=== PATIENT | female | born 1965 | race Caucasian/White ===

== ENCOUNTER 2017-01-08 14:15 | Inpatient (IN) | payer BC ==
[~2017-01-08] VITALS: Ht 162.6 cm; Wt 129.3 kg
[~2017-01-08 14:15] MED LIST: ALPH600C2 PO; B-COTAB18 PO; CLOB-77 TOP; COLL250O; DALB1SOL; FLUO0.05 TD; FRS/40 PO; IMMURAN PO; INSDGI SC; LISI40TA PO; MELO7.5T5 PO; METF-384 PO; METO1TAB69 PO; NRN600 PO; NVLGI SC; ONDA8TAB7 PO; SIMV20TA2 PO; SITA100T3 PO; SULF800T23 PO; [UNRECOGNIZED DRUG - CODE] PO
[2017-01-08] MEDS ORDERED: SODIUM CHLORIDE 0.9% 1000ML 1,000 ML IV SCH (15:15)
[2017-01-08] MEDS ORDERED: CEFD1CAP14 PO (15:42)
[2017-01-08] MEDS ORDERED: NVLG SC (15:42)
[2017-01-08] MEDS ORDERED: LDXCR30 TOP (15:42)
[2017-01-08] MEDS ORDERED: ONDA8TAB6 PO (15:42)
[2017-01-08] MEDS ORDERED: AZAT50TA30 PO (15:42)
[2017-01-08] MEDS ORDERED: INSDGI SC (15:42)
[2017-01-08] MEDS ORDERED: FOLI1TAB7 PO (15:45)
[2017-01-08] MEDS ORDERED: METH10TA32 PO (15:45)
[2017-01-08] MEDS ORDERED: [UNRECOGNIZED DRUG - CODE] TOP (15:45)
[2017-01-08 16:19] LABS: BASO % 0.1 %; BASO ABS # 0.01 K/uL (0-0.2); COMPLETE YES; EOS % 0.6 %; HEMATOCRIT 33.4 % (37-47); IG% 0.2 %; LYMPH % 13.2 %; LYMPH ABS # 1.31 K/uL (1.2-3.4); MEAN CELL VOLUME 88.4 fL (80-100); MEAN CORPUSCULAR HGB CONC 31.7 g/dl (32-36); MEAN PLATELET VOLUME 8.9 fL (7.4-10.4); MONO % 12.5 %; NEUT % 73.4 %; PLATELET COUNT 385 K/uL (130-400); RED BLOOD COUNT 3.78 M/uL (4.2-5.4); WHITE BLOOD COUNT 9.91 K/uL (4.8-10.8)
[2017-01-08 16:32] LABS: BUN/CREATININE RATIO 19.5 (10-20); CALCIUM 9.5 mg/dl (8.5-10.1); CREATININE 0.97 mg/dl (0.60-1.20); POTASSIUM 3.8 mmol/L (3.5-5.1)
--- NOTE | 2017-01-08 18:27 | History and Physical ---
History & Physical Date & Time of Service: Jan 08, 2017 at 18:27 . Chief Complaint: pain, swelling, worsening erythema legs . Primary Care Physician: Sandy Rodney D.O. . History of Present Illness Source: patient, clinic records, hospital records 51 YO female followed by Dr. Rodney for Family Medicine, Dr. Ac for Rheumatology, Dr. Uriarte for Wound Care, and Dr. Fischer for ID. 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 Underlying pathophysiology of vasculitis not determined; extensive rheumatologic evaluation did not reveal a specific diagnosis. Chronic ulcers of both lower extremities since then as well as more recent ulceration of lower abdomen. Treated with intermittent methotrexate (just restarted yesterday, azathioprine since February 2016, and just prescribed dapsone which she has not yet started. Has been on several courses of oral and IV antibiotics. Patient presented to ED today because of worsening erythema and swelling of her lower extremities, right greater than left. Drainage from ulcers posterior calf unchanged from baseline. No fever, chills, sweats. . Past Medical/Surgical History Chronic and Resolved Medical Problems: (1) Bicuspid aortic valve Status: Chronic (2) Chronic lower extremity wounds Status: Chronic (3) Cutaneous vasculitis Status: Chronic (4) Depression Status: Chronic (5) Diabetes mellitus type 2 in obese Status: Chronic (6) Epiretinal membrane, left eye Status: Chronic (7) HTN (hypertension) Status: Chronic (8) Psoriasis Status: Chronic Surgical Problems: (1) H/O eye surgery Permanent Comment: trabeculoplasty; Dr. Schwartz; [facility] 2012 Status: Chronic . Family History FATHER Lung cancer Heart disease MOTHER Hypertension BROTHER Heart disease Asthma Diabetes mellitus BROTHER Jerome's disease SISTER Diabetes mellitus Social History Smoking Status: Never Smoker Alcohol Use: none Drug Use: none Marital Status: Housing status: lives alone Occupational Status: employed Allergies Coded Allergies: No Known Allergies (Unverified , 12/24/16) Home Medications Scheduled Alpha-Lipoic Acid (Thioctic Ac (Alpha Lipoic Acid), 1 TAB PO BID Azathioprine (Azathioprine), 100 MG PO BID B-Complex Vitamins (Vitamin B Complex), 1 TAB PO DAILY Ciprofloxacin Hcl (Cipro), 500 MG PO BID Clobetasol Propionate (Temovate), 1 APPLN TOP QD Folic Acid (Folvite), 1 MG PO DAILY Furosemide (Lasix), 40 MG PO QD Gabapentin (Gabapentin), 600 MG PO TID Insulin Aspart (Novolog Flexpen), 0 SQ ACHS Insulin Glargine (Lantus), 75 UNITS SC BID Lisinopril (Zestril), 40 MG PO BID Meloxicam (Mobic), 7.5 MG PO DAILY Metformin Hcl (Glucophage), 1,000 MG PO BID Methotrexate (Trexall), 10 MG PO WK Metoprolol Succ (Toprol Xl) (Toprol-Xl ), 100 MG PO DAILY Simvastatin (Zocor), 20 MG PO HS Sitagliptin Phosphate (Januvia), 100 MG PO DAILY Review of Systems Constitutional: + weight loss (few pounds since starting furosemide), No chills , No fever Eyes: No diplopia, No worsening of vision ENT: No hearing loss, No nasal symptoms, No sore throat Respiratory: No cough, No shortness of breath Cardiovascular: + edema (chronic bilateral), No chest pain Abdomen: + diarrhea (chronic loose stools), No GI bleeding, No nausea, No pain , No vomiting Musculoskeletal: No joint pain, No muscle pain Genitourinary - Female: No dysuria, No hematuria Neurologic: + problem reported (occasional headaches; diabetic neuropathy) Endocrine: + excessive urination (attributed to diuretics), No excessive thirst , No fatigue Hematologic / Lymphatic: No abnormal bleeding/bruising, No swollen lymph nodes Integumentary: + problem reported (as noted in HPI) Physical Exam Vital Signs Date Time Temp Pulse Resp B/P Pulse Ox O2 Delivery O2 Flow Rate FiO2 01/08/17 16:23 79 18 153/65 94 Room Air 01/08/17 14:18 37.2 88 20 194/76 96 Room Air General Appearance: WD/WN, no apparent distress Head: normocephalic, atraumatic Eyes: normal inspection, PERRL, EOMI, sclerae normal ENT: normal ENT inspection, hearing grossly normal, pharynx normal Neck: supple, no adenopathy, thyroid normal, no JVD, trachea midline Respiratory/Chest: lungs clear, no respiratory distress, no accessory muscle use Cardiovascular: regular rate, rhythm, no gallop, no JVD, + systolic murmur (III / systolic murmur at base), + pertinent finding (3+ pretibial / pedal edema bilaterally) Abdomen/GI: normal bowel sounds, non tender, soft, + pertinent finding (obese; exam limited) Extremities/Musculoskelatal: + pertinent finding (3+ pretibial and pedal edema ; unable to palpate pedal pulses) Neurologic/Psych: vocal performer II-XII nml as tested (PERRL, EOMI, no facial palsy), alert, normal mood/affect, oriented x 3 Skin: + pertinent finding (multiple cutaneous ulcers both lower extremities below knees with associated erythema; ulcer lower abdomen with surrounding erythema) Lymphatic: no adenopathy (no cervical adenopathy) Diagnostics Laboratory Results Results Past 24 Hours Test 01/08/17 16:02 01/08/17 16:04 01/08/17 17:17 01/08/17 17:51 Range/Units White Blood Count 9.91 4.8-10.8 K/uL Red Blood Count 3.78 4.2-5.4 M/uL Hemoglobin 10.6 12.0-16.0 g/dL Hematocrit 33.4 37-47 % Mean Corpuscular Volume 88.4 80-100 fL Mean Corpuscular Hemoglobin 28.0 25-34 pg Mean Corpuscular Hemoglobin Concent 31.7 32-36 g/dl Platelet Count 385 130-400 K/uL Mean Platelet Volume 8.9 7.4-10.4 fL Neutrophils (%) (Auto) 73.4 % Lymphocytes (%) (Auto) 13.2 % Monocytes (%) (Auto) 12.5 % Eosinophils (%) (Auto) 0.6 % Basophils (%) (Auto) 0.1 % Neutrophils # (Auto) 7.27 1.4-6.5 K/uL Lymphocytes # (Auto) 1.31 1.2-3.4 K/uL Monocytes # (Auto) 1.24 0.11-0.59 K/uL Eosinophils # (Auto) 0.06 0-0.5 K/uL Basophils # (Auto) 0.01 0-0.2 K/uL RDW Standard Deviation 57.0 36.4-46.3 fL RDW Coefficient of Variation 17.5 11.5-14.5 % Immature Granulocyte % (Auto) 0.2 % Immature Granulocyte # (Auto) 0.02 0.00-0.02 K/uL Sodium Level 141 136-145 mmol/L Potassium Level 3.8 3.5-5.1 mmol/L Chloride Level 102 98-107 mmol/L Carbon Dioxide Level 27 21-32 mmol/L Anion Gap 12.0 3-11 mmol/L Blood Urea Nitrogen 19 7-18 mg/dl Creatinine 0.97 0.60-1.20 mg/dl Est Creatinine Clear Calc Drug Dose 92.7 ml/min Estimated GFR () 78.9 Estimated GFR (Non- 68.1 BUN/Creatinine Ratio 19.5 10-20 Random Glucose 61 70-99 mg/dl Calcium Level 9.5 8.5-10.1 mg/dl Chemistry Specimen Hemolysis Bedside Lactic Acid Venous 2.39 0.90-1.70 mmol/L Bedside Glucose 65 101 70-90 mg/dl Microbiology Results 01/08/17 Blood Culture, Received Pending 01/08/17 Blood Culture, Received Pending Impression Assessment and Plan CELLULITIS LOWER EXTREMITIES 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 Now with worsening discomfort, swelling, erythema. Afebrile. WBC normal. Does not meet criteria for sepsis. Blood cultures obtained in ED. Check wound cultures. Check ESR, C-reactive protein, procalcitonin. Rx with IV daptomycin and cefepime pending culture results. Consult ID, Wound Care, Wound Care Nursing. CUTANEOUS VASCULITIC ULCERS Prudent to hold immunosuppressive meds due to active cellulitis. DM TYPE II Usually fairly well-controlled. Check Hgb A1C. Hold oral agents during hospital stay. Continue Lantus + NovoLog. HYPERTENSION Continue metoprolol and lisinopril. VTE PROPHYLAXIS Moderate-high risk. SQ enoxaparin. Ambulate. DISPOSITION Admit to Med-Surg Unit. Expected discharge to home. Family Medicine follow-up with Dr. Rodney. Rheumatology follow-up with Dr. Ac. ID follow-up with Dr. Fischer. Wound Care follow-up with Dr. Uriarte. . VTE Prophylaxis Risk Level: Moderate Given or contraindicated: Enoxaparin (Lovenox)SQ
[2017-01-08] MEDS ORDERED: ONDANSETRON INJ 2 MG/ML 2 ML VIAL IV PRN (18:30)
[2017-01-08] MEDS ORDERED: CIPR-255 PO (20:53)
[2017-01-08] MEDS ORDERED: INSULIN GLARGINE SC ONE (20:54)
[2017-01-08] MEDS ORDERED: GABAPENTIN 600 MG TAB PO ONE (20:54)
[2017-01-08] MEDS ORDERED: LISINOPRIL 40 MG TAB PO ONE (20:54)
[2017-01-08] MEDS ORDERED: NVLG INJ (21:02)
[2017-01-08] MEDS ORDERED: NVLG SQ (21:05)
[2017-01-08] MEDS ORDERED: NVLGI/PEN SQ (21:10)
[2017-01-08] MEDS ORDERED: DEXTROSE 50% 50 ML SYR IV PRN (21:15)
[2017-01-08] MEDS ORDERED: GLUCOSE 40% GEL 15 GM TUBE PO PRN (21:15)
[2017-01-08] MEDS ORDERED: GLUCOSE 10 TABS/TUBE PO PRN (21:15)
[2017-01-08] MEDS ORDERED: GLUCAGON FOR INJ 1 MG VIAL SQ PRN (21:15)
[2017-01-08 21:17] VITALS: BP 179/90; PULSE 83; TEMP 36.6; O2SAT 95; BMI 49.0
[2017-01-08 21:25] LABS: INR 1.1 (0.9-1.1); PARTIAL THROMBOPLASTIN RATIO 1.3; PROTHROMBIN TIME (PATIENT) 11.3 SECONDS (9.0-12.0)
[2017-01-08] MEDS: DAPTOmycin IV 500 MG in SODIUM CHLORIDE 0.9% 50ML 50 ML IV SCH (21:58)
[2017-01-08] MEDS: IBUPROFEN 200 MG TAB PO PRN (23:04)
[2017-01-08] MEDS ORDERED: ENALAPRILAT IV 1.25 MG in DEXTROSE 5% 25ML 25 ML IV PRN (23:30)
[2017-01-08 23:31] VITALS: BP 111/75; PULSE 87; TEMP 36.4; O2SAT 93
[2017-01-08] MEDS ORDERED: ENALAPRILAT IV 1.25 MG in DEXTROSE 5% 25ML 25 ML IV STA (23:41)
[2017-01-08 23:55] VITALS: BP 173/78
[2017-01-09] MEDS: CEFEPIME IV 2,000 MG in DEXTROSE 5% 100ML 100 ML IV SCH ×3 (00:19→20:28)
--- NOTE | 2017-01-09 00:27 | EMERGENCY ROOM VISIT NOTE ---
ED Visit Note First contact with patient: 15:02 Chief Complaint: Wound infection. History of Present Illness: Ms. Major is a 51-year-old white female who ambulates into the ED complaining of a possible worsening infection. Historically patient reports she has a history of diabetes and bilateral lower leg and abdominal wall venous stasis ulcers that have been treated at the local clinic for 3 years. Her last visit was 3 days ago and it was felt that her bilateral lower extremity ulcers were slightly deteriorating as well as her abdominal wall ulceration. Lastly she does note that her infectious disease physician, Dr. Fischer, outlined erythema and told her to come to the hospital if the erythema extended out of the outline. Patient reports today she noted that the erythema on both legs were slightly worsening and advanced outside the outline of demarcation. She also noted that she had a mild increase in pain; she reports her pain is normally 1/10 and today it is intermittently 3/10. She reports most of her discomfort is relieved at rest. She did take her normal medications for pain as well as ibuprofen today which minimally helped the discomfort. She denies any associated symptoms including fevers, chills, sweats, headaches, dizziness, lightheadedness, other skin eruptions, upper respiratory tract symptoms, cough, shortness of breath, chest discomfort, abdominal pain, decreased appetite, nausea, vomiting, diarrhea, leg weakness. Review of Systems: As noted above in history of present illness. All body systems were reviewed and found to be negative as noted above. Past Medical History: As previously noted and (1) Bicuspid aortic valve (2) Chronic lower extremity wounds (3) Cutaneous vasculitis (4) Depression (5) Diabetes mellitus type 2 in obese (6) Epiretinal membrane, left eye (7) HTN (hypertension) (8) Psoriasis Surgical Problems: (1) H/O eye surgery Current Medications: Medications Dose Route/Sig Max Daily Dose Days Date Category Dose Instructions Novolog Flexpen (Insulin Aspart) 100 Units/Ml Inj 0 SQ ACHS 01/08/17 Reported per sliding scale Cipro (Ciprofloxacin Hcl) 500 Mg Tab 500 Mg PO BID 01/08/17 Reported Folvite (Folic Acid) 1 Mg Tab 1 Mg PO DAILY 01/08/17 Reported Trexall (Methotrexate) 10 Mg Tab 10 Mg PO WK 01/08/17 Reported Lantus (Insulin Glargine) 100 Unit/Ml Inj 75 Units SC BID 01/08/17 Reported Azathioprine 50 Mg Tab 100 Mg PO BID 01/08/17 Reported Temovate (Clobetasol Propionate) 0.05 % Cre 1 Appln TOP QD 90 10/07/16 Reported Lasix (Furosemide) 40 Mg Tab 40 Mg PO QD 10/07/16 Reported PLUS ADDITIONAL ONE TABLET 3 DAYS PER WEEK. Januvia (Sitagliptin Phosphate) 100 Mg Tab 100 Mg PO DAILY 03/15/16 Reported Zocor (Simvastatin) 20 Mg Tab 20 Mg PO HS 03/15/16 Reported Toprol-Xl (Metoprolol Succinate) 100 Mg Tabcr 100 Mg PO DAILY 03/15/16 Reported Zestril (Lisinopril) 40 Mg Tab 40 Mg PO BID 03/15/16 Reported Gabapentin 600 Mg Tab 600 Mg PO TID 01/06/15 Reported Vitamin B Complex (B-Complex Vitamins) 1 Tab Tab 1 Tab PO DAILY 01/06/15 Reported Alpha Lipoic Acid (Alpha-Lipoic Acid (Thioctic Ac) 600 Mg Cap 1 Tab PO BID 12/03/14 Reported Mobic (Meloxicam) 7.5 Mg Tab 7.5 Mg PO DAILY 12/03/14 Reported Glucophage (Metformin Hcl) 1,000 Mg Tab 1,000 Mg PO BID 05/14/13 Reported Allergies to Medications: Patient denies. Social History: Patient is currently employed; she feels safe in her home environment; she denies tobacco and alcohol use. Physical Examination: Vital Signs: Date Time Temp Pulse Resp B/P Pulse Ox O2 Delivery O2 Flow Rate FiO2 01/08/17 16:23 79 18 153/65 94 Room Air 01/08/17 14:18 37.2 88 20 194/76 96 Room Air GENERAL: 51-year-old female in mild distress due to pain, nontoxic-appearing, afebrile and hemodynamically stable. NEUROLOGICAL: Awake, alert and oriented to person, place and time. Answering questions appropriately and following commands. Good hand eye coordination. No focal motor sensory deficits. SKIN: Warm, dry and pink. Lower Legs: Are currently bandaged and there is apparent seepage from her wounds; she did request that I do not remove her bandages because of the pain to remove them and the difficulty to re-bandaged them. I did know there was mild erythema above the line of the more occasion from the wound clear clinic but the skin did not appear cellulitic and it was only slightly warmer than the tissue surrounding the area. HEENT: Atraumatic and normocephalic. PERRLA. Sclera white and conjunctiva pink. No drainage from naris. Oral cavity moist and pink. Pharynx is nonerythematous or edematous. Speech normal. No lymphadenopathy. Trachea midline. No jugular venous distention. BACK: No tenderness over the bony spine. No CVA tenderness. THORAX: Lungs sounds are clear to auscultation and equal bilaterally with symmetrical chest wall. No wheezing, rales or rhonchi. No crepitus, tenderness , subcutaneous air or deformities noted. HEART: Regular rate and rhythm. Systolic murmur heard over the base of the heart. ABDOMEN: Obese, soft and nontender. Positive bowel sounds in all quadrants. No guarding, rigidity or organomegaly. EXTREMITIES: Moves all extremities well on command and with purpose. All distal neurovascular statuses are intact and equal bilaterally. As previously noted bandages was not removed due to patient's request. ED Course: Patient is assessed as noted above. Laboratory Testing: Test 01/08/17 16:02 01/08/17 16:04 01/08/17 17:17 01/08/17 17:51 Range/Units White Blood Count 9.91 4.8-10.8 K/uL Red Blood Count 3.78 4.2-5.4 M/uL Hemoglobin 10.6 12.0-16.0 g/dL Hematocrit 33.4 37-47 % Mean Corpuscular Volume 88.4 80-100 fL Mean Corpuscular Hemoglobin 28.0 25-34 pg Mean Corpuscular Hemoglobin Concent 31.7 32-36 g/dl Platelet Count 385 130-400 K/uL Mean Platelet Volume 8.9 7.4-10.4 fL Neutrophils (%) (Auto) 73.4 % Lymphocytes (%) (Auto) 13.2 % Monocytes (%) (Auto) 12.5 % Eosinophils (%) (Auto) 0.6 % Basophils (%) (Auto) 0.1 % Neutrophils # (Auto) 7.27 1.4-6.5 K/uL Lymphocytes # (Auto) 1.31 1.2-3.4 K/uL Monocytes # (Auto) 1.24 0.11-0.59 K/uL Eosinophils # (Auto) 0.06 0-0.5 K/uL Basophils # (Auto) 0.01 0-0.2 K/uL RDW Standard Deviation 57.0 36.4-46.3 fL RDW Coefficient of Variation 17.5 11.5-14.5 % Immature Granulocyte % (Auto) 0.2 % Immature Granulocyte # (Auto) 0.02 0.00-0.02 K/uL Sodium Level 141 136-145 mmol/L Potassium Level 3.8 3.5-5.1 mmol/L Chloride Level 102 98-107 mmol/L Carbon Dioxide Level 27 21-32 mmol/L Anion Gap 12.0 3-11 mmol/L Blood Urea Nitrogen 19 7-18 mg/dl Creatinine 0.97 0.60-1.20 mg/dl Est Creatinine Clear Calc Drug Dose 92.7 ml/min Estimated GFR () 78.9 Estimated GFR (Non- 68.1 BUN/Creatinine Ratio 19.5 10-20 Random Glucose 61 70-99 mg/dl Calcium Level 9.5 8.5-10.1 mg/dl Chemistry Specimen Hemolysis Bedside Lactic Acid Venous 2.39 0.90-1.70 mmol/L Bedside Glucose 65 101 70-90 mg/dl Blood Culture: Pending Patient was hydrated with normal saline; she was offered pain medication and refused. During her stay in the emergency department patient's blood sugar decreased to 65 and she was given juice and crackers which quickly rebounded her sugar to 101. Patient was reassessed multiple times during her stay in the emergency department. Patient's case was reviewed with Dr. Saini; we agreed on diagnostic approach , treatment, disposition and plan. Patient's case was consulted with case management and Dr. Hagen, [facility] hospitalist, for medical observation/admission. Patient was educated about tonight's findings. Clinical Impression: Worsening bilateral leg infections; failure of outpatient therapy. Disposition and Plan: Patient be brought in the hospital by Dr. Hagen; please see his notes and orders for final disposition and plan.
[2017-01-09] MEDS ORDERED: MoRPHine SULFATE 2 MG/ML CARP IV PRN (00:30)
[2017-01-09 05:30] VITALS: BP 144/76
[2017-01-09 06:04] LABS: HEMATOCRIT 29.6 % (37-47); MEAN CORPUSCULAR HEMOGLOBIN 27.6 pg (25-34); MEAN CORPUSCULAR HGB CONC 32.1 g/dl (32-36); MEAN PLATELET VOLUME 8.4 fL (7.4-10.4); PLATELET COUNT 344 K/uL (130-400); RED BLOOD COUNT 3.44 M/uL (4.2-5.4); WHITE BLOOD COUNT 8.53 K/uL (4.8-10.8)
[2017-01-09 06:53] LABS: BUN/CREATININE RATIO 20.1 (10-20); CALCIUM 8.9 mg/dl (8.5-10.1); CREATININE 0.79 mg/dl (0.60-1.20); POTASSIUM 4.1 mmol/L (3.5-5.1)
[2017-01-09 06:59] VITALS: BP 146/83; PULSE 76; TEMP 36.5; O2SAT 96
[2017-01-09] MEDS: GABAPENTIN 600 MG TAB PO SCH ×3 (07:48→20:37)
[2017-01-09] MEDS: MELOXICAM 7.5 MG TAB PO SCH (07:49)
[2017-01-09] MEDS: METOPROLOL SUCC 50MG EXT REL TAB PO SCH (07:49)
[2017-01-09] MEDS: VITAMIN B COMPLEX TAB PO SCH (07:50)
[2017-01-09] MEDS ORDERED: LISINOPRIL 40 MG TAB PO SCH (08:00)
[2017-01-09] MEDS ORDERED: ALPHA LIPOIC ACID PO SCH (08:00)
[2017-01-09 08:30] VITALS: O2SAT 96
[2017-01-09] MEDS: INSULIN ASPART 100 UNITS/ML 3 ML PEN SQ SCH ×4 (08:38→20:40)
[2017-01-09] MEDS: INSULIN GLARGINE SC SCH ×2 (08:41→20:42)
[2017-01-09] MEDS: IBUPROFEN 200 MG TAB PO PRN ×2 (08:42→20:38)
[2017-01-09] MEDS: ENOXAPARIN 40 MG/0.4 ML SYR SQ SCH (10:28)
--- NOTE | 2017-01-09 12:20 | Progress Note ---
Progress Note ID Consult Dictated #[id number] A/P: 1. LE wounds -Continue emperic abx for now, follow cultures -continue local wound care -will follow, thank you
[2017-01-09] MEDS ORDERED: NURSING VERBAL MED ORDER ONE (12:40)
[2017-01-09 14:48] VITALS: BP 174/76; PULSE 77; TEMP 36.5; O2SAT 95
--- NOTE | 2017-01-09 16:08 | INFECT. DISEASE CONSULTATION ---
DATE OF CONSULTATION: 01/09/2017 REQUESTING PHYSICIAN: Yesenia Yanez MD HISTORY OF PRESENT ILLNESS: This is a 51-year-old female who was admitted on the secondary to worsening lower extremity ulcers. She does have a history of cutaneous vasculitis which was diagnosed in 2012. She continues to have lower extremity wounds. She does follow regularly at the wound care center. She states she was last there on . She had worsening redness and swelling of her bilateral lower extremities at home. She was subsequently admitted to the hospital and started on empiric antibiotics consisting of vancomycin and daptomycin. She is currently on daptomycin and cefepime. Infectious diseases was asked to see this patient for daptomycin use. She was afebrile on admission and remains afebrile. Her white blood cell count is 7.2. Wound cultures and blood cultures were ordered and are pending. She did have an ultrasound done. Blood cultures are pending at this time. She does not have any imaging done of the lower extremity since admission to the hospital. She did have a sed rate which is greater than 90. Her electrolytes and creatinine are within normal limits. She currently is complaining of back pain which is chronic in nature. She does take Advil with relief for this. She also is complaining of hip pain on the right side. This is also chronic in nature. She denies any fevers or chills. She is tolerating antibiotics well. She denies nausea, vomiting, diarrhea or abdominal pain. Her dressings were changed last night in the Emergency Room. She states she prefers to change her dressings on her own. She would like to wait until she can coordinate with the hospitalist service as well as the wound care service for dressing changes. She currently denies any pain in the lower extremities. All remaining review of systems are reviewed and are negative. PAST MEDICAL HISTORY: Significant for bicuspid aortic valve, lower extremity wounds, cutaneous vasculitis, depression, type 2 diabetes, retinal membrane on the left side, hypertension, and psoriasis. PAST SURGICAL HISTORY: Significant for eye surgery. FAMILY HISTORY: Noncontributory. SOCIAL HISTORY: Negative for tobacco use, alcohol use or drug use. She is and lives alone. ALLERGIES: She has no known drug allergies. CURRENT MEDICATIONS: Include Lasix, Zestril, Lovenox, folic acid, gabapentin, Lantus, Mobic, Toprol-XL, vitamin D, insulin, morphine, enalapril, Advil, cefepime, daptomycin, and Zofran. PHYSICAL EXAMINATION: VITAL SIGNS: She is afebrile, pulse 76, respiratory rate 18, blood pressure 146/83, and oxygen saturation is 96% on room air. GENERAL: She is awake, alert and oriented x3. She is in no acute distress. HEENT: Mucous membranes are moist. HEART: Regular. LUNGS: Clear. ABDOMEN: Soft, nontender, nondistended. There is a superficial wound on the anterior abdominal wall. There is no surrounding erythema, induration or tenderness. The dressing is clean, dry, and intact. EXTREMITIES: Lower extremity dressings are intact. There is some minimal dried drainage on the right posterior calf. Otherwise, her dressings are clean, dry and intact. Dressings were somewhat pulled down and there is some erythema and warmth but no tenderness and no active drainage. She is awaiting wound care supplies to undergo dressing change. LABORATORY STUDIES: CBC today reveals a white blood cell count of 8.5, hemoglobin 9.5, hematocrit 29.6 and platelets 344. Sed rate is greater than 90. Chemistry panel reveals sodium of 140, potassium 4.1, chloride 104, bicarbonate 27, BUN 16, creatinine 0.7, glucose is 123. Blood cultures are pending. There is no imaging to review. ASSESSMENT AND PLAN: Lower extremity wounds bilaterally. She will continue on broad spectrum antibiotics pending the results of her blood culture. If there is any active drainage at the time of dressing change, a wound culture can be obtained as well. We will follow along with you. Thank you for this consultation. ANDREI
[2017-01-09] MEDS ORDERED: FUROSEMIDE 40 MG TAB PO ONE (18:15)
--- NOTE | 2017-01-09 18:24 | Progress Note ---
Medicine Progress Note Date & Time of Visit: Jan 09, 2017 at 18:19. Subjective Patient seen and examined. She feels that some of the redness of the right leg has improved today. Objective Last 8 Hrs Date Time Temp Pulse Resp B/P Pulse Ox O2 Delivery O2 Flow Rate FiO2 01/09/17 16:00 Room Air 01/09/17 14:48 36.5 77 20 174/76 95 Room Air Physical Exam: General-awake; alert; NAD Eyes-EOMI; no scleral icterus Neck-no stridor; trachea midline Lungs-CTA bilaterally; no wheezes/crackles Heart-RRR; no m/r/g Abdomen-soft; NT; nBS; pannus wound without surrounding erythema, no odor, no drainage Extremities-multiple wounds to bilateral lower legs with pink discoloration of skin but not rupali erythema noted Neuro-no gross focal deficits Laboratory Results: Last 24 Hours Test 01/08/17 20:48 01/08/17 21:40 01/09/17 05:43 01/09/17 07:33 Erythrocyte Sedimentation Rate > 90 mm/hr Prothrombin Time 11.3 SECONDS Prothromb Time International Ratio 1.1 Activated Partial Thromboplast Time 34.7 SECONDS Partial Thromboplastin Ratio 1.3 Lactic Acid Level 1.5 mmol/L C-Reactive Protein 6.86 mg/dl Procalcitonin 0.14 ng/mL Bedside Glucose 148 mg/dl 134 mg/dl White Blood Count 8.53 K/uL Red Blood Count 3.44 M/uL Hemoglobin 9.5 g/dL Hematocrit 29.6 % Mean Corpuscular Volume 86.0 fL Mean Corpuscular Hemoglobin 27.6 pg Mean Corpuscular Hemoglobin Concent 32.1 g/dl RDW Standard Deviation 55.3 fL RDW Coefficient of Variation 17.6 % Platelet Count 344 K/uL Mean Platelet Volume 8.4 fL Sodium Level 140 mmol/L Potassium Level 4.1 mmol/L Chloride Level 104 mmol/L Carbon Dioxide Level 27 mmol/L Anion Gap 9.0 mmol/L Blood Urea Nitrogen 16 mg/dl Creatinine 0.79 mg/dl Est Creatinine Clear Calc Drug Dose 113.7 ml/min Estimated GFR () 101.2 Estimated GFR (Non- 87.3 BUN/Creatinine Ratio 20.1 Random Glucose 123 mg/dl Calcium Level 8.9 mg/dl Test 01/09/17 11:22 01/09/17 16:37 Bedside Glucose 241 mg/dl 145 mg/dl Date/Time Source Procedure Growth Status 01/09/17 00:00 Stool C.difficile Toxin B Gene (PCR) - Final No C. 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 Afebrile. WBC normal. Blood cultures pending. Wound culture uncollected. Elevated ESR, C-reactive protein. Normal procalcitonin. Continue IV daptomycin and cefepime pending culture results. Consulted ID, Wound Care, Wound Care Nursing. CUTANEOUS VASCULITIC ULCERS Prudent to hold immunosuppressive meds due to active cellulitis. DM TYPE II Usually fairly well-controlled. Hgb A1C pending. Hold oral agents during hospital stay. Continue Lantus + NovoLog per patient's protocol. HYPERTENSION Continue metoprolol, lisinopril and furosemide. VTE PROPHYLAXIS Moderate-high risk. SQ enoxaparin. Ambulate. DISPOSITION Expected discharge to home. Family Medicine follow-up with Dr. Rodney. Rheumatology follow-up with Dr. Ac. ID follow-up with Dr. Fsicher. Wound Care follow-up with Dr. Uriarte. Consultants: Infectious disease Wound care Current Inpatient Medications: Current Inpatient Medications Medications (Trade) Dose Ordered Sig/[place] Route Start Time Stop Time Status Last Admin Dose Admin Enoxaparin Sodium (Lovenox Inj) 40 mg QAM SQ 01/09/17 08:00 02/08/17 08:59 01/09/17 10:28 40 MG Ondansetron HCl (Zofran Inj) 4 mg Q6H PRN IV 01/08/17 18:30 02/07/17 18:29 Folic Acid (Folvite Tab) 1 mg DAILY PO 01/09/17 08:00 02/08/17 07:59 01/09/17 07:49 1 MG Gabapentin (Neurontin Tab) 600 mg TID PO 01/09/17 08:00 02/08/17 07:59 01/09/17 14:20 600 MG Insulin Glargine (Lantus Vial) 75 unit BID SC 01/09/17 08:00 02/08/17 07:59 01/09/17 08:41 75 UNIT Meloxicam (Mobic Tab) 7.5 mg DAILY PO 01/09/17 08:00 02/08/17 07:59 01/09/17 07:49 7.5 MG Metoprolol Succinate (Toprol Xl Tab) 100 mg DAILY PO 01/09/17 08:00 02/08/17 07:59 01/09/17 07:49 100 MG Vitamin B Complex (Vitamin B Complex) 1 tab DAILY PO 01/09/17 08:00 02/08/17 07:59 01/09/17 07:50 1 TAB Glucose (Glucose 40% Gel) 15-30 GRAMS 15 GRAMS... UD PRN PO 01/08/17 21:15 02/07/17 21:14 Glucose (Glucose Chew Tab) 4-8 Tablets 4 Tabl... UD PRN PO 01/08/17 21:15 02/07/17 21:14 Dextrose (Dextrose 50% 50ML Syringe) 25-50ML OF 50% DW IV FOR... UD PRN IV 01/08/17 21:15 02/07/17 21:14 Glucagon (Glucagon Inj) 1 mg UD PRN SQ 01/08/17 21:15 02/07/17 21:14 Insulin Aspart sliding scale ACHS SQ 01/09/17 06:30 02/08/17 06:29 01/09/17 17:37 8 UNITS Daptomycin 500 mg/ Sodium Chloride 60 ml @ 100 mls/hr Q24H IV 01/08/17 21:30 01/18/17 21:29 01/08/17 21:58 100 MLS/HR Cefepime HCl/ Dextrose (Maxipime IV/D5 100ml) 112.5 ml @ 200 mls/hr Q12H IV 01/08/17 22:00 01/18/17 21:14 01/09/17 10:28 200 MLS/HR Ibuprofen 400 mg 400 mg TID PRN PO 01/08/17 22:30 02/07/17 22:29 01/09/17 08:42 400 MG Enalaprilat/ Dextrose (Vasotec IV/D5 25ml) 26 ml @ 100 mls/hr Q6 PRN IV 01/08/17 23:30 02/07/17 23:29 Morphine Sulfate (MoRPHine SULFATE INJ) 1 mg Q4 PRN IV 01/09/17 00:30 01/23/17 00:29 Lisinopril (Zestril Tab) 40 mg DAILY PO 01/10/17 08:00 02/09/17 07:59 Clobetasol Propionate (Clobetasol Propionate Cream 0.05%) 1 appln DAILY EXT 01/10/17 08:00 02/09/17 07:59 Furosemide (Lasix Tab) 40 mg DAILY PO 01/10/17 08:00 02/09/17 07:59 Furosemide (Lasix Tab) 40 mg MoWeFr@0800 PO 01/10/17 08:00 02/09/17 07:59
[2017-01-09] MEDS: DAPTOmycin IV 500 MG in SODIUM CHLORIDE 0.9% 50ML 50 ML IV SCH (21:18)
[2017-01-09 22:55] VITALS: BP 136/75; PULSE 83; TEMP 36.5; O2SAT 94
[2017-01-10] MEDS: GABAPENTIN 600 MG TAB PO SCH ×3 (05:42→19:44)
[2017-01-10] MEDS: IBUPROFEN 200 MG TAB PO PRN ×2 (05:43→19:44)
[2017-01-10 06:27] LABS: HEMATOCRIT 33.4 % (37-47); MEAN CELL VOLUME 84.6 fL (80-100); MEAN CORPUSCULAR HEMOGLOBIN 27.6 pg (25-34); MEAN CORPUSCULAR HGB CONC 32.6 g/dl (32-36); MEAN PLATELET VOLUME 8.6 fL (7.4-10.4); PLATELET COUNT 366 K/uL (130-400); RED BLOOD COUNT 3.95 M/uL (4.2-5.4); WHITE BLOOD COUNT 7.82 K/uL (4.8-10.8)
[2017-01-10 06:31] LABS: ESTIMATED AVERAGE GLUCOSE 186 mg/dl; HA1C FLAG Normal (Normal)
[2017-01-10 06:52] LABS: BUN/CREATININE RATIO 18.4 (10-20); CALCIUM 9.5 mg/dl (8.5-10.1); CREATININE 0.75 mg/dl (0.60-1.20); POTASSIUM 4.1 mmol/L (3.5-5.1)
[2017-01-10 07:25] VITALS: BP 166/75; PULSE 78; TEMP 36.7; O2SAT 98
[2017-01-10] MEDS: FUROSEMIDE 40 MG TAB PO SCH ×2 (07:41→07:46)
[2017-01-10] MEDS: LISINOPRIL 40 MG TAB PO SCH (07:42)
[2017-01-10] MEDS: MELOXICAM 7.5 MG TAB PO SCH (07:42)
[2017-01-10] MEDS: METOPROLOL SUCC 50MG EXT REL TAB PO SCH (07:42)
[2017-01-10] MEDS: VITAMIN B COMPLEX TAB PO SCH (07:42)
[2017-01-10] MEDS: ENOXAPARIN 40 MG/0.4 ML SYR SQ SCH (07:43)
[2017-01-10 07:51] VITALS: O2SAT 96
[2017-01-10] MEDS: INSULIN ASPART 100 UNITS/ML 3 ML PEN SQ SCH ×4 (08:45→21:28)
[2017-01-10] MEDS: INSULIN GLARGINE SC SCH ×2 (08:46→21:28)
[2017-01-10] MEDS ORDERED: FUROSEMIDE 40 MG TAB PO SCH (09:00)
[2017-01-10] MEDS: CEFEPIME IV 2,000 MG in DEXTROSE 5% 100ML 100 ML IV SCH ×2 (10:25→22:24)
[2017-01-10 12:06] VITALS: Ht 162.6 cm; Wt 129.3 kg
--- NOTE | 2017-01-10 15:00 | Progress Note ---
Subjective Date of Service: Jan 10, 2017. Subjective pt admitted with ? cellulitis vs worsening vasculitis. started on IV abx over weekend - cefepime and dapto, tolerating abx. afebrile. blood culture negative. c diff negative. was to start methotrexate but was admitted. was previously on bactrim and cipro. follows at wound center, wound care eval pending. wbc nml. Problem List Medical Problems: (1) Bilateral pneumonia Status: Acute (2) Hypoxia Status: Acute Objective Vital Signs Date Time Temp Pulse Resp B/P Pulse Ox O2 Delivery O2 Flow Rate FiO2 01/10/17 07:51 96 Room Air 01/10/17 07:25 36.7 78 18 166/75 98 Room Air 01/10/17 00:01 Room Air 01/09/17 22:55 36.5 83 18 136/75 94 Room Air 01/09/17 20:00 Room Air 01/09/17 16:00 Room Air Laboratory Results Item Value Date Time Blood Culture - Preliminary Resulted 01/08/17 1550 Blood NO GROWTH TO DATE. Blood Culture - Preliminary Resulted 01/08/17 1602 Blood NO GROWTH TO DATE. C.difficile Toxin B Gene (PCR) - Final Complete 01/09/17 0000 Stool No C. difficile toxin B gene detected Last 24 Hours Test 01/09/17 16:37 01/09/17 19:55 01/10/17 05:40 01/10/17 07:45 Bedside Glucose 145 mg/dl 172 mg/dl 169 mg/dl White Blood Count 7.82 K/uL Red Blood Count 3.95 M/uL Hemoglobin 10.9 g/dL Hematocrit 33.4 % Mean Corpuscular Volume 84.6 fL Mean Corpuscular Hemoglobin 27.6 pg Mean Corpuscular Hemoglobin Concent 32.6 g/dl RDW Standard Deviation 54.9 fL RDW Coefficient of Variation 17.7 % Platelet Count 366 K/uL Mean Platelet Volume 8.6 fL Sodium Level 140 mmol/L Potassium Level 4.1 mmol/L Chloride Level 102 mmol/L Carbon Dioxide Level 27 mmol/L Anion Gap 11.0 mmol/L Blood Urea Nitrogen 14 mg/dl Creatinine 0.75 mg/dl Est Creatinine Clear Calc Drug Dose 119.8 ml/min Estimated GFR () 107.7 Estimated GFR (Non- 92.9 BUN/Creatinine Ratio 18.4 Random Glucose 157 mg/dl Calcium Level 9.5 mg/dl Test 01/10/17 11:42 Bedside Glucose 164 mg/dl Assessment and Plan (1) Chronic lower extremity wounds Status: Chronic Assessment & Plan: ? infection vs vasculitis. can continue IV abx for now. local wound care and planned follow up in wound center post d/c. If cultures negative, can change back to po abx at d/c. (2) Cutaneous vasculitis Status: Chronic
[2017-01-10 15:27] VITALS: BP 164/89; PULSE 82; TEMP 36.8; O2SAT 95
[2017-01-10] MEDS: CLOBETASOL PROPIONATE EXT SCH (15:30)
[2017-01-10 15:32] VITALS: O2SAT 95
--- NOTE | 2017-01-10 17:16 | Progress Note ---
Medicine Progress Note Date & Time of Visit: Jan 10, 2017 at 17:13. Subjective Patient seen and examined. Observed dressing change. Patient feels that erythema of lower legs has improved today. Objective Last 8 Hrs Date Time Temp Pulse Resp B/P Pulse Ox O2 Delivery O2 Flow Rate FiO2 01/10/17 15:32 95 Room Air 01/10/17 15:27 36.8 82 18 164/89 95 Room Air Physical Exam: General-awake; alert; NAD Eyes-EOMI; no scleral icterus Neck-no stridor; trachea midline Lungs-CTA bilaterally; no wheezes/crackles Heart-RRR; no m/r/g Abdomen-soft; NT; nBS; pannus wound without surrounding erythema, no odor, no drainage Extremities-multiple wounds to bilateral lower legs with pink discoloration of skin but no rupali erythema noted (R>L) Neuro-no gross focal deficits Laboratory Results: Last 24 Hours Test 01/09/17 19:55 01/10/17 05:40 01/10/17 07:45 01/10/17 11:42 Bedside Glucose 172 mg/dl 169 mg/dl 164 mg/dl White Blood Count 7.82 K/uL Red Blood Count 3.95 M/uL Hemoglobin 10.9 g/dL Hematocrit 33.4 % Mean Corpuscular Volume 84.6 fL Mean Corpuscular Hemoglobin 27.6 pg Mean Corpuscular Hemoglobin Concent 32.6 g/dl RDW Standard Deviation 54.9 fL RDW Coefficient of Variation 17.7 % Platelet Count 366 K/uL Mean Platelet Volume 8.6 fL Sodium Level 140 mmol/L Potassium Level 4.1 mmol/L Chloride Level 102 mmol/L Carbon Dioxide Level 27 mmol/L Anion Gap 11.0 mmol/L Blood Urea Nitrogen 14 mg/dl Creatinine 0.75 mg/dl Est Creatinine Clear Calc Drug Dose 119.8 ml/min Estimated GFR () 107.7 Estimated GFR (Non- 92.9 BUN/Creatinine Ratio 18.4 Random Glucose 157 mg/dl Calcium Level 9.5 mg/dl Test 01/10/17 16:28 Bedside Glucose 113 mg/dl Date/Time Source Procedure Growth Status 01/10/17 14:50 Drainage - Surface Leg Right Lower Gram Stain Pending Received 01/10/17 14:50 Drainage - Surface Leg Right Lower Wound Culture Pending Received Assessment & Plan CELLULITIS LOWER EXTREMITIES 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 Afebrile. WBC normal. Blood cultures ngtd. Wound culture pending. Elevated ESR, C-reactive protein. Normal procalcitonin. Continue IV daptomycin and cefepime pending culture results. Consulted ID, Wound Care, Wound Care Nursing. Per ID, plan to resume previous PO antibiotic regimen pending negative cultures. CUTANEOUS VASCULITIC ULCERS Prudent to hold immunosuppressive meds due to cellulitis. DM TYPE II Usually fairly well-controlled. Hgb A1C 8.1. Hold oral agents during hospital stay. Continue Lantus + NovoLog per patient's protocol. HYPERTENSION Continue metoprolol, lisinopril and furosemide. VTE PROPHYLAXIS Moderate-high risk. SQ enoxaparin. Ambulate. DISPOSITION Expected discharge to home. Family Medicine follow-up with Dr. Rodney. Rheumatology follow-up with Dr. Ac. ID follow-up with Dr. Fischer. Wound Care follow-up with Dr. Uriarte. Consultants: Infectious disease Wound care Current Inpatient Medications: Current Inpatient Medications Medications (Trade) Dose Ordered Sig/[place] Route Start Time Stop Time Status Last Admin Dose Admin Enoxaparin Sodium (Lovenox Inj) 40 mg QAM SQ 01/09/17 08:00 02/08/17 08:59 01/10/17 07:43 40 MG Ondansetron HCl (Zofran Inj) 4 mg Q6H PRN IV 01/08/17 18:30 02/07/17 18:29 Folic Acid (Folvite Tab) 1 mg DAILY PO 01/09/17 08:00 02/08/17 07:59 01/10/17 07:42 1 MG Gabapentin (Neurontin Tab) 600 mg TID PO 01/09/17 08:00 02/08/17 07:59 01/10/17 14:28 600 MG Insulin Glargine (Lantus Vial) 75 unit BID SC 01/09/17 08:00 02/08/17 07:59 01/10/17 08:46 75 UNIT Meloxicam (Mobic Tab) 7.5 mg DAILY PO 01/09/17 08:00 02/08/17 07:59 01/10/17 07:42 7.5 MG Metoprolol Succinate (Toprol Xl Tab) 100 mg DAILY PO 01/09/17 08:00 3/14/17 07:59 01/10/17 07:42 100 MG Vitamin B Complex (Vitamin B Complex) 1 tab DAILY PO 01/09/17 08:00 02/08/17 07:59 01/10/17 07:42 1 TAB Glucose (Glucose 40% Gel) 15-30 GRAMS 15 GRAMS... UD PRN PO 01/08/17 21:15 02/07/17 21:14 Glucose (Glucose Chew Tab) 4-8 Tablets 4 Tabl... UD PRN PO 01/08/17 21:15 02/07/17 21:14 Dextrose (Dextrose 50% 50ML Syringe) 25-50ML OF 50% DW IV FOR... UD PRN IV 01/08/17 21:15 02/07/17 21:14 Glucagon (Glucagon Inj) 1 mg UD PRN SQ 01/08/17 21:15 02/07/17 21:14 Insulin Aspart Please follow patideangelo... ACHS SQ 01/09/17 06:30 02/08/17 06:29 01/10/17 12:40 45 UNITS Daptomycin 500 mg/ Sodium Chloride 60 ml @ 100 mls/hr Q24H IV 01/08/17 21:30 01/18/17 21:29 01/09/17 21:18 100 MLS/HR Cefepime HCl/ Dextrose (Maxipime IV/D5 100ml) 112.5 ml @ 200 mls/hr Q12H IV 01/08/17 22:00 01/18/17 21:14 01/10/17 10:25 200 MLS/HR Ibuprofen 400 mg 400 mg TID PRN PO 01/08/17 22:30 02/07/17 22:29 01/10/17 05:43 400 MG Enalaprilat/ Dextrose (Vasotec IV/D5 25ml) 26 ml @ 100 mls/hr Q6 PRN IV 01/08/17 23:30 02/07/17 23:29 Morphine Sulfate (MoRPHine SULFATE INJ) 1 mg Q4 PRN IV 01/09/17 00:30 01/23/17 00:29 Lisinopril (Zestril Tab) 40 mg DAILY PO 01/10/17 08:00 02/09/17 07:59 01/10/17 07:42 40 MG Clobetasol Propionate (Clobetasol Propionate Cream 0.05%) 1 appln DAILY EXT 01/10/17 08:00 02/09/17 07:59 Furosemide (Lasix Tab) 40 mg DAILY PO 01/10/17 08:00 02/09/17 07:59 01/10/17 07:41 40 MG Furosemide (Lasix Tab) 40 mg MoWeFr@0800 PO 01/10/17 08:00 02/09/17 07:59 01/10/17 07:46 40 MG
[2017-01-10] MEDS: DAPTOmycin IV 500 MG in SODIUM CHLORIDE 0.9% 50ML 50 ML IV SCH (21:20)
[2017-01-10 23:53] VITALS: BP 149/70; PULSE 72; TEMP 36.7; O2SAT 95
[2017-01-11] MEDS: GABAPENTIN 600 MG TAB PO SCH ×3 (06:37→20:46)
[2017-01-11] MEDS: IBUPROFEN 200 MG TAB PO PRN ×2 (06:37→20:47)
[2017-01-11 06:39] LABS: HEMATOCRIT 32.3 % (37-47); MEAN CELL VOLUME 82.6 fL (80-100); MEAN CORPUSCULAR HEMOGLOBIN 27.4 pg (25-34); MEAN CORPUSCULAR HGB CONC 33.1 g/dl (32-36); MEAN PLATELET VOLUME 8.5 fL (7.4-10.4); PLATELET COUNT 375 K/uL (130-400); RED BLOOD COUNT 3.91 M/uL (4.2-5.4); WHITE BLOOD COUNT 8.81 K/uL (4.8-10.8)
[2017-01-11 07:01] VITALS: BP 171/94; PULSE 75; TEMP 36.7; O2SAT 98
[2017-01-11 07:07] LABS: BUN/CREATININE RATIO 21.8 (10-20); CALCIUM 9.5 mg/dl (8.5-10.1); CREATININE 0.68 mg/dl (0.60-1.20); POTASSIUM 4.2 mmol/L (3.5-5.1)
[2017-01-11 08:00] VITALS: O2SAT 98
[2017-01-11] MEDS: CLOBETASOL PROPIONATE EXT SCH (08:31)
[2017-01-11] MEDS: MELOXICAM 7.5 MG TAB PO SCH (08:31)
[2017-01-11] MEDS: METOPROLOL SUCC 50MG EXT REL TAB PO SCH (08:32)
[2017-01-11] MEDS: LISINOPRIL 40 MG TAB PO SCH (08:32)
[2017-01-11] MEDS: VITAMIN B COMPLEX TAB PO SCH (08:32)
[2017-01-11] MEDS: FUROSEMIDE 40 MG TAB PO SCH (08:33)
[2017-01-11] MEDS: ENOXAPARIN 40 MG/0.4 ML SYR SQ SCH (08:34)
[2017-01-11] MEDS: INSULIN GLARGINE SC SCH ×2 (08:40→20:52)
[2017-01-11] MEDS: INSULIN ASPART 100 UNITS/ML 3 ML PEN SQ SCH ×4 (08:42→20:48)
[2017-01-11] MEDS: CEFEPIME IV 2,000 MG in DEXTROSE 5% 100ML 100 ML IV SCH ×2 (10:07→22:20)
--- NOTE | 2017-01-11 11:16 | Progress Note ---
Subjective Date of Service: Jan 11, 2017. Subjective Pt evaluation today including: conversation w/ patient, physical exam, lab review, review of studies, review of inpatient medication list Saw/examined the patient in room 412 Debridement performed today at bedside as per wound care doctor Patient is feeling fine with no complaints Problem List Medical Problems: (1) Bilateral pneumonia Status: Acute (2) Hypoxia Status: Acute Review of Systems Constitutional: No chills, No fever Respiratory: No shortness of breath Cardiac: No chest pain Abdomen: No diarrhea, No nausea, No pain, No vomiting Skin: + problem reported (wounds bilateral lower extremities), + rash Medications Current Inpatient Medications Medications (Trade) Dose Ordered Sig/[place] Route Start Time Stop Time Status Last Admin Dose Admin Enoxaparin Sodium (Lovenox Inj) 40 mg QAM SQ 01/09/17 08:00 02/08/17 08:59 01/11/17 08:34 40 MG Ondansetron HCl (Zofran Inj) 4 mg Q6H PRN IV 01/08/17 18:30 02/07/17 18:29 Folic Acid (Folvite Tab) 1 mg DAILY PO 01/09/17 08:00 02/08/17 07:59 01/11/17 08:33 1 MG Gabapentin (Neurontin Tab) 600 mg TID PO 01/09/17 08:00 02/08/17 07:59 01/11/17 06:37 600 MG Insulin Glargine (Lantus Vial) 75 unit BID SC 01/09/17 08:00 02/08/17 07:59 01/11/17 08:40 75 UNIT Meloxicam (Mobic Tab) 7.5 mg DAILY PO 01/09/17 08:00 02/08/17 07:59 01/11/17 08:31 7.5 MG Metoprolol Succinate (Toprol Xl Tab) 100 mg DAILY PO 01/09/17 08:00 02/08/17 07:59 01/11/17 08:32 100 MG Vitamin B Complex (Vitamin B Complex) 1 tab DAILY PO 01/09/17 08:00 02/08/17 07:59 01/11/17 08:32 1 TAB Glucose (Glucose 40% Gel) 15-30 GRAMS 15 GRAMS... UD PRN PO 01/08/17 21:15 02/07/17 21:14 Glucose (Glucose Chew Tab) 4-8 Tablets 4 Tabl... UD PRN PO 01/08/17 21:15 02/07/17 21:14 Dextrose (Dextrose 50% 50ML Syringe) 25-50ML OF 50% DW IV FOR... UD PRN IV 01/08/17 21:15 02/07/17 21:14 Glucagon (Glucagon Inj) 1 mg UD PRN SQ 01/08/17 21:15 02/07/17 21:14 Insulin Aspart Please follow patien... ACHS SQ 01/09/17 06:30 02/08/17 06:29 01/11/17 08:42 55 UNITS Daptomycin 500 mg/ Sodium Chloride 60 ml @ 100 mls/hr Q24H IV 01/08/17 21:30 01/18/17 21:29 01/10/17 21:20 100 MLS/HR Cefepime HCl/ Dextrose (Maxipime IV/D5 100ml) 112.5 ml @ 200 mls/hr Q12H IV 01/08/17 22:00 01/18/17 21:14 01/11/17 10:07 200 MLS/HR Ibuprofen 400 mg 400 mg TID PRN PO 01/08/17 22:30 02/07/17 22:29 01/11/17 06:37 400 MG Enalaprilat/ Dextrose (Vasotec IV/D5 25ml) 26 ml @ 100 mls/hr Q6 PRN IV 01/08/17 23:30 02/07/17 23:29 Morphine Sulfate (MoRPHine SULFATE INJ) 1 mg Q4 PRN IV 01/09/17 00:30 01/23/17 00:29 Lisinopril (Zestril Tab) 40 mg DAILY PO 01/10/17 08:00 02/09/17 07:59 01/11/17 08:32 40 MG Clobetasol Propionate (Clobetasol Propionate Cream 0.05%) 1 appln DAILY EXT 01/10/17 08:00 02/09/17 07:59 01/11/17 08:31 1 APPLN Furosemide (Lasix Tab) 40 mg DAILY PO 01/10/17 08:00 02/09/17 07:59 01/11/17 08:33 40 MG Furosemide (Lasix Tab) 40 mg MoWeFr@0800 PO 01/10/17 08:00 02/09/17 07:59 01/10/17 07:46 40 MG Objective Vital Signs Date Time Temp Pulse Resp B/P Pulse Ox O2 Delivery O2 Flow Rate FiO2 01/11/17 07:01 36.7 75 20 171/94 98 Room Air 01/11/17 00:00 Room Air 01/10/17 23:53 36.7 72 20 149/70 95 Room Air 01/10/17 20:00 Room Air 01/10/17 15:32 95 Room Air 01/10/17 15:27 36.8 82 18 164/89 95 Room Air Physical Exam General Appearance: no apparent distress Respiratory/Chest: lungs clear, normal breath sounds, no respiratory distress, no accessory muscle use Cardiovascular: regular rate, rhythm, no edema, no murmur Abdomen: normal bowel sounds, non tender, soft Extremities: + pertinent finding (ulcerative type wounds b/l LE; R>L - ) Laboratory Results Last 24 Hours Test 01/10/17 11:42 01/10/17 16:28 01/10/17 20:11 01/11/17 05:50 Bedside Glucose 164 mg/dl 113 mg/dl 153 mg/dl White Blood Count 8.81 K/uL Red Blood Count 3.91 M/uL Hemoglobin 10.7 g/dL Hematocrit 32.3 % Mean Corpuscular Volume 82.6 fL Mean Corpuscular Hemoglobin 27.4 pg Mean Corpuscular Hemoglobin Concent 33.1 g/dl RDW Standard Deviation 54.7 fL RDW Coefficient of Variation 17.9 % Platelet Count 375 K/uL Mean Platelet Volume 8.5 fL Sodium Level 138 mmol/L Potassium Level 4.2 mmol/L Chloride Level 101 mmol/L Carbon Dioxide Level 26 mmol/L Anion Gap 11.0 mmol/L Blood Urea Nitrogen 15 mg/dl Creatinine 0.68 mg/dl Est Creatinine Clear Calc Drug Dose 132.1 ml/min Estimated GFR () 118.2 Estimated GFR (Non- 102.0 BUN/Creatinine Ratio 21.8 Random Glucose 164 mg/dl Calcium Level 9.5 mg/dl Total Creatine Kinase 49 U/L Test 01/11/17 07:41 Bedside Glucose 172 mg/dl Assessment and Plan This is a 51 year old female with PMH of HTN, DM2, cutaneous vasculitis presents with possible overlying cellulitic changes to chronic vasculitic ulcerations Bilateral Lower Extremity Cellulitic Changes Cutaneous Vasculitis chronic leg ulcerations at this point on IV dapto and cefepime s/p debridement today plan for now is continue IV abx until cultures return Can switch to PO abx if able pending cultures Cutaneous Vasculitic Ulcerations immunosuppressive agents are currently held will restart Imuran and methotrexate upon discharge with close f/u with ID, wound care, and rheumatology DM2 Ha1c > 8% goal should be closer to < 7% currently on Lantus and sliding scale hold oral agents while inpatient HTN labile blood pressure Continue metoprolol, lisinopril and furosemide IV vasotec as needed for elevated blood pressure DVT ppx Lovenox FULL CODE
[2017-01-11 14:54] VITALS: BP 166/69; PULSE 74; O2SAT 95
--- NOTE | 2017-01-11 15:38 | Progress Note ---
Subjective Date of Service: Jan 11, 2017. Subjective eval by wound care today, discussed with wound care, wounds are improving, erythema resolving. remains on emperic abx. blood cultures negative, c diff negative, wound culture with gpc on gram stain, await final. afebrile. wbc 8.8 Problem List Medical Problems: (1) Bilateral pneumonia Status: Acute (2) Hypoxia Status: Acute Objective Vital Signs Date Time Temp Pulse Resp B/P Pulse Ox O2 Delivery O2 Flow Rate FiO2 01/11/17 14:54 74 18 166/69 95 Room Air 01/11/17 08:00 98 Room Air 01/11/17 07:01 36.7 75 20 171/94 98 Room Air 01/11/17 00:00 Room Air 01/10/17 23:53 36.7 72 20 149/70 95 Room Air 01/10/17 20:00 Room Air Laboratory Results Item Value Date Time Blood Culture - Preliminary Resulted 01/08/17 1550 Blood NO GROWTH TO DATE. Blood Culture - Preliminary Resulted 01/08/17 1602 Blood NO GROWTH TO DATE. C.difficile Toxin B Gene (PCR) - Final Complete 01/09/17 0000 Stool No C. difficile toxin B gene detected Gram Stain - Final Resulted 01/10/17 1450 Drainage - Surface Leg Right Lower Gram Stain - Final Resulted 01/10/17 1450 Drainage - Surface Leg Right Lower Last 24 Hours Test 01/10/17 16:28 01/10/17 20:11 01/11/17 05:50 01/11/17 07:41 Bedside Glucose 113 mg/dl 153 mg/dl 172 mg/dl White Blood Count 8.81 K/uL Red Blood Count 3.91 M/uL Hemoglobin 10.7 g/dL Hematocrit 32.3 % Mean Corpuscular Volume 82.6 fL Mean Corpuscular Hemoglobin 27.4 pg Mean Corpuscular Hemoglobin Concent 33.1 g/dl RDW Standard Deviation 54.7 fL RDW Coefficient of Variation 17.9 % Platelet Count 375 K/uL Mean Platelet Volume 8.5 fL Sodium Level 138 mmol/L Potassium Level 4.2 mmol/L Chloride Level 101 mmol/L Carbon Dioxide Level 26 mmol/L Anion Gap 11.0 mmol/L Blood Urea Nitrogen 15 mg/dl Creatinine 0.68 mg/dl Est Creatinine Clear Calc Drug Dose 132.1 ml/min Estimated GFR () 118.2 Estimated GFR (Non- 102.0 BUN/Creatinine Ratio 21.8 Random Glucose 164 mg/dl Calcium Level 9.5 mg/dl Total Creatine Kinase 49 U/L Test 01/11/17 11:59 Bedside Glucose 131 mg/dl Assessment and Plan (1) Chronic lower extremity wounds Status: Chronic Assessment & Plan: continue abx for now, await final ID and sensitivity of gpc from wound culture. blood cultures remain negative. continue local wound care. will need continued follow up post d/c at wound center. (2) Cutaneous vasculitis Status: Chronic
[2017-01-11 16:00] VITALS: O2SAT 95
[2017-01-11 16:38] VITALS: BP 160/83; PULSE 75; O2SAT 95
[2017-01-11] MEDS: DAPTOmycin IV 500 MG in SODIUM CHLORIDE 0.9% 50ML 50 ML IV SCH (21:32)
[2017-01-11 23:20] VITALS: BP 154/81; PULSE 72; TEMP 36.9; O2SAT 96
[2017-01-12 06:09] LABS: HEMATOCRIT 34.1 % (37-47); MEAN CORPUSCULAR HEMOGLOBIN 27.7 pg (25-34); MEAN CORPUSCULAR HGB CONC 32.6 g/dl (32-36); MEAN PLATELET VOLUME 8.8 fL (7.4-10.4); PLATELET COUNT 405 K/uL (130-400); RED BLOOD COUNT 4.01 M/uL (4.2-5.4); WHITE BLOOD COUNT 8.59 K/uL (4.8-10.8)
[2017-01-12] MEDS: INSULIN ASPART 100 UNITS/ML 3 ML PEN SQ SCH ×2 (06:30→12:55)
[2017-01-12 06:41] LABS: BUN/CREATININE RATIO 25.8 (10-20); CREATININE 0.7 mg/dl (0.60-1.20); POTASSIUM 3.9 mmol/L (3.5-5.1)
[2017-01-12 07:24] VITALS: BP 169/87; PULSE 71; TEMP 36.4; O2SAT 99
[2017-01-12 07:39] VITALS: O2SAT 99
[2017-01-12] MEDS: MELOXICAM 7.5 MG TAB PO SCH (07:54)
[2017-01-12] MEDS: GABAPENTIN 600 MG TAB PO SCH ×2 (07:55→14:04)
[2017-01-12] MEDS: LISINOPRIL 40 MG TAB PO SCH (07:55)
[2017-01-12] MEDS: VITAMIN B COMPLEX TAB PO SCH (07:56)
[2017-01-12] MEDS: FUROSEMIDE 40 MG TAB PO SCH ×2 (07:56→07:59)
[2017-01-12] MEDS: METOPROLOL SUCC 50MG EXT REL TAB PO SCH (07:57)
[2017-01-12] MEDS: CLOBETASOL PROPIONATE EXT SCH (07:58)
[2017-01-12] MEDS: ENOXAPARIN 40 MG/0.4 ML SYR SQ SCH (08:02)
[2017-01-12] MEDS: IBUPROFEN 200 MG TAB PO PRN (08:04)
[2017-01-12] MEDS: INSULIN GLARGINE SC SCH (08:39)
--- NOTE | 2017-01-12 10:14 | Progress Note ---
Subjective Date of Service: Jan 12, 2017. Subjective Pt evaluation today including: conversation w/ patient, physical exam, chart review, lab review pt seen in follow up for lower extremity wounds. much improved per pt, spoke with wound care yesterday as well as improved noted as well. no fevers. no pain. asking to go home. has f/u apt with wound center next thru 01/20, also will follow with ID there as well. tolerating abx. blood cultures negative, wound culture with skin aleyda. all remaining ros reviewed and are negative. Problem List Medical Problems: (1) Bilateral pneumonia Status: Acute (2) Hypoxia Status: Acute Objective Vital Signs Date Time Temp Pulse Resp B/P Pulse Ox O2 Delivery O2 Flow Rate FiO2 01/12/17 08:00 Room Air 01/12/17 07:39 99 Room Air 01/12/17 07:24 36.4 71 16 169/87 99 Room Air 01/12/17 00:00 Room Air 01/11/17 23:20 36.9 72 20 154/81 96 Room Air 01/11/17 16:38 75 16 160/83 95 Room Air 01/11/17 16:00 95 Room Air 01/11/17 14:54 74 18 166/69 95 Room Air Physical Exam General Appearance: WD/WN, no apparent distress Eyes: EOMI Neck: supple Respiratory/Chest: lungs clear, normal breath sounds, no respiratory distress Cardiovascular: regular rate, rhythm Abdomen: soft Extremities: + pertinent finding (dressing c/d/i b/l) Neurologic/Psychiatric: alert, oriented x 3 Skin: normal color Laboratory Results Item Value Date Time Blood Culture - Preliminary Resulted 01/08/17 1550 Blood NO GROWTH TO DATE. Blood Culture - Preliminary Resulted 01/08/17 1602 Blood NO GROWTH TO DATE. Gram Stain - Final Resulted 01/10/17 1450 Drainage - Surface Leg Right Lower Gram Stain - Final Complete 01/10/17 1450 Drainage - Surface Leg Right Lower Last 24 Hours Test 01/11/17 11:59 01/11/17 16:56 01/12/17 05:29 Bedside Glucose 131 mg/dl 129 mg/dl White Blood Count 8.59 K/uL Red Blood Count 4.01 M/uL Hemoglobin 11.1 g/dL Hematocrit 34.1 % Mean Corpuscular Volume 85.0 fL Mean Corpuscular Hemoglobin 27.7 pg Mean Corpuscular Hemoglobin Concent 32.6 g/dl RDW Standard Deviation 55.0 fL RDW Coefficient of Variation 17.7 % Platelet Count 405 K/uL Mean Platelet Volume 8.8 fL Sodium Level 139 mmol/L Potassium Level 3.9 mmol/L Chloride Level 104 mmol/L Carbon Dioxide Level 26 mmol/L Anion Gap 9.0 mmol/L Blood Urea Nitrogen 18 mg/dl Creatinine 0.70 mg/dl Est Creatinine Clear Calc Drug Dose 128.4 ml/min Estimated GFR () 117.1 Estimated GFR (Non- 101.0 BUN/Creatinine Ratio 25.8 Random Glucose 141 mg/dl Calcium Level 9.0 mg/dl Magnesium Level 2.0 mg/dl Assessment and Plan (1) Chronic lower extremity wounds Status: Chronic Assessment & Plan: wound culture with skin aleyda, no sensitivities to follow. blood cultures remain negative. continue local wound care. will need continued follow up post d/c at wound center. 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 ok for d/c from ID standpoint. (2) Cutaneous vasculitis Status: Chronic
[2017-01-12] MEDS: CEFEPIME IV 2,000 MG in DEXTROSE 5% 100ML 100 ML IV SCH (10:15)
--- NOTE | 2017-01-12 13:44 | PROGRESS NOTE ---
DATE: 01/12/2017 SUBJECTIVE: The patient is seen today for further evaluation of chronic venous stasis ulcerations to both lower extremities in the face of lupus as well as abdominal wall ulceration. The patient was recently admitted for intravenous antibiotic therapy. The patient denies any significant pain. Denies any fever, chills or night sweats and state she has noticed decreased swelling and redness of the legs. OBJECTIVE: The patient's vital signs were reviewed and found to be unremarkable. The patient is afebrile. The ulcerative sites today although measuring principally the same as 5 days ago which showed distinct decreasing edema and erythema throughout. There is central slough throughout the base of these ulcerations. There is no current active drainage or odor noted. Abdominal ulceration today is essentially unchanged from 5 days ago. There is no periwound erythema, active drainage or odor and no significant central slough noted. ASSESSMENT: 1. Bilateral venous stasis ulcerations, chronic in both lower extremities in the face of lupus with improvement. 2. Cellulitis of the right lower extremity with improvement. 3. Abdominal wall ulceration, stable. PLAN: At this time, the ulcerations of the lower extremities did require debridement and with the patient's permission and after the application of the topical Xylocaine 4%, these ulcerations were debrided with a #5 curette of central slough. No significant bleeding occurred. The sites will continue to be managed as before with Silvercel and PolyMem to the abdomen and gauze. Dressings to be changed daily. The patient will be reevaluated as needed during hospitalization and certainly followed up in the outpatient basis as before. This represented a nonexcisional debridement of approximately 200 square cm.
--- NOTE | 2017-01-12 14:11 | Progress Note ---
Subjective Date of Service: Jan 12, 2017. Subjective Pt evaluation today including: conversation w/ patient, physical exam, lab review, review of studies, review of inpatient medication list Saw/examined the patient in room 412 She is doing well today no fevers/chills lower extremities are dressed, no other issues to note Problem List Medical Problems: (1) Bilateral pneumonia Status: Acute (2) Hypoxia Status: Acute Review of Systems Constitutional: No chills, No fever Respiratory: No shortness of breath Cardiac: No chest pain Abdomen: No diarrhea, No nausea, No pain, No vomiting Musculoskeletal: No joint pain, No muscle pain Medications Current Inpatient Medications Medications (Trade) Dose Ordered Sig/[place] Route Start Time Stop Time Status Last Admin Dose Admin Enoxaparin Sodium (Lovenox Inj) 40 mg QAM SQ 01/09/17 08:00 02/08/17 08:59 01/12/17 08:02 40 MG Ondansetron HCl (Zofran Inj) 4 mg Q6H PRN IV 01/08/17 18:30 02/07/17 18:29 Folic Acid (Folvite Tab) 1 mg DAILY PO 01/09/17 08:00 02/08/17 07:59 01/12/17 08:01 1 MG Gabapentin (Neurontin Tab) 600 mg TID PO 01/09/17 08:00 02/08/17 07:59 01/12/17 14:04 600 MG Insulin Glargine (Lantus Vial) 75 unit BID SC 01/09/17 08:00 02/08/17 07:59 01/12/17 08:39 75 UNIT Meloxicam (Mobic Tab) 7.5 mg DAILY PO 01/09/17 08:00 02/08/17 07:59 01/12/17 07:54 7.5 MG Metoprolol Succinate (Toprol Xl Tab) 100 mg DAILY PO 01/09/17 08:00 02/08/17 07:59 01/12/17 07:57 100 MG Vitamin B Complex (Vitamin B Complex) 1 tab DAILY PO 01/09/17 08:00 02/08/17 07:59 01/12/17 07:56 1 TAB Glucose (Glucose 40% Gel) 15-30 GRAMS 15 GRAMS... UD PRN PO 01/08/17 21:15 02/07/17 21:14 Glucose (Glucose Chew Tab) 4-8 Tablets 4 Tabl... UD PRN PO 01/08/17 21:15 02/07/17 21:14 Dextrose (Dextrose 50% 50ML Syringe) 25-50ML OF 50% DW IV FOR... UD PRN IV 01/08/17 21:15 02/07/17 21:14 Glucagon (Glucagon Inj) 1 mg UD PRN SQ 01/08/17 21:15 02/07/17 21:14 Insulin Aspart Please follow patien... ACHS SQ 01/09/17 06:30 02/08/17 06:29 01/12/17 12:55 60 UNITS Daptomycin 500 mg/ Sodium Chloride 60 ml @ 100 mls/hr Q24H IV 01/08/17 21:30 01/18/17 21:29 01/11/17 21:32 100 MLS/HR Cefepime HCl/ Dextrose (Maxipime IV/D5 100ml) 112.5 ml @ 200 mls/hr Q12H IV 01/08/17 22:00 01/18/17 21:14 01/12/17 10:15 200 MLS/HR Ibuprofen 400 mg 400 mg TID PRN PO 01/08/17 22:30 02/07/17 22:29 01/12/17 08:04 400 MG Enalaprilat/ Dextrose (Vasotec IV/D5 25ml) 26 ml @ 100 mls/hr Q6 PRN IV 01/08/17 23:30 02/07/17 23:29 Morphine Sulfate (MoRPHine SULFATE INJ) 1 mg Q4 PRN IV 01/09/17 00:30 01/23/17 00:29 Lisinopril (Zestril Tab) 40 mg DAILY PO 01/10/17 08:00 02/09/17 07:59 01/12/17 07:55 40 MG Clobetasol Propionate (Clobetasol Propionate Cream 0.05%) 1 appln DAILY EXT 01/10/17 08:00 02/09/17 07:59 01/12/17 07:58 1 APPLN Furosemide (Lasix Tab) 40 mg DAILY PO 01/10/17 08:00 02/09/17 07:59 01/12/17 07:56 40 MG Furosemide (Lasix Tab) 40 mg MoWeFr@0800 PO 01/10/17 08:00 02/09/17 07:59 01/12/17 07:59 40 MG Objective Vital Signs Date Time Temp Pulse Resp B/P Pulse Ox O2 Delivery O2 Flow Rate FiO2 01/12/17 08:00 Room Air 01/12/17 07:39 99 Room Air 01/12/17 07:24 36.4 71 16 169/87 99 Room Air 01/12/17 00:00 Room Air 01/11/17 23:20 36.9 72 20 154/81 96 Room Air 01/11/17 16:38 75 16 160/83 95 Room Air 01/11/17 16:00 95 Room Air 01/11/17 14:54 74 18 166/69 95 Room Air Physical Exam General Appearance: no apparent distress Respiratory/Chest: lungs clear, normal breath sounds, no respiratory distress, no accessory muscle use Cardiovascular: regular rate, rhythm, no edema, no murmur Abdomen: normal bowel sounds, non tender, soft Extremities: + pedal edema, + swelling, + pertinent finding (ulcerative wounds , swelling, bilateral, R>L) Laboratory Results Last 24 Hours Test 01/11/17 16:56 01/12/17 05:29 Bedside Glucose 129 mg/dl White Blood Count 8.59 K/uL Red Blood Count 4.01 M/uL Hemoglobin 11.1 g/dL Hematocrit 34.1 % Mean Corpuscular Volume 85.0 fL Mean Corpuscular Hemoglobin 27.7 pg Mean Corpuscular Hemoglobin Concent 32.6 g/dl RDW Standard Deviation 55.0 fL RDW Coefficient of Variation 17.7 % Platelet Count 405 K/uL Mean Platelet Volume 8.8 fL Sodium Level 139 mmol/L Potassium Level 3.9 mmol/L Chloride Level 104 mmol/L Carbon Dioxide Level 26 mmol/L Anion Gap 9.0 mmol/L Blood Urea Nitrogen 18 mg/dl Creatinine 0.70 mg/dl Est Creatinine Clear Calc Drug Dose 128.4 ml/min Estimated GFR () 117.1 Estimated GFR (Non- 101.0 BUN/Creatinine Ratio 25.8 Random Glucose 141 mg/dl Calcium Level 9.0 mg/dl Magnesium Level 2.0 mg/dl Assessment and Plan This is a 51 year old female with PMH of HTN, DM2, cutaneous vasculitis presents with possible overlying cellulitic changes to chronic vasculitic ulcerations Bilateral Lower Extremity Cellulitic Changes Cutaneous Vasculitis 01/12 appreciate ID input switched IV abx to PO today appreciate wound care physician consult outpatient f/u with wound care and ID 01/11 chronic leg ulcerations at this point on IV dapto and cefepime s/p debridement today plan for now is continue IV abx until cultures return Can switch to PO abx if able pending cultures Cutaneous Vasculitic Ulcerations 01/12 hold methotrexate outpatient f/u with ID - discuss stopping bactrim and restarting methotrexate 01/11 immunosuppressive agents are currently held will restart Imuran and methotrexate upon discharge with close f/u with ID, wound care, and rheumatology DM2 Ha1c > 8% goal should be closer to < 7% currently on Lantus and sliding scale hold oral agents while inpatient HTN labile blood pressure Continue metoprolol, lisinopril and furosemide IV vasotec as needed for elevated blood pressure DVT ppx Lovenox FULL CODE
[2017-01-12] MEDS ORDERED: SULF800T23 PO (14:13)
--- NOTE | 2017-01-12 14:15 | Discharge Instructions ---
Discharge Instructions Admission Reason for Admission: Cellulitis Of Leg Discharge Discharge Diagnosis / Problem: Bilateral Lower Extremity Cellulitis; Ulcerative Wounds Discharge Goals Goal(s): Decrease discomfort, Improve function Activity Recommendations Activity Limitations: resume your previous activity . Instructions / Follow-Up Instructions / Follow-Up Please follow-up with Dr. Rodney on Tuesday, 01/24 @ 1:50PM Please follow-up with wound care clinic and ID as scheduled Continue taking Cipro and Bactrim Hold Methotrexate for now; when okay with ID, can stop Bactrim and restart methotrexate as per rheumatology Current Hospital Diet Patient's current hospital diet: AHA Diet (Heart Healthy), Diabetes Type 2 Diet Discharge Diet Recommended Diet: Diabetes Type 2 Diet Pending Studies Studies pending at discharge: no Laboratory Results Hemoglobin A1c Test 01/09/17 05:43 Range/Units Estimated Average Glucose 186 mg/dl Hemoglobin A1c 8.1 H 4.5-5.6 % Medical Emergencies . Who to Call and When: Medical Emergencies: If at any time you feel your situation is an emergency, please call 911 immediately. . Non-Emergent Contact Non-Emergency issues call your: Primary Care Provider . . "Provider Documentation" section prepared by Macey Min. VTE Core Measure Inpt VTE Proph given/why not?: Enoxaparin (Lovenox)SQ
--- NOTE | 2017-01-12 14:17 | Discharge Summary ---
Discharge Summary Admission Date: Jan 08, 2017 at 18:29 Discharge Date: Jan 12, 2017 Discharge Disposition: Home with services Principal Diagnosis: Ulcerative Wounds/Cellulitis Consultations: Infectious disease Wound care Medication Reconciliation New Medications: Sulfa/Trimethoprim (Bactrim Ds 800MG/160MG) Tab 1 TAB PO BID for 10 Days, #20 TAB Continued Medications: Alpha-Lipoic Acid (Thioctic Ac (Alpha Lipoic Acid) 600 Mg Cap 1 TAB PO BID Azathioprine (Azathioprine) 50 Mg Tab 100 MG PO BID B-Complex Vitamins (Vitamin B Complex) 1 Tab Tab 1 TAB PO DAILY Ciprofloxacin Hcl (Cipro) 500 Mg Tab 500 MG PO BID, TAB Clobetasol Propionate (Temovate) 0.05 % Cre 1 APPLN TOP QD for 90 Days, #120 GM 2 Refills Folic Acid (Folvite) 1 Mg Tab 1 MG PO DAILY, TAB Furosemide (Lasix) 40 Mg Tab 40 MG PO QD, TAB PLUS ADDITIONAL ONE TABLET 3 DAYS PER WEEK. Gabapentin (Gabapentin) 600 Mg Tab 600 MG PO TID Insulin Aspart (Novolog Flexpen) 100 Units/Ml Inj 0 SQ ACHS per sliding scale Insulin Glargine (Lantus) 100 Unit/Ml Inj 75 UNITS SC BID, VIAL Lisinopril (Zestril) 40 Mg Tab 40 MG PO BID Meloxicam (Mobic) 7.5 Mg Tab 7.5 MG PO DAILY, TAB Metformin Hcl (Glucophage) 1,000 Mg Tab 1000 MG PO BID, TAB Metoprolol Succ (Toprol Xl) (Toprol-Xl ) 100 Mg Tabcr 100 MG PO DAILY, TAB Simvastatin (Zocor) 20 Mg Tab 20 MG PO HS Sitagliptin Phosphate (Januvia) 100 Mg Tab 100 MG PO DAILY, TAB Discontinued Medications: Methotrexate (Trexall) 10 Mg Tab 10 MG PO WK, TAB Admission Information HPI (per Admitting provider): 51 YO female followed by Dr. Rodney for Family Medicine, Dr. Ac for Rheumatology, Dr. Uriarte for Wound Care, and Dr. Fischer for ID. 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 Underlying pathophysiology of vasculitis not determined; extensive rheumatologic evaluation did not reveal a specific diagnosis. Chronic ulcers of both lower extremities since then as well as more recent ulceration of lower abdomen. Treated with intermittent methotrexate (just restarted yesterday, azathioprine since February 2016, and just prescribed dapsone which she has not yet started. Has been on several courses of oral and IV antibiotics. Patient presented to ED today because of worsening erythema and swelling of her lower extremities, right greater than left. Drainage from ulcers posterior calf unchanged from baseline. No fever, chills, sweats. . Physical Exam (per Admitting): General Appearance: WD/WN, no apparent distress Head: normocephalic, atraumatic Eyes: normal inspection, PERRL, EOMI, sclerae normal ENT: normal ENT inspection, hearing grossly normal, pharynx normal Neck: supple, no adenopathy, thyroid normal, no JVD, trachea midline Respiratory/Chest: lungs clear, no respiratory distress, no accessory muscle use Cardiovascular: regular rate, rhythm, no gallop, no JVD, + systolic murmur ( III/ systolic murmur at base), + pertinent finding (3+ pretibial / pedal edema bilaterally) Abdomen/GI: normal bowel sounds, non tender, soft, + pertinent finding ( obese; exam limited) Extremities/Musculoskelatal: + pertinent finding (3+ pretibial and pedal edema; unable to palpate pedal pulses) Neurologic/Psych: 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 as tested (PERRL, EOMI, no facial palsy), alert, normal mood/affect, oriented x 3 Skin: + pertinent finding (multiple cutaneous ulcers both lower extremities below knees with associated erythema; ulcer lower abdomen with surrounding erythema) Lymphatic: no adenopathy (no cervical adenopathy) Hospital Course This is a 51 year old female with PMH of HTN, DM2, cutaneous vasculitis presents with possible overlying cellulitic changes to chronic vasculitic ulcerations Bilateral Lower Extremity Cellulitic Changes Cutaneous Vasculitis 01/12 appreciate ID input switched IV abx to PO today appreciate wound care physician consult outpatient f/u with wound care and ID 01/11 chronic leg ulcerations at this point on IV dapto and cefepime s/p debridement today plan for now is continue IV abx until cultures return Can switch to PO abx if able pending cultures Cutaneous Vasculitic Ulcerations 01/12 hold methotrexate outpatient f/u with ID - discuss stopping bactrim and restarting methotrexate 01/11 immunosuppressive agents are currently held will restart Imuran and methotrexate upon discharge with close f/u with ID, wound care, and rheumatology DM2 Ha1c > 8% goal should be closer to < 7% currently on Lantus and sliding scale hold oral agents while inpatient HTN labile blood pressure Continue metoprolol, lisinopril and furosemide IV vasotec as needed for elevated blood pressure DVT ppx Lovenox FULL CODE Total time spent on discharge = 38 minutes This includes examination of the patient, discharge planning, medication reconciliation, and communication with other providers. Discharge Instructions Please follow-up with Dr. Rodney on Tuesday, 01/24 @ 1:50PM Please follow-up with wound care clinic and ID as scheduled Continue taking Cipro and Bactrim Hold Methotrexate for now; when okay with ID, can stop Bactrim and restart methotrexate as per rheumatology
[2017-01-12 14:30] VITALS: BP 169/87; PULSE 71; TEMP 36.4; O2SAT 99
[2017-01-20] MEDS ORDERED: LINE1TAB2 PO (13:39)
[2017-01-20] MEDS ORDERED: LINE600T5 PO (14:31)
[2017-01-20] MEDS ORDERED: DPS25 PO (14:31)
[2017-01-20] MEDS ORDERED: FOLI1TAB7 PO (14:31)
[2017-01-20] MEDS ORDERED: METH10TA32 PO (14:31)
[2017-02-10] MEDS ORDERED: EXEN1INJ3 SC (14:07)
[2017-02-25] MEDS ORDERED: GABA-113 PO (10:51)
[2017-02-25] MEDS ORDERED: SPIR25TA PO (10:51)
[2017-03-10] MEDS ORDERED: EFF/375 PO (14:50)
[2017-04-05] MEDS ORDERED: CLBPO15 TOP (11:51)
[2017-04-21] MEDS ORDERED: PIPE1INJ11 IV (14:07)
[2017-05-03] MEDS ORDERED: ONDA8TAB6 PO (17:28)
[2017-05-03] MEDS ORDERED: LSN40 PO (17:28)
[2017-05-03] MEDS ORDERED: SPIR25TA PO (17:28)
[2017-05-25] MEDS ORDERED: ACET1TAB84 PO (10:48)
[2017-05-25] MEDS ORDERED: RMCI (10:48)
[2017-06-22] MEDS ORDERED: GABA800T PO (08:08)
[2017-06-22] MEDS ORDERED: METO1TAB31 PO (08:08)
[2017-06-22] MEDS ORDERED: FRS/40 PO (08:08)
[2017-06-27] MEDS ORDERED: LISI-729 PO (09:12)
[2017-08-18] MEDS ORDERED: FERR1TAB13 PO (08:57)
== END 2017-01-12 16:00 | disposition home health service (06) | DRG 638 ==
LOC: ENRESERVTM → ENRESERVDT → C.EDB 14:16 → C.4E 18:29
PROVIDERS: ADMIT Hospitalist; ATTEND Family Medicine
PROC: 0HDLXZZ Extraction of Left Lower Leg Skin, External Approach (ICD-10-PCS; principal; 2017-01-12)
PROC: 0HDKXZZ Extraction of Right Lower Leg Skin, External Approach (ICD-10-PCS; 2017-01-12)
DX: E11.622 Type 2 diabetes mellitus with other skin ulcer (principal); L03.116 Cellulitis of left lower limb; Z68.42 Body mass index [BMI] 45.0-49.9, adult; L03.115 Cellulitis of right lower limb; L97.919 Non-pressure chronic ulcer of unspecified part of right lower leg with unspecified severity; L97.929 Non-pressure chronic ulcer of unspecified part of left lower leg with unspecified severity; Q23.1 Congenital insufficiency of aortic valve; F32.9 Major depressive disorder, single episode, unspecified; I10 Essential (primary) hypertension; Z82.49 Family history of ischemic heart disease and other diseases of the circulatory system; Z83.3 Family history of diabetes mellitus; Z80.1 Family history of malignant neoplasm of trachea, bronchus and lung; Z82.5 Family history of asthma and other chronic lower respiratory diseases; Z84.89 Family history of other specified conditions; Z79.4 Long term (current) use of insulin; Z79.899 Other long term (current) drug therapy; R63.4 Abnormal weight loss; E11.40 Type 2 diabetes mellitus with diabetic neuropathy, unspecified; R19.7 Diarrhea, unspecified; L98.499 Non-pressure chronic ulcer of skin of other sites with unspecified severity; L40.9 Psoriasis, unspecified; I87.8 Other specified disorders of veins; M32.9 Systemic lupus erythematosus, unspecified

== ENCOUNTER → 2017-04-22 | Day surgery (SDC) | payer BC ==
[~2017-04-22] VITALS: Ht 162.6 cm; Wt 116.0 kg
[~2017-04-22] MED LIST changes: +ACET1TAB84 PO; +AZAT100T PO; +AZAT50TA30 PO; +CLBPO15 TOP; -COLL250O; -DALB1SOL; +DPS25 PO; +EFF/375 PO; +EXEN1INJ3 SC; +FERR1TAB13 PO; -FLUO0.05 TD; +FOLI1TAB7 PO; +GABA-113 PO; +GABA800T PO; +GABA800T2 PO; +HYDR25CA PO; -IMMURAN PO; +LINE600T5 PO; +LISI-729 PO; -LISI40TA PO; +LSN40 PO; +METH10TA32 PO; +METO-478 PO; +METO100T44 PO; -METO1TAB69 PO; -NRN600 PO; -NVLGI SC; +NVLGI/PEN SQ; +ONDA8TAB6 PO; -ONDA8TAB7 PO; +PIPE1INJ11 IV; +PIPERACILL/TAZOBAC IV 4.5 GM in DEXTROSE 5% 100ML IV ONE; +RMCI; +SPIR25TA PO; -SULF800T23 PO; +VENL75TA4 PO; -[UNRECOGNIZED DRUG - CODE] PO
[2017-04-22 12:08] VITALS: BP 160/89; PULSE 94; TEMP 37.1; O2SAT 95; Ht 162.6 cm; Wt 116.0 kg
== END | disposition home or self-care (01) ==
LOC: C.MTU 11:58
PROVIDERS: ATTEND Internal Medicine Infectious Disease
DX: L98.499 Non-pressure chronic ulcer of skin of other sites with unspecified severity (principal)

== ENCOUNTER → 2017-04-26 | Outpatient (CLI) | payer BC ==
[~2017-04-26] MED LIST changes: -PIPERACILL/TAZOBAC IV 4.5 GM in DEXTROSE 5% 100ML IV ONE
[2017-04-26 08:16] LABS: BASO % 0.1 %; BASO ABS # 0.01 K/uL (0-0.2); EOS % 1.3 %; HEMATOCRIT 31.1 % (37-47); IG% 0.2 %; LYMPH % 14.6 %; LYMPH ABS # 1.31 K/uL (1.2-3.4); MEAN CELL VOLUME 91.7 fL (80-100); MEAN CORPUSCULAR HEMOGLOBIN 28.3 pg (25-34); MEAN CORPUSCULAR HGB CONC 30.9 g/dl (32-36); MEAN PLATELET VOLUME 8.6 fL (7.4-10.4); MONO % 10.7 %; NEUT % 73.1 %; PLATELET COUNT 478 K/uL (130-400); RED BLOOD COUNT 3.39 M/uL (4.2-5.4)
[2017-04-26 08:22] LABS: ALT/SGPT 13 U/L (12-78); BLOOD UREA NITROGEN 16 mg/dl (7-18); BUN/CREATININE RATIO 18.4 (10-20); C-REACTIVE PROTEIN 6.07 mg/dl (0-0.29); CARBON DIOXIDE 19 mmol/L (21-32); CHLORIDE 106 mmol/L (98-107); CREATININE 0.86 mg/dl (0.60-1.20); GLUCOSE 223 mg/dl (70-99); POTASSIUM 4.2 mmol/L (3.5-5.1); SODIUM 137 mmol/L (136-145)
[2017-04-26 08:25] LABS: ALB/GLOB RATIO 0.5 (0.9-2); ALKALINE PHOSPHATASE 56 U/L (45-117); AST/SGOT 12 U/L (15-37)
[2017-04-26 08:38] LABS: CALCIUM 9.4 mg/dl (8.5-10.1)
[2017-04-26 08:46] LABS: ANISOCYTOSIS PRESENT; COMPLETE YES; TEAR DROP CELLS 1+
== END | disposition home or self-care (01) ==
LOC: C.LABSPEC 07:56
PROVIDERS: ATTEND Internal Medicine Infectious Disease
DX: L03.115 Cellulitis of right lower limb (principal)

== ENCOUNTER 2017-05-03 15:09 | Inpatient (IN) | payer BC ==
[~2017-05-03] VITALS: Ht 162.6 cm; Wt 121.0 kg
[2017-05-03] VITALS: BP 137/69; PULSE 85; TEMP 36.9; O2SAT 100
[~2017-05-03 15:09] MED LIST changes: -ACET1TAB84 PO; -AZAT100T PO; -FERR1TAB13 PO; -GABA800T PO; -GABA800T2 PO; -HYDR25CA PO; -LISI-729 PO; -LSN40 PO; -METO-478 PO; -ONDA8TAB6 PO; -RMCI; -VENL75TA4 PO
[2017-05-03] MEDS ORDERED: SODIUM CHLORIDE 0.9% 1000ML 1,000 ML IV STA ×2 (15:38→16:37)
[2017-05-03 15:57] LABS: HEMATOCRIT 33.1 % (37-47); MEAN CORPUSCULAR HEMOGLOBIN 28.7 pg (25-34); MEAN CORPUSCULAR HGB CONC 30.8 g/dl (32-36); MEAN PLATELET VOLUME 8.4 fL (7.4-10.4); PLATELET COUNT 575 K/uL (130-400); RED BLOOD COUNT 3.56 M/uL (4.2-5.4); WHITE BLOOD COUNT 8.44 K/uL (4.8-10.8)
[2017-05-03] MEDS ORDERED: AZAT100T PO (16:07)
[2017-05-03 16:15] LABS: BASO % 0.1 %; BASO ABS # 0.01 K/uL (0-0.2); COMPLETE YES; ECHINOCYTES 1+; EOS % 1.7 %; IG% 0.2 %; LYMPH % 19.7 %; LYMPH ABS # 1.66 K/uL (1.2-3.4); MONO % 5.1 %; NEUT % 73.2 %
[2017-05-03] MEDS ORDERED: GABA800T2 PO (16:16)
[2017-05-03] MEDS ORDERED: VENL75TA4 PO (16:17)
[2017-05-03 16:24] LABS: BUN/CREATININE RATIO 13.9 (10-20); CALCIUM 8.5 mg/dl (8.5-10.1); CREATININE 3.6 mg/dl (0.60-1.20); MAGNESIUM 2.4 mg/dl (1.8-2.4); POTASSIUM 3.9 mmol/L (3.5-5.1)
--- NOTE | 2017-05-03 16:52 | EMERGENCY ROOM VISIT NOTE ---
History First contact with patient: 15:17 Chief Complaint: ABNORMAL LABS Stated Complaint: RENAL FUNCTION IS ABNORMAL,DOCTOR REFERRED Nursing Triage Summary: Pt states she had blood work drawn this morning and Dr Fischer office called her to let her know her "renal values are way off". Denies urinary symtoms. "The only thing I can eat or drink is water, everything else makes me sick. Pt states she fell this morning, just lost her balance when she got up at 0430. Pt states she wounds on both calves that she is seeing wound clinic for and has seen them for almost 4 years. "you can't take them off because I don't have anything to redress them with". PICC line running zosyn. History of Present Illness The patient is a 51 year old female who presents to the Emergency Room stating that she was sent here by Dr. Fischer today. The patient reports that she had a nursing visit for blood work this morning and was caught by Dr. Fischer's office, who told her that her kidney function was "not good." She reports that she has wounds on both of her legs which she has been dealing with for several years. She is seen by the wound clinic and by Dr. Fischer for these wounds. She is currently on Zosyn, 4.5 g 4 times daily which she receives through a PICC line in her left arm. She also takes Zyvox. She states that she has been nauseous and has had a decreased appetite for the last 1-2 weeks. She has not had much to eat or drink, but does state that she was able to eat a small amount of applesauce and pretzels yesterday. She is a diabetic and has a history of SLE. She also reports a history of hypertension. She denies any history of kidney disease. She states that she has felt weak and unsteady on her feet and fell this morning due to this. She denies any significant injuries. Review of Systems A complete 10 point review of systems was reviewed with the patient with pertinent positives and negatives as per history of present illness. All else were negative. Past Medical/Surgical History Medical Problems: (1) ARF (acute renal failure) (2) Bicuspid aortic valve (3) Chronic lower extremity wounds (4) Cutaneous vasculitis (5) Depression (6) Diabetes mellitus type 2 in obese (7) DKA (diabetic ketoacidoses) (8) Epiretinal membrane, left eye (9) HTN (hypertension) (10) Psoriasis Surgical Problems: (1) H/O eye surgery Family History Asthma BROTHER Diabetes mellitus BROTHER SISTER Heart disease FATHER BROTHER Latisha's disease BROTHER Hypertension MOTHER Lung cancer FATHER Social History Smoking Status: Never Smoker Drug Use: none Marital Status: Occupation Status: employed Current/Historical Medications Scheduled Alpha-Lipoic Acid (Thioctic Ac (Alpha Lipoic Acid), 1 TAB PO BID Azathioprine (Azasan), 100 MG PO BID B-Complex Vitamins (Vitamin B Complex), 1 TAB PO DAILY Clobetasol Propionate (Temovate), 1 APPLN TOP QD Dapsone (Dapsone), 50 MG PO DAILY Exenatide (Bydureon), 2 MG SC weekly Folic Acid (Folvite), 1 MG PO DAILY Furosemide (Lasix), 80 MG PO QD Gabapentin (Neurontin), 800 MG PO QID Insulin Aspart (Novolog Flexpen), 0 SQ ACHS Insulin Glargine (Lantus), 75 UNITS SC BID Linezolid (Zyvox), 600 MG PO BID Lisinopril (Lisinopril), 40 MG PO BID Meloxicam (Mobic), 7.5 MG PO DAILY Metformin Hcl (Glucophage), 1,000 MG PO BID Methotrexate (Trexall), 10 MG PO WK Metoprolol Succ (Toprol Xl) (Toprol-Xl ), 100 MG PO DAILY Piperacillin Sodium-Tazobactam (Zosyn), 18 GM IV QD Simvastatin (Zocor), 20 MG PO HS Sitagliptin Phosphate (Januvia), 100 MG PO DAILY Spironolactone (Aldactone), 12.5 MG PO DAILY Venlafaxine Hcl (Effexor), 75 MG PO DAILY Scheduled PRN Ondansetron Hcl (Zofran), 8 MG PO TID PRN for Nausea or Vomiting Allergies Coded Allergies: No Known Allergies (Unverified , 05/03/17) Physical Exam Vital Signs Date Time Temp Pulse Resp B/P (MAP) Pulse Ox O2 Delivery O2 Flow Rate FiO2 05/03/17 16:39 88 20 142/69 100 05/03/17 15:12 36.5 94 17 131/68 96 Room Air Physical Exam VITALS: Vitals are noted on the nurse's note and reviewed by myself. Vital signs stable. GENERAL: This is a 51-year-old female, in no acute distress, nondiaphoretic, well-developed well-nourished. SKIN: Capillary reflex less than 2 seconds. HEART: Regular rate and rhythm without murmurs gallops or rubs. LUNGS: Clear to auscultation bilaterally without wheezes, rales or rhonchi. ABDOMEN: Positive bowel sounds x 4. Soft, nontender, without masses or organomegaly. EXTREMITIES: There is serous fluid covering the socks on both feet. The patient will not allow dressing removal to examine the lower extremity wounds. NEURO: Patient was alert and oriented to person place and time. Medical Decision & Procedures Laboratory Results 05/03/17 15:46 Red Blood Count 3.56, Mean Corpuscular Volume 93.0, Mean Corpuscular Hemoglobin 28.7, Mean Corpuscular Hemoglobin Concent 30.8, Mean Platelet Volume 8.4, Neutrophils (%) (Auto) 73.2, Lymphocytes (%) (Auto) 19.7, Monocytes (%) (Auto) 5.1, Eosinophils (%) (Auto) 1.7, Basophils (%) (Auto) 0.1, Neutrophils # (Auto) 6.18, Lymphocytes # (Auto) 1.66, Monocytes # (Auto) 0.43, Eosinophils # (Auto) 0.14, Basophils # (Auto) 0.01 05/03/17 15:46 Test 05/03/17 15:46 White Blood Count 8.44 K/uL (4.8-10.8) Red Blood Count 3.56 M/uL (4.2-5.4) Hemoglobin 10.2 g/dL (12.0-16.0) Hematocrit 33.1 % (37-47) Mean Corpuscular Volume 93.0 fL (80-100) Mean Corpuscular Hemoglobin 28.7 pg (25-34) Mean Corpuscular Hemoglobin Concent 30.8 g/dl (32-36) Platelet Count 575 K/uL (130-400) Mean Platelet Volume 8.4 fL (7.4-10.4) Neutrophils (%) (Auto) 73.2 % Lymphocytes (%) (Auto) 19.7 % Monocytes (%) (Auto) 5.1 % Eosinophils (%) (Auto) 1.7 % Basophils (%) (Auto) 0.1 % Neutrophils # (Auto) 6.18 K/uL (1.4-6.5) Lymphocytes # (Auto) 1.66 K/uL (1.2-3.4) Monocytes # (Auto) 0.43 K/uL (0.11-0.59) Eosinophils # (Auto) 0.14 K/uL (0-0.5) Basophils # (Auto) 0.01 K/uL (0-0.2) RDW Standard Deviation 66.6 fL (36.4-46.3) RDW Coefficient of Variation 19.5 % (11.5-14.5) Immature Granulocyte % (Auto) 0.2 % Immature Granulocyte # (Auto) 0.02 K/uL (0.00-0.02) Echinocytes 1+ Anion Gap 24.0 mmol/L (3-11) Est Creatinine Clear Calc Drug Dose 23.1 ml/min Estimated GFR () 16.2 Estimated GFR (Non- 14.0 BUN/Creatinine Ratio 13.9 (10-20) Calcium Level 8.5 mg/dl (8.5-10.1) Magnesium Level 2.4 mg/dl (1.8-2.4) Medications Administered Medications (Trade) Dose Ordered Sig/[place] Route Start Time Stop Time Status Last Admin Dose Admin Sodium Chloride 1,000 ml @ 999 mls/hr Q1H1M STAT IV 05/03/17 15:38 05/03/17 16:38 DC 05/03/17 15:53 999 MLS/HR Sodium Chloride 1,000 ml @ 999 mls/hr Q1H1M STAT IV 05/03/17 16:37 05/03/17 17:37 DC 05/03/17 17:30 999 MLS/HR ED Course The patient was evaluated as above. Labs were drawn and IV access was obtained. Patient was medicated with 1 L normal saline solution. Patient was reevaluated and findings were discussed. She was given an additional 1 L normal saline solution. She agrees to hospitalization. Case was discussed with the [facility] hospitalist, Dr. Lindsey. They agreed to evaluate the patient for admission. Medical Decision Differential diagnosis includes renal failure, dehydration, urinary tract infection, diabetic ketoacidosis, infection, electrolyte abnormality, among others. The patient is a 51-year-old female who presents today for evaluation of abnormal lab testing. Labs revealed and elevated creatinine of 3.60. Patient' s BUN is elevated at 50. She does appear to be significantly dehydrated. Her baseline creatinine is 0.7-0.8, therefore this does represent an acute kidney injury. Patient does have an anion gap acidosis which reveals likely secondary to dehydration. Blood glucose is elevated at 277. The patient is a known diabetic. She refused to remove the dressings on the lower legs and I was not able to examine the wounds, but she has had very close follow-up with infectious disease and the wound clinic. The patient was given 2 L of normal saline solution in the emergency department. [facility] for further evaluation and care. The patient's case was reviewed with Dr. Aguirre, ED attending physician, who agreed with my assessment and treatment plan. Medication reconciliation: I attest that I have personally reviewed the patient 's current medication list. Blood pressure screening: Patient was found to have an elevated blood pressure and was referred to their primary care provider for recheck and further treatment. Impression Primary Impression: Acute kidney injury Additional Impression: Dehydration Departure Information Prescriptions Ondansetron Hcl (ZOFRAN) 8 Mg Tab 8 MG PO TID Y for Nausea or Vomiting, #30 TAB Prov: Calvin Lindsey MD 05/03/17 Lisinopril (Lisinopril) 40 Mg Tab 40 MG PO BID, #30 Prov: Calvin Lindsey MD 05/03/17 Spironolactone (Aldactone) 25 Mg Tab 12.5 MG PO DAILY for 30 Days, #15 TAB Prov: Calvin Lindsey MD 05/03/17 Referrals Sandy Rodney D.O. (PCP) Patient Instructions My [facility] Problem Qualifiers
[2017-05-03] MEDS ORDERED: SODIUM CHLORIDE 0.9% 1000ML 1,000 ML IV SCH (17:14)
[2017-05-03] MEDS ORDERED: ALUMINUM/MAGNESIUM/SIMETH (MAALOX MAX) 30 ML UDC PO PRN (17:15)
[2017-05-03] MEDS ORDERED: PENDING NSS+20mEq KCL IVF SCH (17:15)
[2017-05-03] MEDS ORDERED: DKA GOAL RANGE 150-250 mg/dl 1 EA ONE (17:15)
[2017-05-03] MEDS ORDERED: NITROGLYCERIN 0.4 MG SL PER TAB CHARGE SL PRN (17:15)
[2017-05-03] MEDS ORDERED: MODERATE STRESS LEVEL ONE (17:15)
[2017-05-03] MEDS ORDERED: PENDING D5 1/2NS+20mEq KCL IVF SCH (17:15)
[2017-05-03] MEDS ORDERED: DC ALL PREVIOUSLY ORDERED DIABETES MEDS ONE (17:15)
[2017-05-03] MEDS ORDERED: ONDANSETRON INJ 2 MG/ML 2 ML VIAL IV PRN (17:15)
[2017-05-03] MEDS ORDERED: MAGNESIUM HYDROXIDE SUSP 30 ML UDC PO PRN (17:15)
[2017-05-03] MEDS ORDERED: PHARMACY GLYCEMIC MGMT CONSULT PRN (17:15)
[2017-05-03] MEDS ORDERED: SPIR25TA PO (17:28)
[2017-05-03] MEDS ORDERED: ONDA8TAB6 PO (17:28)
[2017-05-03] MEDS ORDERED: LSN40 PO (17:28)
[2017-05-03] MEDS ORDERED: PIPERACILLIN/TAZOBACTAM 4.5 GM/100ML D5W IV SCH (17:30)
[2017-05-03] MEDS ORDERED: CLOBETASOL PROPIONATE TOP SCH (17:30)
--- NOTE | 2017-05-03 19:29 | DIAGNOSTIC IMAGING REPORT ---
ULTRASOUND KIDNEYS AND BLADDER CLINICAL HISTORY: Acute renal insufficiency. COMPARISON STUDY: No priors. TECHNIQUE: Real-time, grayscale, and color flow sonography of the kidneys and bladder is performed. Images are reviewed in the transverse and longitudinal planes. The examination is degraded by large body habitus. FINDINGS: Kidneys: The kidneys are normal in size and echotexture. The right kidney measures 13.1 x 5.0 x 4.1 cm and the left kidney measures 12.3 x 6.5 x 6.3 cm. There is no hydronephrosis. No shadowing renal calculi are identified. There is no sonographic evidence of solid renal mass lesion. No perinephric fluid is identified. Bladder: The bladder was decompressed and not well assessed. Upper abdomen: Survey images of the liver show evidence of hepatomegaly and hepatic steatosis. IMPRESSION: 1. There is no hydronephrosis. 2. The bladder was decompressed and and not well assessed. 3. Hepatomegaly and hepatic steatosis. Electronically signed by: Raad Lawton M.D. 05/03/2017 7:28 PM Dictated Date/Time: 05/03/2017 7:27 PM
--- NOTE | 2017-05-03 19:31 | HISTORY & PHYSICAL EXAMINATION ---
DATE OF ADMISSION: 05/03/2017 CHIEF COMPLAINT: Nausea and abnormal labs. HISTORY OF PRESENT ILLNESS: This is a 51-year-old female with past medical history significant for type 2 diabetes, obesity, cutaneous vasculitis, chronic lower extremity wounds, hypertension, presents with abnormal labs. The patient says she is on antibiotics for lower extremity wounds for a long time. She follows with the wound clinic and Dr. Fischer. She is on Zyvox for almost 3 months and she is started on Zosyn close to a couple of weeks ago. She thinks that since she has started Zosyn, she has developed nausea and vomited a couple of times in the morning. She has chronic diarrhea. Denies any fever or chills, no headaches, has some blurred vision lately. No chest pain, no abdominal pain, not eating much because of this nausea for the last 2 days and labs done as outpatient showed acute renal failure and she was advised to come to the hospital. Currently, resting comfortably and hemodynamically stable. She says she wants to go home as soon as possible. She says other than these antibiotics, no recent change in medications. ALLERGIES: No known drug allergies. PAST MEDICAL HISTORY: As mentioned above. PAST SURGICAL HISTORY: Laser trabeculoplasty. MEDICATIONS: The patient is on Zosyn continuously. Azathioprine 100 mg b.i.d., Effexor XR 37.5 mg p.o. daily, gabapentin 800 mg p.o. q.i.d., metformin 1000 mg p.o. b.i.d., Lasix 80 mg p.o. daily, spironolactone 12.5 mg p.o. daily, Zyvox 600 mg p.o. b.i.d., methotrexate 2.5 mg four tablets once a week, exenatide ER 2 mg subcutaneous once a week, folic acid 1 mg p.o. daily, Dapsone 50 mg p.o. daily, lisinopril 40 mg p.o. b.i.d., meloxicam 7.5 mg p.o. daily, metoprolol succinate XL 100 mg p.o. daily, simvastatin 20 mg p.o. at bedtime, Januvia 100 mg p.o. daily, insulin Lantus 75 units b.i.d., insulin aspartate before each meal according to measure of glucose, Zofran 8 mg p.o. t.i.d. p.r.n., B complex vitamins one tablet daily, alpha-lipoic acid 600 mg p.o. b.i.d. FAMILY HISTORY: Significant for father has alcoholism, asthma, blood disorder and cancer and heart disorder. Mother has heart disorder. Brother has allergies and asthma and diabetes. Mother also has diabetes. SOCIAL HISTORY: Never smoked. No alcohol use. No drug use. . REVIEW OF SYMPTOMS: As per HPI. Rest of review of symptoms negative. PHYSICAL EXAMINATION: GENERAL: The patient is obese, not in distress. VITAL SIGNS: Temperature 36.5, pulse 88, respiratory rate 20, blood pressure 142/69, oxygen 100% on room air. HEENT: No pallor, no icterus. Pupils equal, round, and reactive to light. NECK: No JVD, no neck masses, no carotid bruits. CARDIOVASCULAR: S1, S2 heard, regular rate and rhythm, no murmur, no gallop. RESPIRATORY SYSTEM: Clear to auscultation bilaterally. No accessory muscle use. No wheezing, no crackles. ABDOMEN: Soft, bowel sounds present. Nontender. No distention. CENTRAL NERVOUS SYSTEM: Cranial nerves II-XII are grossly intact. Nonfocal. EXTREMITIES: Bilateral lower extremity edema present, but the patient refuses to examine her extremities. LABS: Sodium 134, potassium 3.9, chloride 97, bicarb 13, BUN 50, creatinine 3.6, serum glucose 277, magnesium 2.4, calcium 8.5. WBC 8.4, hemoglobin 10.2, hematocrit 33.1, platelets 575. ASSESSMENT AND PLAN: This is a 51-year-old female who presents with acute renal failure and possible diabetic ketoacidosis. 1. Possible diabetic ketoacidosis. The patient has diabetes and she is not checking sugars at home. She has blurred visions. Her sugar is 277 here, but she has an anion gap of 24, with bicarb of 13 and she has nausea. Most likely diabetic ketoacidosis, we will start her on IV insulin diabetic ketoacidosis protocol and aggressive IV fluids as per protocol. We will closely monitor the labs and adjust the insulin regimen. We will follow HbA1c levels in the a.m. We will consult pharmacy for glycemic management. Monitor on tele floor. 2. Acute renal failure, most likely secondary to above. She is also started on Zosyn recently. Allergic interstitial nephritis, mostly unlikely because the patient does not have a rash or fever, but we will follow the urine eosinophils. We will check a renal ultrasound, Gomez catheter, fluids as above and follow the labs. Nephrology consulted.We will also hold nephrotoxic medications Lasix, lisinopril, Aldactone, meloxicam, and metformin. 3. Cutaneous vasculitis, we will hold her oral home medication azathioprine and methotrexate for now. 4. Chronic lower extremity wounds. Continue with Zyvox and Zosyn for now and consult ID in the a.m. 5. History of diabetes management as above. Hold the home medication of Lantus insulin sliding scale and Januvia and metformin. 6. History of hypertension. Continue metoprolol succinate with holding parameters, hold the lisinopril and Lasix. We will monitor the blood pressure. 7. History of hyperlipidemia. Continue statin. 8. History of depression. Continue Effexor. 9. Deep vein thrombosis prophylaxis, heparin subQ and sequential compression devices. 11. Disposition: Admit to tele floor. Expected to discharge home and follow with the family doctor and ID. Level 1 full code. MTDD
[2017-05-03] MEDS: GABAPENTIN 800 MG TAB PO SCH ×2 (19:38→21:59)
[2017-05-03 19:48] VITALS: BP 153/80; PULSE 86; TEMP 36.5; O2SAT 100; BMI 43.0
[2017-05-03 20:42] LABS: BUN/CREATININE RATIO 14.4 (10-20); CALCIUM 7.9 mg/dl (8.5-10.1); CREATININE 3.4 mg/dl (0.60-1.20); MAGNESIUM 2.4 mg/dl (1.8-2.4); POTASSIUM 3.9 mmol/L (3.5-5.1)
[2017-05-03 20:47] LABS: PHOSPHORUS 5.4 mg/dl (2.5-4.9)
[2017-05-03] MEDS ORDERED: SIMVASTATIN 20 MG TAB PO SCH (21:00)
[2017-05-03] MEDS ORDERED: GLUCOSE 40% GEL 15 GM TUBE PO PRN (21:30)
[2017-05-03] MEDS ORDERED: DEXTROSE 50% 50 ML SYR IV PRN (21:30)
[2017-05-03] MEDS ORDERED: GLUCOSE 10 TABS/TUBE PO PRN (21:30)
[2017-05-03] MEDS ORDERED: GLUCAGON FOR INJ 1 MG VIAL SQ PRN (21:30)
[2017-05-03] MEDS ORDERED: INSULIN HUMAN REGULAR IV BOLUS 3 UNIT in SYRINGE 0 ML IV SCH (21:45)
[2017-05-03] MEDS: INSULIN ASPART 100 UNITS/ML 3 ML PEN SC SCH (21:54)
[2017-05-03] MEDS: PIPERACILL/TAZOBAC IV 4.5 GM in DEXTROSE 5% 100ML IV SCH (21:57)
[2017-05-03] MEDS: LINEZOLID 600 MG TAB PO SCH (21:59)
[2017-05-03] MEDS: D5W AND 1/2NSS + 20MEQ KCL 1000 ML IV SCH (22:01)
[2017-05-03] MEDS: HEPARIN SOD 5000 UNIT/0.5 ML CARP SQ SCH (22:01)
[2017-05-03] MEDS: INSULIN REGULAR 250 UNITS in SODIUM CHLORIDE 0.9% 250ML 250 ML IV SCH (22:06)
[2017-05-03] MEDS: INSULIN IV INFUSION PROTOCOL SCH ×2 (22:46→22:55)
[2017-05-04] VITALS (7 sets, daily range): BP systolic 115–156; BP diastolic 63–86; PULSE 78–86; TEMP 36.4–37; O2SAT 95–100; Ht 162.6 cm; Wt 121.0 kg
[2017-05-04 00:16] LABS: CREATININE 3.6 mg/dl (0.60-1.20)
[2017-05-04 00:17] LABS: BUN/CREATININE RATIO 13.7 (10-20); MAGNESIUM 2.3 mg/dl (1.8-2.4); PHOSPHORUS 5.3 mg/dl (2.5-4.9); POTASSIUM 3.6 mmol/L (3.5-5.1)
[2017-05-04] MEDS: D5W AND 1/2NSS + 20MEQ KCL 1000 ML IV SCH (03:57)
[2017-05-04 04:25] LABS: BUN/CREATININE RATIO 14.2 (10-20); CALCIUM 7.7 mg/dl (8.5-10.1); CREATININE 3.7 mg/dl (0.60-1.20); MAGNESIUM 2.3 mg/dl (1.8-2.4); POTASSIUM 3.8 mmol/L (3.5-5.1)
[2017-05-04 04:26] LABS: PHOSPHORUS 5.3 mg/dl (2.5-4.9)
[2017-05-04 06:41] LABS: ESTIMATED AVERAGE GLUCOSE 171 mg/dl; HA1C FLAG Normal (Normal)
[2017-05-04] MEDS: PIPERACILL/TAZOBAC IV 4.5 GM in DEXTROSE 5% 100ML IV SCH (08:00)
[2017-05-04] MEDS: INSULIN ASPART 100 UNITS/ML 3 ML PEN SC SCH ×5 (08:00→23:59)
[2017-05-04] MEDS: LINEZOLID 600 MG TAB PO SCH (08:22)
[2017-05-04] MEDS: GABAPENTIN 800 MG TAB PO SCH ×4 (08:22→21:10)
[2017-05-04] MEDS: VENLAFAXINE HCL XR 75 MG CAPXR PO SCH (08:23)
[2017-05-04] MEDS: VITAMIN B COMPLEX TAB PO SCH (08:23)
[2017-05-04] MEDS: METOPROLOL SUCC 50MG EXT REL TAB PO SCH (08:23)
[2017-05-04] MEDS: HEPARIN SOD 5000 UNIT/0.5 ML CARP SQ SCH ×2 (08:25→21:09)
[2017-05-04 08:45] LABS: ALLEN TEST POS (POS); ARTERIAL BLOOD GAS BASE EXCESS -13.1 mEq/L (-9-1.8); ARTERIAL BLOOD GAS HCO3 12 mmol/L (19-24); ARTERIAL BLOOD GAS PO2 107 mm/Hg (80-95); ARTERIAL BLOOD GAS pH 7.31 (7.35-7.45); O2 ADMINISTRATION ROOM AIR
--- NOTE | 2017-05-04 08:49 | NEPHROLOGY CONSULTATION ---
DATE OF CONSULTATION: 05/04/2017 ATTENDING OF RECORD: Dr. Lindsey. REASON FOR CONSULTATION: TERESA with acidosis. HISTORY OF PRESENT ILLNESS: This is a 51-year-old female with diabetes for over 20 years, who has a baseline creatinine of 0.7, last checked in February of this year, who has chronic wounds on her lower extremities as well as a wound on her abdomen followed by Dr. Fischer, who has her on chronic antibiotics. The patient was started on Zosyn a couple weeks ago and since starting on Zosyn, the patient has developed nausea, vomiting and some blurry vision. The patient states she feels like she is losing weight. The patient had labs done which showed a significant TERESA with a creatinine of 3.6 as well as a bicarb of 13. Initially thought that the patient may be in DKA and started on insulin drip and IV fluids. The patient has not urinated since she has been admitted and creatinine has remained unchanged at 3.7 this morning and continues to be acidotic at 15. Hemoglobin A1c is 7.6. No significant white count and platelet counts are good at 575. Blood cultures are pending. Renal ultrasound was done which showed a right kidney of 13.1 cm, left kidney 12.3 cm, no hydronephrosis, no kidney stones and the bladder was decompressed. There were also signs of hepatomegaly and hepatic steatosis. The patient with significant meds at home of metformin 1 gram b.i.d., Lasix 80 mg a day, spironolactone 12.5 mg a day, lisinopril 40 mg b.i.d., meloxicam 7.5 mg a day. The patient has had these chronic lower extremity wounds for several months, treated with Zyvox for almost 3 months and is now on Zosyn. PAST MEDICAL HISTORY: 1. Type 2 diabetes for over 20 years. 2. Obesity. 3. Cutaneous vasculitis with chronic lower extremity wounds. 4. Hypertension. PAST SURGICAL HISTORY: Laser surgery to the eye. FAMILY HISTORY: Significant for diabetes. SOCIAL HISTORY: No smoking, no alcohol, no drugs. REVIEW OF SYSTEMS: No headaches. No fevers or chills. Positive diarrhea. Positive decreased appetite. Positive nausea. No chest pain. Positive shortness of breath with exertion. Positive chronic lower extremity wounds. Positive anorexia. All other review of systems otherwise negative. CURRENT MEDICATIONS: Folic acid 1 mg a day, Toprol-XL 100 mg a day, Effexor 75 mg a day, vitamin B complex daily, Zosyn 4.5 grams IV q. 8, insulin drip, D5 half-normal with 20 of K at 150 mL an hour, heparin 5000 units subQ q. 12, Neurontin 800 mg four times a day, linezolid 600 mg p.o. b.i.d., Zocor 20 mg at night. PHYSICAL EXAMINATION,. VITAL SIGNS: Temperature 36.8, pulse 85, respiratory rate is 18, blood pressure 145/75, satting 98% on room air. GENERAL: Awake, alert, oriented x3, obese. EYES: No scleral icterus. ENT: Moist mucous membranes. NECK: Supple. PULMONARY: Clear to auscultation. CARDIAC: Regular rate and rhythm. ABDOMEN: Bowel sounds positive, soft, nontender, nondistended. EXTREMITIES: Bilateral lower extremity lesions, which are tender. NEUROLOGICALLY: Nonfocal. Denies any neuropathic pains. LABORATORY DATA: White count is 8.4, H&H 10.2 and 33.1, platelet count is 575. Sodium level is 136, potassium 3.8, chloride is 101, bicarb is 15, BUN is 53, creatinine is 3.7. Glucose 149. Hemoglobin A1c 7.6, calcium 7.7, phos 5.3, mag is 2.3. Blood cultures pending. Renal ultrasound as stated from above. ASSESSMENT AND PLAN: 1. Acute kidney injury, anuric, currently on IV fluids. A renal ultrasound was unimpressive with no hydro and 2 normal size kidneys. We will place a Gomez catheter and also check an ABG. Could have a severe acute tubular necrosis given the fact patient was on NSAIDs and diuretics in the setting of chronic wound infections. Does have interesting history of ulcers on lower legs bilaterally. Per records, the patient notes that 3 years ago, she developed a rash on her right leg when she had a trauma and biopsy done at that time showed vasculitis, subsequently treated with methotrexate and Imuran with improvement. Over the last year, she developed ulcers on the legs bilaterally, getting worse and has been getting antibiotics through infectious disease. Punch biopsy was done this week. Punch biopsy results are still pending. The patient has been followed closely by rheumatology for the cutaneous vasculitis and has been on methotrexate in the past as well as Imuran and the consideration was possibly that these lesions may be pyoderma gangrenosum and that she may benefit from Remicade. Overall with the clinical history of diabetes with NSAIDs, on chronic immunosuppressive therapy, with worsening lower extremity ulcers, with underlying possible vasculitis, would like to do a serologic workup checking an SHARAD, ANCA, C3, C4, anti-double stranded DNA, to rule out renal vasculitis. This could also be interstitial nephritis from the antibiotics. This could be significant acute tubular necrosis from the NSAIDs and volume depletion. Other etiologies could be metformin-induced acidosis. We will change the IV fluids to D5W with 3 amps of bicarb to help correct the metabolic acidosis and see if the patient starts to urinate. There may be a role for dialysis during this admission plus or minus transfer to [place] for possible renal biopsy if the patient does not start to clinically improve. I appreciate consultation. ANDREI
[2017-05-04 08:56] LABS: URINE APPEARANCE CLOUDY (CLEAR); URINE BILIRUBIN NEG (NEG); URINE COLOR DK YELLOW; URINE EPITHELIAL CELL AUTO 20-30 /lpf (0-5); URINE NITRITE NEG (NEG); URINE SPECIFIC GRAVITY 1.029 (1.000-1.030); UROBILINOGEN NEG (NEG); ZZUR CULT IF INDIC CLEAN CATCH YES
[2017-05-04 09:11] LABS: MANUAL MICROSCOPIC REQUIRED? NO; REVIEW REQ? YES
[2017-05-04] MEDS ORDERED: PIPERACILL/TAZOBAC CONSULT ACTIVE PRN (09:30)
[2017-05-04] MEDS ORDERED: INSULIN PROTOCOL GOAL RANGE ONE (09:30)
[2017-05-04] MEDS: SODIUM BICARBONATE 8.4% INJ 150 MEQ in DEXTROSE 5% 1000ML 1,000 ML IV SCH ×3 (09:42→21:13)
--- NOTE | 2017-05-04 10:12 | Pharmacy Progress Note ---
Glycemic Control Intl Consult Date of Service May 04, 2017. Scope Glycemic Pharmacist consulted by Dr Lindsey on 05/03/17 for glycemic control and to write orders per [facility] inpatient glycemic control protocol Objective Weight (Kilograms): 119.300 Accuchecks BSG (last 24hrs): Test 05/03/17 15:46 05/03/17 17:29 05/03/17 19:56 05/03/17 20:02 Random Glucose 277 mg/dl (70-99) 213 mg/dl (70-99) Bedside Glucose 257 mg/dl (70-90) 233 mg/dl (70-90) Test 05/03/17 23:00 05/03/17 23:50 05/04/17 00:01 05/04/17 00:58 Bedside Glucose 193 mg/dl (70-90) 163 mg/dl (70-90) 143 mg/dl (70-90) Random Glucose 170 mg/dl (70-99) Test 05/04/17 01:56 05/04/17 03:03 05/04/17 03:50 05/04/17 04:02 Bedside Glucose 146 mg/dl (70-90) 159 mg/dl (70-90) 155 mg/dl (70-90) Random Glucose 149 mg/dl (70-99) Test 05/04/17 05:55 05/04/17 08:24 05/04/17 08:44 Bedside Glucose 161 mg/dl (70-90) 153 mg/dl (70-90) Laboratory Data (last 24hrs) Item Value Date Time Carbon Dioxide Level 13 mmol/L L 05/03/17 1546 Anion Gap 24.0 mmol/L H 05/03/17 1546 Creatinine 3.60 mg/dl H # 05/03/17 1546 Carbon Dioxide Level 13 mmol/L L 05/03/172001 Anion Gap 22.0 mmol/L H 05/03/172001 Creatinine 3.40 mg/dl H 05/03/172001 Carbon Dioxide Level 13 mmol/L L 05/03/170 Anion Gap 23.0 mmol/L H 05/03/170 Creatinine 3.60 mg/dl H 05/03/172349 Carbon Dioxide Level 15 mmol/L L 05/04/17 0350 Anion Gap 20.0 mmol/L H 05/04/17 0350 Creatinine 3.70 mg/dl H 05/04/17 0350 HbA1c Test 05/04/17 03:50 Hemoglobin A1c 7.6 % (4.5-5.6) H Recent Pertinent Medications Outpatient Anti-diabetic Regimen: * Lantus 75 units SQ BID * NovoLog SSI ACHS (50-70 units with meals) * Metformin 1,000mg PO BIDM * Januvia 100mg PO daily * Budureon 2mg SQ weekly (has not taken in a few weeks secondary to poor PO intake) The patient is currently receiving: * IV insulin infusion per moderate stress protocol * Goal range 150-250mg/dl * Oral Agents: On hold Risk Factors for Insulin Resistance: * Infection * D5 IVF Risk Factors for Insulin Sensitivity: * ARF * NPO Assessment & Plan ASSESSMENT: * 51yo T2DM female with near adequate degree of outpatient control per A1c * Discussed outpatient regimen in great detail with patient. She currently uses minimum of ~300 units of insulin per day as basal, prandial, and correctional insulin. Pt also uses multiple oral agents and SQ GLP1-RA weekly. 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 Last dose of GLP1 was a few weeks ago. 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 Otherwise, patient is very compliant with outpatient regimen and states that she is very insulin resistant. * Pt admitted with ARF, acidosis, subsequently initiated on IV insulin infusion per protocol for hyperglycemia ?DKA? * IV insulin infusion running at 1.4-2.2 units/hr * BSGs have improved greatly with IV insulin infusion but metabolic abnormalities are are severe * Likely cause of acidosis is multi-factorial including AFR (interstitial nephritis secondary to abx vs ATN secondary to NSAIDS & volume depletion), metformin, DKA. Will discuss with provider adequate timing to transition off of IV insulin infusion as this is not a typical case * Pt is receiving IVF with D5 + 150meq Bicarb per nephrology. * ADA & AACE recommend a goal blood sugar range 140-180 mg/dl for the majority of critically ill & non-critically ill patients. However, more stringent targets may be selected in individual cases. PLAN FOR INPATIENT GLYCEMIC CONTROL: * Continue IV insulin infusion per moderate stress protocol * LOWER Goal Range 140 - 180 mg/dl * Hold outpatient oral diabetes medications * Transition to SQ basal bolus insulin regimen when criteria met to do so per provider. Recommend : Transitioning to SQ basal bolus insulin regimen at reduced outpatient dosing. ARF can lead to increased insulin sensitivity and increased response to given doses. * Basal insulin with Lantus 60 units SQ X 1 , THEN * Lantus 30-60 units SQ BID --> dosing based on BSG secondary to unknown insulin needs with ARF and decreased PO intake * Bolus insulin per scale ACHS or Q6hrs while NPO. Additional checks + coverage at 0000 & 0400 to cover hyperglycemia secondary to reduced basal insulin dose given. Goal Range: Low 120 mg/dL - High 140mg/dL Correction Factor: 10 mg/dL/unit Nutritional / Prandial insulin per carb ratio of 1 unit per 3 grams CHO consumed * Please note that the plan above was derived based on current level of insulin resistance and hospital stress. These recommendations are appropriate for inpatient admission only. Plan of care upon discharge will need to be reassessed to avoid potential outpatient hypo/hyperglycemia. Thank you.
--- NOTE | 2017-05-04 10:41 | Medical Consult ---
Consultation Date of Consultation: May 04, 2017. Attending Physician: Calvin Lindsey MD Reason for Consultation: Chronic wounds History of Present Illness 51-year-old female well known to me with history of cutaneous vasculitis of unclear etiology, with chronic lower extremity leg ulcerations, requiring antibiotic therapy for control, who now presents with worsening lower extremity cellulitis as well as evidence of acute kidney injury with increasing creatinine. She has been treated recently for lower extremity cellulitis with combination of Zyvox and IV Zosyn, but has had significant nausea, vomiting, and lack of oral intake over the past several days. She is found to have elevated creatinine with concern over dehydration, antibiotic toxicity, or possible vasculitis related to underlying condition. She feels better with fluid resuscitation. She has had no significant fever chills. Complaining of severe, 7 out 10 in intensity, pain in her lower extremities from her ulcerations. 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 (5) Depression (6) Diabetes mellitus type 2 in obese (7) DKA (diabetic ketoacidoses) (8) Epiretinal membrane, left eye (9) HTN (hypertension) (10) Psoriasis Surgical Problems: (1) H/O eye surgery Family History Asthma BROTHER Diabetes mellitus BROTHER SISTER Heart disease FATHER BROTHER Latisha's disease BROTHER Hypertension MOTHER Lung cancer FATHER Social History Smoking Status: Never Smoker Drug Use: none Marital Status: Occupation Status: employed Allergies Coded Allergies: No Known Allergies (Unverified , 05/03/17) Current Inpatient Medications Current Inpatient Medications Medications (Trade) Dose Ordered Sig/[place] Route Start Time Stop Time Status Last Admin Dose Admin Insulin Aspart (novoLOG ASPART) SLIDING SCALE PCHS SC 05/03/17 21:00 06/02/17 20:59 Miscellaneous Information (Consult Glycemic Management Pharmacy) 1 ea UD PRN N/A 05/03/17 17:15 06/02/17 17:14 Heparin Sodium (Porcine) (Heparin Sq 5000 Unit/0.5ml) 5,000 unit Q12 SQ 05/03/17 21:00 06/02/17 20:59 05/04/17 08:25 5,000 UNIT Acetaminophen (Tylenol Tab) 650 mg Q4H PRN PO 05/03/17 17:15 06/02/17 17:14 Al Hydrox/Mg Hydrox/Simethicone (Maalox Max Susp) 15 ml Q4H PRN PO 05/03/17 17:15 06/02/17 17:14 Magnesium Hydroxide (Milk Of Magnesia Susp) 30 ml Q12H PRN PO 05/03/17 17:15 06/02/17 17:14 Ondansetron HCl (Zofran Inj) 4 mg Q6H PRN IV 05/03/17 17:15 06/02/17 17:14 Nitroglycerin (Nitrostat Tab) 0.4 mg UD PRN SL 05/03/17 17:15 06/02/17 17:14 Folic Acid (Folvite Tab) 1 mg DAILY PO 05/04/17 09:00 06/03/17 08:59 05/04/17 08:22 1 MG Gabapentin (Neurontin Tab) 800 mg QID PO 05/03/17 21:00 06/02/17 20:59 05/04/17 08:22 800 MG Linezolid (Zyvox Tab) 600 mg BID PO 05/03/17 21:00 05/13/17 20:59 05/04/17 08:22 600 MG Metoprolol Succinate (Toprol Xl Tab) 100 mg DAILY PO 05/04/17 09:00 06/03/17 08:59 05/04/17 08:23 100 MG Simvastatin (Zocor Tab) 20 mg HS PO 05/03/17 21:00 06/02/17 20:59 05/03/17 21:59 20 MG Venlafaxine HCl (effeXOR EXTENDED REL CAP) 75 mg DAILY PO 05/04/17 09:00 06/03/17 08:59 05/04/17 08:23 75 MG Vitamin B Complex (Vitamin B Complex) 1 tab DAILY PO 05/04/17 09:00 06/03/17 08:59 05/04/17 08:23 1 TAB Piperacillin Sod/ Tazobactam Sod 4.5 gm/Dextrose 120 ml @ 30 mls/hr Q8@0000,0800,1600 IV 05/04/17 00:00 05/14/17 00:00 Insulin Human Regular 250 units/ Sodium Chloride 252.5 ml @ 0 mls/hr DAILY@1130 IV 05/03/17 22:00 06/02/17 21:59 05/03/17 22:06 2.8 MLS/HR Glucose (Glucose 40% Gel) UD PRN PO 05/03/17 21:30 06/02/17 21:29 Glucose (Glucose Chew Tab) 1 tabs UD PRN PO 05/03/17 21:30 06/02/17 21:29 Dextrose (Dextrose 50% 50ML Syringe) 50 ml UD PRN IV 05/03/17 21:30 06/02/17 21:29 Glucagon (Glucagon Inj) 1 mg UD PRN SQ 05/03/17 21:30 06/02/17 21:29 Miscellaneous Information (Order Awaiting Action) 1 ea QS N/A 05/04/17 00:00 06/03/17 00:00 05/03/17 21:56 1 EA Sodium Bicarbonate 150 meq/Dextrose 1,150 ml @ 200 mls/hr Q5H45M IV 05/04/17 09:00 06/03/17 07:59 05/04/17 09:42 150 MLS/HR Piperacillin Sod/ Tazobactam Sod (Consult) 1 ea UD PRN N/A 05/04/17 09:30 06/03/17 09:29 Review of Systems Constitutional: + weakness, + fatigue, No fever Eyes: No problem reported ENT: No problem reported Respiratory: No problem reported Cardiovascular: No problem reported Abdomen: + nausea, + vomiting, + diarrhea Musculoskeletal: + muscle pain, + swelling Genitourinary - Female: No problem reported Neurologic: No problem reported Psychiatric: No problem reported Endocrine: No problem reported Hematologic / Lymphatic: No problem reported Integumentary: + new/changing skin lesions Allergic / Immunologic: No problem reported Physical Exam Date Time Temp Pulse Resp B/P (MAP) Pulse Ox O2 Delivery O2 Flow Rate FiO2 05/04/17 08:00 Room Air 05/04/17 07:47 36.8 84 18 140/69 (92) 96 05/04/17 04:08 Room Air 05/04/17 04:00 36.8 85 18 145/75 (98) 98 Room Air 05/04/17 00:22 Room Air 05/04/17 00:00 36.9 85 20 137/69 (91) 100 Room Air 05/03/17 19:48 36.5 86 20 153/80 100 Room Air 05/03/17 18:28 91 18 146/71 100 05/03/17 16:39 88 20 142/69 100 05/03/17 15:12 36.5 94 17 131/68 96 Room Air General Appearance: WD/WN, no apparent distress, + obese Head: normocephalic, atraumatic Eyes: normal inspection, EOMI, sclerae normal ENT: normal ENT inspection, hearing grossly normal, pharynx normal Neck: supple, no adenopathy, thyroid normal, trachea midline Respiratory/Chest: chest non-tender, lungs clear, normal breath sounds, no respiratory distress Cardiovascular: regular rate, rhythm, no gallop, no murmur Abdomen/GI: normal bowel sounds, non tender, soft, no organomegaly Back: normal inspection, no CVA tenderness Extremities/Musculoskelatal: + inflammation, + swelling, + pertinent finding ( extensive bilateral lower leg ulcerations) Neurologic/Psych: alert, oriented x 3 Skin: normal color, + pertinent finding (leg ulcerations with erythema) Lymphatic: no adenopathy Laboratory Results Date/Time Source Procedure Growth Status 05/03/17 20:15 Blood Blood Culture Pending Received 05/03/17 20:02 Blood Blood Culture Pending Received 05/04/17 08:00 Urine , Clean Catch Urine Culture Pending Received Last 24 Hours Test 05/03/17 15:46 05/03/17 17:29 05/03/17 19:56 05/03/17 20:02 White Blood Count 8.44 K/uL Red Blood Count 3.56 M/uL Hemoglobin 10.2 g/dL Hematocrit 33.1 % Mean Corpuscular Volume 93.0 fL Mean Corpuscular Hemoglobin 28.7 pg Mean Corpuscular Hemoglobin Concent 30.8 g/dl Platelet Count 575 K/uL Mean Platelet Volume 8.4 fL Neutrophils (%) (Auto) 73.2 % Lymphocytes (%) (Auto) 19.7 % Monocytes (%) (Auto) 5.1 % Eosinophils (%) (Auto) 1.7 % Basophils (%) (Auto) 0.1 % Neutrophils # (Auto) 6.18 K/uL Lymphocytes # (Auto) 1.66 K/uL Monocytes # (Auto) 0.43 K/uL Eosinophils # (Auto) 0.14 K/uL Basophils # (Auto) 0.01 K/uL RDW Standard Deviation 66.6 fL RDW Coefficient of Variation 19.5 % Immature Granulocyte % (Auto) 0.2 % Immature Granulocyte # (Auto) 0.02 K/uL Echinocytes 1+ Sodium Level 134 mmol/L 135 mmol/L Potassium Level 3.9 mmol/L 3.9 mmol/L Chloride Level 97 mmol/L 100 mmol/L Carbon Dioxide Level 13 mmol/L 13 mmol/L Anion Gap 24.0 mmol/L 22.0 mmol/L Blood Urea Nitrogen 50 mg/dl 49 mg/dl Creatinine 3.60 mg/dl 3.40 mg/dl Est Creatinine Clear Calc Drug Dose 23.1 ml/min 24.4 ml/min Estimated GFR () 16.2 17.3 Estimated GFR (Non- 14.0 14.9 BUN/Creatinine Ratio 13.9 14.4 Random Glucose 277 mg/dl 213 mg/dl Calcium Level 8.5 mg/dl 7.9 mg/dl Magnesium Level 2.4 mg/dl 2.4 mg/dl Bedside Glucose 257 mg/dl 233 mg/dl Phosphorus Level 5.4 mg/dl Troponin I 0.017 ng/ml Test 05/03/17 23:00 05/03/17 23:50 05/04/17 00:01 05/04/17 00:58 Bedside Glucose 193 mg/dl 163 mg/dl 143 mg/dl Sodium Level 137 mmol/L Potassium Level 3.6 mmol/L Chloride Level 101 mmol/L Carbon Dioxide Level 13 mmol/L Anion Gap 23.0 mmol/L Blood Urea Nitrogen 49 mg/dl Creatinine 3.60 mg/dl Est Creatinine Clear Calc Drug Dose 23.0 ml/min Estimated GFR () 16.2 Estimated GFR (Non- 14.0 BUN/Creatinine Ratio 13.7 Random Glucose 170 mg/dl Calcium Level 8.0 mg/dl Phosphorus Level 5.3 mg/dl Magnesium Level 2.3 mg/dl Test 05/04/17 01:56 05/04/17 03:03 05/04/17 03:50 05/04/17 04:02 Bedside Glucose 146 mg/dl 159 mg/dl 155 mg/dl Sodium Level 136 mmol/L Potassium Level 3.8 mmol/L Chloride Level 101 mmol/L Carbon Dioxide Level 15 mmol/L Anion Gap 20.0 mmol/L Blood Urea Nitrogen 53 mg/dl Creatinine 3.70 mg/dl Est Creatinine Clear Calc Drug Dose 22.4 ml/min Estimated GFR () 15.6 Estimated GFR (Non- 13.5 BUN/Creatinine Ratio 14.2 Random Glucose 149 mg/dl Estimated Average Glucose 171 mg/dl Hemoglobin A1c 7.6 % Calcium Level 7.7 mg/dl Phosphorus Level 5.3 mg/dl Magnesium Level 2.3 mg/dl Test 05/04/17 05:55 05/04/17 08:00 05/04/17 08:24 05/04/17 08:44 Bedside Glucose 161 mg/dl 153 mg/dl Urine Color DK YELLOW Urine Appearance CLOUDY Urine pH 5.0 Urine Specific [place] 1.029 Urine Protein NEG Urine Glucose (UA) NEG Urine Ketones TRACE Urine Occult Blood NEG Urine Nitrite NEG Urine Bilirubin NEG Urine Urobilinogen NEG Urine Leukocyte Esterase NEG Urine WBC (Auto) 1-5 /hpf Urine RBC (Auto) 0-4 /hpf Urine Hyaline Casts (Auto) 5-10 /lpf Urine Epithelial Cells (Auto) 20-30 /lpf Urine Bacteria (Auto) NEG Urine Yeast (Auto) Urine Random Sodium 8 mEq/L Arterial Blood pH 7.31 Arterial Blood Partial Pressure CO2 24 mmHg Arterial Blood Partial Pressure O2 107 mm/Hg Arterial Blood HCO3 12 mmol/L Arterial Blood Oxygen Saturation 96.0 % Arterial Blood Base Excess -13.1 mEq/L Arterial Blood Gas Delivery ROOM AIR Fransico Test POS Total Creatine Kinase 34 U/L Beta-Hydroxybutyric Acid 2.69 mg/dL Test 05/04/17 10:14 Bedside Glucose 178 mg/dl Patient Name: ISHA VICK Unit Number: [id number] Dictated: 05/03/171926 Transcribed: 05/03/171926 EV Printed Date/Time: [~ rep prt dt]/[~ rep prt tm] [~ rep ct labl] - [~ rep ct ivnm] [facility] Radiology Department [place], [place] [id number] Dictated: 05/03/171926 Transcribed: 05/03/171926 EV Printed Date/Time: [~ rep prt dt]/[~ rep prt tm] [~ rep ct labl] - [~ rep ct ivnm] ULTRASOUND KIDNEYS AND BLADDER CLINICAL HISTORY: Acute renal insufficiency. COMPARISON STUDY: No priors. TECHNIQUE: Real-time, grayscale, and color flow sonography of the kidneys and bladder is performed. Images are reviewed in the transverse and longitudinal planes. The examination is degraded by large body habitus. FINDINGS: Kidneys: The kidneys are normal in size and echotexture. The right kidney measures 13.1 x 5.0 x 4.1 cm and the left kidney measures 12.3 x 6.5 x 6.3 cm. There is no hydronephrosis. No shadowing renal calculi are identified. There is no sonographic evidence of solid renal mass lesion. No perinephric fluid is identified. Bladder: The bladder was decompressed and not well assessed. Upper abdomen: Survey images of the liver show evidence of hepatomegaly and hepatic steatosis. IMPRESSION: 1. There is no hydronephrosis. 2. The bladder was decompressed and and not well assessed. 3. Hepatomegaly and hepatic steatosis. Electronically signed by: Raad Lawton M.D. 05/03/2017 7:28 PM Dictated Date/Time: 05/03/2017 7:27 PM The status of this report is Signed. Draft = Not yet reviewed or approved by Radiologist. Signed = Reviewed and approved by Radiologist. <AttendingPhy>Calvin Lindsey MD</AttendingPhy> <FamilyPhy>Sandy Rodney D.O.</FamilyPhy> <PrimaryPhy>Sandy Rodney D.O.</PrimaryPhy> <UnitNumber >[id number]</UnitNumber> <VisitNumber>[id number]</VisitNumber> <PatientName> ISHA VICK</PatientName> <DateOfBirth>1965</DateOfBirth> <Location> C.2T</Location> <ServiceDate>05/03/17</ServiceDate> <MNE>ESINDI</MNE> < OrderingPhy>Calvin Lindsey MD</OrderingPhy> <OrderingPhyMNE>f rep ord dr chavira </OrderingPhyMNE> <DictatingPhyMNE>f rep dict dr chavira</DictatingPhyMNE> < CCListMNE>f rep ct mne</CCListMNE> <AdmittingPhyMNE>f pt admit dr chavira</ AdmittingPhyMNE> <AttendingPhyMNE>f pt attend dr chavira</AttendingPhyMNE> <ConsultingPhyMNE>f pt consult dr chavira</ConsultingPhyMNE> <FamilyPhyMNE>f pt fam dr chavira</FamilyPhyMNE> <OtherPhyMNE>f pt other dr chavira</OtherPhyMNE> < PrimaryPhyMNE>f pt prim care dr chavira</PrimaryPhyMNE> <ReferringPhyMNE>f pt referring dr chavira</ReferringPhyMNE> Assessment & Plan 51 yo female with 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 Have discontinued priortherapy and have begun on daptomycin and ertapenem. Await further studies. Discussed with nephrology and hospitalist services. Will follow.
[2017-05-04] MEDS ORDERED: INSULIN GLARGINE SOLOSTAR 100 UNITS/ML 3 ML PEN SC ONE (11:30)
[2017-05-04] MEDS: DAPTOmycin IV 500 MG in SODIUM CHLORIDE 0.9% 50ML 50 ML IV SCH (11:39)
[2017-05-04 11:42] LABS: BUN/CREATININE RATIO 13.6 (10-20); CALCIUM 7.9 mg/dl (8.5-10.1); CREATININE 3.7 mg/dl (0.60-1.20); MAGNESIUM 2.4 mg/dl (1.8-2.4); POTASSIUM 4.1 mmol/L (3.5-5.1)
[2017-05-04 11:43] LABS: PHOSPHORUS 5.2 mg/dl (2.5-4.9)
[2017-05-04] MEDS ORDERED: ERTAPENEM IV 0.5 GM in SODIUM CHLOR 0.9% AD-VAN 50ML 50 ML IV SCH (12:00)
[2017-05-04] MEDS: ERTAPENEM IV 500 MG in SODIUM CHLORIDE 0.9% 50 ML IV SCH (12:04)
[2017-05-04 13:03] LABS: BUN/CREATININE RATIO 13.6 (10-20); CREATININE 3.8 mg/dl (0.60-1.20); MAGNESIUM 2.3 mg/dl (1.8-2.4); PHOSPHORUS 4.9 mg/dl (2.5-4.9); POTASSIUM 4.5 mmol/L (3.5-5.1)
[2017-05-04] MEDS ORDERED: DC IV INSULIN INFUSION ONE (15:00)
[2017-05-04] MEDS: INSULIN REGULAR 250 UNITS in SODIUM CHLORIDE 0.9% 250ML 250 ML IV SCH (15:05)
--- NOTE | 2017-05-04 16:57 | Progress Note ---
Internal Med Progress Note Date of Service: May 04, 2017. Provider Documentation: SUBJECTIVE: sitting on the chair comfortably has nausea no fevers no chest pain or sob 'no abdominal pain OBJECTIVE: Vital Signs-as noted below Exam: General-alert and awake. Not in distress ENT-Normal hearing Neck-no neck masses, supple Lungs-cta b/l no wheezing or crackles Heart-s1 and s2 heard regular , no murmurs Abdomen-soft bowel sounds present non tender no distension Extremities- b/l lower extremity in dressings Neuro-alert and awake moves extremities Lab data as noted below. ASSESSMENT & PLAN: This is a 51-year-old female who presents with acute renal failure 1. Acute renal failure, etiology unclear intially thought from dehydration from dka but patinet not in dka. Prerenal ATN, AIN, or other etiologies on fluids as per nephrology renal ultrasound unremarkable Holding Lasix, Aldactone, lisinopril meloxicam and metformin. ID changed abx will follow labs. 2. Metabolic acidosis from ARF started on bicarb as per nephro recommendations f/u labs. 3. Cutaneous vasculitis, we will hold her oral home medication azathioprine and methotrexate for now. 4. Chronic lower extremity wounds. Was on Zyvox and Zosyn. ID changed abx to Invanz and daptomycin. 5. History of diabetes management as above. Hold the home medication of Januvia and metformin.Lantus and iss as per pharmacy. 6. History of hypertension. Continue metoprolol succinate with holding parameters, hold the lisinopril and Lasix. We will monitor the blood pressure. 7. History of hyperlipidemia.hold statin. 8. History of depression. Continue Effexor. 9. Deep vein thrombosis prophylaxis, heparin subQ and sequential compression devices. 11. Disposition: Monitor in tele floor. Expected to discharge home and follow with the family doctor and ID. Level 1 full code. Vital Signs: Date Time Temp Pulse Resp B/P (MAP) Pulse Ox O2 Delivery O2 Flow Rate FiO2 05/04/17 16:00 Room Air 05/04/17 15:46 36.5 84 20 115/69 (84) 100 Room Air 05/04/17 12:08 37.0 86 18 148/68 (94) 95 05/04/17 12:00 Room Air 05/04/17 08:00 Room Air 05/04/17 07:47 36.8 84 18 140/69 (92) 96 05/04/17 04:08 Room Air 05/04/17 04:00 36.8 85 18 145/75 (98) 98 Room Air 05/04/17 00:22 Room Air 05/04/17 00:00 36.9 85 20 137/69 (91) 100 Room Air 05/03/17 19:48 36.5 86 20 153/80 100 Room Air 05/03/17 18:28 91 18 146/71 100 Lab Results: Results Past 24 Hours Test 05/03/17 17:29 05/03/17 19:56 05/03/17 20:02 05/03/17 23:00 Range/Units Bedside Glucose 257 233 193 70-90 mg/dl Sodium Level 135 136-145 mmol/L Potassium Level 3.9 3.5-5.1 mmol/L Chloride Level 100 98-107 mmol/L Carbon Dioxide Level 13 21-32 mmol/L Anion Gap 22.0 3-11 mmol/L Blood Urea Nitrogen 49 7-18 mg/dl Creatinine 3.40 0.60-1.20 mg/dl Est Creatinine Clear Calc Drug Dose 24.4 ml/min Estimated GFR () 17.3 Estimated GFR (Non- 14.9 BUN/Creatinine Ratio 14.4 10-20 Random Glucose 213 70-99 mg/dl Calcium Level 7.9 8.5-10.1 mg/dl Phosphorus Level 5.4 2.5-4.9 mg/dl Magnesium Level 2.4 1.8-2.4 mg/dl Troponin I 0.017 0-0.045 ng/ml Test 05/03/17 23:50 05/04/17 00:01 05/04/17 00:58 05/04/17 01:56 Range/Units Sodium Level 137 136-145 mmol/L Potassium Level 3.6 3.5-5.1 mmol/L Chloride Level 101 98-107 mmol/L Carbon Dioxide Level 13 21-32 mmol/L Anion Gap 23.0 3-11 mmol/L Blood Urea Nitrogen 49 7-18 mg/dl Creatinine 3.60 0.60-1.20 mg/dl Est Creatinine Clear Calc Drug Dose 23.0 ml/min Estimated GFR () 16.2 Estimated GFR (Non- 14.0 BUN/Creatinine Ratio 13.7 10-20 Random Glucose 170 70-99 mg/dl Calcium Level 8.0 8.5-10.1 mg/dl Phosphorus Level 5.3 2.5-4.9 mg/dl Magnesium Level 2.3 1.8-2.4 mg/dl Bedside Glucose 163 143 146 70-90 mg/dl Test 05/04/17 03:03 05/04/17 03:50 05/04/17 04:02 05/04/17 05:55 Range/Units Bedside Glucose 159 155 161 70-90 mg/dl Sodium Level 136 136-145 mmol/L Potassium Level 3.8 3.5-5.1 mmol/L Chloride Level 101 98-107 mmol/L Carbon Dioxide Level 15 21-32 mmol/L Anion Gap 20.0 3-11 mmol/L Blood Urea Nitrogen 53 7-18 mg/dl Creatinine 3.70 0.60-1.20 mg/dl Est Creatinine Clear Calc Drug Dose 22.4 ml/min Estimated GFR () 15.6 Estimated GFR (Non- 13.5 BUN/Creatinine Ratio 14.2 09-16 Random Glucose 149 70-99 mg/dl Estimated Average Glucose 171 mg/dl Hemoglobin A1c 7.6 4.5-5.6 % Calcium Level 7.7 8.5-10.1 mg/dl Phosphorus Level 5.3 2.5-4.9 mg/dl Magnesium Level 2.3 1.8-2.4 mg/dl Test 05/04/17 08:00 05/04/17 08:24 05/04/17 08:44 05/04/17 10:14 Range/Units Urine Color DK YELLOW Urine Appearance CLOUDY CLEAR Urine pH 5.0 4.5-7.5 Urine Specific [place] 1.029 1.000-1.030 Urine Protein NEG NEG Urine Glucose (UA) NEG NEG Urine Ketones TRACE NEG Urine Occult Blood NEG NEG Urine Nitrite NEG NEG Urine Bilirubin NEG NEG Urine Urobilinogen NEG NEG Urine Leukocyte Esterase NEG NEG Urine WBC (Auto) 1-5 0-5 /hpf Urine RBC (Auto) 0-4 0-4 /hpf Urine Hyaline Casts (Auto) 5-10 0-5 /lpf Urine Epithelial Cells (Auto) 20-30 0-5 /lpf Urine Bacteria (Auto) NEG NEG Urine Yeast (Auto) NONE PRSENT Urine Osmolality 305 500-800 mOms/kg Urine Random Sodium 8 mEq/L Arterial Blood pH 7.31 7.35-7.45 Arterial Blood Partial Pressure CO2 24 35-46 mmHg Arterial Blood Partial Pressure O2 107 80-95 mm/Hg Arterial Blood HCO3 12 19-24 mmol/L Arterial Blood Oxygen Saturation 96.0 90-95 % Arterial Blood Base Excess -13.1 -9-1.8 mEq/L Arterial Blood Gas Delivery ROOM AIR [place] Test POS POS Sodium Level 136 136-145 mmol/L Potassium Level 4.1 3.5-5.1 mmol/L Chloride Level 102 98-107 mmol/L Carbon Dioxide Level 11 21-32 mmol/L Anion Gap 23.0 3-11 mmol/L Blood Urea Nitrogen 50 7-18 mg/dl Creatinine 3.70 0.60-1.20 mg/dl Est Creatinine Clear Calc Drug Dose 23.1 ml/min Estimated GFR () 15.6 Estimated GFR (Non- 13.5 BUN/Creatinine Ratio 13.6 10-20 Random Glucose 153 70-99 mg/dl Calcium Level 7.9 8.5-10.1 mg/dl Phosphorus Level 5.2 2.5-4.9 mg/dl Magnesium Level 2.4 1.8-2.4 mg/dl Total Creatine Kinase 34 26-192 U/L Beta-Hydroxybutyric Acid 2.69 0.2-2.81 mg/dL Bedside Glucose 153 178 70-90 mg/dl Test 05/04/17 11:07 05/04/17 12:18 05/04/17 12:31 05/04/17 14:56 Range/Units Bedside Glucose 237 256 152 70-90 mg/dl Sodium Level 134 136-145 mmol/L Potassium Level 4.5 3.5-5.1 mmol/L Chloride Level 101 98-107 mmol/L Carbon Dioxide Level 11 21-32 mmol/L Anion Gap 22.0 3-11 mmol/L Blood Urea Nitrogen 52 7-18 mg/dl Creatinine 3.80 0.60-1.20 mg/dl Est Creatinine Clear Calc Drug Dose 22.5 ml/min Estimated GFR () 15.1 Estimated GFR (Non- 13.1 BUN/Creatinine Ratio 13.6 10-20 Random Glucose 237 70-99 mg/dl Calcium Level 8.0 8.5-10.1 mg/dl Phosphorus Level 4.9 2.5-4.9 mg/dl Magnesium Level 2.3 1.8-2.4 mg/dl Test 05/04/17 16:10 Range/Units Microbiology Results 05/03/17 Blood Culture, Received Pending 05/03/17 Blood Culture, Received Pending 05/04/17 Urine Culture, Received Pending
[2017-05-04 17:12] LABS: BUN/CREATININE RATIO 13.9 (10-20); CREATININE 3.6 mg/dl (0.60-1.20); MAGNESIUM 2.3 mg/dl (1.8-2.4); PHOSPHORUS 4.1 mg/dl (2.5-4.9)
[2017-05-04 17:15] LABS: POTASSIUM 3.6 mmol/L (3.5-5.1)
[2017-05-04] MEDS ORDERED: INSULIN GLARGINE SOLOSTAR 100 UNITS/ML 3 ML PEN SC SCH (21:00)
[2017-05-05] MEDS: ACETAMINOPHEN 325 MG TAB PO PRN ×3 (01:05→23:15)
[2017-05-05] MEDS: INSULIN ASPART 100 UNITS/ML 3 ML PEN SC SCH ×5 (04:00→21:00)
[2017-05-05 04:10] VITALS: BP 136/73; PULSE 85; TEMP 36.5; O2SAT 100
[2017-05-05] MEDS: GABAPENTIN 800 MG TAB PO SCH ×4 (04:18→19:30)
[2017-05-05] MEDS: SODIUM BICARBONATE 8.4% INJ 150 MEQ in DEXTROSE 5% 1000ML 1,000 ML IV SCH (04:19)
[2017-05-05] MEDS ORDERED: MoRPHine SULFATE 2 MG/ML CARP IV STA (05:15)
[2017-05-05 06:27] LABS: BUN/CREATININE RATIO 19.9 (10-20); CALCIUM 7.5 mg/dl (8.5-10.1); CREATININE 2.4 mg/dl (0.60-1.20); MAGNESIUM 2.2 mg/dl (1.8-2.4); PHOSPHORUS 3.5 mg/dl (2.5-4.9); POTASSIUM 2.9 mmol/L (3.5-5.1)
[2017-05-05] MEDS: METOPROLOL SUCC 50MG EXT REL TAB PO SCH (07:43)
[2017-05-05] MEDS: VENLAFAXINE HCL XR 75 MG CAPXR PO SCH (07:43)
[2017-05-05] MEDS: VITAMIN B COMPLEX TAB PO SCH (07:44)
[2017-05-05] MEDS: HEPARIN SOD 5000 UNIT/0.5 ML CARP SQ SCH ×2 (07:51→21:03)
[2017-05-05] MEDS: INSULIN GLARGINE SOLOSTAR 100 UNITS/ML 3 ML PEN SC SCH ×2 (07:52→21:04)
[2017-05-05] MEDS ORDERED: POTASSIUM CHLORIDE 10 MEQ TABCR PO STA (07:54)
[2017-05-05 07:55] VITALS: BP 128/69; PULSE 86; TEMP 36.6; O2SAT 99
--- NOTE | 2017-05-05 08:08 | Nephrology Progress Note ---
Nephrology Progress Note Date of Service: May 05, 2017. 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 appears was volume depleted with a low urine sodium. stopped diuretics and metformin and given bicarb drip. acidosis has improved and pt urinating much better. pts appetite slowly improving. no overt sob. Objective Date Time Temp Pulse Resp B/P (MAP) Pulse Ox O2 Delivery O2 Flow Rate FiO2 05/05/17 07:55 36.6 86 18 128/69 (88) 99 05/05/17 04:20 Room Air 05/05/17 04:10 36.5 85 24 136/73 (94) 100 Room Air 05/05/17 00:00 Room Air 05/04/17 23:51 36.4 78 19 156/83 (107) 100 Room Air 05/04/17 21:00 Room Air 05/04/17 19:02 36.5 78 18 153/86 (108) 100 Room Air 05/04/17 16:00 Room Air 05/04/17 15:46 36.5 84 20 115/69 (84) 100 Room Air 05/04/17 12:08 37.0 86 18 148/68 (94) 95 05/04/17 12:00 Room Air Physical Exam: General-aaox3, obese Eyes-no scleral icterus ENT-mmm Neck-supple Lungs-cta Heart-rrr Abdomen-bs+ s/nt/nd Extremities-tender lower extremities, wrapped Neuro-nonfocal Current Inpatient Medications Medications (Trade) Dose Ordered Sig/[place] Route Start Time Stop Time Status Last Admin Dose Admin Miscellaneous Information (Consult Glycemic Management Pharmacy) 1 ea UD PRN N/A 05/03/17 17:15 06/02/17 17:14 Heparin Sodium (Porcine) (Heparin Sq 5000 Unit/0.5ml) 5,000 unit Q12 SQ 05/03/17 21:00 06/02/17 20:59 05/05/17 07:51 5,000 UNIT Acetaminophen (Tylenol Tab) 650 mg Q4H PRN PO 05/03/17 17:15 06/02/17 17:14 05/05/17 01:05 650 MG Al Hydrox/Mg Hydrox/Simethicone (Maalox Max Susp) 15 ml Q4H PRN PO 05/03/17 17:15 06/02/17 17:14 Magnesium Hydroxide (Milk Of Magnesia Susp) 30 ml Q12H PRN PO 05/03/17 17:15 06/02/17 17:14 Ondansetron HCl (Zofran Inj) 4 mg Q6H PRN IV 05/03/17 17:15 06/02/17 17:14 Nitroglycerin (Nitrostat Tab) 0.4 mg UD PRN SL 05/03/17 17:15 06/02/17 17:14 Folic Acid (Folvite Tab) 1 mg DAILY PO 05/04/17 09:00 06/03/17 08:59 05/05/17 07:43 1 MG Metoprolol Succinate (Toprol Xl Tab) 100 mg DAILY PO 05/04/17 09:00 06/03/17 08:59 05/05/17 07:43 100 MG Simvastatin (Zocor Tab) 20 mg HS PO 05/03/17 21:00 06/02/17 20:59 Future Hold 05/03/17 21:59 20 MG Venlafaxine HCl (effeXOR EXTENDED REL CAP) 75 mg DAILY PO 05/04/17 09:00 06/03/17 08:59 05/05/17 07:43 75 MG Vitamin B Complex (Vitamin B Complex) 1 tab DAILY PO 05/04/17 09:00 06/03/17 08:59 05/05/17 07:44 1 TAB Glucose (Glucose 40% Gel) UD PRN PO 05/03/17 21:30 06/02/17 21:29 Glucose (Glucose Chew Tab) 1 tabs UD PRN PO 05/03/17 21:30 06/02/17 21:29 Dextrose (Dextrose 50% 50ML Syringe) 50 ml UD PRN IV 05/03/17 21:30 06/02/17 21:29 Glucagon (Glucagon Inj) 1 mg UD PRN SQ 05/03/17 21:30 06/02/17 21:29 Miscellaneous Information (Order Awaiting Action) 1 ea QS N/A 05/04/17 00:00 06/03/17 00:00 05/03/17 21:56 1 EA Daptomycin 500 mg/ Sodium Chloride 60 ml @ 100 mls/hr Q48H IV 05/04/17 11:00 05/14/17 10:59 05/04/17 11:39 100 MLS/HR Gabapentin (Neurontin Tab) 800 mg QID@0500,1000,1500,2000 PO 05/04/17 11:00 06/03/17 10:59 05/05/17 04:18 800 MG Ertapenem 500 mg/ Sodium Chloride 55 ml @ 110 mls/hr Q24H IV 05/04/17 12:00 05/14/17 11:59 05/04/17 12:04 110 MLS/HR Insulin Aspart (novoLOG ASPART) SLIDING SCALE ACHS SC 05/04/17 11:30 06/03/17 11:29 05/05/17 07:51 13 UNITS Insulin Glargine (Lantus Solostar Pen) see protocol text BID SC 05/05/17 09:00 06/04/17 08:59 05/05/17 07:52 50 UNIT Sodium Chloride 1,000 ml @ 100 mls/hr Q10H IV 05/05/17 08:00 06/04/17 07:59 UNV Potassium Chloride (Klor-Con M10) 40 meq NOW STAT PO 05/05/17 07:54 05/05/17 07:55 UNV Potassium Chloride (Klor-Con M10) 20 meq ONE ONCE PO 05/05/17 11:00 05/05/17 11:01 UNV Last 24 Hours Test 05/04/17 08:24 05/04/17 08:44 05/04/17 10:14 05/04/17 11:07 Arterial Blood pH 7.31 Arterial Blood Partial Pressure CO2 24 mmHg Arterial Blood Partial Pressure O2 107 mm/Hg Arterial Blood HCO3 12 mmol/L Arterial Blood Oxygen Saturation 96.0 % Arterial Blood Base Excess -13.1 mEq/L Arterial Blood Gas Delivery ROOM AIR [place] Test POS Sodium Level 136 mmol/L Potassium Level 4.1 mmol/L Chloride Level 102 mmol/L Carbon Dioxide Level 11 mmol/L Anion Gap 23.0 mmol/L Blood Urea Nitrogen 50 mg/dl Creatinine 3.70 mg/dl Est Creatinine Clear Calc Drug Dose 23.1 ml/min Estimated GFR () 15.6 Estimated GFR (Non- 13.5 BUN/Creatinine Ratio 13.6 Random Glucose 153 mg/dl Calcium Level 7.9 mg/dl Phosphorus Level 5.2 mg/dl Magnesium Level 2.4 mg/dl Total Creatine Kinase 34 U/L Beta-Hydroxybutyric Acid 2.69 mg/dL Bedside Glucose 153 mg/dl 178 mg/dl 237 mg/dl Test 05/04/17 12:18 05/04/17 12:31 05/04/17 14:56 05/04/17 16:10 Sodium Level 134 mmol/L 135 mmol/L Potassium Level 4.5 mmol/L 3.6 mmol/L Chloride Level 101 mmol/L 100 mmol/L Carbon Dioxide Level 11 mmol/L 17 mmol/L Anion Gap 22.0 mmol/L 18.0 mmol/L Blood Urea Nitrogen 52 mg/dl 50 mg/dl Creatinine 3.80 mg/dl 3.60 mg/dl Est Creatinine Clear Calc Drug Dose 22.5 ml/min 23.8 ml/min Estimated GFR () 15.1 16.2 Estimated GFR (Non- 13.1 14.0 BUN/Creatinine Ratio 13.6 13.9 Random Glucose 237 mg/dl 98 mg/dl Calcium Level 8.0 mg/dl 8.0 mg/dl Phosphorus Level 4.9 mg/dl 4.1 mg/dl Magnesium Level 2.3 mg/dl 2.3 mg/dl Bedside Glucose 256 mg/dl 152 mg/dl Test 05/04/17 16:20 05/04/17 20:33 05/04/17 23:54 05/05/17 04:15 Bedside Glucose 114 mg/dl 107 mg/dl 95 mg/dl 110 mg/dl Test 05/05/17 05:07 05/05/17 07:05 Sodium Level 136 mmol/L Potassium Level 2.9 mmol/L Chloride Level 96 mmol/L Carbon Dioxide Level 24 mmol/L Anion Gap 16.0 mmol/L Blood Urea Nitrogen 48 mg/dl Creatinine 2.40 mg/dl Est Creatinine Clear Calc Drug Dose 35.9 ml/min Estimated GFR () 26.4 Estimated GFR (Non- 22.8 BUN/Creatinine Ratio 19.9 Random Glucose 120 mg/dl Calcium Level 7.5 mg/dl Phosphorus Level 3.5 mg/dl Magnesium Level 2.2 mg/dl Bedside Glucose 161 mg/dl Assessment & Plan HUM-afh-lrorkdci-improving with fluids. with a low urine sodium, indicative of a pre-renal state. given that she was on nsaids-thought possibly atn however improving quickly so more likely volume depletion. also with underlying vasculitis of the legs, thought she may be having vasculitis of the kidneys, serologies are pending, however no blood in the urine and pt clinically improving with fluids. Acidosis-possible metformin induced although would be more symptomatic. feel more likely diagnosis is acidosis from renal failure and improved with bicarb drip. to switch to normal saline. tolerating fluids well. hypokalemia-k levels trended down with the correction fo the acidosis. giving 40meq of kdur now and another 20 at 11 and rechecking k again at noon.
[2017-05-05] MEDS: SODIUM CHLORIDE 0.9% 1000ML 1,000 ML IV SCH ×2 (08:55→18:19)
[2017-05-05] MEDS ORDERED: INSULIN GLARGINE SOLOSTAR 100 UNITS/ML 3 ML PEN SC SCH (09:00)
[2017-05-05] MEDS ORDERED: POTASSIUM CHLORIDE 10 MEQ TABCR PO ONE (11:00)
[2017-05-05] MEDS: ERTAPENEM IV 500 MG in SODIUM CHLORIDE 0.9% 50 ML IV SCH (11:40)
--- NOTE | 2017-05-05 11:58 | Pharmacy Progress Note ---
Glycemic Control: Progress Nt Date of Service May 05, 2017. Scope Glycemic Pharmacist consulted by Dr. Lindsey on 05/03/17 for glycemic control and to write orders per [facility] inpatient glycemic control protocol. Objective Accuchecks BSG (last 24hrs): Test 05/04/17 12:18 05/04/17 12:31 05/04/17 14:56 05/04/17 16:10 Random Glucose 237 mg/dl (70-99) 98 mg/dl (70-99) Bedside Glucose 256 mg/dl (70-90) 152 mg/dl (70-90) Test 05/04/17 16:20 05/04/17 20:33 05/04/17 23:54 05/05/17 04:15 Bedside Glucose 114 mg/dl (70-90) 107 mg/dl (70-90) 95 mg/dl (70-90) 110 mg/dl (70-90) Test 05/05/17 05:07 05/05/17 07:05 05/05/17 11:17 Random Glucose 120 mg/dl (70-99) Bedside Glucose 161 mg/dl (70-90) 105 mg/dl (70-90) Laboratory Data (last 24hrs) Test 05/04/17 12:18 05/04/17 16:10 05/05/17 05:07 Anion Gap 22.0 mmol/L 18.0 mmol/L 16.0 mmol/L BUN/Creatinine Ratio 13.6 13.9 19.9 Blood Urea Nitrogen 52 mg/dl 50 mg/dl 48 mg/dl Creatinine 3.80 mg/dl 3.60 mg/dl 2.40 mg/dl Potassium Level 4.5 mmol/L 3.6 mmol/L 2.9 mmol/L Sodium Level 134 mmol/L 135 mmol/L 136 mmol/L HbA1c: Test 05/04/17 03:50 Hemoglobin A1c 7.6 % (4.5-5.6) H Recent Pertinent Medications Outpatient Anti-diabetic Regimen: * Lantus 75 units BID, Novolog SSI ACHS 50-70units WM, Metformin 1gm BIDM, Januvia 100 mg daily, Bydureon 2mg SQ weekly * A1c = 7.6 % from 05/04/17 Risk Factors for Insulin Resistance: * Infection: Dapto + Invanz per infectious disease * IVF: D5 + HCO3 at 200 ml/hr --> d/c'd this morning; Now on NS at 100 ml/hr * Diet: DM2 Assessment & Plan ASSESSMENT: * ADA & AACE recommend a goal blood sugar range 140-180 mg/dl for the majority of critically ill & non-critically ill patients. However, more stringent targets may be selected in individual cases. Initial: * 51yo T2DM female with near adequate degree of outpatient control per A1c * Discussed outpatient regimen in great detail with patient. She currently uses minimum of ~300 units of insulin per day as basal, prandial, and correctional insulin. Pt also uses multiple oral agents and SQ GLP1-RA weekly. She has not been taking quite this much insulin VALVE FITTER secondary to decreased PO intake and nausea. Last dose of GLP1 was a few weeks ago. No Lantus on 05/03/17 VALVE FITTER. Otherwise, patient is very compliant with outpatient regimen and states that she is very insulin resistant. * Pt admitted with ARF, acidosis, subsequently initiated on IV insulin infusion per protocol for hyperglycemia ?DKA? * IV insulin infusion running at 1.4-2.2 units/hr * BSGs have improved greatly with IV insulin infusion but metabolic abnormalities are are severe * Likely cause of acidosis is multi-factorial including AFR (interstitial nephritis secondary to abx vs ATN secondary to NSAIDS & volume depletion), metformin, DKA. Will discuss with provider adequate timing to transition off of IV insulin infusion as this is not a typical case * Pt is receiving IVF with D5 + 150meq Bicarb per nephrology. 05/05/17: * ARF continues to resolve. SCr down to 2.4 from 3.7 yesterday. * FBG this morning was 120 mg/dl. Pt received ~80 units of insulin yesterday, 60 of which were basal. PO intake yesterday was not significant. * Based upon the pt's basal insulin needs yesterday, will reduce Lantus dosing starting at bedtime tonight. I suspect the pt will require a TDD of 60-80 units of Lantus during admission (this is 50% of home basal dose). * Pt already received Lanuts 50 units this morning. Will give lower Lantus dosing tonight and re-evaluate need to increase or re-distribute BID dosing in the AM. * Loosen the Novolog CF/CR slightly to avoid overcorrecting prandial BSGs. * Add Novolog 02 check to evaluate basal rate and resolve potential overnight hyperglycemia while Lantus dose is being determined. PLAN FOR INPATIENT GLYCEMIC CONTROL: * Reduce Lantus dose per BSG scale: (will re-evaluate dosing in the AM, may need adjusted per above) * For BSG 120mg/dl and below give 20 units * For BSG 121mg/dl and above give 30 units * Novolog ACHS + 02 * Loosen correction factor to 12 mg/dl/unit * Loosen carb ratio to 1 unit per 5 grams CHO consumed * Adjust upper end of goal range Low 120 mg/dL - High 160 mg/dL as buffer against hypoglycemia RECOMMENDATIONS FOR DISCHARGE: * A1c of 7.6% from 05/04/17 indicates good control of BSGs as an outpatient considering comorbidities of the patient. * Recommend resumption of outpatient DM regimen upon discharge once b/l renal function is restored and acidosis resolved. * Please note that the plan above was derived based on current level of insulin resistance and hospital stress. These recommendations are appropriate for inpatient admission only. Plan of care upon discharge will need to be reassessed to avoid potential outpatient hypo/hyperglycemia. Thank you.
[2017-05-05 12:16] VITALS: BP 128/72; PULSE 94; TEMP 36.9; O2SAT 96
[2017-05-05 12:33] LABS: BUN/CREATININE RATIO 24.5 (10-20); CALCIUM 7.6 mg/dl (8.5-10.1); CREATININE 1.9 mg/dl (0.60-1.20); POTASSIUM 3.9 mmol/L (3.5-5.1)
[2017-05-05 15:21] VITALS: BP 129/77; PULSE 88; TEMP 36.9; O2SAT 97
--- NOTE | 2017-05-05 18:50 | Progress Note ---
Internal Med Progress Note Date of Service: May 05, 2017. Provider Documentation: SUBJECTIVE: resting comfortably no sob no pain afebrile eating ok OBJECTIVE: Vital Signs-as noted below Exam: General-alert and awake. Not in distress ENT-Normal hearing Neck-no neck masses, supple Lungs-cta b/l no wheezing or crackles Heart-s1 and s2 heard regular , no murmurs Abdomen-soft bowel sounds present non tender no distension Extremities- b/l lower extremity in dressings Neuro-alert and awake moves extremities Lab data as noted below. ASSESSMENT & PLAN: This is a 51-year-old female who presents with acute renal failure 1. Acute renal failure, etiology unclear initially thought from dehydration from dka but patinet not in dka. Prerenal ATN, AIN, or other etiologies on fluids as per nephrology renal ultrasound unremarkable Holding Lasix, Aldactone, lisinopril meloxicam and metformin. ID changed abx cr 3.8 to 1.9 improving fluids as per nephrology f/u labs in am. 2. Metabolic acidosis from ARF started on bicarb as per nephro recommendations improving stopped bicarb drip f/u labs 3. Cutaneous vasculitis, we will hold her oral home medication azathioprine and methotrexate for now. 4. Chronic lower extremity wounds. Was on Zyvox and Zosyn. ID changed abx to Invanz and daptomycin. 5. History of diabetes management as above. Hold the home medication of Januvia and metformin.Lantus and iss as per pharmacy. 6. History of hypertension. Continue metoprolol succinate with holding parameters, hold the lisinopril and Lasix. We will monitor the blood pressure. 7. History of hyperlipidemia.hold statin. 8. History of depression. Continue Effexor. 9. Deep vein thrombosis prophylaxis, heparin subQ and sequential compression devices. 11. Disposition: Monitor in tele floor. Expected to discharge home and follow with the family doctor and ID. Level 1 full code. possible d/c in am Vital Signs: Date Time Temp Pulse Resp B/P (MAP) Pulse Ox O2 Delivery O2 Flow Rate FiO2 05/05/17 16:00 Room Air 05/05/17 15:21 36.9 88 18 129/77 (94) 97 Room Air 05/05/17 12:16 36.9 94 18 128/72 (90) 96 05/05/17 12:00 Room Air 05/05/17 08:00 Room Air 05/05/17 07:55 36.6 86 18 128/69 (88) 99 05/05/17 04:20 Room Air 05/05/17 04:10 36.5 85 24 136/73 (94) 100 Room Air 05/05/17 00:00 Room Air 05/04/17 23:51 36.4 78 19 156/83 (107) 100 Room Air 05/04/17 21:00 Room Air 05/04/17 19:02 36.5 78 18 153/86 (108) 100 Room Air Lab Results: Results Past 24 Hours Test 05/04/17 20:33 05/04/17 23:54 05/05/17 04:15 05/05/17 05:07 Range/Units Bedside Glucose 107 95 110 70-90 mg/dl Sodium Level 136 136-145 mmol/L Potassium Level 2.9 3.5-5.1 mmol/L Chloride Level 96 98-107 mmol/L Carbon Dioxide Level 24 21-32 mmol/L Anion Gap 16.0 3-11 mmol/L Blood Urea Nitrogen 48 7-18 mg/dl Creatinine 2.40 0.60-1.20 mg/dl Est Creatinine Clear Calc Drug Dose 35.9 ml/min Estimated GFR () 26.4 Estimated GFR (Non- 22.8 BUN/Creatinine Ratio 19.9 10-20 Random Glucose 120 70-99 mg/dl Calcium Level 7.5 8.5-10.1 mg/dl Phosphorus Level 3.5 2.5-4.9 mg/dl Magnesium Level 2.2 1.8-2.4 mg/dl Test 05/05/17 07:05 05/05/17 11:17 05/05/17 11:53 05/05/17 16:18 Range/Units Bedside Glucose 161 105 79 70-90 mg/dl Sodium Level 135 136-145 mmol/L Potassium Level 3.9 3.5-5.1 mmol/L Chloride Level 96 98-107 mmol/L Carbon Dioxide Level 20 21-32 mmol/L Anion Gap 19.0 3-11 mmol/L Blood Urea Nitrogen 47 7-18 mg/dl Creatinine 1.90 0.60-1.20 mg/dl Est Creatinine Clear Calc Drug Dose 45.3 ml/min Estimated GFR () 35.0 Estimated GFR (Non- 30.2 BUN/Creatinine Ratio 24.5 10-20 Random Glucose 87 70-99 mg/dl Calcium Level 7.6 8.5-10.1 mg/dl
[2017-05-05 19:35] VITALS: BP 116/75; PULSE 89; TEMP 36.4; O2SAT 96
[2017-05-05 23:14] VITALS: BP 150/83; PULSE 94; TEMP 37.3; O2SAT 95
[2017-05-06] MEDS ORDERED: MoRPHine SULFATE 2 MG/ML CARP IV STA (00:17)
[2017-05-06] MEDS ORDERED: INSULIN ASPART 100 UNITS/ML 3 ML PEN SC SCH (02:00)
[2017-05-06 03:44] VITALS: BP 143/72; PULSE 87; TEMP 37.2; O2SAT 96
[2017-05-06] MEDS: GABAPENTIN 800 MG TAB PO SCH ×4 (05:22→20:48)
[2017-05-06] MEDS: SODIUM CHLORIDE 0.9% 1000ML 1,000 ML IV SCH (05:24)
[2017-05-06 07:34] VITALS: BP 150/83; PULSE 93; TEMP 37.4; O2SAT 95
--- NOTE | 2017-05-06 07:47 | Nephrology Progress Note ---
Nephrology Progress Note Date of Service: May 06, 2017. 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 pt continues to clinically improve. urinating well. no sob. appetite slowly improving. continues to have tender legs which is chronic. serologies and skin biopsy from [facility] pending. pt was on diuretics as an outpt to help with the swelling in her legs and followed by cardiology. pt now complaining of worsening pain in legs and when she was traveling to the bathroom, she slipped and fell on her buttocks last night. doing ok. did not hit her head. Objective Date Time Temp Pulse Resp B/P (MAP) Pulse Ox O2 Delivery O2 Flow Rate FiO2 05/06/17 07:34 37.4 93 18 150/83 (105) 95 Room Air 05/06/17 04:00 Room Air 05/06/17 03:44 37.2 87 20 143/72 (95) 96 Room Air 05/06/17 00:00 Room Air 05/05/17 23:14 37.3 94 19 150/83 (105) 95 Room Air 05/05/17 20:00 Room Air 05/05/17 19:35 36.4 89 20 116/75 (89) 96 Room Air 05/05/17 16:00 Room Air 05/05/17 15:21 36.9 88 18 129/77 (94) 97 Room Air 05/05/17 12:16 36.9 94 18 128/72 (90) 96 05/05/17 12:00 Room Air 05/05/17 08:00 Room Air 05/05/17 07:55 36.6 86 18 128/69 (88) 99 Physical Exam: General-aaox3, obese Eyes-no scleral icterus ENT-mmm Neck-supple Lungs-clear Heart-regular Abdomen-bs+ s/nt/nd Extremities-tender lower extremities, wrapped, more swollen Neuro-nonfocal Current Inpatient Medications Medications (Trade) Dose Ordered Sig/[place] Route Start Time Stop Time Status Last Admin Dose Admin Miscellaneous Information (Consult Glycemic Management Pharmacy) 1 ea UD PRN N/A 05/03/17 17:15 06/02/17 17:14 Heparin Sodium (Porcine) (Heparin Sq 5000 Unit/0.5ml) 5,000 unit Q12 SQ 05/03/17 21:00 06/02/17 20:59 05/05/17 21:03 5,000 UNIT Acetaminophen (Tylenol Tab) 650 mg Q4H PRN PO 05/03/17 17:15 06/02/17 17:14 05/05/17 23:15 650 MG Al Hydrox/Mg Hydrox/Simethicone (Maalox Max Susp) 15 ml Q4H PRN PO 05/03/17 17:15 06/02/17 17:14 Magnesium Hydroxide (Milk Of Magnesia Susp) 30 ml Q12H PRN PO 05/03/17 17:15 06/02/17 17:14 Ondansetron HCl (Zofran Inj) 4 mg Q6H PRN IV 05/03/17 17:15 06/02/17 17:14 Nitroglycerin (Nitrostat Tab) 0.4 mg UD PRN SL 05/03/17 17:15 06/02/17 17:14 Folic Acid (Folvite Tab) 1 mg DAILY PO 05/04/17 09:00 06/03/17 08:59 05/05/17 07:43 1 MG Metoprolol Succinate (Toprol Xl Tab) 100 mg DAILY PO 05/04/17 09:00 06/03/17 08:59 05/05/17 07:43 100 MG Simvastatin (Zocor Tab) 20 mg HS PO 05/03/17 21:00 06/02/17 20:59 Future Hold 05/03/17 21:59 20 MG Venlafaxine HCl (effeXOR EXTENDED REL CAP) 75 mg DAILY PO 05/04/17 09:00 06/03/17 08:59 05/05/17 07:43 75 MG Vitamin B Complex (Vitamin B Complex) 1 tab DAILY PO 05/04/17 09:00 06/03/17 08:59 05/05/17 07:44 1 TAB Glucose (Glucose 40% Gel) UD PRN PO 05/03/17 21:30 06/02/17 21:29 Glucose (Glucose Chew Tab) 1 tabs UD PRN PO 05/03/17 21:30 06/02/17 21:29 Dextrose (Dextrose 50% 50ML Syringe) 50 ml UD PRN IV 05/03/17 21:30 06/02/17 21:29 Glucagon (Glucagon Inj) 1 mg UD PRN SQ 05/03/17 21:30 06/02/17 21:29 Miscellaneous Information (Order Awaiting Action) 1 ea QS N/A 05/04/17 00:00 06/03/17 00:00 05/03/17 21:56 1 EA Daptomycin 500 mg/ Sodium Chloride 60 ml @ 100 mls/hr Q48H IV 05/04/17 11:00 05/14/17 10:59 05/04/17 11:39 100 MLS/HR Gabapentin (Neurontin Tab) 800 mg QID@0500,1000,1500,2000 PO 05/04/17 11:00 06/03/17 10:59 05/06/17 05:22 800 MG Ertapenem 500 mg/ Sodium Chloride 55 ml @ 110 mls/hr Q24H IV 05/04/17 12:00 05/14/17 11:59 05/05/17 11:40 110 MLS/HR Insulin Aspart (novoLOG ASPART) SLIDING SCALE ACHS SC 05/04/17 11:30 06/03/17 11:29 05/05/17 11:38 3 UNITS Insulin Glargine (Lantus Solostar Pen) see protocol text BID SC 05/05/17 09:00 06/04/17 08:59 05/05/17 21:04 30 UNIT Sodium Chloride 1,000 ml @ 100 mls/hr Q10H IV 05/05/17 08:00 06/04/17 07:59 05/06/17 05:24 100 MLS/HR Insulin Aspart (novoLOG ASPART) SLIDING SCALE 0200 SC 05/06/17 02:00 06/05/17 01:59 Heparin Sodium (Porcine) (Heparin 10 Unit/ ml 5 ml Flush) 5 ml PRN PRN FLUSH 05/06/17 06:30 06/05/17 06:29 Last 24 Hours Test 05/05/17 11:17 05/05/17 11:53 05/05/17 16:18 05/05/17 20:34 Bedside Glucose 105 mg/dl 79 mg/dl 123 mg/dl Sodium Level 135 mmol/L Potassium Level 3.9 mmol/L Chloride Level 96 mmol/L Carbon Dioxide Level 20 mmol/L Anion Gap 19.0 mmol/L Blood Urea Nitrogen 47 mg/dl Creatinine 1.90 mg/dl Est Creatinine Clear Calc Drug Dose 45.3 ml/min Estimated GFR () 35.0 Estimated GFR (Non- 30.2 BUN/Creatinine Ratio 24.5 Random Glucose 87 mg/dl Calcium Level 7.6 mg/dl Test 05/06/17 02:11 05/06/17 04:44 05/06/17 06:13 Bedside Glucose 145 mg/dl 132 mg/dl Assessment & Plan C[facility]-sir-pxylcywn-improving with fluids. serologies pending to be thorough given her clinical history of vasculitis of the legs, thought there may be an element of renal vasculitis. although appears was volume depleted and kidney function improving. HTN; pt was on several diuretics which have been on hold since admission. will likely restart the spironolactone once creatinine back to baseline and eventually restart the lasix as an outpt. may require a lower dose. difficult since her leg swelling may be worsening but trying to also improve kidney function.
[2017-05-06] MEDS: METOPROLOL SUCC 50MG EXT REL TAB PO SCH (07:54)
[2017-05-06] MEDS: VENLAFAXINE HCL XR 75 MG CAPXR PO SCH (07:54)
[2017-05-06] MEDS: VITAMIN B COMPLEX TAB PO SCH (07:55)
[2017-05-06] MEDS: INSULIN ASPART 100 UNITS/ML 3 ML PEN SC SCH ×4 (08:04→20:55)
[2017-05-06] MEDS: INSULIN GLARGINE SOLOSTAR 100 UNITS/ML 3 ML PEN SC SCH ×2 (08:08→20:56)
[2017-05-06] MEDS: HEPARIN SOD 5000 UNIT/0.5 ML CARP SQ SCH ×2 (08:09→20:56)
[2017-05-06 08:49] LABS: BUN/CREATININE RATIO 30.6 (10-20); CREATININE 1.2 mg/dl (0.60-1.20); MAGNESIUM 2.4 mg/dl (1.8-2.4); PHOSPHORUS 3.4 mg/dl (2.5-4.9)
[2017-05-06 09:08] LABS: CALCIUM 8.2 mg/dl (8.5-10.1)
[2017-05-06] MEDS ORDERED: FUROSEMIDE 40 MG TAB PO ONE (09:30)
[2017-05-06] MEDS ORDERED: SPIRONOLACTONE 25 MG TAB PO ONE (09:30)
--- NOTE | 2017-05-06 11:08 | Pharmacy Progress Note ---
Glycemic Control: Progress Nt Date of Service May 06, 2017. Scope Glycemic Pharmacist consulted by on 05/03/17 for glycemic control and to write orders per [facility] inpatient glycemic control protocol. Objective Accuchecks BSG (last 24hrs): Test 05/05/17 11:17 05/05/17 11:53 05/05/17 16:18 05/05/17 20:34 Bedside Glucose 105 mg/dl (70-90) 79 mg/dl (70-90) 123 mg/dl (70-90) Random Glucose 87 mg/dl (70-99) Test 05/06/17 02:11 05/06/17 06:13 05/06/17 08:02 Bedside Glucose 145 mg/dl (70-90) 132 mg/dl (70-90) Random Glucose 171 mg/dl (70-99) Laboratory Data (last 24hrs) Test 05/05/17 11:53 05/06/17 08:02 Anion Gap 19.0 mmol/L 14.0 mmol/L BUN/Creatinine Ratio 24.5 30.6 Blood Urea Nitrogen 47 mg/dl 37 mg/dl Creatinine 1.90 mg/dl 1.20 mg/dl Potassium Level 3.9 mmol/L 4.0 mmol/L Sodium Level 135 mmol/L 135 mmol/L HbA1c: Test 05/04/17 03:50 Hemoglobin A1c 7.6 % (4.5-5.6) H Recent Pertinent Medications Outpatient Anti-diabetic Regimen: * Lantus 75 units BID, Novolog SSI ACHS 50-70units WM, Metformin 1gm BIDM, Januvia 100 mg daily, Bydureon 2mg SQ weekly * A1c = 7.6 % from 05/04/17 Risk Factors for Insulin Resistance: * Infection: Dapto + Invanz per infectious disease * IVF: NS at 100 ml/hr * Diet: DM2 Assessment & Plan ASSESSMENT: * ADA & AACE recommend a goal blood sugar range 140-180 mg/dl for the majority of critically ill & non-critically ill patients. However, more stringent targets may be selected in individual cases. Initial: * 51yo T2DM female with near adequate degree of outpatient control per A1c * Discussed outpatient regimen in great detail with patient. She currently uses minimum of ~300 units of insulin per day as basal, prandial, and correctional insulin. Pt also uses multiple oral agents and SQ GLP1-RA weekly. She has not been taking quite this much insulin HOME VISITS NURSE secondary to decreased PO intake and nausea. Last dose of GLP1 was a few weeks ago. No Lantus on 05/03/17 HOME VISITS NURSE. Otherwise, patient is very compliant with outpatient regimen and states that she is very insulin resistant. * Pt admitted with ARF, acidosis, subsequently initiated on IV insulin infusion per protocol for hyperglycemia ?DKA? * IV insulin infusion running at 1.4-2.2 units/hr * BSGs have improved greatly with IV insulin infusion but metabolic abnormalities are are severe * Likely cause of acidosis is multi-factorial including AFR (interstitial nephritis secondary to abx vs ATN secondary to NSAIDS & volume depletion), metformin, DKA. Will discuss with provider adequate timing to transition off of IV insulin infusion as this is not a typical case * Pt is receiving IVF with D5 + 150meq Bicarb per nephrology. 05/05/17: * ARF continues to resolve. SCr down to 2.4 from 3.7 yesterday. * FBG this morning was 120 mg/dl. Pt received ~80 units of insulin yesterday, 60 of which were basal. PO intake yesterday was not significant. * Based upon the pt's basal insulin needs yesterday, will reduce Lantus dosing starting at bedtime tonight. I suspect the pt will require a TDD of 60-80 units of Lantus during admission (this is 50% of home basal dose). * Pt already received Lanuts 50 units this morning. Will give lower Lantus dosing tonight and re-evaluate need to increase or re-distribute BID dosing in the AM. * Loosen the Novolog CF/CR slightly to avoid overcorrecting prandial BSGs. * Add Novolog 02 check to evaluate basal rate and resolve potential overnight hyperglycemia while Lantus dose is being determined. 05/06/17: * SCr continues to improve down to 1.2 from 2.4 yesterday. This may influence insulin therapy since diminished kidney function increases insulin sensitivity. * BSGs ranging 79-171 mg/dl during the past 24 hours. FBG this morning was 132 mg/dl. * The past 2 days have been basal heavy with 70-80% of the DM regimen consisting of basal insulin. Multiple BSGs in the low 100s and even below 100 mg/dl yesterday. Will reduce Lantus dose today by 10% to avoid inducing hypoglycemia. Will also redistribute the BID dosing of basal insulin as discussed yesterday. * Continue current Novolog CF/CR parameters * Continue Novolog 02 check until Lantus dose better established. PLAN FOR INPATIENT GLYCEMIC CONTROL: * Reduce Lantus to 35 units BID * Novolog ACHS + 02 * Continue correction factor to 12 mg/dl/unit * Continue carb ratio to 1 unit per 5 grams CHO consumed * Continue goal range Low 120 mg/dL - High 160 mg/dL RECOMMENDATIONS FOR DISCHARGE: * A1c of 7.6% from 05/04/17 indicates good control of BSGs as an outpatient considering comorbidities of the patient. * Recommend resumption of outpatient DM regimen upon discharge once b/l renal function is restored and acidosis resolved. * Please note that the plan above was derived based on current level of insulin resistance and hospital stress. These recommendations are appropriate for inpatient admission only. Plan of care upon discharge will need to be reassessed to avoid potential outpatient hypo/hyperglycemia. Thank you.
[2017-05-06 11:40] VITALS: BP 150/83; PULSE 93; TEMP 37.4; O2SAT 95
[2017-05-06] MEDS: ERTAPENEM IV 500 MG in SODIUM CHLORIDE 0.9% 50 ML IV SCH (11:47)
[2017-05-06] MEDS: DAPTOmycin IV 500 MG in SODIUM CHLORIDE 0.9% 50ML 50 ML IV SCH (11:47)
--- NOTE | 2017-05-06 13:57 | Infectious Disease Progress Nt ---
Progress Note Date of Service May 06, 2017. Subjective Pt evaluation today including: conversation w/ patient, physical exam, chart review, lab review, review of studies, conversation w/ communication consultant, review of inpatient medication list C/O severe leg swelling. Remains afebrile. Renal function normalizing. No other new complaints. All Other Systems: Reviewed and Negative Medications Current Inpatient Medications Medications (Trade) Dose Ordered Sig/[place] Route Start Time Stop Time Status Last Admin Dose Admin Miscellaneous Information (Consult Glycemic Management Pharmacy) 1 ea UD PRN N/A 05/03/17 17:15 06/02/17 17:14 Heparin Sodium (Porcine) (Heparin Sq 5000 Unit/0.5ml) 5,000 unit Q12 SQ 05/03/17 21:00 06/02/17 20:59 05/06/17 08:09 5,000 UNIT Acetaminophen (Tylenol Tab) 650 mg Q4H PRN PO 05/03/17 17:15 06/02/17 17:14 05/05/17 23:15 650 MG Al Hydrox/Mg Hydrox/Simethicone (Maalox Max Susp) 15 ml Q4H PRN PO 05/03/17 17:15 06/02/17 17:14 Magnesium Hydroxide (Milk Of Magnesia Susp) 30 ml Q12H PRN PO 05/03/17 17:15 06/02/17 17:14 Ondansetron HCl (Zofran Inj) 4 mg Q6H PRN IV 05/03/17 17:15 06/02/17 17:14 Nitroglycerin (Nitrostat Tab) 0.4 mg UD PRN SL 05/03/17 17:15 06/02/17 17:14 Folic Acid (Folvite Tab) 1 mg DAILY PO 05/04/17 09:00 06/03/17 08:59 05/06/17 07:55 1 MG Metoprolol Succinate (Toprol Xl Tab) 100 mg DAILY PO 05/04/17 09:00 06/03/17 08:59 05/06/17 07:54 100 MG Simvastatin (Zocor Tab) 20 mg HS PO 05/03/17 21:00 06/02/17 20:59 Future Hold 05/03/17 21:59 20 MG Venlafaxine HCl (effeXOR EXTENDED REL CAP) 75 mg DAILY PO 05/04/17 09:00 06/03/17 08:59 05/06/17 07:54 75 MG Vitamin B Complex (Vitamin B Complex) 1 tab DAILY PO 05/04/17 09:00 06/03/17 08:59 05/06/17 07:55 1 TAB Glucose (Glucose 40% Gel) UD PRN PO 05/03/17 21:30 06/02/17 21:29 Glucose (Glucose Chew Tab) 1 tabs UD PRN PO 05/03/17 21:30 06/02/17 21:29 Dextrose (Dextrose 50% 50ML Syringe) 50 ml UD PRN IV 05/03/17 21:30 06/02/17 21:29 Glucagon (Glucagon Inj) 1 mg UD PRN SQ 05/03/17 21:30 06/02/17 21:29 Miscellaneous Information (Order Awaiting Action) 1 ea QS N/A 05/04/17 00:00 06/03/17 00:00 05/03/17 21:56 1 EA Daptomycin 500 mg/ Sodium Chloride 60 ml @ 100 mls/hr Q48H IV 05/04/17 11:00 05/14/17 10:59 05/06/17 11:47 100 MLS/HR Gabapentin (Neurontin Tab) 800 mg QID@0500,1000,1500,2000 PO 05/04/17 11:00 06/03/17 10:59 05/06/17 10:06 800 MG Ertapenem 500 mg/ Sodium Chloride 55 ml @ 110 mls/hr Q24H IV 05/04/17 12:00 05/14/17 11:59 05/06/17 11:47 110 MLS/HR Insulin Aspart (novoLOG ASPART) SLIDING SCALE ACHS SC 05/04/17 11:30 06/03/17 11:29 05/06/17 13:02 10 UNITS Heparin Sodium (Porcine) (Heparin 10 Unit/ ml 5 ml Flush) 5 ml PRN PRN FLUSH 05/06/17 06:30 06/05/17 06:29 05/06/17 13:02 5 ML Insulin Glargine (Lantus Solostar Pen) 35 unit BID SC 05/06/17 09:00 06/05/17 08:59 05/06/17 08:08 35 UNIT Furosemide (Lasix Tab) 40 mg QAM PO 05/07/17 09:00 06/06/17 08:59 Spironolactone (Aldactone Tab) 12.5 mg QAM PO 05/07/17 09:00 06/06/17 08:59 Insulin Aspart (novoLOG ASPART) SLIDING SCALE 0200 ONCE SC 05/07/17 02:00 05/07/17 02:01 Objective Vital Signs Date Time Temp Pulse Resp B/P (MAP) Pulse Ox O2 Delivery O2 Flow Rate FiO2 05/06/17 11:40 37.4 93 18 95 05/06/17 08:00 Room Air 05/06/17 07:34 37.4 93 18 150/83 (105) 95 Room Air 05/06/17 04:00 Room Air 05/06/17 03:44 37.2 87 20 143/72 (95) 96 Room Air 05/06/17 00:00 Room Air 05/05/17 23:14 37.3 94 19 150/83 (105) 95 Room Air 05/05/17 20:00 Room Air 05/05/17 19:35 36.4 89 20 116/75 (89) 96 Room Air 05/05/17 16:00 Room Air 05/05/17 15:21 36.9 88 18 129/77 (94) 97 Room Air Physical Exam General Appearance: WD/WN, no apparent distress, + obese Eyes: normal inspection, sclerae normal ENT: normal ENT inspection, pharynx normal Neck: supple, no adenopathy, trachea midline Respiratory/Chest: chest non-tender, lungs clear, normal breath sounds, no respiratory distress Cardiovascular: regular rate, rhythm, no gallop, no murmur Abdomen: normal bowel sounds, non tender, soft, no organomegaly Extremities: + inflammation, + swelling, + pertinent finding (bilateral lower leg ulceration) Neurologic/Psychiatric: alert, oriented x 3 Skin: normal color, no rash, + pertinent finding (ulcerations with cellulitis both legs) Lymphatic: no adenopathy Laboratory Results RUN DATE: 05/06/17 [facility] LAB PAGE 1 RUN TIME: 1053 Specimen Inquiry PATIENT: ISHA VICK LOC: Beth U # : [id number] AGE/SX: 51/F ROOM: 17 REG : 05/03/[address]: Calvin Lindsey MD : [id number] BED: 1 DIS : STATUS: ADM IN TLOC: SPEC #: [id number] TONY: 05/04/17 STATUS: COMP REQ #: [id number] RECD: 05/04/[address]: Brenda Estevez, PAGideon C SOURCE: SONYA, CC ENTR: 05/04/[address]: Bryon Fischer MD SPDESC: Sandy Rodney D.O. Oncu, Kerim I., Calvin Wan MD ORDERED: CULTURE URCLEAN Procedure Result Verified Site URINE CULTURE Final 05/06/17-1053 NO GROWTH - LESS THAN 1,000 COLONIES/ML Last 24 Hours Test 05/05/17 16:18 05/05/17 20:34 05/06/17 02:11 05/06/17 06:13 Bedside Glucose 79 mg/dl 123 mg/dl 145 mg/dl 132 mg/dl Test 05/06/17 08:02 05/06/17 11:16 Sodium Level 135 mmol/L Potassium Level 4.0 mmol/L Chloride Level 99 mmol/L Carbon Dioxide Level 22 mmol/L Anion Gap 14.0 mmol/L Blood Urea Nitrogen 37 mg/dl Creatinine 1.20 mg/dl Est Creatinine Clear Calc Drug Dose 71.9 ml/min Estimated GFR () 61.0 Estimated GFR (Non- 52.7 BUN/Creatinine Ratio 30.6 Random Glucose 171 mg/dl Calcium Level 8.2 mg/dl Phosphorus Level 3.4 mg/dl Magnesium Level 2.4 mg/dl Bedside Glucose 172 mg/dl Assessment and Plan 51 yo female with 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 Now improving. Will continue daptomycin and ertapenem, outpatient therapy being arranged.
[2017-05-06 15:36] VITALS: BP 115/69; PULSE 92; TEMP 37; O2SAT 95
[2017-05-06 16:00] VITALS: O2SAT 95
--- NOTE | 2017-05-06 18:00 | Progress Note ---
Internal Med Progress Note Date of Service: May 06, 2017. Provider Documentation: SUBJECTIVE: complains of pain in lower extremity fell in room last night afebrile no sob no other complaints OBJECTIVE: Vital Signs-as noted below Exam: General-alert and awake. Not in distress ENT-Normal hearing Neck-no neck masses, supple Lungs-cta b/l no wheezing or crackles Heart-s1 and s2 heard regular , no murmurs Abdomen-soft bowel sounds present non tender no distension Extremities- b/l lower extremity in dressings Neuro-alert and awake moves extremities Lab data as noted below. ASSESSMENT & PLAN: This is a 51-year-old female who presents with acute renal failure 1. Acute renal failure, etiology unclear initially thought from dehydration from dka but patinet not in dka. Prerenal ATN, AIN, or other etiologies on fluids as per nephrology renal ultrasound unremarkable Holding Lasix, Aldactone, lisinopril meloxicam and metformin. ID changed abx cr 3.8 to 1.9 to 1.2 today stopped fluids restarted Aldactone home dose and cut back on Lasix to 40mg daily will f/u labs in am 2. Metabolic acidosis from ARF started on bicarb as per nephro recommendations improving stopped bicarb drip improved 3. Cutaneous vasculitis, we will hold her oral home medication azathioprine and methotrexate for now. 4. Chronic lower extremity wounds. Was on Zyvox and Zosyn. ID changed abx to Invanz and daptomycin.Continue Invanz and dapto on discharge as per ID 5. History of diabetes management as above. Hold the home medication of Januvia and metformin.Lantus and iss as per pharmacy. 6. History of hypertension. Continue metoprolol succinate with holding parameters, hold the lisinopril . We will monitor the blood pressure. 7. History of hyperlipidemia.hold statin. 8. History of depression. Continue Effexor. 9. Deep vein thrombosis prophylaxis, heparin subQ and sequential compression devices. 11. Disposition: Transfer to floor. pt/ot Expected to discharge home and follow with the family doctor and ID. Level 1 full code. possible d/c in am Vital Signs: Date Time Temp Pulse Resp B/P (MAP) Pulse Ox O2 Delivery O2 Flow Rate FiO2 05/06/17 16:00 95 Room Air 05/06/17 15:36 37.0 92 18 115/69 (84) 95 Room Air 05/06/17 11:40 37.4 93 18 95 05/06/17 08:00 Room Air 05/06/17 07:34 37.4 93 18 150/83 (105) 95 Room Air 05/06/17 04:00 Room Air 05/06/17 03:44 37.2 87 20 143/72 (95) 96 Room Air 05/06/17 00:00 Room Air 05/05/17 23:14 37.3 94 19 150/83 (105) 95 Room Air 05/05/17 20:00 Room Air 05/05/17 19:35 36.4 89 20 116/75 (89) 96 Room Air Lab Results: Results Past 24 Hours Test 05/05/17 20:34 05/06/17 02:11 05/06/17 06:13 05/06/17 08:02 Range/Units Bedside Glucose 123 145 132 70-90 mg/dl Sodium Level 135 136-145 mmol/L Potassium Level 4.0 3.5-5.1 mmol/L Chloride Level 99 98-107 mmol/L Carbon Dioxide Level 22 21-32 mmol/L Anion Gap 14.0 3-11 mmol/L Blood Urea Nitrogen 37 7-18 mg/dl Creatinine 1.20 0.60-1.20 mg/dl Est Creatinine Clear Calc Drug Dose 71.9 ml/min Estimated GFR () 61.0 Estimated GFR (Non- 52.7 BUN/Creatinine Ratio 30.6 10-20 Random Glucose 171 70-99 mg/dl Calcium Level 8.2 8.5-10.1 mg/dl Phosphorus Level 3.4 2.5-4.9 mg/dl Magnesium Level 2.4 1.8-2.4 mg/dl Test 05/06/17 11:16 05/06/17 16:35 Range/Units Bedside Glucose 172 119 70-90 mg/dl
[2017-05-06] MEDS: ACETAMINOPHEN 325 MG TAB PO PRN (21:07)
[2017-05-06] MEDS: MoRPHine SULFATE 2 MG/ML CARP IV PRN (22:26)
[2017-05-06 23:29] VITALS: BP 139/65; PULSE 100; TEMP 37.4; O2SAT 93
[2017-05-07] MEDS ORDERED: INSULIN ASPART 100 UNITS/ML 3 ML PEN SC ONE (02:00)
[2017-05-07] MEDS: GABAPENTIN 800 MG TAB PO SCH ×4 (05:49→20:37)
[2017-05-07 06:50] LABS: BASO % 0.3 %; BASO ABS # 0.02 K/uL (0-0.2); HEMATOCRIT 28.8 % (37-47); IG% 0.5 %; LYMPH % 28.9 %; LYMPH ABS # 2.26 K/uL (1.2-3.4); MEAN CELL VOLUME 87.8 fL (80-100); MEAN CORPUSCULAR HEMOGLOBIN 27.4 pg (25-34); MEAN CORPUSCULAR HGB CONC 31.3 g/dl (32-36); MEAN PLATELET VOLUME 8.3 fL (7.4-10.4); MONO % 11.8 %; NEUT % 56.5 %; PLATELET COUNT 450 K/uL (130-400); RED BLOOD COUNT 3.28 M/uL (4.2-5.4); WHITE BLOOD COUNT 7.82 K/uL (4.8-10.8)
[2017-05-07 07:22] VITALS: BP 157/83; PULSE 98; TEMP 37.2; O2SAT 94
[2017-05-07 07:22] LABS: BUN/CREATININE RATIO 28.3 (10-20); CALCIUM 8.3 mg/dl (8.5-10.1); CREATININE 0.98 mg/dl (0.60-1.20); MAGNESIUM 2.6 mg/dl (1.8-2.4); POTASSIUM 4.2 mmol/L (3.5-5.1)
[2017-05-07 07:27] LABS: ANISOCYTOSIS PRESENT; COMPLETE YES; POIKILOCYTOSIS PRESENT
[2017-05-07] MEDS: MoRPHine SULFATE 2 MG/ML CARP IV PRN (07:32)
[2017-05-07 07:45] VITALS: O2SAT 94
[2017-05-07] MEDS: VITAMIN B COMPLEX TAB PO SCH (08:18)
[2017-05-07] MEDS: METOPROLOL SUCC 50MG EXT REL TAB PO SCH (08:18)
[2017-05-07] MEDS: VENLAFAXINE HCL XR 75 MG CAPXR PO SCH (08:18)
[2017-05-07] MEDS: SPIRONOLACTONE 25 MG TAB PO SCH (08:18)
[2017-05-07] MEDS: FUROSEMIDE 40 MG TAB PO SCH (08:19)
[2017-05-07] MEDS: INSULIN ASPART 100 UNITS/ML 3 ML PEN SC SCH ×4 (08:24→20:48)
[2017-05-07] MEDS: INSULIN GLARGINE SOLOSTAR 100 UNITS/ML 3 ML PEN SC SCH ×2 (08:25→20:48)
[2017-05-07] MEDS: HEPARIN SOD 5000 UNIT/0.5 ML CARP SQ SCH ×2 (08:27→20:49)
[2017-05-07] MEDS: TRAMADOL HCL 50 MG TAB PO PRN ×3 (10:11→20:37)
[2017-05-07 10:30] VITALS: BP 159/84; PULSE 98; TEMP 36.5; O2SAT 99
--- NOTE | 2017-05-07 10:39 | Pharmacy Progress Note ---
Glycemic Control: Progress Nt Date of Service May 07, 2017. Scope Glycemic Pharmacist consulted by Dr Lindsey on 05/03/17 for glycemic control and to write orders per [facility] inpatient glycemic control protocol. Objective Accuchecks BSG (last 24hrs): Test 05/06/17 11:16 05/06/17 16:35 05/06/17 20:17 05/07/17 02:01 Bedside Glucose 172 mg/dl (70-90) 119 mg/dl (70-90) 179 mg/dl (70-90) 150 mg/dl (70-90) Test 05/07/17 05:57 05/07/17 07:26 Random Glucose 144 mg/dl (70-99) Bedside Glucose 194 mg/dl (70-90) Laboratory Data (last 24hrs) Test 05/07/17 05:57 Anion Gap 14.0 mmol/L BUN/Creatinine Ratio 28.3 Blood Urea Nitrogen 28 mg/dl Creatinine 0.98 mg/dl Potassium Level 4.2 mmol/L Sodium Level 140 mmol/L White Blood Count 7.82 K/uL Red Blood Count 3.28 M/uL Hemoglobin 9.0 g/dL Hematocrit 28.8 % Mean Corpuscular Volume 87.8 fL Mean Corpuscular Hemoglobin 27.4 pg Mean Corpuscular Hemoglobin Concent 31.3 g/dl Platelet Count 450 K/uL Mean Platelet Volume 8.3 fL Neutrophils (%) (Auto) 56.5 % Lymphocytes (%) (Auto) 28.9 % Monocytes (%) (Auto) 11.8 % Eosinophils (%) (Auto) 2.0 % Basophils (%) (Auto) 0.3 % Neutrophils # (Auto) 4.42 K/uL Lymphocytes # (Auto) 2.26 K/uL Monocytes # (Auto) 0.92 K/uL Eosinophils # (Auto) 0.16 K/uL Basophils # (Auto) 0.02 K/uL HbA1c: Test 05/04/17 03:50 Hemoglobin A1c 7.6 % (4.5-5.6) H Recent Pertinent Medications Outpatient Anti-diabetic Regimen: * Lantus 75 units SQ BID * Novolog ACHS, typically 50-70 units w/ meals * Metformin 1gm PO BID * Januvia 100mg PO daily * Bydureon 2mg SQ weekly * A1c = 7.6 % 05/14/17 The patient is currently receiving: * Basal insulin: Lantus 35 units every 12 hours * Correctional Insulin: Novolog Correction per scale ACHS and 0200 Goal Range: Low 120 mg/dL - High 160 mg/dL Correction Factor: 12 mg/dL/unit * Prandial insulin: Per carb ratio of 1 unit per 5 grams CHO consumed * Oral Agents: None currently Risk Factors for Insulin Resistance: * Infection: receiving Daptomycin + Ertapenem for LE wounds * Diet: ordered T2DM diet and tolerating well per carb counts Assessment & Plan ASSESSMENT: 05/07/17 * 51yo T2DM female with near adequate degree of outpatient control per A1c * Discussed outpatient regimen in great detail with patient. She currently uses minimum of ~300 units of insulin per day as basal, prandial, and correctional insulin. Pt also uses multiple oral agents and SQ GLP1-RA weekly. She has not been taking quite this much insulin LATEX SPOOLER secondary to decreased PO intake and nausea. Last dose of GLP1 was a few weeks ago. No Lantus on 05/03/17 LATEX SPOOLER. Otherwise, patient is very compliant with outpatient regimen and states that she is very insulin resistant. * Renal fxn continues to improve SCr down to 0.98 today * BSGs ranged 144-194 over the last 24 hours - all BSGs less than 180 with the exception of this AM's fasting BSG. Note, Accuchek BSG 194 this AM however Glu on PRP 144. These fasting numbers are w/ 70 units of basal insulin on board. The basal insulin dose was reduced slightly yesterday and basal/prandial insulin doses were redistributed to allow for a more evenly balanced regimen that was less "basal heavy" as post-prandial BSGs had fallen on 05/05 to the point very little prandial insulin was being given w/ meals. * Given the recent changes in both basal and prandial insulin - I feel it is best to continue with the new regimen at this time to determine appropriateness over the next 24 hours. It still appears the patient is going to require ~100- 110 units of insulin per day w/ current stressors and diet - however w/ improved insulin clearance (due to improved renal fxn) she may require more insulin in the near future. PLAN FOR INPATIENT GLYCEMIC CONTROL: * Continuing Lantus 35 units SQ BID for now * Continuing correction factor of 12 mg/dl/unit * Continuing carb ratio of 1 unit per 5 grams CHO consumed * Continuing goal range of Low 120 mg/dL - High 160 mg/dL RECOMMENDATIONS FOR DISCHARGE: * Resume outpatient diabetic regimen as patient states compliance and good results, recent A1c also confirms this. * Please note that the plan above was derived based on current level of insulin resistance and hospital stress. These recommendations are appropriate for inpatient admission only. Plan of care upon discharge will need to be reassessed to avoid potential outpatient hypo/hyperglycemia. Thank you.
[2017-05-07] MEDS: ERTAPENEM IV 500 MG in SODIUM CHLORIDE 0.9% 50 ML IV SCH (12:11)
[2017-05-07] MEDS ORDERED: FUROSEMIDE INJ 20 MG in SYRINGE 0 ML IV ONE (12:30)
[2017-05-07] MEDS ORDERED: NURSING VERBAL MED ORDER SCH (12:35)
[2017-05-07 14:34] VITALS: BP 152/84; PULSE 112; TEMP 37; O2SAT 92
--- NOTE | 2017-05-07 17:03 | Progress Note ---
Internal Med Progress Note Date of Service: May 07, 2017. Provider Documentation: SUBJECTIVE: still has significant pain in lower extremity says not able to walk because of pain afebrile no sob otherwise doing ok OBJECTIVE: Vital Signs-as noted below Exam: General-alert and awake. Not in distress ENT-Normal hearing Neck-no neck masses, supple Lungs-cta b/l no wheezing or crackles Heart-s1 and s2 heard regular , no murmurs Abdomen-soft bowel sounds present non tender no distension Extremities- b/l lower extremity in dressings Neuro-alert and awake moves extremities Lab data as noted below. ASSESSMENT & PLAN: This is a 51-year-old female who presents with acute renal failure 1. Acute renal failure, etiology unclear initially thought from dehydration from dka but patinet not in dka. Prerenal ATN, AIN, or other etiologies on fluids as per nephrology renal ultrasound unremarkable Holding Lasix, Aldactone, lisinopril meloxicam and metformin. ID changed abx cr 3.8 to 1.9 to 1.2 to 0.9 stopped fluids restarted Aldactone home dose and cut back on Lasix to 40mg daily stable will f/u labs in am 2. Metabolic acidosis from ARF started on bicarb as per nephro recommendations improving stopped bicarb drip improved 3. Cutaneous vasculitis, we will hold her oral home medication azathioprine and methotrexate for now.Will restart home meds 4. Chronic lower extremity wounds. Was on Zyvox and Zosyn. ID changed abx to Invanz and daptomycin.Continue Invanz and dapto on discharge as per ID. Having pain for edema . Will gie a dose of iv Lasix today and monitor 5. History of diabetes management as above. Hold the home medication of Januvia and metformin.Lantus and iss as per pharmacy.144/194/213/137 6. History of hypertension. Continue metoprolol succinate with holding parameters, hold the lisinopril . We will monitor the blood pressure.Will restart lisinopril 7. History of hyperlipidemia.hold statin. 8. History of depression. Continue Effexor. 9. Deep vein thrombosis prophylaxis, heparin subQ and sequential compression devices. 11. Disposition: Monitor in medical floor pt/ot Expected to discharge home and follow with the family doctor and ID. Level 1 full code. possible d/c in am Vital Signs: Date Time Temp Pulse Resp B/P (MAP) Pulse Ox O2 Delivery O2 Flow Rate FiO2 05/07/17 14:34 37.0 112 18 152/84 (106) 92 05/07/17 10:30 36.5 98 18 159/84 (109) 99 Room Air 05/07/17 07:45 94 Room Air 05/07/17 07:22 37.2 98 20 157/83 (107) 94 05/07/17 00:00 Room Air 05/06/17 23:29 37.4 100 20 139/65 (89) 93 Room Air Lab Results: Results Past 24 Hours Test 05/06/17 20:17 05/07/17 02:01 05/07/17 05:57 05/07/17 07:26 Range/Units Bedside Glucose 179 150 194 70-90 mg/dl White Blood Count 7.82 4.8-10.8 K/uL Red Blood Count 3.28 4.2-5.4 M/uL Hemoglobin 9.0 12.0-16.0 g/dL Hematocrit 28.8 37-47 % Mean Corpuscular Volume 87.8 80-100 fL Mean Corpuscular Hemoglobin 27.4 25-34 pg Mean Corpuscular Hemoglobin Concent 31.3 32-36 g/dl Platelet Count 450 130-400 K/uL Mean Platelet Volume 8.3 7.4-10.4 fL Neutrophils (%) (Auto) 56.5 % Lymphocytes (%) (Auto) 28.9 % Monocytes (%) (Auto) 11.8 % Eosinophils (%) (Auto) 2.0 % Basophils (%) (Auto) 0.3 % Neutrophils # (Auto) 4.42 1.4-6.5 K/uL Lymphocytes # (Auto) 2.26 1.2-3.4 K/uL Monocytes # (Auto) 0.92 0.11-0.59 K/uL Eosinophils # (Auto) 0.16 0-0.5 K/uL Basophils # (Auto) 0.02 0-0.2 K/uL RDW Standard Deviation 65.3 36.4-46.3 fL RDW Coefficient of Variation 20.2 11.5-14.5 % Immature Granulocyte % (Auto) 0.5 % Immature Granulocyte # (Auto) 0.04 0.00-0.02 K/uL Poikilocytosis PRESENT Anisocytosis PRESENT Sodium Level 140 136-145 mmol/L Potassium Level 4.2 3.5-5.1 mmol/L Chloride Level 102 98-107 mmol/L Carbon Dioxide Level 24 21-32 mmol/L Anion Gap 14.0 3-11 mmol/L Blood Urea Nitrogen 28 7-18 mg/dl Creatinine 0.98 0.60-1.20 mg/dl Est Creatinine Clear Calc Drug Dose 86.8 ml/min Estimated GFR () 78.0 Estimated GFR (Non- 67.3 BUN/Creatinine Ratio 28.3 10-20 Random Glucose 144 70-99 mg/dl Calcium Level 8.3 8.5-10.1 mg/dl Magnesium Level 2.6 1.8-2.4 mg/dl Test 05/07/17 11:09 05/07/17 16:09 Range/Units Bedside Glucose 213 137 70-90 mg/dl
[2017-05-07] MEDS: AZATHIOPRINE 50 MG TAB PO SCH (20:37)
[2017-05-07 23:43] VITALS: BP 125/85; PULSE 92; TEMP 37; O2SAT 94
[2017-05-08] MEDS: TRAMADOL HCL 50 MG TAB PO PRN ×3 (04:46→14:33)
[2017-05-08] MEDS: GABAPENTIN 800 MG TAB PO SCH ×4 (04:47→19:46)
[2017-05-08 06:04] LABS: BASO % 0.3 %; BASO ABS # 0.02 K/uL (0-0.2); HEMATOCRIT 27.2 % (37-47); IG% 0.5 %; LYMPH % 17.9 %; LYMPH ABS # 1.43 K/uL (1.2-3.4); MEAN CELL VOLUME 88.9 fL (80-100); MEAN CORPUSCULAR HEMOGLOBIN 27.8 pg (25-34); MEAN CORPUSCULAR HGB CONC 31.3 g/dl (32-36); MEAN PLATELET VOLUME 8.3 fL (7.4-10.4); MONO % 16.8 %; NEUT % 63.5 %; PLATELET COUNT 498 K/uL (130-400); RED BLOOD COUNT 3.06 M/uL (4.2-5.4); WHITE BLOOD COUNT 7.98 K/uL (4.8-10.8)
[2017-05-08 06:26] LABS: COMPLETE YES; ECHINOCYTES 1+
[2017-05-08 06:30] LABS: BUN/CREATININE RATIO 15.9 (10-20); CALCIUM 8.5 mg/dl (8.5-10.1); CREATININE 1.5 mg/dl (0.60-1.20); MAGNESIUM 2.1 mg/dl (1.8-2.4); POTASSIUM 4.1 mmol/L (3.5-5.1)
[2017-05-08 07:22] VITALS: BP 112/69; PULSE 97; TEMP 36.8; O2SAT 93
[2017-05-08] MEDS: INSULIN ASPART 100 UNITS/ML 3 ML PEN SC SCH ×4 (08:51→21:00)
[2017-05-08] MEDS: HEPARIN SOD 5000 UNIT/0.5 ML CARP SQ SCH ×2 (08:52→21:12)
[2017-05-08] MEDS: FUROSEMIDE 40 MG TAB PO SCH (08:56)
[2017-05-08] MEDS: AZATHIOPRINE 50 MG TAB PO SCH ×2 (08:57→21:09)
[2017-05-08] MEDS: SPIRONOLACTONE 25 MG TAB PO SCH (08:58)
[2017-05-08] MEDS: VITAMIN B COMPLEX TAB PO SCH (08:59)
[2017-05-08] MEDS ORDERED: LISINOPRIL 20 MG TAB PO SCH (09:00)
[2017-05-08] MEDS: DAPSONE 25 MG TAB PO SCH (09:00)
[2017-05-08] MEDS: VENLAFAXINE HCL XR 75 MG CAPXR PO SCH (09:01)
[2017-05-08] MEDS: METOPROLOL SUCC 50MG EXT REL TAB PO SCH (09:01)
[2017-05-08] MEDS: INSULIN GLARGINE SOLOSTAR 100 UNITS/ML 3 ML PEN SC SCH ×2 (09:49→21:12)
[2017-05-08] MEDS: DAPTOmycin IV 500 MG in SODIUM CHLORIDE 0.9% 50ML 50 ML IV SCH (11:46)
--- NOTE | 2017-05-08 12:12 | Consultant Recommendations ---
Automation Test Engineer Recommendations Date of Service May 08, 2017. Automation Test Engineer Recommendations Creat went up from 0.98 to 1.5. Already got the morning doses of Lisinopril, Lasix and Aldactone for today. hold those drugs till see n by Security Field Supervisor in AM and after AM labs. Does not mean she cannot have it though just holding till seen and Asessed in AM. No need of iv fluids though. Bhavin Justice MD
[2017-05-08] MEDS: ERTAPENEM IV 500 MG in SODIUM CHLORIDE 0.9% 50 ML IV SCH (12:35)
--- NOTE | 2017-05-08 12:41 | Pharmacy Progress Note ---
Glycemic Control: Progress Nt Date of Service May 08, 2017. Scope Glycemic Pharmacist consulted by Dr Lindsey on 05/03/17 for glycemic control and to write orders per [facility] inpatient glycemic control protocol. Objective Accuchecks BSG (last 24hrs): Test 05/07/17 16:09 05/07/17 19:51 05/08/17 05:39 05/08/17 07:26 Bedside Glucose 137 mg/dl (70-90) 170 mg/dl (70-90) 263 mg/dl (70-90) Random Glucose 235 mg/dl (70-99) Test 05/08/17 11:16 Bedside Glucose 198 mg/dl (70-90) Laboratory Data (last 24hrs) Test 05/08/17 05:39 Anion Gap 12.0 mmol/L BUN/Creatinine Ratio 15.9 Blood Urea Nitrogen 24 mg/dl Creatinine 1.50 mg/dl Potassium Level 4.1 mmol/L Sodium Level 137 mmol/L White Blood Count 7.98 K/uL Red Blood Count 3.06 M/uL Hemoglobin 8.5 g/dL Hematocrit 27.2 % Mean Corpuscular Volume 88.9 fL Mean Corpuscular Hemoglobin 27.8 pg Mean Corpuscular Hemoglobin Concent 31.3 g/dl Platelet Count 498 K/uL Mean Platelet Volume 8.3 fL Neutrophils (%) (Auto) 63.5 % Lymphocytes (%) (Auto) 17.9 % Monocytes (%) (Auto) 16.8 % Eosinophils (%) (Auto) 1.0 % Basophils (%) (Auto) 0.3 % Neutrophils # (Auto) 5.07 K/uL Lymphocytes # (Auto) 1.43 K/uL Monocytes # (Auto) 1.34 K/uL Eosinophils # (Auto) 0.08 K/uL Basophils # (Auto) 0.02 K/uL HbA1c: Test 05/04/17 03:50 Hemoglobin A1c 7.6 % (4.5-5.6) H Recent Pertinent Medications Outpatient Anti-diabetic Regimen: * Lantus 75 units SQ BID * Novolog ACHS, typically 50-70 units w/ meals * Metformin 1gm PO BID * Januvia 100mg PO daily * Bydureon 2mg SQ weekly * A1c = 7.6 % 05/14/17 The patient is currently receiving: * Basal insulin: Lantus 35 units every 12 hours * Correctional Insulin: Novolog Correction per scale ACHS and 0200 Goal Range: Low 120 mg/dL - High 160 mg/dL Correction Factor: 12 mg/dL/unit * Prandial insulin: Per carb ratio of 1 unit per 5 grams CHO consumed * Oral Agents: None currently Risk Factors for Insulin Resistance: * Infection: receiving Daptomycin + Ertapenem for LE wounds * Diet: ordered T2DM diet and tolerating well per carb counts Assessment & Plan ASSESSMENT: 05/07/17 * 51yo T2DM female with near adequate degree of outpatient control per A1c * Discussed outpatient regimen in great detail with patient. She currently uses minimum of ~300 units of insulin per day as basal, prandial, and correctional insulin. Pt also uses multiple oral agents and SQ GLP1-RA weekly. She has not been taking quite this much insulin SCOWMAN secondary to decreased PO intake and nausea. Last dose of GLP1 was a few weeks ago. No Lantus on 05/03/17 SC[place]MAN. Otherwise, patient is very compliant with outpatient regimen and states that she is very insulin resistant. * Renal fxn continues to improve SCr down to 0.98 today * BSGs ranged 144-194 over the last 24 hours - all BSGs less than 180 with the exception of this AM's fasting BSG. Note, Accuchek BSG 194 this AM however Glu on PRP 144. These fasting numbers are w/ 70 units of basal insulin on board. The basal insulin dose was reduced slightly yesterday and basal/prandial insulin doses were redistributed to allow for a more evenly balanced regimen that was less "basal heavy" as post-prandial BSGs had fallen on 05/05 to the point very little prandial insulin was being given w/ meals. * Given the recent changes in both basal and prandial insulin - I feel it is best to continue with the new regimen at this time to determine appropriateness over the next 24 hours. It still appears the patient is going to require ~100- 110 units of insulin per day w/ current stressors and diet - however w/ improved insulin clearance (due to improved renal fxn) she may require more insulin in the near future. 05/08/17 * Renal fxn worsened today, SCr up to 1.5 after having fallen to 0.98 yesterday - U.O. not being followed, no hypotension noted in last 24 hrs, pt is being diuresed and starting ACEI today - no NSAIDs or IV contrast given; will need to follow renal fxn closely as decreased insulin clearance may result if renal fxn continues to decline (she seemed to require less insulin when renal fxn poor early on in admission) * BSGs elevated this AM, they were elevated yesterday AM as well - will begin to titrate the basal insulin doses upwards again as she appears to be eating more CHOs and her insulin resistance appears to be increasing and/or her insulin clearance is improving * Post-prandial BSGs fairly well controlled yesterday with CR 5, however the pt did request more insulin w/ lunch and received a dose that would have been equivalent to CR 4 - pre-dinner BSG was at goal. Given rise in BSGs seen today , will increase prandial insulin dose today as well. PLAN FOR INPATIENT GLYCEMIC CONTROL: * Increasing Lantus to 42 units SQ BID * Continuing correction factor of 12 mg/dl/unit * Changing carb ratio of 1 unit per 4 grams CHO consumed * Changing goal range to Low 110 mg/dL - High 150 mg/dL * Add BSG check at 0200 again now that insulin sensitivity appears to be changing - cover elevated BSG w/ Novolog as above RECOMMENDATIONS FOR DISCHARGE: * Resume outpatient diabetic regimen as patient states compliance and good results, recent A1c also confirms this. * Please note that the plan above was derived based on current level of insulin resistance and hospital stress. These recommendations are appropriate for inpatient admission only. Plan of care upon discharge will need to be reassessed to avoid potential outpatient hypo/hyperglycemia. Thank you.
[2017-05-08 14:43] VITALS: BP 103/49; PULSE 67; TEMP 37; O2SAT 97
--- NOTE | 2017-05-08 17:00 | Progress Note ---
Internal Med Progress Note Date of Service: May 08, 2017. Provider Documentation: SUBJECTIVE: pain is lower extremity better with pain meds not ambulating much afebrile eating ok no nausea OBJECTIVE: Vital Signs-as noted below Exam: General-alert and awake. Not in distress ENT-Normal hearing Neck-no neck masses, supple Lungs-cta b/l no wheezing or crackles Heart-s1 and s2 heard regular , no murmurs Abdomen-soft bowel sounds present non tender no distension Extremities- b/l lower extremity in dressings Neuro-alert and awake moves extremities Lab data as noted below. ASSESSMENT & PLAN: This is a 51-year-old female who presents with acute renal failure.Patient on Zyvox for almost 3 months and was started on iv Zosyn about 2 weeks ago for her lower extremity wounds. Developed nausea for about 2 weeks and out patient labs showed ARF with creatine in 3.6. CR normalized with fluids and holding home diuretics, lisinopril, meloxicam and metformin.Restarted Lasix 40mg(80mg at home ) daily and home dose Aldactone and received extra dose of iv Lasix 20mg yesterday for complains of lower extremity edema and cr 1.5 today again. Holding all diuretics and nephrotoxic agents.Nephrology on board. Also having significant lower extremity pain. Started on tramadol for pain as meloxicam stopped. Needs close f/u labs and adjustment of her home diuretics and lisinopril. pt/ot. 1. Acute renal failure, etiology unclear initially thought from dehydration from dka but patient not in dka. Prerenal ATN, AIN, or other etiologies on fluids as per nephrology renal ultrasound unremarkable Holding Lasix, Aldactone, lisinopril meloxicam and metformin. ID changed abx to daptomycin and Invanz cr 3.8 to 1.9 to 1.2 to 0.9 stopped fluids restarted Aldactone home dose and cut back on Lasix to 40mg daily received a dose of iv lasix 20mg yesterday as patient complained of edema and pain in lower extremity. Also lisinopril restarted at lower dose 20mg daily and today cr 1.5 holding Lasix and Aldactone and lisinopril f/u labs in am 2. Metabolic acidosis from ARF started on bicarb as per nephro recommendations improving stopped bicarb drip improved 3. 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 Chronic lower extremity wounds. Was on Zyvox and Zosyn. ID changed abx to Invanz and daptomycin.Continue Invanz and dapto on discharge as per ID for 2 more weeks. Wound clinic followup 5. History of diabetes management as above. Hold the home medication of Januvia and metformin.Lantus and iss as per pharmacy.[id number]/213 6. History of hypertension. Continue metoprolol succinate with holding parameters, hold the lisinopril . We will monitor the blood pressure. 7. History of hyperlipidemia.hold statin. 8. History of depression. Continue Effexor. 9. Deep vein thrombosis prophylaxis, heparin subQ and sequential compression devices. 11. Disposition: Monitor in medical floor pt/ot Expected to discharge home and follow with the family doctor and ID. Level 1 full code. Needs adjustments of diabetes, HTN and diuretic medications at discharge Vital Signs: Date Time Temp Pulse Resp B/P (MAP) Pulse Ox O2 Delivery O2 Flow Rate FiO2 05/08/17 15:48 Room Air 05/08/17 14:43 37.0 67 18 103/49 (67) 97 Room Air 05/08/17 10:01 Room Air 05/08/17 07:22 36.8 97 20 112/69 (83) 93 05/08/17 00:00 Room Air 05/07/17 23:43 37.0 92 20 125/85 (98) 94 Room Air Lab Results: Results Past 24 Hours Test 05/08/17 05:39 05/08/17 07:26 05/08/17 11:16 05/08/17 16:04 Range/Units White Blood Count 7.98 4.8-10.8 K/uL Red Blood Count 3.06 4.2-5.4 M/uL Hemoglobin 8.5 12.0-16.0 g/dL Hematocrit 27.2 37-47 % Mean Corpuscular Volume 88.9 80-100 fL Mean Corpuscular Hemoglobin 27.8 25-34 pg Mean Corpuscular Hemoglobin Concent 31.3 32-36 g/dl Platelet Count 498 130-400 K/uL Mean Platelet Volume 8.3 7.4-10.4 fL Neutrophils (%) (Auto) 63.5 % Lymphocytes (%) (Auto) 17.9 % Monocytes (%) (Auto) 16.8 % Eosinophils (%) (Auto) 1.0 % Basophils (%) (Auto) 0.3 % Neutrophils # (Auto) 5.07 1.4-6.5 K/uL Lymphocytes # (Auto) 1.43 1.2-3.4 K/uL Monocytes # (Auto) 1.34 0.11-0.59 K/uL Eosinophils # (Auto) 0.08 0-0.5 K/uL Basophils # (Auto) 0.02 0-0.2 K/uL RDW Standard Deviation 66.2 36.4-46.3 fL RDW Coefficient of Variation 20.6 11.5-14.5 % Immature Granulocyte % (Auto) 0.5 % Immature Granulocyte # (Auto) 0.04 0.00-0.02 K/uL Echinocytes 1+ Sodium Level 137 136-145 mmol/L Potassium Level 4.1 3.5-5.1 mmol/L Chloride Level 100 98-107 mmol/L Carbon Dioxide Level 25 21-32 mmol/L Anion Gap 12.0 3-11 mmol/L Blood Urea Nitrogen 24 7-18 mg/dl Creatinine 1.50 0.60-1.20 mg/dl Est Creatinine Clear Calc Drug Dose 56.9 ml/min Estimated GFR () 46.6 Estimated GFR (Non- 40.2 BUN/Creatinine Ratio 15.9 10-20 Random Glucose 235 70-99 mg/dl Calcium Level 8.5 8.5-10.1 mg/dl Magnesium Level 2.1 1.8-2.4 mg/dl Bedside Glucose 263 198 213 70-90 mg/dl
[2017-05-08 21:57] LABS: MYELOPEROXIDASE AB <1.0 AI (<1.0)
[2017-05-08 23:21] VITALS: BP 118/71; PULSE 88; TEMP 36.9; O2SAT 92
[2017-05-09] MEDS ORDERED: INSULIN ASPART 100 UNITS/ML 3 ML PEN SC ONE ×2 (02:00→08:00)
[2017-05-09] MEDS: GABAPENTIN 800 MG TAB PO SCH ×4 (05:13→20:48)
[2017-05-09 06:12] LABS: BASO % 0.3 %; BASO ABS # 0.02 K/uL (0-0.2); EOS % 0.6 %; HEMATOCRIT 25.6 % (37-47); IG% 0.8 %; LYMPH % 13.5 %; LYMPH ABS # 1.07 K/uL (1.2-3.4); MEAN CELL VOLUME 89.8 fL (80-100); MEAN CORPUSCULAR HEMOGLOBIN 28.8 pg (25-34); MEAN PLATELET VOLUME 8.3 fL (7.4-10.4); MONO % 14.7 %; NEUT % 70.1 %; PLATELET COUNT 481 K/uL (130-400); RED BLOOD COUNT 2.85 M/uL (4.2-5.4); WHITE BLOOD COUNT 7.95 K/uL (4.8-10.8)
[2017-05-09] MEDS: INSULIN ASPART 100 UNITS/ML 3 ML PEN SC SCH ×2 (06:30→11:00)
[2017-05-09 06:50] LABS: CALCIUM 8.3 mg/dl (8.5-10.1); CREATININE 3.2 mg/dl (0.60-1.20); MAGNESIUM 2.4 mg/dl (1.8-2.4); POTASSIUM 4.3 mmol/L (3.5-5.1)
[2017-05-09 06:56] LABS: ANISOCYTOSIS PRESENT; COMPLETE YES
[2017-05-09 07:09] LABS: BETA-HYDROXYBUTYRATE 24.25 mg/dL (0.2-2.81)
[2017-05-09 07:24] VITALS: BP 107/66; PULSE 90; TEMP 36.8; O2SAT 95
[2017-05-09] MEDS: VENLAFAXINE HCL XR 75 MG CAPXR PO SCH (07:51)
[2017-05-09] MEDS: DAPSONE 25 MG TAB PO SCH (07:51)
[2017-05-09] MEDS: AZATHIOPRINE 50 MG TAB PO SCH ×2 (07:51→20:49)
[2017-05-09] MEDS: TRAMADOL HCL 50 MG TAB PO PRN ×2 (07:52→12:16)
[2017-05-09] MEDS: VITAMIN B COMPLEX TAB PO SCH (07:52)
[2017-05-09] MEDS: METOPROLOL SUCC 50MG EXT REL TAB PO SCH (07:53)
[2017-05-09 08:00] VITALS: O2SAT 95
[2017-05-09] MEDS ORDERED: INSULIN GLARGINE SOLOSTAR 100 UNITS/ML 3 ML PEN SC SCH ×2 (08:00→21:00)
[2017-05-09] MEDS: HEPARIN SOD 5000 UNIT/0.5 ML CARP SQ SCH ×2 (08:03→20:56)
--- NOTE | 2017-05-09 10:22 | Pharmacy Progress Note ---
Glycemic Control: Progress Nt Date of Service May 09, 2017. Scope Glycemic Pharmacist consulted for glycemic control and to write orders per [facility] inpatient glycemic control protocol. Objective Accuchecks BSG (last 24hrs): Test 05/08/17 11:16 05/08/17 16:04 05/09/17 02:51 05/09/17 06:00 Bedside Glucose 198 mg/dl (70-90) 213 mg/dl (70-90) 292 mg/dl (70-90) Random Glucose 311 mg/dl (70-99) Test 05/09/17 07:43 Bedside Glucose 340 mg/dl (70-90) HbA1c: Test 05/04/17 03:50 Hemoglobin A1c 7.6 % (4.5-5.6) H Recent Pertinent Medications Outpatient Anti-diabetic Regimen: * Lantus 75 units SQ BID * NovoLog SSI ACHS (50-70 units with meals) * Metformin 1,000mg PO BIDM * Januvia 100mg PO daily * Budureon 2mg SQ weekly (has not taken in a few weeks secondary to poor PO intake) Risk Factors for Insulin Resistance: * Infection * Large outpatient dosing of insulin Risk Factors for Insulin Sensitivity: * ARF Assessment & Plan ASSESSMENT: * Patient is currently receiving an average of ~140 units of insulin per day * 84 units of basal insulin * 56 units of prandial/correctional insulin * BSGs ranging 105 - 340 over the past 24hrs * Pt with severe hyperglycemia this morning - unsure why? * BSG 105mg/dl last evening. Confirmed with nursing that basal insulin dose of 42 units was given last evening. Despite this, BSG ruchi to 292mg/dl at 0200. Pt received 12 units of NovoLog correction. * Scr on the rise, doubled from 1.5 --> 3.2mg/dl today. Typically increased response to insulin is seen with TERESA and exogenous insulin administration needs substantially reduced. Her hyperglycemia pattern is not following this. * Pt typically takes 300+ units of insulin as an outpatient but is only receiving about half of this over the last few days - this was yielding near adequate glycemic control up until today. PLAN FOR INPATIENT GLYCEMIC CONTROL: increase insulin regimen for severe hyperglycemia. * Continue to hold outpatient oral diabetes medications secondary to ARF * Basal insulin * increase to Lantus 75 units SQ X 1 dose this morning {outpatient dosing} , THEN * Lantus 45-75 units SQ BID --> dosing based on BSG secondary to ARF {of note, pt uses Lantus 75 units BID as an outpatient} * BSG below 140mg/dl --> Lantus 45 units * BSG 140-180mg/dl --> Lantus 60 units * BSG above 180mg/dl --> Lantus 75 units * Bolus insulin : Pt uses 50-70 units with meals as an outpatient. Will give one time boluses for hyperglycemia per outpatient scale and then tighten bolus insulin parameters * One time dose of NovoLog 50 units SQ this AM for breakfast coverage & BSG 340mg/dl * One time dose of NovoLog 70 units SQ for lunch time coverage & BSG 289mg/dl * NovoLog per scale ACHS or Q6hrs while NPO. * Goal Range: Low 110 mg/dL - High 140mg/dL * Correction Factor: 9 mg/dL/unit * Nutritional / Prandial insulin per carb ratio of 1 unit per 2 grams CHO consumed * Please note that the plan above was derived based on current level of insulin resistance and hospital stress. These recommendations are appropriate for inpatient admission only. Plan of care upon discharge will need to be reassessed to avoid potential outpatient hypo/hyperglycemia. Thank you.
[2017-05-09] MEDS ORDERED: INSULIN ASPART 100 UNITS/ML 3 ML PEN SC SCH (12:00)
[2017-05-09] MEDS: ERTAPENEM IV 500 MG in SODIUM CHLORIDE 0.9% 50 ML IV SCH (12:16)
--- NOTE | 2017-05-09 15:14 | Progress Note ---
Internal Med Progress Note Date of Service: May 09, 2017. Provider Documentation: SUBJECTIVE: The patient was seen and examined Complains of tiredness and fatigue Denies any more pain than in legs No Fever,chills OBJECTIVE: Vital Signs-as noted below Exam: General-Feels tired Eyes-normal ENT-normal Neck-supple Lungs-Decreased breath sound bilaterally Heart-Regular,no murmur Abdomen-Distended,soft ,bowel sound present Extremities-Bandaged bilaterally Neuro-AAOx3 Generally weak,no focal neuro deficit Lab data as noted below. ASSESSMENT & PLAN: Acute renal failure Admitted with Nausea and abnormal lab Likely due to dehydration ,Prerenal ATN, AIN, or other etiologies Serologic tests are negative for any acute vasculitis Renal ultrasound unremarkable Lasix, Aldactone, lisinopril meloxicam and metformin were on hold following admission Gentle IVF started Appreciate Nephrology and ID input Was on Zyvox for ~3 months,changed to dapto and Invanz Renal function Improved and Aldactone,Lasix and Lisinopril restarted on 05/08/17 Creatinine worsened to >3.5 this morning-hold any diuretic and nephrotoxins Patient does not want to go to [place] Metabolic acidosis Complicated by ARF Started on bicarb as per nephro recommendations Improved Cutaneous vasculitis Home medications were on Hold on Admission Restarted Home med on improvement of renal function Chronic lower extremity wounds. Was on Zyvox and Zosyn. ID changed abx to Invanz and daptomycin.Continue Invanz and dapto on discharge as per ID for 2 more weeks. Wound clinic followup History of diabetes management as above. Hold the home medication of Januvia and metformin.Lantus and iss as per pharmacy.235/263/198/213 History of hypertension. Continue metoprolol succinate History of hyperlipidemia. Hold statin. History of depression. Continue Effexor. Deep vein thrombosis prophylaxis, heparin subQ and sequential compression devices. Disposition: Monitor in medical floor pt/ot Expected to discharge home and follow with the family doctor and ID. Level 1 full code. Needs adjustments of diabetes, HTN and diuretic medications at discharge Vital Signs: Date Time Temp Pulse Resp B/P (MAP) Pulse Ox O2 Delivery O2 Flow Rate FiO2 05/09/17 08:00 95 Room Air 05/09/17 07:24 36.8 90 18 107/66 (80) 95 Room Air 05/09/17 00:00 Room Air 05/08/17 23:21 36.9 88 20 118/71 (87) 92 Room Air 05/08/17 20:00 Room Air 05/08/17 15:48 Room Air Lab Results: Results Past 24 Hours Test 05/08/17 16:04 05/09/17 02:51 05/09/17 06:00 05/09/17 07:43 Range/Units Bedside Glucose 213 292 340 70-90 mg/dl White Blood Count 7.95 4.8-10.8 K/uL Red Blood Count 2.85 4.2-5.4 M/uL Hemoglobin 8.2 12.0-16.0 g/dL Hematocrit 25.6 37-47 % Mean Corpuscular Volume 89.8 80-100 fL Mean Corpuscular Hemoglobin 28.8 25-34 pg Mean Corpuscular Hemoglobin Concent 32.0 32-36 g/dl Platelet Count 481 130-400 K/uL Mean Platelet Volume 8.3 7.4-10.4 fL Neutrophils (%) (Auto) 70.1 % Lymphocytes (%) (Auto) 13.5 % Monocytes (%) (Auto) 14.7 % Eosinophils (%) (Auto) 0.6 % Basophils (%) (Auto) 0.3 % Neutrophils # (Auto) 5.58 1.4-6.5 K/uL Lymphocytes # (Auto) 1.07 1.2-3.4 K/uL Monocytes # (Auto) 1.17 0.11-0.59 K/uL Eosinophils # (Auto) 0.05 0-0.5 K/uL Basophils # (Auto) 0.02 0-0.2 K/uL RDW Standard Deviation 67.1 36.4-46.3 fL RDW Coefficient of Variation 20.4 11.5-14.5 % Immature Granulocyte % (Auto) 0.8 % Immature Granulocyte # (Auto) 0.06 0.00-0.02 K/uL Nucleated RBC Absolute Count (auto) 0.03 0-0 K/uL Nucleated Red Blood Cells % 0.4 % Anisocytosis PRESENT Sodium Level 133 136-145 mmol/L Potassium Level 4.3 3.5-5.1 mmol/L Chloride Level 97 98-107 mmol/L Carbon Dioxide Level 24 21-32 mmol/L Anion Gap 12.0 3-11 mmol/L Blood Urea Nitrogen 29 7-18 mg/dl Creatinine 3.20 0.60-1.20 mg/dl Est Creatinine Clear Calc Drug Dose 27.0 ml/min Estimated GFR () 18.6 Estimated GFR (Non- 16.1 BUN/Creatinine Ratio 9.0 10-20 Random Glucose 311 70-99 mg/dl Calcium Level 8.3 8.5-10.1 mg/dl Magnesium Level 2.4 1.8-2.4 mg/dl Beta-Hydroxybutyric Acid 24.25 0.2-2.81 mg/dL Test 05/09/17 11:34 Range/Units Bedside Glucose 289 70-90 mg/dl
[2017-05-09 15:22] VITALS: BP 98/53; PULSE 92; TEMP 37.5; O2SAT 90
--- NOTE | 2017-05-09 15:44 | Infectious Disease Progress Nt ---
Progress Note Date of Service May 09, 2017. 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 Patient remains afebrile. Creatinine up again today to 3.2. All Other Systems: Reviewed and Negative Medications Current Inpatient Medications Medications (Trade) Dose Ordered Sig/[place] Route Start Time Stop Time Status Last Admin Dose Admin Miscellaneous Information (Consult Glycemic Management Pharmacy) 1 ea UD PRN N/A 05/03/17 17:15 06/02/17 17:14 Heparin Sodium (Porcine) (Heparin Sq 5000 Unit/0.5ml) 5,000 unit Q12 SQ 05/03/17 21:00 06/02/17 20:59 05/09/17 08:03 5,000 UNIT Acetaminophen (Tylenol Tab) 650 mg Q4H PRN PO 05/03/17 17:15 06/02/17 17:14 05/06/17 21:07 650 MG Al Hydrox/Mg Hydrox/Simethicone (Maalox Max Susp) 15 ml Q4H PRN PO 05/03/17 17:15 06/02/17 17:14 Magnesium Hydroxide (Milk Of Magnesia Susp) 30 ml Q12H PRN PO 05/03/17 17:15 06/02/17 17:14 Ondansetron HCl (Zofran Inj) 4 mg Q6H PRN IV 05/03/17 17:15 06/02/17 17:14 Nitroglycerin (Nitrostat Tab) 0.4 mg UD PRN SL 05/03/17 17:15 06/02/17 17:14 Folic Acid (Folvite Tab) 1 mg DAILY PO 05/04/17 09:00 06/03/17 08:59 05/09/17 07:53 1 MG Metoprolol Succinate (Toprol Xl Tab) 100 mg DAILY PO 05/04/17 09:00 06/03/17 08:59 05/09/17 07:53 100 MG Simvastatin (Zocor Tab) 20 mg HS PO 05/03/17 21:00 06/02/17 20:59 Future Hold 05/03/17 21:59 20 MG Venlafaxine HCl (effeXOR EXTENDED REL CAP) 75 mg DAILY PO 05/04/17 09:00 06/03/17 08:59 05/09/17 07:51 75 MG Vitamin B Complex (Vitamin B Complex) 1 tab DAILY PO 05/04/17 09:00 06/03/17 08:59 05/09/17 07:52 1 TAB Glucose (Glucose 40% Gel) UD PRN PO 05/03/17 21:30 06/02/17 21:29 Glucose (Glucose Chew Tab) 1 tabs UD PRN PO 05/03/17 21:30 06/02/17 21:29 Dextrose (Dextrose 50% 50ML Syringe) 50 ml UD PRN IV 05/03/17 21:30 06/02/17 21:29 Glucagon (Glucagon Inj) 1 mg UD PRN SQ 05/03/17 21:30 06/02/17 21:29 Miscellaneous Information (Order Awaiting Action) 1 ea QS N/A 05/04/17 00:00 06/03/17 00:00 05/03/17 21:56 1 EA Daptomycin 500 mg/ Sodium Chloride 60 ml @ 100 mls/hr Q48H IV 05/04/17 11:00 05/14/17 10:59 05/08/17 11:46 100 MLS/HR Gabapentin (Neurontin Tab) 800 mg QID@0500,1000,1500,2000 PO 05/04/17 11:00 06/03/17 10:59 05/09/17 15:40 800 MG Ertapenem 500 mg/ Sodium Chloride 55 ml @ 110 mls/hr Q24H IV 05/04/17 12:00 05/14/17 11:59 05/09/17 12:16 110 MLS/HR Insulin Aspart (novoLOG ASPART) SLIDING SCALE ACHS SC 05/04/17 11:30 06/03/17 11:29 Future hold 05/08/17 17:13 25 UNITS Heparin Sodium (Porcine) (Heparin 10 Unit/ ml 5 ml Flush) 5 ml PRN PRN FLUSH 05/06/17 06:30 06/05/17 06:29 05/09/17 13:24 5 ML Furosemide (Lasix Tab) 40 mg QAM PO 05/07/17 09:00 06/06/17 08:59 Future Hold 05/08/17 08:56 40 MG Spironolactone (Aldactone Tab) 12.5 mg QAM PO 05/07/17 09:00 06/06/17 08:59 Future Hold 05/08/17 08:58 12.5 MG Morphine Sulfate (MoRPHine SULFATE INJ) 1 mg Q6 PRN IV 05/06/17 21:45 05/20/17 21:44 05/07/17 07:32 1 MG Tramadol HCl (Ultram Tab) 50 mg Q4H PRN PO 05/07/17 09:45 06/06/17 09:44 05/09/17 12:16 50 MG Azathioprine (Imuran Tab) 100 mg BID PO 05/07/17 21:00 06/06/17 20:59 05/09/17 07:51 100 MG Dapsone (Dapsone Tab) 50 mg DAILY PO 05/08/17 09:00 06/07/17 08:59 05/09/17 07:51 50 MG Lisinopril (Zestril Tab) 20 mg QAM PO 05/08/17 09:00 06/07/17 08:59 Future Hold 05/08/17 09:01 20 MG Insulin Aspart (novoLOG ASPART) SLIDING SCALE TODAY@0200 ID 05/10/17 02:00 05/10/17 02:01 Insulin Glargine (Lantus Vial) SEE PROTOCOL TEXT BID SC 05/09/17 21:00 06/08/17 20:59 Objective Vital Signs Date Time Temp Pulse Resp B/P (MAP) Pulse Ox O2 Delivery O2 Flow Rate FiO2 05/09/17 15:22 37.5 92 16 98/53 (68) 90 Room Air 05/09/17 08:00 95 Room Air 05/09/17 07:24 36.8 90 18 107/66 (80) 95 Room Air 05/09/17 00:00 Room Air 05/08/17 23:21 36.9 88 20 118/71 (87) 92 Room Air 05/08/17 20:00 Room Air 05/08/17 15:48 Room Air Physical Exam General Appearance: WD/WN, no apparent distress, + obese Eyes: normal inspection, sclerae normal ENT: normal ENT inspection, pharynx normal Neck: supple, no adenopathy, trachea midline Respiratory/Chest: chest non-tender, lungs clear, normal breath sounds, no respiratory distress Cardiovascular: no gallop, no murmur Abdomen: normal bowel sounds, non tender, soft, no organomegaly Extremities: + inflammation, + swelling Neurologic/Psychiatric: alert, oriented x 3 Skin: normal color, + pertinent finding (Bilateral extensive leg ulcerations) Lymphatic: no adenopathy Laboratory Results Last 24 Hours Test 05/08/17 16:04 05/09/17 02:51 05/09/17 06:00 05/09/17 07:43 Bedside Glucose 213 mg/dl 292 mg/dl 340 mg/dl White Blood Count 7.95 K/uL Red Blood Count 2.85 M/uL Hemoglobin 8.2 g/dL Hematocrit 25.6 % Mean Corpuscular Volume 89.8 fL Mean Corpuscular Hemoglobin 28.8 pg Mean Corpuscular Hemoglobin Concent 32.0 g/dl Platelet Count 481 K/uL Mean Platelet Volume 8.3 fL Neutrophils (%) (Auto) 70.1 % Lymphocytes (%) (Auto) 13.5 % Monocytes (%) (Auto) 14.7 % Eosinophils (%) (Auto) 0.6 % Basophils (%) (Auto) 0.3 % Neutrophils # (Auto) 5.58 K/uL Lymphocytes # (Auto) 1.07 K/uL Monocytes # (Auto) 1.17 K/uL Eosinophils # (Auto) 0.05 K/uL Basophils # (Auto) 0.02 K/uL RDW Standard Deviation 67.1 fL RDW Coefficient of Variation 20.4 % Immature Granulocyte % (Auto) 0.8 % Immature Granulocyte # (Auto) 0.06 K/uL Nucleated RBC Absolute Count (auto) 0.03 K/uL Nucleated Red Blood Cells % 0.4 % Anisocytosis PRESENT Sodium Level 133 mmol/L Potassium Level 4.3 mmol/L Chloride Level 97 mmol/L Carbon Dioxide Level 24 mmol/L Anion Gap 12.0 mmol/L Blood Urea Nitrogen 29 mg/dl Creatinine 3.20 mg/dl Est Creatinine Clear Calc Drug Dose 27.0 ml/min Estimated GFR () 18.6 Estimated GFR (Non- 16.1 BUN/Creatinine Ratio 9.0 Random Glucose 311 mg/dl Calcium Level 8.3 mg/dl Magnesium Level 2.4 mg/dl Beta-Hydroxybutyric Acid 24.25 mg/dL Test 05/09/17 11:34 Bedside Glucose 289 mg/dl Assessment and Plan 51 yo female with 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 Was improving, creatinine now up again today. Will discuss further with Nephrology. Continue present antibiotics for now.
[2017-05-09] MEDS: INSULIN ASPART 100 UNITS/ML VIAL SC SCH ×2 (18:14→20:55)
--- NOTE | 2017-05-09 19:31 | Nephrology Progress Note ---
Nephrology Progress Note Date of Service: May 09, 2017. 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 today exhausted; no sob, voiding complaints. Objective Date Time Temp Pulse Resp B/P (MAP) Pulse Ox O2 Delivery O2 Flow Rate FiO2 05/09/17 15:22 37.5 92 16 98/53 (68) 90 Room Air 05/09/17 08:00 95 Room Air 05/09/17 07:24 36.8 90 18 107/66 (80) 95 Room Air 05/09/17 00:00 Room Air 05/08/17 23:21 36.9 88 20 118/71 (87) 92 Room Air 05/08/17 20:00 Room Air Physical Exam: General-aaox3, obese, on RA, very very tired Eyes-no scleral icterus ENT-mmm Neck-supple Lungs-clear Heart-regular RR; II/ SM Abdomen-bs+ s/nt/nd; no reed Extremities-tender lower extremities, wrapped, more swollen and very tender Neuro-nonfocal Current Inpatient Medications Medications (Trade) Dose Ordered Sig/[place] Route Start Time Stop Time Status Last Admin Dose Admin Miscellaneous Information (Consult Glycemic Management Pharmacy) 1 ea UD PRN N/A 05/03/17 17:15 06/02/17 17:14 Heparin Sodium (Porcine) (Heparin Sq 5000 Unit/0.5ml) 5,000 unit Q12 SQ 05/03/17 21:00 06/02/17 20:59 05/09/17 08:03 5,000 UNIT Acetaminophen (Tylenol Tab) 650 mg Q4H PRN PO 05/03/17 17:15 06/02/17 17:14 05/06/17 21:07 650 MG Al Hydrox/Mg Hydrox/Simethicone (Maalox Max Susp) 15 ml Q4H PRN PO 05/03/17 17:15 06/02/17 17:14 Magnesium Hydroxide (Milk Of Magnesia Susp) 30 ml Q12H PRN PO 05/03/17 17:15 06/02/17 17:14 Ondansetron HCl (Zofran Inj) 4 mg Q6H PRN IV 05/03/17 17:15 06/02/17 17:14 Nitroglycerin (Nitrostat Tab) 0.4 mg UD PRN SL 05/03/17 17:15 06/02/17 17:14 Folic Acid (Folvite Tab) 1 mg DAILY PO 05/04/17 09:00 06/03/17 08:59 05/09/17 07:53 1 MG Metoprolol Succinate (Toprol Xl Tab) 100 mg DAILY PO 05/04/17 09:00 06/03/17 08:59 05/09/17 07:53 100 MG Simvastatin (Zocor Tab) 20 mg HS PO 05/03/17 21:00 06/02/17 20:59 Future Hold 05/03/17 21:59 20 MG Venlafaxine HCl (effeXOR EXTENDED REL CAP) 75 mg DAILY PO 05/04/17 09:00 06/03/17 08:59 05/09/17 07:51 75 MG Vitamin B Complex (Vitamin B Complex) 1 tab DAILY PO 05/04/17 09:00 06/03/17 08:59 05/09/17 07:52 1 TAB Glucose (Glucose 40% Gel) UD PRN PO 05/03/17 21:30 06/02/17 21:29 Glucose (Glucose Chew Tab) 1 tabs UD PRN PO 05/03/17 21:30 06/02/17 21:29 Dextrose (Dextrose 50% 50ML Syringe) 50 ml UD PRN IV 05/03/17 21:30 06/02/17 21:29 Glucagon (Glucagon Inj) 1 mg UD PRN SQ 05/03/17 21:30 06/02/17 21:29 Miscellaneous Information (Order Awaiting Action) 1 ea QS N/A 05/04/17 00:00 06/03/17 00:00 05/03/17 21:56 1 EA Daptomycin 500 mg/ Sodium Chloride 60 ml @ 100 mls/hr Q48H IV 05/04/17 11:00 05/14/17 10:59 05/08/17 11:46 100 MLS/HR Gabapentin (Neurontin Tab) 800 mg QID@0500,1000,1500,2000 PO 05/04/17 11:00 06/03/17 10:59 05/09/17 15:40 800 MG Ertapenem 500 mg/ Sodium Chloride 55 ml @ 110 mls/hr Q24H IV 05/04/17 12:00 05/14/17 11:59 05/09/17 12:16 110 MLS/HR Heparin Sodium (Porcine) (Heparin 10 Unit/ ml 5 ml Flush) 5 ml PRN PRN FLUSH 05/06/17 06:30 06/05/17 06:29 05/09/17 13:24 5 ML Furosemide (Lasix Tab) 40 mg QAM PO 05/07/17 09:00 06/06/17 08:59 Future Hold 05/08/17 08:56 40 MG Spironolactone (Aldactone Tab) 12.5 mg QAM PO 05/07/17 09:00 06/06/17 08:59 Future Hold 05/08/17 08:58 12.5 MG Morphine Sulfate (MoRPHine SULFATE INJ) 1 mg Q6 PRN IV 05/06/17 21:45 05/20/17 21:44 05/07/17 07:32 1 MG Tramadol HCl (Ultram Tab) 50 mg Q4H PRN PO 05/07/17 09:45 06/06/17 09:44 05/09/17 12:16 50 MG Azathioprine (Imuran Tab) 100 mg BID PO 05/07/17 21:00 06/06/17 20:59 05/09/17 07:51 100 MG Dapsone (Dapsone Tab) 50 mg DAILY PO 05/08/17 09:00 06/07/17 08:59 05/09/17 07:51 50 MG Lisinopril (Zestril Tab) 20 mg QAM PO 05/08/17 09:00 06/07/17 08:59 Future Hold 05/08/17 09:01 20 MG Insulin Glargine (Lantus Vial) SEE PROTOCOL TEXT BID SC 05/09/17 21:00 06/08/17 20:59 Insulin Aspart (novoLOG ASPART) SLIDING SCALE ACHS SC 05/09/17 17:45 06/08/17 17:44 05/09/17 18:14 14 UNITS Insulin Aspart (novoLOG ASPART) SLIDING SCALE TODAY@0200 MI 05/10/17 02:00 05/10/17 02:01 Last 24 Hours Test 05/09/17 02:51 05/09/17 06:00 05/09/17 07:43 05/09/17 11:34 Bedside Glucose 292 mg/dl 340 mg/dl 289 mg/dl White Blood Count 7.95 K/uL Red Blood Count 2.85 M/uL Hemoglobin 8.2 g/dL Hematocrit 25.6 % Mean Corpuscular Volume 89.8 fL Mean Corpuscular Hemoglobin 28.8 pg Mean Corpuscular Hemoglobin Concent 32.0 g/dl Platelet Count 481 K/uL Mean Platelet Volume 8.3 fL Neutrophils (%) (Auto) 70.1 % Lymphocytes (%) (Auto) 13.5 % Monocytes (%) (Auto) 14.7 % Eosinophils (%) (Auto) 0.6 % Basophils (%) (Auto) 0.3 % Neutrophils # (Auto) 5.58 K/uL Lymphocytes # (Auto) 1.07 K/uL Monocytes # (Auto) 1.17 K/uL Eosinophils # (Auto) 0.05 K/uL Basophils # (Auto) 0.02 K/uL RDW Standard Deviation 67.1 fL RDW Coefficient of Variation 20.4 % Immature Granulocyte % (Auto) 0.8 % Immature Granulocyte # (Auto) 0.06 K/uL Nucleated RBC Absolute Count (auto) 0.03 K/uL Nucleated Red Blood Cells % 0.4 % Anisocytosis PRESENT Sodium Level 133 mmol/L Potassium Level 4.3 mmol/L Chloride Level 97 mmol/L Carbon Dioxide Level 24 mmol/L Anion Gap 12.0 mmol/L Blood Urea Nitrogen 29 mg/dl Creatinine 3.20 mg/dl Est Creatinine Clear Calc Drug Dose 27.0 ml/min Estimated GFR () 18.6 Estimated GFR (Non- 16.1 BUN/Creatinine Ratio 9.0 Random Glucose 311 mg/dl Calcium Level 8.3 mg/dl Magnesium Level 2.4 mg/dl Beta-Hydroxybutyric Acid 24.25 mg/dL Test 05/09/17 16:46 Bedside Glucose 191 mg/dl Assessment & Plan 51 y/o F with underlying vasculitis of the legs on chronic immunosuppression and chronic antibiotics with recent punch biopsy by dermatology presented with spike and significant metabolic acidosis. presenting creatinine on 05/03 admission was 3.2; improved down to 1.0 on 05/07 then rapid upward trend to 1.5 yesterday and today 3.2. As recently as 04/26, creatinine was 0.9. [id number]-improved with fluids, then worsened again. serologies are all normal. clinical history of vasculitis of the legs, thought there may be an element of renal vasculitis. although appears was volume depleted and kidney function improving. on resumption of spironolactone, lasix, ACEI, her creatinine worsened dramatically again. These are all on hold again now. remains on AZA -diuretics prn breathing only -renal diet -daily standing wt -will reorder urine studies; cannot rule out need for stronger consideration of renal biopsy if no improvement clinically; will also recheck CK >> elevated B hydroxybutyrate and hyperglycemia noted Appreciate consult; will follow with you.
[2017-05-09] MEDS: INSULIN GLARGINE SC SCH (20:53)
[2017-05-09 23:09] VITALS: BP 100/61; PULSE 97; TEMP 36.9; O2SAT 90
[2017-05-10] MEDS ORDERED: INSULIN ASPART 100 UNITS/ML VIAL SC SCH (02:00)
[2017-05-10] MEDS ORDERED: INSULIN ASPART 100 UNITS/ML 3 ML PEN SC SCH (02:00)
[2017-05-10] MEDS: GABAPENTIN 800 MG TAB PO SCH ×3 (05:02→14:59)
[2017-05-10 05:49] LABS: HEMATOCRIT 24.8 % (37-47); MEAN CELL VOLUME 89.9 fL (80-100); MEAN CORPUSCULAR HEMOGLOBIN 28.6 pg (25-34); MEAN CORPUSCULAR HGB CONC 31.9 g/dl (32-36); MEAN PLATELET VOLUME 8.3 fL (7.4-10.4); PLATELET COUNT 458 K/uL (130-400); RED BLOOD COUNT 2.76 M/uL (4.2-5.4); WHITE BLOOD COUNT 9.09 K/uL (4.8-10.8)
[2017-05-10 06:19] LABS: BUN/CREATININE RATIO 7.4 (10-20); CALCIUM 8.5 mg/dl (8.5-10.1); CREATININE 4.3 mg/dl (0.60-1.20); MAGNESIUM 2.6 mg/dl (1.8-2.4)
[2017-05-10 06:22] LABS: PHOSPHORUS 4.6 mg/dl (2.5-4.9)
[2017-05-10 07:06] VITALS: BP 116/67; PULSE 85; TEMP 36.7; O2SAT 94
--- NOTE | 2017-05-10 08:03 | Pharmacy Progress Note ---
Glycemic Control: Progress Nt Date of Service May 10, 2017. Scope Glycemic Pharmacist consulted for glycemic control and to write orders per [facility] inpatient glycemic control protocol. Objective Accuchecks BSG (last 24hrs): Test 05/09/17 11:34 05/09/17 16:46 05/09/17 19:57 05/10/17 02:08 Bedside Glucose 289 mg/dl (70-90) 191 mg/dl (70-90) 210 mg/dl (70-90) 238 mg/dl (70-90) Test 05/10/17 05:35 05/10/17 07:38 Random Glucose 196 mg/dl (70-99) Bedside Glucose 217 mg/dl (70-90) Laboratory Data (last 24hrs) HbA1c: Test 05/04/17 03:50 Hemoglobin A1c 7.6 % (4.5-5.6) H Recent Pertinent Medications Outpatient Anti-diabetic Regimen: * Lantus 75 units SQ BID * NovoLog SSI ACHS (50-70 units with meals) * Metformin 1,000mg PO BIDM * Januvia 100mg PO daily * Bud[place]on 2mg SQ weekly (has not taken in a few weeks secondary to poor PO intake) Risk Factors for Insulin Resistance: * Infection * Large outpatient dosing of insulin Risk Factors for Insulin Sensitivity: * ARF Assessment & Plan ASSESSMENT: * Patient is currently receiving 324 units of insulin over the past 24hrs * 150 units of basal insulin {as Lantus 75 units BID - this is outpatient dosing} * 175 units of prandial/correctional insulin * BSGs ranging 191 - 289 over the past 24hrs * Pt with severe hyperglycemia yesterday morning - unknown cause * Confirmed with nursing and patient that insulin doses were not omitted and administered appropriately. * Scr on the rise, doubled from 1.5 --> 3.2 --> 4.3mg/dl today. Typically increased response to insulin is seen with TERESA and exogenous insulin administration needs substantially reduced. Her hyperglycemia pattern is not following this. * Additional notes/comments: * Pt typically takes 300+ units of insulin as an outpatient but is only receiving about half of this over the last few days - this was yielding near adequate glycemic control up until yesterday. * BSGs starting to look better after large NovoLog boluses and increasing basal insulin dosing back to outpatient dosing. Will continue this regimen cautiously with worsening renal function. * Despite doubling total daily dose from 05/08 {148units/day} to 05/09 {324units/ day} glycemic control is still not that great. PLAN FOR INPATIENT GLYCEMIC CONTROL: Continue outpatient regimen of ~300+ units/ day cautiously with worsening renal function as this can increase insulin sensitivity. * Continue to hold outpatient oral diabetes medications secondary to ARF * Basal insulin: continue current dosing, remove lowest BSG parameter to prevent underdosing and cause rebound hyperglycemia * Lantus 60-75 units SQ BID --> dosing based on BSG secondary to ARF {of note, pt uses Lantus 75 units BID as an outpatient} * BSG below 150mg/dl --> Lantus 60 units * BSG 150mg/dl or above --> Lantus 75 units * Bolus insulin : Tighten bolus insulin parameters. Of note, Pt uses 50-70 units with meals as an outpatient. * NovoLog per scale ACHS or Q6hrs while NPO. * Goal Range: Low 110 mg/dL - High 140mg/dL * Correction Factor: 3 mg/dL/unit {was 9} * Nutritional / Prandial insulin per carb ratio of 1 unit per 1 grams CHO consumed {was 2} * Please note that the plan above was derived based on current level of insulin resistance and hospital stress. These recommendations are appropriate for inpatient admission only. Plan of care upon discharge will need to be reassessed to avoid potential outpatient hypo/hyperglycemia. Thank you.
[2017-05-10] MEDS: INSULIN ASPART 100 UNITS/ML VIAL SC SCH ×2 (08:39→11:00)
[2017-05-10] MEDS: INSULIN GLARGINE SC SCH (08:39)
[2017-05-10] MEDS: VITAMIN B COMPLEX TAB PO SCH (08:45)
[2017-05-10] MEDS: DAPSONE 25 MG TAB PO SCH (08:45)
[2017-05-10] MEDS: VENLAFAXINE HCL XR 75 MG CAPXR PO SCH (08:45)
[2017-05-10] MEDS: AZATHIOPRINE 50 MG TAB PO SCH (08:45)
[2017-05-10] MEDS: METOPROLOL SUCC 50MG EXT REL TAB PO SCH (08:45)
[2017-05-10] MEDS: HEPARIN SOD 5000 UNIT/0.5 ML CARP SQ SCH (08:50)
[2017-05-10] MEDS: TRAMADOL HCL 50 MG TAB PO PRN ×2 (08:56→14:59)
[2017-05-10 10:20] LABS: ALKALINE PHOSPHATASE 58 U/L (45-117); ALT/SGPT 21 U/L (12-78); AST/SGOT 29 U/L (15-37)
[2017-05-10] MEDS ORDERED: SODIUM CHLORIDE 0.9% 1000ML 1,000 ML IV ONE (10:24)
--- NOTE | 2017-05-10 11:21 | Nephrology Progress Note ---
Nephrology Progress Note Date of Service: May 10, 2017. Subjective c/o ongoing diffuse pain relieved w/ pain meds; denies dyspnea or n/v. she has not voided since yesterday 1500; bladder scan today = approx 50 mL; asked nurse to str cath pt for urine specimens; tearful to hear my recommendations about eval at [facility] Objective Date Time Temp Pulse Resp B/P (MAP) Pulse Ox O2 Delivery O2 Flow Rate FiO2 05/10/17 08:00 Room Air 05/10/17 07:06 36.7 85 16 116/67 (83) 94 Room Air 05/10/17 00:00 Room Air 05/09/17 23:09 36.9 97 18 100/61 (74) 90 Room Air 05/09/17 16:00 Room Air 05/09/17 15:22 37.5 92 16 98/53 (68) 90 Room Air Physical Exam: General-aaox3, obese, on RA, today less tired Eyes-no scleral icterus ENT-mmm Neck-supple Lungs-clear but with diminished air entry Heart-regular RR; II/ SM Abdomen-bs+ s/nt/nd; no reed Extremities-tender lower extremities, wrapped, trace edema Neuro-messer, fluent speech Current Inpatient Medications Medications (Trade) Dose Ordered Sig/[place] Route Start Time Stop Time Status Last Admin Dose Admin Miscellaneous Information (Consult Glycemic Management Pharmacy) 1 ea UD PRN N/A 05/03/17 17:15 06/02/17 17:14 Heparin Sodium (Porcine) (Heparin Sq 5000 Unit/0.5ml) 5,000 unit Q12 SQ 05/03/17 21:00 06/02/17 20:59 05/10/17 08:50 5,000 UNIT Acetaminophen (Tylenol Tab) 650 mg Q4H PRN PO 05/03/17 17:15 06/02/17 17:14 05/06/17 21:07 650 MG Al Hydrox/Mg Hydrox/Simethicone (Maalox Max Susp) 15 ml Q4H PRN PO 05/03/17 17:15 06/02/17 17:14 Magnesium Hydroxide (Milk Of Magnesia Susp) 30 ml Q12H PRN PO 05/03/17 17:15 06/02/17 17:14 Ondansetron HCl (Zofran Inj) 4 mg Q6H PRN IV 05/03/17 17:15 06/02/17 17:14 Nitroglycerin (Nitrostat Tab) 0.4 mg UD PRN SL 05/03/17 17:15 06/02/17 17:14 Folic Acid (Folvite Tab) 1 mg DAILY PO 05/04/17 09:00 06/03/17 08:59 05/10/17 08:45 1 MG Metoprolol Succinate (Toprol Xl Tab) 100 mg DAILY PO 05/04/17 09:00 06/03/17 08:59 05/10/17 08:45 100 MG Simvastatin (Zocor Tab) 20 mg HS PO 05/03/17 21:00 06/02/17 20:59 Future Hold 05/03/17 21:59 20 MG Venlafaxine HCl (effeXOR EXTENDED REL CAP) 75 mg DAILY PO 05/04/17 09:00 06/03/17 08:59 05/10/17 08:45 75 MG Vitamin B Complex (Vitamin B Complex) 1 tab DAILY PO 05/04/17 09:00 06/03/17 08:59 05/10/17 08:45 1 TAB Glucose (Glucose 40% Gel) UD PRN PO 05/03/17 21:30 06/02/17 21:29 Glucose (Glucose Chew Tab) 1 tabs UD PRN PO 05/03/17 21:30 06/02/17 21:29 Dextrose (Dextrose 50% 50ML Syringe) 50 ml UD PRN IV 05/03/17 21:30 06/02/17 21:29 Glucagon (Glucagon Inj) 1 mg UD PRN SQ 05/03/17 21:30 06/02/17 21:29 Miscellaneous Information (Order Awaiting Action) 1 ea QS N/A 05/04/17 00:00 06/03/17 00:00 05/03/17 21:56 1 EA Daptomycin 500 mg/ Sodium Chloride 60 ml @ 100 mls/hr Q48H IV 05/04/17 11:00 05/14/17 10:59 05/08/17 11:46 100 MLS/HR Gabapentin (Neurontin Tab) 800 mg QID@0500,1000,1500,2000 PO 05/04/17 11:00 06/03/17 10:59 05/10/17 08:45 800 MG Ertapenem 500 mg/ Sodium Chloride 55 ml @ 110 mls/hr Q24H IV 05/04/17 12:00 05/14/17 11:59 05/09/17 12:16 110 MLS/HR Heparin Sodium (Porcine) (Heparin 10 Unit/ ml 5 ml Flush) 5 ml PRN PRN FLUSH 05/06/17 06:30 06/05/17 06:29 05/10/17 04:56 5 ML Furosemide (Lasix Tab) 40 mg QAM PO 05/07/17 09:00 06/06/17 08:59 Future Hold 05/08/17 08:56 40 MG Spironolactone (Aldactone Tab) 12.5 mg QAM PO 05/07/17 09:00 06/06/17 08:59 Future Hold 05/08/17 08:58 12.5 MG Morphine Sulfate (MoRPHine SULFATE INJ) 1 mg Q6 PRN IV 05/06/17 21:45 05/20/17 21:44 05/07/17 07:32 1 MG Tramadol HCl (Ultram Tab) 50 mg Q4H PRN PO 05/07/17 09:45 06/06/17 09:44 05/10/17 08:56 50 MG Azathioprine (Imuran Tab) 100 mg BID PO 05/07/17 21:00 06/06/17 20:59 05/10/17 08:45 100 MG Dapsone (Dapsone Tab) 50 mg DAILY PO 05/08/17 09:00 06/07/17 08:59 05/10/17 08:45 50 MG Lisinopril (Zestril Tab) 20 mg QAM PO 05/08/17 09:00 06/07/17 08:59 Future Hold 05/08/17 09:01 20 MG Insulin Glargine (Lantus Vial) SEE PROTOCOL TEXT BID SC 05/09/17 21:00 06/08/17 20:59 05/10/17 08:39 75 UNIT Insulin Aspart (novoLOG ASPART) SLIDING SCALE ACHS SC 05/09/17 17:45 06/08/17 17:44 05/10/17 08:39 76 UNITS Last 24 Hours Test 05/09/17 11:34 05/09/17 16:46 05/09/17 19:57 05/10/17 02:08 Bedside Glucose 289 mg/dl 191 mg/dl 210 mg/dl 238 mg/dl Test 05/10/17 05:35 05/10/17 07:38 White Blood Count 9.09 K/uL Red Blood Count 2.76 M/uL Hemoglobin 7.9 g/dL Hematocrit 24.8 % Mean Corpuscular Volume 89.9 fL Mean Corpuscular Hemoglobin 28.6 pg Mean Corpuscular Hemoglobin Concent 31.9 g/dl RDW Standard Deviation 66.0 fL RDW Coefficient of Variation 20.4 % Platelet Count 458 K/uL Mean Platelet Volume 8.3 fL Nucleated RBC Absolute Count (auto) 0.02 K/uL Nucleated Red Blood Cells % 0.2 % Sodium Level 133 mmol/L Potassium Level 4.0 mmol/L Chloride Level 97 mmol/L Carbon Dioxide Level 25 mmol/L Anion Gap 11.0 mmol/L Blood Urea Nitrogen 32 mg/dl Creatinine 4.30 mg/dl Est Creatinine Clear Calc Drug Dose 20.1 ml/min Estimated GFR () 13.0 Estimated GFR (Non- 11.3 BUN/Creatinine Ratio 7.4 Random Glucose 196 mg/dl Calcium Level 8.5 mg/dl Phosphorus Level 4.6 mg/dl Magnesium Level 2.6 mg/dl Total Bilirubin 0.3 mg/dl Direct Bilirubin < 0.1 mg/dl Aspartate Amino Transf (AST/SGOT) 29 U/L Alanine Aminotransferase (ALT/SGPT) 21 U/L Alkaline Phosphatase 58 U/L Total Creatine Kinase 253 U/L Total Protein 5.7 gm/dl Albumin 1.6 gm/dl Bedside Glucose 217 mg/dl Assessment & Plan 51 y/o F with underlying vasculitis of the legs (05/02 punch biopsy w/ derm path = primary vasculitis versus secondary inflammation from cribiform ulcers versus pyoderma gangrenosum versus livedoid vasculitis) on chronic immunosuppression, chronic nsaids, and chronic antibiotics presented with spike and significant metabolic acidosis. this in the setting of >18 yrs dm w/ diabetic retinopathy, presenting creatinine on 05/03 admission was 3.2; improved down to 1.0 on 05/07 then rapid upward trend to to 4.3 today. As recently as 04/26, creatinine was 0.9. QRM-owq-acpapbvl-improved with fluids and stopping diuretics/ RAAS blockade, then worsened again. serologies are all normal on presentation 05/04. clinical history of vasculitis of the legs (not fully characterized), concern now for volume depletion versus more likely interstitial nephritis versus RPGN. On presentation she was volume depleted and renal function improved; on resumption of spironolactone, lasix, ACEI, (and w/ addition of ertapenem, a new abtc for her) her creatinine worsened dramatically again. These are all on hold again now. remains on AZA; ertapenem was new as of 05/04. back on lasix 05/06-05/08; had spironolactone 05/06-05/08; had one lisinopril dose 05/08. CK today 253 >>>rapidly worsening renal failure in complex pt with longstanding DM w/ retinopathy and morbid obesity and longstanding chronic leg ulcers on MTX/AZA/ multiple diuretics and antibiotics, meloxicam prior to admission w/ creatinine 0.9 as of 04/26/17 and previously admitted 05/03 w/ creatinine 3.2 after recent skin bx 05/02 w/ pyoderma gangrenosum versus livedoid vasculitis versus other primary/secondary vasculitis. her creatinine worsened markedly w/ resumption of diuretics and addition of ertapenem. as of yesterday anuric w/ creatinine 4.3 today. >>> we are losing ground rapidly and need definitive diagnosis >> differential includes volume depletion versus acute interstitial nephritis versus RPGN ( recent normal serologies noted). recommend renal biopsy next 24 hrs, transfer to [facility] for inpatient input as needed from derm, rheum, nephro, int med; in the meantime will give more IV fluids, cont to hold diuretics; give 500 mg methylprednisolone. while she may respond to conservative measures, she will need immediate intervention if she does not. -diuretics prn breathing only -renal diet ordered -daily standing wt -ordered orthostatic VS and low threshold for CXR -trial NS at 80 mL hourly -asked nurse to straight cath her for urine specimens ordered yesterday <<>> anuric since 05/09 1500 Appreciate consult; will follow with you. care coordinated w/ pt and w/ dr rosenberg. will update nephro team in [facility]
[2017-05-10] MEDS ORDERED: METHYLPREDNISOLONE IV 500 MG in SYRINGE 0 ML IV STA (11:26)
[2017-05-10] MEDS: DAPTOmycin IV 500 MG in SODIUM CHLORIDE 0.9% 50ML 50 ML IV SCH (11:53)
[2017-05-10 12:00] LABS: URINE APPEARANCE TURBID (CLEAR); URINE COLOR DK YELLOW; URINE EPITHELIAL CELL AUTO >30 /lpf (0-5); URINE NITRITE NEG (NEG); URINE SPECIFIC GRAVITY 1.031 (1.000-1.030); UROBILINOGEN NEG (NEG); ZZUR CULT IF INDIC CLEAN CATCH YES
[2017-05-10] MEDS ORDERED: SODIUM CHLORIDE 0.9% IV ONE (12:00)
[2017-05-10] MEDS ORDERED: METHYLPREDNISOLONE IV ONE (12:00)
--- NOTE | 2017-05-10 12:05 | Progress Note ---
Internal Med Progress Note Date of Service: May 10, 2017. Provider Documentation: SUBJECTIVE: The patient was seen and examined Denies any more pain than in legs Generally weak and lethargic and worse today Denies any nausea and or vomiting OBJECTIVE: Vital Signs-as noted below Exam: General-Feels tired and lethargic Pale looking Eyes-normal ENT-normal Neck-supple Lungs-Decreased breath sound bilaterally Heart-Regular,no murmur Abdomen-Distended,soft ,bowel sound present Extremities-Bandaged bilaterally with 1+ Edema bilaterally Neuro-AAOx3 Generally weak,no focal neuro deficit Lab data as noted below. ASSESSMENT & PLAN: Acute renal failure Admitted with Nausea and abnormal lab Likely due to dehydration ,Prerenal ATN, AIN, or other etiologies including vasculitis Serologic tests are negative for any acute vasculitis Renal ultrasound unremarkable Lasix, Aldactone, lisinopril meloxicam and metformin were on hold following admission Gentle IVF started on admission Appreciate Nephrology and ID input Was on Zyvox for ~3 months,changed to dapto and Invanz for the last 2-3 weeks Renal function Improved to normal on 05/06/17 Aldactone,Lasix and Lisinopril restarted on 05/06 Creatinine worsened to >3.5 on 05/09/17 above medications were on hold Creatinine worse this morning to 4.30 Nephrology suggested for Renal Biopsy and transfer to [place] Will likely need Nephrology,Rheumatology,Dermatology,ID input Metabolic acidosis Complicated by ARF Started on bicarb as per nephro recommendations Improved Cutaneous vasculitis-nonspecific type Was on Methotrexate,Azathioprine,Dapsone,Meloxicam for vasculitis Home medications were on Hold on Admission Restarted Home med on improvement of renal function on 05/07 Serologic tests were negative Beta Hydroxybutyric acid elevated to 24.25 Chronic lower extremity wounds. Was on Zyvox for 3 months and Zosyn. ID changed abx to Invanz and daptomycin.Continue Invanz and dapto on discharge as per ID for 2 more weeks. Wound clinic followup History of diabetes management as above. Hold the home medication of Januvia and metformin.Lantus and iss as per pharmacy. History of hypertension. Continue metoprolol succinate History of hyperlipidemia. Hold statin. History of depression. Continue Effexor. Deep vein thrombosis prophylaxis, heparin subQ and sequential compression devices. Disposition: Monitor in medical floor Transferred to [place] for probable Renal Biopsy Vital Signs: Date Time Temp Pulse Resp B/P (MAP) Pulse Ox O2 Delivery O2 Flow Rate FiO2 05/10/17 08:00 Room Air 05/10/17 07:06 36.7 85 16 116/67 (83) 94 Room Air 05/10/17 00:00 Room Air 05/09/17 23:09 36.9 97 18 100/61 (74) 90 Room Air 05/09/17 16:00 Room Air 05/09/17 15:22 37.5 92 16 98/53 (68) 90 Room Air Lab Results: Results Past 24 Hours Test 05/09/17 16:46 05/09/17 19:57 05/10/17 02:08 05/10/17 05:35 Range/Units Bedside Glucose 191 210 238 70-90 mg/dl White Blood Count 9.09 4.8-10.8 K/uL Red Blood Count 2.76 4.2-5.4 M/uL Hemoglobin 7.9 12.0-16.0 g/dL Hematocrit 24.8 37-47 % Mean Corpuscular Volume 89.9 80-100 fL Mean Corpuscular Hemoglobin 28.6 25-34 pg Mean Corpuscular Hemoglobin Concent 31.9 32-36 g/dl RDW Standard Deviation 66.0 36.4-46.3 fL RDW Coefficient of Variation 20.4 11.5-14.5 % Platelet Count 458 130-400 K/uL Mean Platelet Volume 8.3 7.4-10.4 fL Nucleated RBC Absolute Count (auto) 0.02 0-0 K/uL Nucleated Red Blood Cells % 0.2 % Sodium Level 133 136-145 mmol/L Potassium Level 4.0 3.5-5.1 mmol/L Chloride Level 97 98-107 mmol/L Carbon Dioxide Level 25 21-32 mmol/L Anion Gap 11.0 3-11 mmol/L Blood Urea Nitrogen 32 7-18 mg/dl Creatinine 4.30 0.60-1.20 mg/dl Est Creatinine Clear Calc Drug Dose 20.1 ml/min Estimated GFR () 13.0 Estimated GFR (Non- 11.3 BUN/Creatinine Ratio 7.4 10-20 Random Glucose 196 70-99 mg/dl Calcium Level 8.5 8.5-10.1 mg/dl Phosphorus Level 4.6 2.5-4.9 mg/dl Magnesium Level 2.6 1.8-2.4 mg/dl Total Bilirubin 0.3 0.2-1 mg/dl Direct Bilirubin < 0.1 0-0.2 mg/dl Aspartate Amino Transf (AST/SGOT) 29 15-37 U/L Alanine Aminotransferase (ALT/SGPT) 21 12-78 U/L Alkaline Phosphatase 58 45-117 U/L Total Creatine Kinase 253 26-192 U/L Total Protein 5.7 6.4-8.2 gm/dl Albumin 1.6 3.4-5.0 gm/dl Test 05/10/17 07:38 05/10/17 11:19 05/10/17 11:30 Range/Units Bedside Glucose 217 189 70-90 mg/dl
[2017-05-10 12:10] LABS: MANUAL MICROSCOPIC REQUIRED? NO; REVIEW REQ? YES
[2017-05-10 12:13] LABS: URINE BILIRUBIN NEG (NEG)
[2017-05-10] MEDS: ERTAPENEM IV 500 MG in SODIUM CHLORIDE 0.9% 50 ML IV SCH (12:28)
[2017-05-10 12:58] LABS: URINE PROTIEN/CREAT RATIO 0.3 (0-0.2)
--- NOTE | 2017-05-10 14:13 | Infectious Disease Progress Nt ---
Progress Note Date of Service May 10, 2017. Subjective Pt evaluation today including: conversation w/ patient, physical exam, chart review, lab review, review of studies, conversation w/ communication consultant, review of inpatient medication list Leg still quite painful. Worsening creatinine noted. Being considered for transfer to [facility] for possible renal biopsy. Remains afebrile. No shortness of breath at present. All Other Systems: Reviewed and Negative Medications Current Inpatient Medications Medications (Trade) Dose Ordered Sig/[place] Route Start Time Stop Time Status Last Admin Dose Admin Miscellaneous Information (Consult Glycemic Management Pharmacy) 1 ea UD PRN N/A 05/03/17 17:15 06/02/17 17:14 Heparin Sodium (Porcine) (Heparin Sq 5000 Unit/0.5ml) 5,000 unit Q12 SQ 05/03/17 21:00 06/02/17 20:59 05/10/17 08:50 5,000 UNIT Acetaminophen (Tylenol Tab) 650 mg Q4H PRN PO 05/03/17 17:15 06/02/17 17:14 05/06/17 21:07 650 MG Al Hydrox/Mg Hydrox/Simethicone (Maalox Max Susp) 15 ml Q4H PRN PO 05/03/17 17:15 06/02/17 17:14 Magnesium Hydroxide (Milk Of Magnesia Susp) 30 ml Q12H PRN PO 05/03/17 17:15 06/02/17 17:14 Ondansetron HCl (Zofran Inj) 4 mg Q6H PRN IV 05/03/17 17:15 06/02/17 17:14 Nitroglycerin (Nitrostat Tab) 0.4 mg UD PRN SL 05/03/17 17:15 06/02/17 17:14 Folic Acid (Folvite Tab) 1 mg DAILY PO 05/04/17 09:00 06/03/17 08:59 05/10/17 08:45 1 MG Metoprolol Succinate (Toprol Xl Tab) 100 mg DAILY PO 05/04/17 09:00 06/03/17 08:59 05/10/17 08:45 100 MG Simvastatin (Zocor Tab) 20 mg HS PO 05/03/17 21:00 06/02/17 20:59 Future Hold 05/03/17 21:59 20 MG Venlafaxine HCl (effeXOR EXTENDED REL CAP) 75 mg DAILY PO 05/04/17 09:00 06/03/17 08:59 05/10/17 08:45 75 MG Vitamin B Complex (Vitamin B Complex) 1 tab DAILY PO 05/04/17 09:00 06/03/17 08:59 05/10/17 08:45 1 TAB Glucose (Glucose 40% Gel) UD PRN PO 05/03/17 21:30 06/02/17 21:29 Glucose (Glucose Chew Tab) 1 tabs UD PRN PO 05/03/17 21:30 06/02/17 21:29 Dextrose (Dextrose 50% 50ML Syringe) 50 ml UD PRN IV 05/03/17 21:30 06/02/17 21:29 Glucagon (Glucagon Inj) 1 mg UD PRN SQ 05/03/17 21:30 06/02/17 21:29 Miscellaneous Information (Order Awaiting Action) 1 ea QS N/A 05/04/17 00:00 06/03/17 00:00 05/03/17 21:56 1 EA Daptomycin 500 mg/ Sodium Chloride 60 ml @ 100 mls/hr Q48H IV 05/04/17 11:00 05/14/17 10:59 05/10/17 11:53 100 MLS/HR Gabapentin (Neurontin Tab) 800 mg QID@0500,1000,1500,2000 PO 05/04/17 11:00 06/03/17 10:59 05/10/17 08:45 800 MG Ertapenem 500 mg/ Sodium Chloride 55 ml @ 110 mls/hr Q24H IV 05/04/17 12:00 05/14/17 11:59 05/10/17 12:28 110 MLS/HR Heparin Sodium (Porcine) (Heparin 10 Unit/ ml 5 ml Flush) 5 ml PRN PRN FLUSH 05/06/17 06:30 06/05/17 06:29 05/10/17 04:56 5 ML Furosemide (Lasix Tab) 40 mg QAM PO 05/07/17 09:00 06/06/17 08:59 Future Hold 05/08/17 08:56 40 MG Spironolactone (Aldactone Tab) 12.5 mg QAM PO 05/07/17 09:00 06/06/17 08:59 Future Hold 05/08/17 08:58 12.5 MG Morphine Sulfate (MoRPHine SULFATE INJ) 1 mg Q6 PRN IV 05/06/17 21:45 05/20/17 21:44 05/07/17 07:32 1 MG Tramadol HCl (Ultram Tab) 50 mg Q4H PRN PO 05/07/17 09:45 06/06/17 09:44 05/10/17 08:56 50 MG Azathioprine (Imuran Tab) 100 mg BID PO 05/07/17 21:00 06/06/17 20:59 05/10/17 08:45 100 MG Dapsone (Dapsone Tab) 50 mg DAILY PO 05/08/17 09:00 06/07/17 08:59 05/10/17 08:45 50 MG Lisinopril (Zestril Tab) 20 mg QAM PO 05/08/17 09:00 06/07/17 08:59 Future Hold 05/08/17 09:01 20 MG Insulin Glargine (Lantus Vial) SEE PROTOCOL TEXT BID SC 05/09/17 21:00 06/08/17 20:59 05/10/17 08:39 75 UNIT Insulin Aspart (novoLOG ASPART) SLIDING SCALE ACHS SC 05/09/17 17:45 06/08/17 17:44 05/10/17 11:00 42 UNITS Sodium Chloride 1,000 ml @ 80 mls/hr [id number] ONCE IV 05/10/17 10:24 05/10/17 22:53 05/10/17 10:24 80 MLS/HR Objective Vital Signs Date Time Temp Pulse Resp B/P (MAP) Pulse Ox O2 Delivery O2 Flow Rate FiO2 05/10/17 08:00 Room Air 05/10/17 07:06 36.7 85 16 116/67 (83) 94 Room Air 05/10/17 00:00 Room Air 05/09/17 23:09 36.9 97 18 100/61 (74) 90 Room Air 05/09/17 16:00 Room Air 05/09/17 15:22 37.5 92 16 98/53 (68) 90 Room Air Physical Exam General Appearance: WD/WN, no apparent distress, + obese Eyes: normal inspection, sclerae normal ENT: normal ENT inspection, pharynx normal Neck: supple, no adenopathy, trachea midline Respiratory/Chest: chest non-tender, lungs clear, normal breath sounds, no respiratory distress Cardiovascular: regular rate, rhythm, no gallop, no murmur Abdomen: normal bowel sounds, non tender, soft, no organomegaly Extremities: + inflammation, + swelling Neurologic/Psychiatric: alert, oriented x 3 Skin: normal color, + pertinent finding (Both lower legs dressed) Lymphatic: no adenopathy Laboratory Results Date/Time Source Procedure Growth Status 05/10/17 11:30 Urine , Clean Catch Urine Culture Pending Received Last 24 Hours Test 05/09/17 16:46 05/09/17 19:57 05/10/17 02:08 05/10/17 05:35 Bedside Glucose 191 mg/dl 210 mg/dl 238 mg/dl White Blood Count 9.09 K/uL Red Blood Count 2.76 M/uL Hemoglobin 7.9 g/dL Hematocrit 24.8 % Mean Corpuscular Volume 89.9 fL Mean Corpuscular Hemoglobin 28.6 pg Mean Corpuscular Hemoglobin Concent 31.9 g/dl RDW Standard Deviation 66.0 fL RDW Coefficient of Variation 20.4 % Platelet Count 458 K/uL Mean Platelet Volume 8.3 fL Nucleated RBC Absolute Count (auto) 0.02 K/uL Nucleated Red Blood Cells % 0.2 % Sodium Level 133 mmol/L Potassium Level 4.0 mmol/L Chloride Level 97 mmol/L Carbon Dioxide Level 25 mmol/L Anion Gap 11.0 mmol/L Blood Urea Nitrogen 32 mg/dl Creatinine 4.30 mg/dl Est Creatinine Clear Calc Drug Dose 20.1 ml/min Estimated GFR () 13.0 Estimated GFR (Non- 11.3 BUN/Creatinine Ratio 7.4 Random Glucose 196 mg/dl Calcium Level 8.5 mg/dl Phosphorus Level 4.6 mg/dl Magnesium Level 2.6 mg/dl Total Bilirubin 0.3 mg/dl Direct Bilirubin < 0.1 mg/dl Aspartate Amino Transf (AST/SGOT) 29 U/L Alanine Aminotransferase (ALT/SGPT) 21 U/L Alkaline Phosphatase 58 U/L Total Creatine Kinase 253 U/L Total Protein 5.7 gm/dl Albumin 1.6 gm/dl Test 05/10/17 07:38 05/10/17 11:19 05/10/17 11:30 Bedside Glucose 217 mg/dl 189 mg/dl Urine Color DK YELLOW Urine Appearance TURBID Urine pH 5.0 Urine Specific [place] 1.031 Urine Protein 1+ Urine Glucose (UA) NEG Urine Ketones 1+ Urine Occult Blood NEG Urine Nitrite NEG Urine Bilirubin NEG Urine Urobilinogen NEG Urine Leukocyte Esterase TRACE Urine WBC (Auto) 10-30 /hpf Urine RBC (Auto) 0-4 /hpf Urine Hyaline Casts (Auto) 0 /lpf Urine Epithelial Cells (Auto) >30 /lpf Urine Bacteria (Auto) NEG Urine Renal Epithelial Cells /lpf Urine Pathogenic Casts /lpf Urine Yeast (Auto) BUDDING Urine Random Creatinine 460.0 mg/dl Urine Random Total Protein 151.0 mg/dl Urine Protein/Creatinine Ratio 0.3 Assessment and Plan 51 yo female with 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 Was improving, creatinine now up again today. Will discuss further with Nephrology. Continue present antibiotics for now.
[2017-05-10 15:09] VITALS: BP 115/62; PULSE 85; TEMP 36.8; O2SAT 91
--- NOTE | 2017-05-10 16:29 | Discharge Instructions ---
Discharge Instructions Date of Service May 10, 2017. Admission Reason for Admission: Arf, Dka Discharge Discharge Diagnosis / Problem: Worsenig TERESA-May need Renal Biopsy,Vasculitis,DM Discharge Goals Goal(s): Prevent Disease Progression Activity Recommendations Activity Limitations: as noted below (Transferred to [place]) . Instructions / Follow-Up Instructions / Follow-Up Will need PCP appointment within 7 days following discharge from the hospital Current Hospital Diet Patient's current hospital diet: Diabetes Type 2 Diet, Renal Diet Discharge Diet Recommended Diet: Diabetes Type 2 Diet, Renal Diet Fluid Restriction: 2000 ml (8 cups) Pending Studies Studies pending at discharge: no Laboratory Results Hemoglobin A1c Test 05/04/17 03:50 Range/Units Estimated Average Glucose 171 mg/dl Hemoglobin A1c 7.6 H 4.5-5.6 % Medical Emergencies . Who to Call and When: Medical Emergencies: If at any time you feel your situation is an emergency, please call 911 immediately. . Non-Emergent Contact Non-Emergency issues call your: Primary Care Provider . Past History Medical & Surgical History: (1) ARF (acute renal failure) (2) Acute kidney injury (3) Diabetes mellitus type 2 in obese (4) HTN (hypertension) (5) Psoriasis (6) Depression (7) Chronic lower extremity wounds (8) Cutaneous vasculitis (9) Cellulitis of leg . "Provider Documentation" section prepared by Gustavo Briceno. . Airplane Rental Clerk Recommendations Airplane Rental Clerk Recommendations: Creat went up from 0.98 to 1.5. Already got the morning doses of Lisinopril, Lasix and Aldactone for today. hold those drugs till see n by Development Mechanic in AM and after AM labs. Does not mean she cannot have it though just holding till seen and Asessed in AM. No need of iv fluids though. Bhavin Justice MD VTE Core Measure Inpt VTE Proph given/why not?: Unfractionated heparin SQ
--- NOTE | 2017-05-10 16:34 | Discharge Summary ---
Discharge Summary Date of Service May 10, 2017. Discharge Summary Admission Date: May 03, 2017 at 17:22 Discharge Date: May 10, 2017 Discharge Disposition: Acute care facility Principal Diagnosis: Worsening TERESA-may need Renal Biopsy,Vasculitis,Chronic Leg ulcer-bilateral,DM Secondary Diagnoses/Problems: Please see H&P and Hospital progress notes Consultations: Nephrology and ID Admission Information HPI (per Admitting provider): DATE OF ADMISSION: 05/03/2017 CHIEF COMPLAINT: Nausea and abnormal labs. HISTORY OF PRESENT ILLNESS: This is a 51-year-old female with past medical history significant for type 2 diabetes, obesity, cutaneous vasculitis, chronic lower extremity wounds, hypertension, presents with abnormal labs. The patient says she is on antibiotics for lower extremity wounds for a long time. She follows with the wound clinic and Dr. Fischer. She is on Zyvox for almost 3 months and she is started on Zosyn close to a couple of weeks ago. She thinks that since she has started Zosyn, she has developed nausea and vomited a couple of times in the morning. She has chronic diarrhea. Denies any fever or chills, no headaches, has some blurred vision lately. No chest pain, no abdominal pain, not eating much because of this nausea for the last 2 days and labs done as outpatient showed acute renal failure and she was advised to come to the hospital. Currently, resting comfortably and hemodynamically stable. She says she wants to go home as soon as possible. She says other than these antibiotics, no recent change in medications. ALLERGIES: No known drug allergies. PAST MEDICAL HISTORY: As mentioned above. PAST SURGICAL HISTORY: Laser trabeculoplasty. MEDICATIONS: The patient is on Zosyn continuously. Azathioprine 100 mg b.i.d., Effexor XR 37.5 mg p.o. daily, gabapentin 800 mg p.o. q.i.d., metformin 1000 mg p.o. b.i.d., Lasix 80 mg p.o. daily, spironolactone 12.5 mg p.o. daily, Zyvox 600 mg p.o. b.i.d., methotrexate 2.5 mg four tablets once a week, exenatide ER 2 mg subcutaneous once a week, folic acid 1 mg p.o. daily, Dapsone 50 mg p.o. daily, lisinopril 40 mg p.o. b.i.d., meloxicam 7.5 mg p.o. daily, metoprolol succinate XL 100 mg p.o. daily, simvastatin 20 mg p.o. at bedtime, Januvia 100 mg p.o. daily, insulin Lantus 75 units b.i.d., insulin aspartate before each meal according to measure of glucose, Zofran 8 mg p.o. t.i.d. p.r.n., B complex vitamins one tablet daily, alpha-lipoic acid 600 mg p.o. b.i.d. FAMILY HISTORY: Significant for father has alcoholism, asthma, blood disorder and cancer and heart disorder. Mother has heart disorder. Brother has allergies and asthma and diabetes. Mother also has diabetes. SOCIAL HISTORY: Never smoked. No alcohol use. No drug use. . REVIEW OF SYMPTOMS: As per HPI. Rest of review of symptoms negative. PHYSICAL EXAMINATION: GENERAL: The patient is obese, not in distress. VITAL SIGNS: Temperature 36.5, pulse 88, respiratory rate 20, blood pressure 142/69, oxygen 100% on room air. HEENT: No pallor, no icterus. Pupils equal, round, and reactive to light. NECK: No JVD, no neck masses, no carotid bruits. CARDIOVASCULAR: S1, S2 heard, regular rate and rhythm, no murmur, no gallop. RESPIRATORY SYSTEM: Clear to auscultation bilaterally. No accessory muscle use. No wheezing, no crackles. ABDOMEN: Soft, bowel sounds present. Nontender. No distention. CENTRAL NERVOUS SYSTEM: Cranial nerves II-XII are grossly intact. Nonfocal. EXTREMITIES: Bilateral lower extremity edema present, but the patient refuses to examine her extremities. LABS: Sodium 134, potassium 3.9, chloride 97, bicarb 13, BUN 50, creatinine 3.6, serum glucose 277, magnesium 2.4, calcium 8.5. WBC 8.4, hemoglobin 10.2, hematocrit 33.1, platelets 575. ASSESSMENT AND PLAN: This is a 51-year-old female who presents with acute renal failure and possible diabetic ketoacidosis. 1. Possible diabetic ketoacidosis. The patient has diabetes and she is not checking sugars at home. She has blurred visions. Her sugar is 277 here, but she has an anion gap of 24, with bicarb of 13 and she has nausea. Most likely diabetic ketoacidosis, we will start her on IV insulin diabetic ketoacidosis protocol and aggressive IV fluids as per protocol. We will closely monitor the labs and adjust the insulin regimen. We will follow HbA1c levels in the a.m. We will consult pharmacy for glycemic management. Monitor on tele floor. 2. Acute renal failure, most likely secondary to above. She is also started on Zosyn recently. Allergic interstitial nephritis, mostly unlikely because the patient does not have a rash or fever, but we will follow the urine eosinophils. We will check a renal ultrasound, Gomez catheter, fluids as above and follow the labs. Nephrology consulted.We will also hold nephrotoxic medications Lasix, lisinopril, Aldactone, meloxicam, and metformin. 3. Cutaneous vasculitis, we will hold her oral home medication azathioprine and methotrexate for now. 4. Chronic lower extremity wounds. Continue with Zyvox and Zosyn for now and consult ID in the a.m. 5. History of diabetes management as above. Hold the home medication of Lantus insulin sliding scale and Januvia and metformin. 6. History of hypertension. Continue metoprolol succinate with holding parameters, hold the lisinopril and Lasix. We will monitor the blood pressure. 7. History of hyperlipidemia. Continue statin. 8. History of depression. Continue Effexor. 9. Deep vein thrombosis prophylaxis, heparin subQ and sequential compression devices. 11. Disposition: Admit to tele floor. Expected to discharge home and follow with the family doctor and ID. Level 1 full code. Dictated: 05/03/17 1742 Transcribed: 05/03/171929 <Electronically signed by Calvin Lindsey MD> Signed: 05/04/17 1037 ES Calvin Lindsey MD Hospital Course Acute renal failure Admitted with Nausea and abnormal lab Likely due to dehydration ,Prerenal ATN, AIN, or other etiologies including vasculitis Serologic tests are negative for any acute vasculitis Renal ultrasound unremarkable Lasix, Aldactone, lisinopril meloxicam and metformin were on hold following admission Gentle IVF started on admission Appreciate Nephrology and ID input Was on Zyvox for ~3 months,changed to dapto and Invanz for the last 2-3 weeks Renal function Improved to normal on 05/06/17 Aldactone,Lasix and Lisinopril restarted on 05/06 Creatinine worsened to >3.5 on 05/09/17 above medications were on hold Creatinine worse this morning to 4.30 Nephrology suggested for Renal Biopsy and transfer to [facility] Will likely need Nephrology,Rheumatology,Dermatology,ID input Metabolic acidosis Complicated by ARF Started on bicarb as per nephro recommendations Improved Cutaneous vasculitis-nonspecific type Was on Methotrexate,Azathioprine,Dapsone,Meloxicam for vasculitis Home medications were on Hold on Admission Restarted Home med on improvement of renal function on 05/07 Serologic tests were negative Beta Hydroxybutyric acid elevated to 24.25 Chronic lower extremity wounds. Was on Zyvox for 3 months and Zosyn. ID changed abx to Invanz and daptomycin.Continue Invanz and dapto on discharge as per ID for 2 more weeks. Wound clinic followup History of diabetes management as above. Hold the home medication of Januvia and metformin.Lantus and iss as per pharmacy. History of hypertension. Continue metoprolol succinate History of hyperlipidemia. Hold statin. History of depression. Continue Effexor. Deep vein thrombosis prophylaxis, heparin subQ and sequential compression devices. Disposition: Monitor in medical floor Transferred to [facility] for probable Renal Biopsy Total time spent on discharge = 40 minutes This includes examination of the patient, discharge planning, medication reconciliation, and communication with other providers. Discharge Instructions All of the Inpatient Medications were continued. Additional Copies To Sandy Rodney D.O.
[2017-05-25] MEDS ORDERED: ACET1TAB84 PO (10:48)
[2017-05-25] MEDS ORDERED: RMCI (10:48)
[2017-06-22] MEDS ORDERED: GABA800T PO (08:08)
[2017-06-22] MEDS ORDERED: FRS/40 PO (08:08)
[2017-06-22] MEDS ORDERED: METO-478 PO (08:08)
[2017-06-27] MEDS ORDERED: LISI-729 PO (09:12)
[2017-08-18] MEDS ORDERED: FERR1TAB13 PO (08:57)
[2017-09-15] MEDS ORDERED: HYDR25CA PO (15:20)
== END 2017-05-10 17:05 | disposition short-term general hospital (02) | DRG 682 ==
LOC: C.EDB 15:11 → C.2T 17:22 → ENRESERV 17:59 → C.MS2W 05-06 11:25
PROVIDERS: ADMIT Internal Medicine; ATTEND Internal Medicine
DX: N17.9 Acute kidney failure, unspecified (principal); E13.10 Other specified diabetes mellitus with ketoacidosis without coma; Q23.1 Congenital insufficiency of aortic valve; L97.919 Non-pressure chronic ulcer of unspecified part of right lower leg with unspecified severity; L97.929 Non-pressure chronic ulcer of unspecified part of left lower leg with unspecified severity; L95.8 Other vasculitis limited to the skin; F32.9 Major depressive disorder, single episode, unspecified; I10 Essential (primary) hypertension; E86.0 Dehydration; E66.9 Obesity, unspecified; E78.5 Hyperlipidemia, unspecified; E87.6 Hypokalemia; Z79.899 Other long term (current) drug therapy

== ENCOUNTER → 2017-05-03 | Outpatient (CLI) | payer BC ==
[2017-05-03 12:41] LABS: BASO % 0.2 %; BASO ABS # 0.02 K/uL (0-0.2); COMPLETE YES; EOS % 1.5 %; HEMATOCRIT 32.3 % (37-47); IG% 0.2 %; LYMPH % 11.6 %; LYMPH ABS # 1.14 K/uL (1.2-3.4); MEAN CELL VOLUME 93.1 fL (80-100); MEAN PLATELET VOLUME 8.5 fL (7.4-10.4); MONO % 6.5 %; PLATELET COUNT 583 K/uL (130-400); RED BLOOD COUNT 3.47 M/uL (4.2-5.4); WHITE BLOOD COUNT 9.85 K/uL (4.8-10.8)
[2017-05-03 12:54] LABS: ALT/SGPT 18 U/L (12-78); BLOOD UREA NITROGEN 46 mg/dl (7-18); BUN/CREATININE RATIO 14.3 (10-20); CARBON DIOXIDE 13 mmol/L (21-32); CHLORIDE 99 mmol/L (98-107); GLUCOSE 231 mg/dl (70-99); SODIUM 134 mmol/L (136-145)
[2017-05-03 13:00] LABS: ALB/GLOB RATIO 0.4 (0.9-2); ALKALINE PHOSPHATASE 61 U/L (45-117); AST/SGOT 11 U/L (15-37)
[2017-05-03 13:07] LABS: CALCIUM 8.8 mg/dl (8.5-10.1)
== END | disposition home or self-care (01) ==
LOC: C.LABSPEC 12:19
PROVIDERS: ATTEND Internal Medicine Infectious Disease
DX: L03.115 Cellulitis of right lower limb (principal)

== ENCOUNTER → 2018-06-20 | Outpatient (CLI) | payer OTHER ==
[~2018-06-20] MED LIST changes: +ACET1TAB84 PO; -ALPH600C2 PO; -AZAT50TA30 PO; -B-COTAB18 PO; -CLOB-77 TOP; -DPS25 PO; -EFF/375 PO; -EXEN1INJ3 SC; +FERR1TAB13 PO; -FOLI1TAB7 PO; -GABA-113 PO; +GABA800T PO; +HYDR25CA PO; -LINE600T5 PO; +LISI-729 PO; -MELO7.5T5 PO; -METF-384 PO; -METH10TA32 PO; +METO-478 PO; -METO100T44 PO; -PIPE1INJ11 IV; +RMCI; -SIMV20TA2 PO; -SITA100T3 PO; -SPIR25TA PO
[2018-06-24 12:28] LABS: ANA SCREEN TC 249X NEGATIVE (NEGATIVE)
== END | disposition home or self-care (01) ==
LOC: C.LABSPEC 12:34
PROVIDERS: ATTEND Internal Medicine
DX: T80.90XA Unspecified complication following infusion and therapeutic injection, initial encounter (principal); X58.XXXA Exposure to other specified factors, initial encounter

== ENCOUNTER 2021-10-14 14:22 | Inpatient (IN) ==
--- NOTE | 2021-10-14 17:09 | Emergency Department Note ---
History of Present Illness General Chief complaint: Ankle Pain Stated complaint: Lankle pain might be inf from ex leg wound doc ref Time Seen by Provider: 10/14/21 16:47 Source: patient Mode of arrival: ambulatory Limitations: no limitations History of Present Illness Provider complaint: Increased pain and swelling to left leg wound Onset (ago): week(s) 1 Maximum Pain Intensity: 4 Treatments prior to arrival: none This is a 56-year-old female presents emergency department after being seen at [facility] due to concern for increased pain and swelling at her left leg/ankle. Patient states she originally had a wound in that area approximately 8 years ago was seen by wound care. She was started on Humira and the wound improved. She states she then had a subsequent reaction and had to stop it and the wound has been worsening since. She has been following with rheumatology as well as dermatology. She states last week she noticed increased pain and swelling in that area. Denies any trauma or change in activity. She states she last saw the artist consultant the beginning of September and they injected steroid into the wound. She states due to the worsening symptoms she went to [facility] where they performed an x-ray and told her it was negative for any acute injury, but recommended she come to the emergency room due to concern for worsening infection. She denies fevers, chills, chest pain, trouble breathing, other new joint pains. Pt seen during a time of high acuity and national emergency pandemic while wearing PPE. Home Medications Medication Instructions Recorded Confirmed Type furosemide 80 mg tablet 80 mg PO DAILY #0 tab 06/22/17 10/14/21 History gabapentin 800 mg tablet 800 mg PO BID #0 tab 06/22/17 10/14/21 History hydroxyzine HCl 25 mg tablet 50 mg PO HS 30 Days #120 cap 09/15/17 10/14/21 History clobetasol 0.05 % topical cream 1 applic TOPICAL DAILY PRN 7 Days 12/09/17 10/14/21 History #15 g adalimumab 40 mg/0.8 mL 40 mg SUBCUT WK 05/03/19 10/14/21 History subcutaneous pen kit (Humira Pen) atorvastatin 20 mg tablet 20 mg PO DAILY 05/03/19 10/14/21 History empagliflozin 25 mg tablet 25 mg PO DAILY 05/03/19 10/14/21 History (Jardiance) folic acid 1 mg tablet 1 mg PO DAILY 05/03/19 10/14/21 History insulin degludec 200 unit/mL (3 80 unit SUBCUT BID 05/03/19 10/14/21 History mL) subcutaneous pen (Tresiba FlexTouch U-200 insulin) metoprolol tartrate 25 mg tablet 25 mg PO BID 05/03/19 10/14/21 History spironolactone 25 mg tablet 12.5 mg PO DAILY 05/03/19 10/14/21 History amoxicillin 500 mg capsule 2,000 mg PO DIRECTED PRN 10/14/21 10/14/21 History aspirin 81 mg chewable tablet 81 mg PO DAILY 10/14/21 10/14/21 History betamethasone dipropionate 0.05 % 1 applic TOPICAL DAILY PRN 10/14/21 10/14/21 History lotion betamethasone dipropionate 0.05 % 1 applic TOPICAL BID PRN 10/14/21 10/14/21 History topical cream dulaglutide 3 mg/0.5 mL 3 mg SUBCUT WK 10/14/21 10/14/21 History subcutaneous pen injector (Trulicity) fluocinolone 0.01 % topical body 1 applic TOPICAL DIRECTED PRN 10/14/21 10/14/21 History oil hydrochlorothiazide 25 mg tablet 25 mg PO DAILY 10/14/21 10/14/21 History insulin regular hum U-500 conc 0 unit SUBCUT TIDM 10/14/21 10/14/21 History (Humulin R U-500 (Conc) Insulin Kwikpen) lisinopril 20 mg tablet 20 mg PO DAILY 10/14/21 10/14/21 History methotrexate sodium 25 mg/mL 25 mg SUBCUT WK 10/14/21 10/14/21 History injection solution Allergies Allergy/AdvReac Type Severity Reaction Status Date / Time No Known Allergies Allergy Verified 10/14/21 17:31 Past Med/Surg History Medical History Aortic stenosis "Probably bicuspid" per cardio 05/29. S/P AVR with 23mm [facility] Epic valve 03/08/19. ARF (acute renal failure) ~2 YEARS AGO. [facility]. Atrial flutter ASYMPTOMATIC. Discovered at cardiac rehab 04/13. CAD (coronary artery disease) s/p CABG x1 (SVG to LAD) 03/08/19 (with porcine AVR) Cellulitis and abscess of leg ~2 YEARS AGO. CURRENTLY HAS A SMALL OPEN AREA ON LEFT CALF, KEEPS COVERED. Depression Diabetes mellitus IDDM. A1C 7.7% 06/15/19 HTN (hypertension) Hyperlipidemia Morbid obesity Pleural effusion post-op complication from CABG/AVR. Thoracentesis 03/12. Small effusion persisted, was scheduled for second thoracentesis but cx. Per 05/03/19 chest ultrasound, small L pleural effusion with intervening lung tissue. This has decreased in volume by approximately 50% as compared to 04/20/2019. There is no safe window for thoracentesis and the procedure was deferred. Ultimately resolved with diuretic therapy. Psoriasis Pyoderma gangrenosa Surgical History History of cardiac cath 3.2018 [facility] History of thoracentesis RIGHT LUNG. 03/12. Hx of eye surgery LEFT S/P AVR (aortic valve replacement) 4.10.16 @ [facility] S/P CABG x 1 SVG-LAD 03/08/19 @ [facility]. Post op pAFib, discharged in [facility] on PO amiodarone and BB. 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 Feels Safe at Home: Yes Assistive Devices: None Review of Systems A total of 10 systems reviewed and were otherwise negative All systems reviewed & are unremarkable except as noted in HPI & below Physical Exam Vital Signs Vital Signs - 24 hr 10/14/21 15:11 10/14/21 16:23 10/14/21 18:23 Temperature 37.9 C H Temperature Source Temporal Artery Scan Pulse Rate 97 H Pulse Rate [Left Finger] 93 H 86 Pulse Rhythm [Left Finger] Regular Respiratory Rate 20 20 20 Respiratory Effort / Characteristics Non-Labored Respiratory Depth Normal Normal Respiratory Pattern Regular Blood Pressure 150/73 H Blood Pressure [Left Arm] 134/79 130/60 Blood Pressure Mean 98 Blood Pressure Mean [Left Arm] 97 83 Pulse Oximetry 97 98 98 Oxygen Delivery Method Room Air Room Air Sepsis Recent Fever Within 48 Hours No Sepsis New/Unexplained Change in Mental Status No Sepsis Action Taken by Nursing No Action Required 10/14/21 20:23 10/14/21 22:00 Temperature Temperature Source Pulse Rate Pulse Rate [Left Finger] 88 104 H Pulse Rhythm [Left Finger] Respiratory Rate 18 20 Respiratory Effort / Characteristics Respiratory Depth Respiratory Pattern Blood Pressure Blood Pressure [Left Arm] 143/66 H 143/66 H Blood Pressure Mean Blood Pressure Mean [Left Arm] 91 91 Pulse Oximetry 93 95 Oxygen Delivery Method Room Air Sepsis Recent Fever Within 48 Hours Sepsis New/Unexplained Change in Mental Status Sepsis Action Taken by Nursing GENERAL: alert, well appearing, well nourished, no distress, non-toxic EYE EXAM: normal conjunctiva, PERRL and EOM's grossly intact OROPHARYNX: no exudate, no erythema, lips, buccal mucosa, and tongue normal and mucous membranes are moist NECK: supple, no nuchal rigidity, no adenopathy, non-tender LUNGS: Clear to auscultation. Normal chest wall mechanics, no w/r/r HEART: no murmurs, S1 normal and S2 normal ABDOMEN: abdomen soft, non-tender, normo-active bowel sounds, no masses, no rebound or guarding. BACK: Back is symmetrical on inspection and there is no deformity, no midline tenderness, no CVA tenderness. SKIN: no rashes and no bruising UPPER EXTREMITIES: upper extremities are grossly normal. FROM, nml pulses b/l. LOWER EXTREMITIES: No pitting edema. FROM, nml pulses b/l. Chronic changes and healing scars noted to distal right lower extremity. Distal left lower extremity has a dressing in place, when this is removed, there is an large ulcerative lesion noted to the lateral distal aspect with active purulent drainage, foul odor, and tenderness with palpation, there is surrounding erythema to this ulcerative area. No joint effusions, no crepitus, compartments soft. NEURO EXAM: Normal sensorium, cranial nerves II-XII grossly intact, normal speech, no gross weakness of arms, no gross weakness of legs. Gross sensation intact. Course Course 2100: Patient updated on results. Discussed additional inpatient evaluation and treatment. 2135: Discussed with Dr. Mcdonough. Administered Medications Discontinued Medications Sodium Chloride (Nss) 500 mls @ 125 mls/hr IV .Q4H KVNG Stop: 11/13/21 17:14 Last Admin: 10/14/21 22:54 Dose: 125 mls/hr Documented by: [id number] Infusion: 10/14/21 21:46 Dose: 125 mls/hr Documented by: [id number] Admin: 10/14/21 17:46 Dose: 125 mls/hr Documented by: [id number] Acetaminophen (Ofirmev) 1,000 mg in 100 mls @ 400 mls/hr IV NOW STA Stop: 10/14/21 18:51 Last Admin: 10/14/21 19:09 Dose: 400 mls/hr Documented by: [id number] Vancomycin HCl 2,500 mg/ (Sodium Chloride) 550 mls @ 200 mls/hr IV NOW ONE Stop: 10/14/21 21:50 Last Admin: 10/14/21 21:45 Dose: 200 mls/hr Documented by: [id number] Ceftriaxone Sodium (Rocephin) 2,000 mg in 70 mls @ 140 mls/hr IV NOW STA Stop: 10/14/21 19:35 Last Admin: 10/14/21 20:03 Dose: 140 mls/hr Documented by: [id number] Ioversol (Optiray 320 100ml) 100 ml IV ONCE ONE Stop: 10/14/21 20:29 Last Admin: 10/14/21 20:28 Dose: 100 ml Documented by: [id number] Morphine Sulfate (Morphine Sulfate 4 Mg/Ml 1 Ml Carp\\Vial) 4 mg IV NOW STA Stop: 10/14/21 18:38 Last Admin: 10/14/21 19:08 Dose: 4 mg Documented by: [id number] Medical Decision Making Differential Diagnosis Differential diagnosis includees etiologies such as cellulitis, abscess, MRSA infection, DVT, necrotizing fasciitis, dermatitis, drug eruption, as well as others were entertained. Medical Records Attestation: I reviewed the patient's medical records. Home Medications Current Medication List: was personally reviewed by me Laboratory Data Attestation: I reviewed the patient's lab results. Result diagrams: 10/14/21 18:24 10/14/21 18:24 Lab Results 10/14/21 10/14/21 10/14/21 Range/Units 18:24 18:24 18:24 WBC 15.12 H (4.8-10.8) K/uL RBC 4.99 (4.2-5.4) M/uL Hgb 16.1 H (12.0-16.0) g/dL Hct 46.6 (37-47) % MCV 93.4 (80-100) fL MCH 32.3 (25-34) pg MCHC 34.5 (32-36) g/dL RDW Std Deviation 58.6 H (36.4-46.3) fL RDW Coeff of Cortez 17.4 H (11.5-14.5) % Plt Count 229 (130-400) K/uL MPV 9.4 (7.4-10.4) fL Immature Gran % (Auto) 0.3 % Neut % (Auto) 82.0 % Lymph % (Auto) 9.9 % [place] % (Auto) 7.5 % Eos % (Auto) 0.2 % Baso % (Auto) 0.1 % Neut # (Auto) 12.39 H (1.4-6.5) K/uL Lymph # (Auto) 1.50 (1.2-3.4) K/uL [place] # (Auto) 1.13 H (0.11-0.59) K/uL Eos # (Auto) 0.03 (0-0.5) K/uL Baso # (Auto) 0.02 (0-0.2) K/uL Immature Gran # (Auto) 0.05 H (0.00-0.02) K/uL ESR > 130 H (0-30) mm/hr Sodium 133 L (136-145) mmol/L Potassium 3.9 (3.5-5.1) mmol/L Chloride 99 (98-107) mmol/L Carbon Dioxide 28 (21-32) mmol/L Anion Gap 6.0 (3-11) BUN 35 H (7-18) mg/dl Creatinine 1.40 H (0.6-1.2) mg/dl Est Cr Clr Drug Dosing 61.1 ml/min Est GFR ( Amer) 48.9 ml/min Est GFR (Non-Af Amer) 42.2 ml/min BUN/Creatinine Ratio 24.9 H (10-20) Glucose 96 (70-99) mg/dl POC Glucose (70-99) mg/dl Calcium 10.2 H (8.5-10.1) mg/dl Total Bilirubin 0.6 (0.2-1) mg/dl AST 50 H (15-37) U/L ALT 71 (12-78) U/L Alkaline Phosphatase 116 (45-117) U/L C-Reactive Protein 23.30 H (0-0.29) mg/dl Total Protein 8.8 H (6.4-8.2) gm/dl Albumin 1.6 L (3.4-5.0) gm/dl Globulin 7.2 H (2.5-4.0) gm/dl Albumin/Globulin Ratio 0.2 L (0.9-2) Procalcitonin (0-0.5) ng/ml COVID-19 Eval Order SARS-CoV-2 (PCR) (Negative) 10/14/21 10/14/21 10/14/21 Range/Units 18:24 20:03 22:28 WBC (4.8-10.8) K/uL RBC (4.2-5.4) M/uL Hgb (12.0-16.0) g/dL Hct (37-47) % MCV (80-100) fL MCH (25-34) pg MCHC (32-36) g/dL RDW Std Deviation (36.4-46.3) fL RDW Coeff of Cort[place] (11.5-14.5) % Plt Count (130-400) K/uL MPV (7.4-10.4) fL Immature Gran % (Auto) % Neut % (Auto) % Lymph % (Auto) % [place] % (Auto) % Eos % (Auto) % Baso % (Auto) % Neut # (Auto) (1.4-6.5) K/uL Lymph # (Auto) (1.2-3.4) K/uL [place] # (Auto) (0.11-0.59) K/uL Eos # (Auto) (0-0.5) K/uL Baso # (Auto) (0-0.2) K/uL Immature Gran # (Auto) (0.00-0.02) K/uL ESR (0-30) mm/hr Sodium (136-145) mmol/L Potassium (3.5-5.1) mmol/L Chloride (98-107) mmol/L Carbon Dioxide (21-32) mmol/L Anion Gap (3-11) BUN (7-18) mg/dl Creatinine (0.6-1.2) mg/dl Est Cr Clr Drug Dosing ml/min Est GFR ( Amer) ml/min Est GFR (Non-Af Amer) ml/min BUN/Creatinine Ratio (10-20) Glucose (70-99) mg/dl POC Glucose 70 (70-99) mg/dl Calcium (8.5-10.1) mg/dl Total Bilirubin (0.2-1) mg/dl AST (15-37) U/L ALT (12-78) U/L Alkaline Phosphatase (45-117) U/L C-Reactive Protein (0-0.29) mg/dl Total Protein (6.4-8.2) gm/dl Albumin (3.4-5.0) gm/dl Globulin (2.5-4.0) gm/dl Albumin/Globulin Ratio (0.9-2) Procalcitonin 0.24 (0-0.5) ng/ml COVID-19 Eval Order Covid19 at [facility] SARS-CoV-2 (PCR) (Negative) 10/14/21 Range/Units 22:28 WBC (4.8-10.8) K/uL RBC (4.2-5.4) M/uL Hgb (12.0-16.0) g/dL Hct (37-47) % MCV (80-100) fL MCH (25-34) pg MCHC (32-36) g/dL RDW Std Deviation (36.4-46.3) fL RDW Coeff of [place]ez (11.5-14.5) % Plt Count (130-400) K/uL MPV (7.4-10.4) fL Immature Gran % (Auto) % Neut % (Auto) % Lymph % (Auto) % [place] % (Auto) % Eos % (Auto) % Baso % (Auto) % Neut # (Auto) (1.4-6.5) K/uL Lymph # (Auto) (1.2-3.4) K/uL [place] # (Auto) (0.11-0.59) K/uL Eos # (Auto) (0-0.5) K/uL Baso # (Auto) (0-0.2) K/uL Immature Gran # (Auto) (0.00-0.02) K/uL ESR (0-30) mm/hr Sodium (136-145) mmol/L Potassium (3.5-5.1) mmol/L Chloride (98-107) mmol/L Carbon Dioxide (21-32) mmol/L Anion Gap (3-11) BUN (7-18) mg/dl Creatinine (0.6-1.2) mg/dl Est Cr Clr Drug Dosing ml/min Est GFR ( Amer) ml/min Est GFR (Non-Af Amer) ml/min BUN/Creatinine Ratio (10-20) Glucose (70-99) mg/dl POC Glucose (70-99) mg/dl Calcium (8.5-10.1) mg/dl Total Bilirubin (0.2-1) mg/dl AST (15-37) U/L ALT (12-78) U/L Alkaline Phosphatase (45-117) U/L C-Reactive Protein (0-0.29) mg/dl Total Protein (6.4-8.2) gm/dl Albumin (3.4-5.0) gm/dl Globulin (2.5-4.0) gm/dl Albumin/Globulin Ratio (0.9-2) Procalcitonin (0-0.5) ng/ml COVID-19 Eval Order SARS-CoV-2 (PCR) NEGATIVE (Negative) Imaging Data Radiologist's Impression: Lower Extremity CT 10/14/21 17:02 CT tib/fib LT w con CLINICAL HISTORY: extensive distal wound/cellulitis TECHNIQUE: Multidetector row helical CT of the right knee was performed without intravenous contrast. Coronal and sagittal reformations were obtained. Automated dose lowering techniques and/or adjustment according to patient size were utilized for this examination. Comparison: None available at the time of this dictation. FINDINGS: There is extensive skin thickening in the distal extremity and fat stranding seen most prominently in the posterior soft tissues. There is no evidence of drainable fluid collection or erosive changes in the bones to suggest osteomyelitis. IMPRESSION: Findings compatible with cellulitis without evidence of underlying abscess or osteomyelitis. ACT 112: Negative or not required by law. Electronically signed by: Buck Burger M.D. 10/14/2021 8:37 PM MDM Narrative This is a 56-year-old female with a recurrent and worsening left lower extremity wound. Patient presents with large ulcerative and draining lesion noted to the left lower extremity distally. Due to patient being immunocompromised and she is taking rheumatologic medication and a diabetic, patient started on IV antibiotics after cultures and labs are drawn and sent and patient sent for CT imaging. No obvious evidence of osteomyelitis or fluid collection. No evidence of DKA. Patient's other white blood cell count, ESR, and CRP all elevated. Discussed with patient additional inpatient evaluation given her risk and the severity of the current open wound. Wound culture was sent. Patient verbalized understanding of all results and was in agreement with plan. Case discussed with hospitalist. An order was placed for continuous cardiac monitoring. The monitor shows a rate of _98__ with _normal sinus__ rhythm. Impression & Plan Open wound of lower extremity, Cellulitis of leg Discharge Plan Visit Data Chief Complaint: Ankle Pain Stated Complaint: Lankle pain might be inf from ex leg wound doc ref ED Provider: Annmarie Rodríguez Discharge Problem: Open wound of lower extremity, Cellulitis of leg Patient Disposition: Being Evaluated by Hospitalist Condition: Fair
[2021-10-14] MEDS: SODIUM CHLORIDE 0.9% 500 ML IV SCH ×2 (17:46→22:54)
[2021-10-14] MEDS ORDERED: MoRPHine SULFATE 4 MG/ML 1 ML CARP\\VIAL IV STA (18:37)
[2021-10-14] MEDS ORDERED: ACETAMINOPHEN 1,000 MG/100 ML VIAL IV STA (18:37)
[2021-10-14 18:45] LABS: Basophils # (auto) 0.02 K/uL (0-0.2); Basophils % (auto) 0.1 %; Eosinophils # (auto) 0.03 K/uL (0-0.5); Eosinophils % (auto) 0.2 %; Hematocrit (blood only) 46.6 % (37-47); Hemoglobin 16.1 g/dL (12.0-16.0); Immature Granulocytes # (auto) 0.05 K/uL (0.00-0.02); Immature Granulocytes % (auto) 0.3 %; Lymphocytes % (auto) 9.9 %; Mean Corpuscular Hemoglobin 32.3 pg (25-34); Mean Corpuscular Hgb Conc 34.5 g/dL (32-36); Mean Corpuscular Volume 93.4 fL (80-100); Mean Platelet Volume 9.4 fL (7.4-10.4); Monocytes # (auto) 1.13 K/uL (0.11-0.59); Monocytes % (auto) 7.5 %; Neutrophils # (auto) 12.39 K/uL (1.4-6.5); Platelet Count 229 K/uL (130-400); RDW Coefficient of Variation 17.4 % (11.5-14.5); RDW Standard Deviation 58.6 fL (36.4-46.3); Red Blood Count 4.99 M/uL (4.2-5.4); White Blood Count 15.12 K/uL (4.8-10.8)
[2021-10-14] MEDS ORDERED: VANCOMYCIN CONSULT ACTIVE PRN (19:06)
[2021-10-14] MEDS ORDERED: VANCOMYCIN HCL 2,500 MG in SODIUM CHLORIDE 0.9% 500 ML IV ONE (19:06)
[2021-10-14] MEDS ORDERED: cefTRIAXone SODIUM 2,000 MG/70 ML BAG IV STA (19:06)
[2021-10-14 19:48] LABS: Albumin Globulin Ratio 0.2 (0.9-2); Albumin Level 1.6 gm/dl (3.4-5.0); BUN Creatinine Ratio 24.9 (10-20); Bilirubin,Total 0.6 mg/dl (0.2-1); C Reactive Protein 23.3 mg/dl (0-0.29); Calcium 10.2 mg/dl (8.5-10.1); Creatinine Clr Calc Pharmacy 61.1 ml/min; Est GFR (African American) 48.9 ml/min; Est GFR (Non-African American) 42.2 ml/min; Globulin 7.2 gm/dl (2.5-4.0); Potassium 3.9 mmol/L (3.5-5.1); Total Protein 8.8 gm/dl (6.4-8.2)
[2021-10-14] MEDS ORDERED: OPTIRAY 320 100ml IV ONE (20:28)
--- NOTE | 2021-10-14 20:38 | CT Scan Report ---
CT tib/fib LT w con CLINICAL HISTORY: extensive distal wound/cellulitis TECHNIQUE: Multidetector row helical CT of the right knee was performed without intravenous contrast. Coronal and sagittal reformations were obtained. Automated dose lowering techniques and/or adjustmen t according to patient size were utilized for this examination. Comparison: None available at the time of this dictation. FINDINGS: There is extensive skin thickening in the distal extremity and fat stranding seen most prominently in the posterior soft tissues. There is no evidence of drainable fluid collection or erosive changes in the bones to suggest osteomyelitis. IMPRESSION: Findings compatible with cellulitis without evidence of underlying abscess or osteomyelitis. ACT 112: Negative or not required by law. Electronically signed by: Buck Burger M.D. 10/14/2021 8:37 PM
[2021-10-14] MEDS ORDERED: MoRPHine SULFATE 2 MG/ML CARP IV PRN (21:06)
[2021-10-14] MEDS ORDERED: CEFEPIME 2,000 MG/20 ML VIAL IV STA (22:33)
--- NOTE | 2021-10-14 23:41 | History & Physical Report ---
Date of Service October 14, 2021 Assessment & Plan (1) Severe sepsis: Plan: SIRS plus ARF Secondary to recurrent LLE cellulitis/chronic LE wound hx chronic LE wounds secondary to vasculitis/pyoderma gangrenosum on monthly IVIG outpatient Immunocompromised patient, hx psoriatic arthritis on methotrexate Rule out osteomyelitis Rhabdomyolysis secondary to illness LE swelling secondary to cellulitis rule out DVT chronic diastolic heart failure (EF 60 to 64%, TTE 2019), equivocal volume status, some congestion on CXR, patient seems to be intravascularly dry hx bicuspid aortic stenosis status post surgery atrial flutter status post cardioversion, patient NSR hypertension, slightly elevated DM2 insulin requiring, patient borderline hypoglycemic upon arrival at the ER, outpatient hemoglobin A1c of 7.29 April 2021 Medical telemetry CS, Vancomycin, Cefepime MRI LLE rule out osteomyelitis LE venous Dopplers rule out DVT Further management pending work-up results. Baseline UA, follow CPK, creatinine response to IVF (preferably colloid over crystalloid given congestion on CXR) Hold home diuretic, SENAIT inhibitor until creatinine back to baseline Renal ultrasound, Nephrology consult if without improvement in kidney function. Appropriate to hold basal insulin for now given borderline hypoglycemia, ISS BG goal one 10-1 40, carb count coverage, update hemoglobin A1c DVT prophylaxis. Heparin subcu Full code Text document was generated using [employer] voice recognition software. It may contain grammatical or spelling errors. Kindly contact undersigned for clarification of any documentation item in question. History of Present Illness Chief Complaint: Worsening left lower leg swelling. Primary Care Provider: Malia Capps, History obtained from patient and records. 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 Last confinement April 2017 for ARF. Patient has a prolonged history of chronic LE swelling/wounds/recurrent infections. Outpatient biopsy done by dermatology showed pyoderma gangrenosum in 2017. Leg wounds healed slowly over time. Currently on monthly IVIG. Last week, patient noted increased swelling on left ankle later on involving left leg. Scant drainage from chronic LE wound. Fever chills at home. Patient denies chest pain, S OB. Denies unusual fluid retention. At the ER, patient given vancomycin and ceftriaxone for sepsis. Medical History as above Surgical History : Bioprosthetic AVR, CABG, laser trabeculoplasty, vein harvesting Family History : Alcoholism, DM, heart disease, stroke, Cambria's disease Personal/Social history : Non-smoker, no EtOH intake, [employer] employee Allergies Allergy/AdvReac Type Severity Reaction Status Date / Time No Known Allergies Allergy Verified 10/14/21 17:31 Home Medications Medication Instructions Recorded Confirmed Type furosemide 80 mg tablet 80 mg PO DAILY #0 tab 06/22/17 10/14/21 History gabapentin 800 mg tablet 800 mg PO BID #0 tab 06/22/17 10/14/21 History hydroxyzine HCl 25 mg tablet 50 mg PO HS 30 Days #120 cap 09/15/17 10/14/21 History clobetasol 0.05 % topical cream 1 applic TOPICAL DAILY PRN 7 Days 12/09/17 10/14/21 History #15 g adalimumab 40 mg/0.8 mL 40 mg SUBCUT WK 05/03/19 10/14/21 History subcutaneous pen kit (Humira Pen) atorvastatin 20 mg tablet 20 mg PO DAILY 05/03/19 10/14/21 History empagliflozin 25 mg tablet 25 mg PO DAILY 05/03/19 10/14/21 History (Jardiance) folic acid 1 mg tablet 1 mg PO DAILY 05/03/19 10/14/21 History insulin degludec 200 unit/mL (3 80 unit SUBCUT BID 05/03/19 10/14/21 History mL) subcutaneous pen (Tresiba FlexTouch U-200 insulin) metoprolol tartrate 25 mg tablet 25 mg PO BID 05/03/19 10/14/21 History spironolactone 25 mg tablet 12.5 mg PO DAILY 05/03/19 10/14/21 History amoxicillin 500 mg capsule 2,000 mg PO DIRECTED PRN 10/14/21 10/14/21 History aspirin 81 mg chewable tablet 81 mg PO DAILY 10/14/21 10/14/21 History betamethasone dipropionate 0.05 % 1 applic TOPICAL DAILY PRN 10/14/21 10/14/21 History lotion betamethasone dipropionate 0.05 % 1 applic TOPICAL BID PRN 10/14/21 10/14/21 History topical cream dulaglutide 3 mg/0.5 mL 3 mg SUBCUT WK 10/14/21 10/14/21 History subcutaneous pen injector (Trulicity) fluocinolone 0.01 % topical body 1 applic TOPICAL DIRECTED PRN 10/14/21 10/14/21 History oil hydrochlorothiazide 25 mg tablet 25 mg PO DAILY 10/14/21 10/14/21 History insulin regular hum U-500 conc 0 unit SUBCUT TIDM 10/14/21 10/14/21 History (Humulin R U-500 (Conc) Insulin Kwikpen) lisinopril 20 mg tablet 20 mg PO DAILY 10/14/21 10/14/21 History methotrexate sodium 25 mg/mL 25 mg SUBCUT WK 10/14/21 10/14/21 History injection solution Past Med/Surg History Medical History Aortic stenosis "Probably bicuspid" per cardio 05/29. S/P AVR with 23mm [facility] Epic valve 03/08/19. ARF (acute renal failure) ~2 YEARS AGO. [facility]. Atrial flutter ASYMPTOMATIC. Discovered at cardiac rehab 04/13. CAD (coronary artery disease) s/p CABG x1 (SVG to LAD) 03/08/19 (with porcine AVR) Cellulitis and abscess of leg ~2 YEARS AGO. CURRENTLY HAS A SMALL OPEN AREA ON LEFT CALF, KEEPS COVERED. Depression Diabetes mellitus IDDM. A1C 7.7% 06/15/19 HTN (hypertension) Hyperlipidemia Morbid obesity Pleural effusion post-op complication from CABG/AVR. Thoracentesis 03/12. Small effusion persisted, was scheduled for second thoracentesis but cx. Per 05/03/19 chest ultrasound, small L pleural effusion with intervening lung tissue. This has decreased in volume by approximately 50% as compared to 04/20/2019. There is no safe window for thoracentesis and the procedure was deferred. Ultimately resolved with diuretic therapy. Psoriasis Pyoderma gangrenosa Surgical History History of cardiac cath 3.2018 [facility] History of thoracentesis RIGHT LUNG. 03/12. Hx of eye surgery LEFT S/P AVR (aortic valve replacement) 4.10.16 @ [facility] S/P CABG x 1 SVG-LAD 03/08/19 @ [facility]. Post op pAFib, discharged in [facility] on PO amiodarone and BB. 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 Feels Safe at Home: Yes Safety Concerns: Feels Safe At This Time Assistive Devices: Cane Review of Systems Review of Systems: As per HPI, all 10 systems reviewed, all other ROS negative Physical Exam Physical Exam: GENERAL: Slightly uncomfortable, morbidly obese, no respiratory distress SKIN: Normal color, warm HEENT: [place] palpebral conjunctivae, no ptosis, dry buccal mucosa NECK : Supple, short neck, no tenderness CHEST : CTA, no tenderness HEART : Tachycardic, no obvious murmurs ABDOMEN: Some distention, nontender EXTREMITIES : Dressing over LLE, minimal LE tenderness, no other conspicuous deformities noted NEUROLOGIC : Coherent, no facial asymmetry, no other gross focality Results & Data Results & Data ([facility]) Vital Signs (Past 12 Hours) Vital Signs Temp Pulse Pulse Resp BP BP Pulse Ox 10/14/21 22:00 104 H 20 143/66 H 95 10/14/21 20:23 88 18 143/66 H 93 10/14/21 18:23 86 20 130/60 98 10/14/21 16:23 93 H 20 134/79 98 10/14/21 15:11 37.9 C H 97 H 20 150/73 H 97 Laboratory Results Laboratory Results WBC 15.12 K/uL (4.8-10.8) H 10/14/21 18:24 RBC 4.99 M/uL (4.2-5.4) 10/14/21 18:24 Hgb 16.1 g/dL (12.0-16.0) H 10/14/21 18:24 Hct 46.6 % (37-47) 10/14/21 18:24 MCV 93.4 fL (80-100) 10/14/21 18:24 MCH 32.3 pg (25-34) 10/14/21 18:24 MCHC 34.5 g/dL (32-36) 10/14/21 18:24 RDW Std Deviation 58.6 fL (36.4-46.3) H 10/14/21 18:24 RDW Coeff of [place] 17.4 % (11.5-14.5) H 10/14/21 18:24 Plt Count 229 K/uL (130-400) 10/14/21 18:24 MPV 9.4 fL (7.4-10.4) 10/14/21 18:24 Immature Gran % (Auto) 0.3 % 10/14/21 18:24 Neut % (Auto) 82.0 % 10/14/21 18:24 Lymph % (Auto) 9.9 % 10/14/21 18:24 [place] % (Auto) 7.5 % 10/14/21 18:24 Eos % (Auto) 0.2 % 10/14/21 18:24 Baso % (Auto) 0.1 % 10/14/21 18:24 Neut # (Auto) 12.39 K/uL (1.4-6.5) H 10/14/21 18:24 Lymph # (Auto) 1.50 K/uL (1.2-3.4) 10/14/21 18:24 [place]oup # (Auto) 1.13 K/uL (0.11-0.59) H 10/14/21 18:24 Eos # (Auto) 0.03 K/uL (0-0.5) 10/14/21 18:24 Baso # (Auto) 0.02 K/uL (0-0.2) 10/14/21 18:24 Immature Gran # (Auto) 0.05 K/uL (0.00-0.02) H 10/14/21 18:24 ESR > 130 mm/hr (0-30) H 10/14/21 18:24 Sodium 133 mmol/L (136-145) L 10/14/21 18:24 Potassium 3.9 mmol/L (3.5-5.1) 10/14/21 18:24 Chloride 99 mmol/L (98-107) 10/14/21 18:24 Carbon Dioxide 28 mmol/L (21-32) 10/14/21 18:24 Anion Gap 6.0 (3-11) 10/14/21 18:24 BUN 35 mg/dl (7-18) H 10/14/21 18:24 Creatinine 1.40 mg/dl (0.6-1.2) H 10/14/21 18:24 Est Cr Clr Drug Dosing 61.1 ml/min 10/14/21 18:24 Est GFR ( Amer) 48.9 ml/min 10/14/21 18:24 Est GFR (Non-Af Amer) 42.2 ml/min 10/14/21 18:24 BUN/Creatinine Ratio 24.9 (10-20) H 10/14/21 18:24 Glucose 96 mg/dl (70-99) 10/14/21 18:24 POC Glucose 70 mg/dl (70-99) 10/14/21 20:03 Calcium 10.2 mg/dl (8.5-10.1) H 10/14/21 18:24 Total Bilirubin 0.6 mg/dl (0.2-1) 10/14/21 18:24 AST 50 U/L (15-37) H 10/14/21 18:24 ALT 71 U/L (12-78) 10/14/21 18:24 Alkaline Phosphatase 116 U/L (45-117) 10/14/21 18:24 C-Reactive Protein 23.30 mg/dl (0-0.29) H 10/14/21 18:24 Total Protein 8.8 gm/dl (6.4-8.2) H 10/14/21 18:24 Albumin 1.6 gm/dl (3.4-5.0) L 10/14/21 18:24 Globulin 7.2 gm/dl (2.5-4.0) H 10/14/21 18:24 Albumin/Globulin Ratio 0.2 (0.9-2) L 10/14/21 18:24 Procalcitonin 0.24 ng/ml (0-0.5) 10/14/21 18:24 COVID-19 Eval Order Covid19 at [facility] 10/14/21 22:[address] 10/14/21 17:02 CT tib/fib LT w con CLINICAL HISTORY: extensive distal wound/cellulitis TECHNIQUE: Multidetector row helical CT of the right knee was performed without intravenous contrast. Coronal and sagittal reformations were obtained. Automated dose lowering techniques and/or adjustment according to patient size were util ized for this examination. Comparison: None available at the time of this dictation. FINDINGS: There is extensive skin thickening in the distal extremity and fat stranding seen most prominently in the posterior soft tissues. There is no evidence of drainable fluid collection or erosive changes in the bones to suggest osteomyelitis. IMPRESSION: Findings compatible with cellulitis without evidence of underlying abscess or osteomyelitis. ACT 112: Negative or not required by law. Electronically signed by: Buck Burger M.D. 10/14/2021 8:37 PM Diagnostic Findings Chest x-ray as per my interpretation cardiomegaly, congestion
[2021-10-14] MEDS ORDERED: ALBUMIN 25% 100 mL 25 GM/100 ML VIAL IV STA (23:52)
[2021-10-15] MEDS ORDERED: PROMETHAZINE HCL 12.5 MG in SODIUM CHLORIDE 0.9% 50 ML IV PRN (00:14)
[2021-10-15] MEDS ORDERED: GLUCAGON FOR INJ 1 MG VIAL SQ PRN (00:14)
[2021-10-15] MEDS ORDERED: DEXTROSE 50% 50 ML SYRINGE IV PRN (00:14)
[2021-10-15] MEDS ORDERED: GLUCOSE 40% GEL 15 GM TUBE PO PRN (00:14)
[2021-10-15] MEDS ORDERED: CARBOHYDRATES FOR HYPOGLYCEMIA PO PRN (00:14)
[2021-10-15] MEDS ORDERED: GLUCOSE 10 TABS/TUBE PO PRN (00:14)
[2021-10-15 00:55] LABS: Magnesium 2.6 mg/dl (1.8-2.4); Thyroid Stimulating Hormone 1.2 uIu/ml (0.300-4.500)
[2021-10-15] MEDS ORDERED: DAPTOmycin 350 MG in SYRINGE 0 ML IV SCH (01:00)
[2021-10-15] MEDS: INSULIN ASPART 100 UNITS/ML 3 ML PEN SC SCH ×5 (01:39→21:52)
[2021-10-15] MEDS: GABAPENTIN 800 MG TAB PO SCH ×3 (01:43→21:42)
[2021-10-15] MEDS: METOPROLOL TARTRATE 25 MG TAB PO SCH ×3 (01:44→21:41)
[2021-10-15] MEDS: CEFEPIME 2,000 MG in SYRINGE 0 ML IV SCH ×2 (01:46→14:18)
[2021-10-15] MEDS ORDERED: VANCOMYCIN CONSULT ACTIVE PRN (02:56)
[2021-10-15 05:49] LABS: Basophils # (auto) 0.02 K/uL (0-0.2); Basophils % (auto) 0.2 %; Eosinophils # (auto) 0.04 K/uL (0-0.5); Eosinophils % (auto) 0.3 %; Hematocrit (blood only) 41.3 % (37-47); Hemoglobin 13.8 g/dL (12.0-16.0); Immature Granulocytes # (auto) 0.06 K/uL (0.00-0.02); Immature Granulocytes % (auto) 0.5 %; Lymphocytes # (auto) 1.63 K/uL (1.2-3.4); Mean Corpuscular Hemoglobin 31.7 pg (25-34); Mean Corpuscular Hgb Conc 33.4 g/dL (32-36); Mean Corpuscular Volume 94.9 fL (80-100); Mean Platelet Volume 9.3 fL (7.4-10.4); Monocytes # (auto) 1.89 K/uL (0.11-0.59); Monocytes % (auto) 15.1 %; Neutrophils % (auto) 70.9 %; Platelet Count 220 K/uL (130-400); RDW Coefficient of Variation 17.7 % (11.5-14.5); RDW Standard Deviation 60.7 fL (36.4-46.3); Red Blood Count 4.35 M/uL (4.2-5.4); White Blood Count 12.54 K/uL (4.8-10.8)
[2021-10-15] MEDS: HEPARIN SOD 5,000 UNIT/0.5 ML VIAL SQ SCH ×3 (06:00→21:41)
[2021-10-15 06:23] LABS: BUN Creatinine Ratio 25.5 (10-20); Creatinine Clr Calc Pharmacy 59.8 ml/min; Est GFR (African American) 47.7 ml/min; Est GFR (Non-African American) 41.1 ml/min; Potassium 4.2 mmol/L (3.5-5.1)
[2021-10-15 06:50] LABS: Estimated Average Glucose 194 mg/dl; Hemoglobin A1C 8.4 % (4.5-5.6)
--- NOTE | 2021-10-15 07:16 | Ultrasound Report ---
LEFT LOWER EXTREMITY VENOUS DOPPLER HISTORY: Left leg swelling. COMPARISON STUDY: None. FINDINGS: There is normal compressibility, flow, and augmentation within the left lower extremity gricelda p venous system. Subcutaneous edema within the left popliteal fossa. IMPRESSION: No DVT within the left lower extremity. ACT 112: Negative or not required by law. Electronically signed by: Benito Hawthorne M.D. 10/15/2021 7:15 AM
--- NOTE | 2021-10-15 07:28 | XRay Report ---
XR chest 1V portable HISTORY: 56 years-old Female renal failure acute renal failure COMPARISON: Chest radiograph 03/15/2016 TECHNIQUE: Portable AP view of the chest FINDINGS: Cardiac silhouette is enlarged. Prior median sternotomy. There is suggested pulmonary vascular conges tion. No pneumothorax, large pleural effusion or overt pulmonary edema. No lobar airspace consolidati on or acute fracture. IMPRESSION: Cardiomegaly with pulmonary vascular congestion. ACT 112: Negative or not required by law. The above report was generated using voice recognition software. It may contain grammatical, syntax o r spelling errors. Electronically signed by: Wei Serrano M.D. 10/15/2021 7:27 AM
[2021-10-15] MEDS ORDERED: FUROSEMIDE 40 MG/4 ML VIAL IV ONE (08:15)
[2021-10-15] MEDS: HYDROmorphone INJ 0.5 MG/0.5 ML SYR IV PRN ×2 (09:05→14:18)
[2021-10-15] MEDS: FOLIC ACID 1 MG TAB PO SCH (09:06)
[2021-10-15] MEDS: ACETAMINOPHEN 325 MG TAB PO PRN ×2 (09:06→22:26)
[2021-10-15] MEDS: ASPIRIN 81 MG ECTAB PO SCH (09:06)
--- NOTE | 2021-10-15 11:44 | Pharmacy Report ---
Pharmacy Vanc AUC Short Note - Date of Service October 15, 2021 - Assessment & Plan Assessment 56 year old F receiving IV vancomycin and cefepime for treatment of sepsis secondary to LLE cellulitis/wound. PMHx significant for pyoderma gangrenosum on monthly IVIG and immunocompromised status due to hx psoriatic arthritis on methotrexate. 10/14 BCx pending, deep wound cx pending. TERESA (SCr 1.4-->1.43); unknown baseline RF. Day #2 of antimicrobial therapy. Plan Vancomycin * AUC/CHRIS is the preferred PK/PD target for vancomycin * AUC guided dosing is effective and associated with decreased risk of nephrotoxicity compared to traditional trough targets * Trough level of 14.8 mcg/mL is predicted to achieve target AUC/CHRIS of 400-600 mg/L.hr and may be associated with a 10 % risk of nephrotoxicity * S/p vancomycin 2500mg loading dose. Begin maintenance regimen of 1250mg IV q24h. * Due to patient body habitus, patient likely to accumulate vanco. This, in combination with renal function will make vancomycin dosing challenging. Daptomycin not a good option at this time due to increased CPK. * Will obtain a vancomycin level prior to the third dose or sooner if clinically indicated. Pharmacy will continue to follow and will adjust dose/frequency as necessary. Thank you.
[2021-10-15 11:52] LABS: Appearance Urine Cloudy (Clear); Bacteria Urine Automated Negative (Negative); Bilirubin Urine Negative (Negative); Blood Urine 1+ (Negative); Color Urine Yellow; Epithelial Cell Urine Auto 20-30 /lpf (0-5); Glucose Urine UA 3+ (Negative); Ketones Urine Negative (Negative); Leukocyte Esterase Urine Negative (Negative); Nitrite Urine Negative (Negative); Protein Urine Trace (Negative); RBC Urine Automated 0-4 /hpf (0-4); Specific Gravity Urine 1.023 (1.000-1.030); Urobilinogen Urine Negative (Negative); pH Urine 5.5 (4.5-7.5)
--- NOTE | 2021-10-15 17:36 | Hospitalist Progress Note ---
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 She is being managed for the following: #. Sepsis #. LLE cellulitis Patient has a prolonged history of chronic LE swelling/wounds/recurrent infections secondary to vasculitis/pyoderma gangrenosum on monthly IVIG outpatient Outpatient biopsy done by dermatology showed pyoderma gangrenosum in 2016. Leg wounds healed slowly over time. Currently on monthly IVIG. 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 Scant drainage from chronic LE wound. Fever & chills at home. At presentation patient met SIRS criteria. Admitting lower extremity CT: Compatible with cellulitis without evidence of underlying abscess or osteomyelitis Admitting LLE Doppler: Negative for DVT. Await MRI left lower extremity to rule out osteomyelitis Patient started on cefepime 10/15 and vancomycin 10/14, will continue with that Given recurrent nature of her cellulitis complicated by her immunocompromised state, will consult infectious disease Await ID recommendation, continue to monitor. #. Likely UTI Admitting UA suggestive of UTI, culture pending, patient on antibiotic for LLE cellulitis. #. TERESA over CKD Last confinement April 2017 for ARF. September 2021 outpatient lab: Creatinine 1.04 Hold home diuretic, SENAIT inhibitor until creatinine back to baseline Will consult Nephrology, await recommendation. Get renal ultrasound, patient on gentle hydration until seen by nephrology. #. Rhabdomyolysis Secondary to illness Continue to monitor daily CK. We will put her on gentle hydration otherwise recommended by nephrology due to concerns of fluid retention as on the chest x-ray. #. Chronic diastolic heart failure #. Other cardiac history: Bicuspid ASD status post surgery, a flutter status post cardioversion 2019 TTE: Ejection fraction 60 to 64% Admitting CXR: Cardiomegaly with pulmonary vascular congestion. Patient NSR, continue home meds as appropriate, we will continue to monitor. #. DM type II insulin requiring A1c September 2020 on outpatient lab: A1c 8.0% Poorly controlled diabetes, diabetic control is important for wound healing We will consult glycemic pharmacy for inpatient management and discharge recommendation DVT prophylaxis. Heparin subcu Full code Admission and Anticipated Discharge Date Admission Date: October 14, 2021 Subjective Patient was sitting up in chair, on room air, started crying as soon as I entered the room saying that she does not want antibiotics and any surgery in her leg. There was no discussion of surgery from my side so far, she is receiving antibiotics per left lower extremity cellulitis. She reports pain in her left lower extremity when trying to walk. She is eating okay. She denies headache/chest pain/palpitation/other review of symptoms. Physical Exam Physical Exam: GENERAL: Alert and oriented x3. NAD, on RA. Crying bursts (saying don't want ATB as it will hurt her kidneys). MOrbidly obese. HEENT: No pallor, no icterus. Pupils equal, round and reactive to light. Oral mucosa moist. NECK: No JVD, no neck masses. HEART: S1 and S2 heard. Regular rate and rhythm. No murmur, no gallop. RESPIRATORY SYSTEM: Normal AP diameter. No accessory muscle use. No wheezing, no crackles. ABDOMEN: Soft, bowel sounds present, nontender, no distention. CENTRAL NERVOUS SYSTEM: Alert and oriented x3. No facial droop. Speech is clear. Obeys simple commands. Moves extremities. EXTREMITIES: RLE had scar tissue from prior wound and chronic skin changes. LLE1+ pedal edema, wrapping around her cellulitis in place, erythema noted, minimal tenderness on palpation. (1) Cellulitis of leg Laterality: left Qualified Code(s): L03.116 - Cellulitis of left lower limb
[2021-10-15] MEDS ORDERED: PHARMACY GLYCEMIC MGMT CONSULT PRN (17:41)
[2021-10-15] MEDS ORDERED: ALBUMIN 5% 250 ML IV ONE (18:00)
[2021-10-15] MEDS ORDERED: hydrALAZINE HCL 20 MG/ML VIAL IV PRN (18:31)
[2021-10-15] MEDS ORDERED: LABETALOL HCL IV 5 MG/ML 20ML IV PRN (18:31)
[2021-10-15] MEDS: INSULIN GLARGINE 100 UNIT/ML VIAL SC SCH (18:37)
[2021-10-15] MEDS ORDERED: VANCOMYCIN HCL 1,250 MG in SODIUM CHLORIDE 0.9% 250 ML IV SCH (21:00)
[2021-10-15] MEDS: oxyCODONE HCL IR 5 MG TAB (IMMEDIATE RELEASE) PO PRN (21:26)
--- NOTE | 2021-10-15 21:36 | Ultrasound Report ---
ULTRASOUND KIDNEYS AND BLADDER CLINICAL HISTORY: Acute renal insufficiency. COMPARISON STUDY: Renal ultrasound dated 05/03/2017 TECHNIQUE: Real-time, grayscale, and color flow sonography of the kidneys and bladder is performed. I mages are reviewed in the transverse and longitudinal planes. The examination is degraded by large mckenna dy habitus. FINDINGS: Kidneys: The kidneys demonstrate cortical atrophy. Echotexture is normal. The right kidney measures 1 2.7 x 5.3 x 6.5 cm and the left kidney measures 11.8 x 6.8 x 6.6 cm. There is no hydronephrosis. No shadowing renal calculi are identified. There is no sonographic evidence of contour deforming renal m ass lesion. No perinephric fluid is identified. Bladder: The bladder is partially decompressed and grossly unremarkable but not well evaluated. Urete ral jets were not seen. Upper abdomen: Survey images of the liver show evidence of hepatic steatosis. IMPRESSION: 1. The kidneys demonstrate cortical atrophy and are without hydronephrosis. 2. The bladder was decompressed and not well evaluated. 3. Hepatic steatosis ACT 112: Negative or not required by law. Electronically signed by: Raad Lawton M.D. 10/15/2021 9:35 PM
[2021-10-15] MEDS: SODIUM CHLORIDE 0.9% 1000ML 1,000 ML IV SCH (21:42)
[2021-10-16] MEDS ORDERED: GADOBUTROL 65ML VIAL IV ONE (02:09)
[2021-10-16] MEDS: CEFEPIME 2,000 MG in SYRINGE 0 ML IV SCH (02:50)
[2021-10-16] MEDS: ACETAMINOPHEN 325 MG TAB PO PRN (02:50)
[2021-10-16 06:22] LABS: Hematocrit (blood only) 40.2 % (37-47); Hemoglobin 13.3 g/dL (12.0-16.0); Mean Corpuscular Hemoglobin 31.4 pg (25-34); Mean Corpuscular Hgb Conc 33.1 g/dL (32-36); Mean Corpuscular Volume 94.8 fL (80-100); Mean Platelet Volume 9.5 fL (7.4-10.4); Platelet Count 215 K/uL (130-400); RDW Coefficient of Variation 17.8 % (11.5-14.5); RDW Standard Deviation 61.5 fL (36.4-46.3); Red Blood Count 4.24 M/uL (4.2-5.4); White Blood Count 10.09 K/uL (4.8-10.8)
[2021-10-16] MEDS: HEPARIN SOD 5,000 UNIT/0.5 ML VIAL SQ SCH ×3 (06:31→21:39)
[2021-10-16 07:16] LABS: BUN Creatinine Ratio 28.4 (10-20); Creatinine Clr Calc Pharmacy 69.5 ml/min; Est GFR (African American) 57.2 ml/min; Est GFR (Non-African American) 49.3 ml/min; Phosphorus 3.5 mg/dl (2.5-4.9)
[2021-10-16] MEDS: METOPROLOL TARTRATE 25 MG TAB PO SCH ×2 (07:59→21:39)
[2021-10-16] MEDS: ASPIRIN 81 MG ECTAB PO SCH (07:59)
[2021-10-16] MEDS: GABAPENTIN 800 MG TAB PO SCH ×2 (07:59→21:39)
[2021-10-16] MEDS: FOLIC ACID 1 MG TAB PO SCH (08:00)
[2021-10-16] MEDS: INSULIN ASPART 100 UNITS/ML 3 ML PEN SC SCH ×4 (08:00→21:05)
[2021-10-16] MEDS: INSULIN GLARGINE 100 UNIT/ML VIAL SC SCH (08:01)
[2021-10-16 08:20] LABS: Potassium 4.2 mmol/L (3.5-5.1)
[2021-10-16] MEDS: oxyCODONE HCL IR 5 MG TAB (IMMEDIATE RELEASE) PO PRN ×2 (08:51→17:47)
[2021-10-16] MEDS ORDERED: CEFEPIME 2,000 MG in SYRINGE 0 ML IV SCH (11:30)
[2021-10-16] MEDS: HYDROmorphone INJ 0.5 MG/0.5 ML SYR IV PRN ×2 (12:15→22:59)
--- NOTE | 2021-10-16 13:06 | Consultation Report ---
NEPHROLOGY CONSULTATION NOTE DATE OF SERVICE: 10/16/2021 REASON FOR CONSULTATION: Acute renal failure. HISTORY OF PRESENT ILLNESS: The patient is a 56-year-old female who was admitted 2 days ago because of lower extremity cellulitis with possibility of sepsis syndrome. Since admission, she has been giv en IV antibiotics, vancomycin and cefepime as well as received some IV fluid. She did have a slightl y elevated creatinine at the time of admission, but it is now trending down. Creatinine was 1.4, the n went up to 1.43, but this morning it is down to 1.23. At baseline, she has normal kidney function. Her white count was elevated in the setting of cellulitis and she did have bacteremia in the blood culture. She is starting to feel better and does not appear to be in sepsis at this time. She is ma parker urine, but it is not accurately charted. She is hemodynamically stable with a slightly higher b lood pressure. Her home diuretics dose as well as SENAIT inhibitor is currently on hold. At home, she takes Lasix 80 mg once daily as well as spironolactone 12.5 daily. PAST MEDICAL HISTORY: Includes chronic diastolic heart failure, ejection fraction 60%-64%, bicuspid aortic stenosis, status post valve replacement as well as CABG x1, atrial flutter, status post cardio version, hypertension, hyperlipidemia, type 2 diabetes requiring insulin, chronic lower extremity wou nds and swelling secondary to cutaneous vasculitis/pyoderma gangrenosum, psoriatic arthritis, on meth otrexate. She did have a history of acute renal failure in 2017 and was actually transferred to [facility] for renal biopsy, but her renal function improved back to normal. She could not tell me the ira gnosis they found on the kidney biopsy she had. Upon a detailed review, it appears she had ATN on ba [place]ground FSGS, but despite that diagnosis, her kidney function was essentially normal with a creatini ne of 1.1 as of 03/2019. For some reason, that seems to be her last blood work as an outpatient. At this time, the patient is starting to feel better and wants to go home. PAST SURGICAL HISTORY: Cardiac cath, aortic valve replacement, CABG x1. SOCIAL HISTORY: Never smoked. No alcohol. She lives alone. 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 Sh e uses cane for ambulation. REVIEW OF SYSTEMS: Unless detailed in the HPI, 12 systems reviewed are negative. PHYSICAL EXAMINATION: GENERAL: A middle-aged white female, who appears to be morbidly obese. She is not in any severe res piratory distress. She is able to give a detailed account of her medical problem. Normal speech. HEENT: Mucous membranes are moist. NECK: Supple. Cannot assess JVD secondary to obesity. CHEST: Bilaterally clear to auscultation. Occasional basal crackles. CARDIOVASCULAR: S1 and S2, regular. ABDOMEN: Soft, nontender, obese. EXTREMITIES: Show chronic edema with chronic skin changes bilaterally. The left leg is bandaged and has some drainage, I did not open the bandage. Right lower extremity does not have any open wound a nd does not have any major edema. LABORATORY TEST: Blood culture is positive for gram-positive cocci in clusters. Creatinine at [facility] is around 1.1, on admission was 1.43, but it is now trending down and is just getting pretty clos e to baseline at 1.23. Sodium slightly low at 133, potassium 4.2. Chest x-ray shows cardiomegaly wi th pulmonary vascular congestion. Renal ultrasound was done and was unremarkable. ASSESSMENT AND PLAN: A 56-year-old female with a baseline creatinine around 1.1 secondary to multipl e medical problems including longstanding diabetes, hypertension as well as cardiac disease and cardi ac medication, presented to the hospital with lower extremity cellulitis and sepsis-like syndrome and was found to have bacteremia. I have been consulted for slight acute renal failure on background mi ld chronic kidney disease. Acute renal failure: Her baseline creatinine is 1.1. The peak creatinine we have from yesterday was 1.43, but it is now trending down and this morning was already getting close to baseline at 1.26. I do not believe she needs to have more fluid as she does have a tendency of fluid congestion and reuben estive heart failure. Stop IV fluids. There is no need of any further workup for the etiology of ac [place] renal failure as she is pretty close to baseline. Continue daily laboratories. Continue input/o utput charting. Continue to hold her diuretics and SENAIT inhibitor from home; however, this can be res tarted in the few days. Job ID: [id number]
--- NOTE | 2021-10-16 13:38 | Magnetic Resonance Report ---
MR lower leg LT wo/w con CLINICAL HISTORY: swelling ro osteomyelitis TECHNIQUE: Multisequence, multiplanar MR images of the right lower leg were obtained with the admin istration of gadolinium contrast.. COMPARISON: None available at the time of this dictation. FINDINGS: There is extensive soft tissue edema as well as fluid signal and enhancement in multiple muscular she ath. A rim-enhancing collection is seen in the lateral leg measuring 20 x 5 mm extending along the pe roneus tendon. There is no evidence of osseous edema to suggest osteomyelitis. IMPRESSION: Extensive cellulitis. Intramuscular abscess along the peroneus tendon. No evidence of osteomyelitis. ACT 112: Negative or not required by law. Electronically signed by: Buck Burger M.D. 10/16/2021 1:37 PM
--- NOTE | 2021-10-16 15:12 | Pharmacy Report ---
Pharmacy Glycemic Short Note 2 - Date of Service October 16, 2021 - Glycemic Short BSG Results (Last 24 hours): 10/15/21 10/15/21 10/16/21 16:51 21:47 05:51 Glucose 113 H POC Glucose 243 H 219 H 10/16/21 10/16/21 07:27 11:39 Glucose POC Glucose 102 H 127 H OUTPATIENT ANTIDIABETIC REGIMEN: * A1C- 8.4% (10/15/21) * Tresiba 80units SQ BID * Trulicity 3mg SQweekly * empagliflozin 25mg PO daily * Humulin U-500: 80units (breakfast/lunch), 86 units (dinner)- high carb meal. 50 units low carb meal. 20 units w/ snacks. ASSESSMENT: * Initiate basal/bolus SQ insulin regimen * Will resume basal regimen with Lantus 80 units BID (similar to degludec outpt regimen) to start * Novolog ACHS scale started yesterday with correction of 25mg/dl/unit and CHO of 15, however BSGs increased throughout the day. Correction & carb ratios tightened. * BSGs today within goal range. AM fasting BSG slightly below goal however. Plan to dose Lantus tonight per scale. * Requiring significantly less insulin coverage than outpatient regimen currently. Will monitor for increasing needs. PLAN FOR INPATIENT GLYCEMIC CONTROL: * Hold outpatient oral diabetes medications * Basal insulin * Lantus 80 units SQ BID * Bolus insulin * NovoLog per scale ACHS or Q6hrs while NPO * Goal Range: Low 110mg/dL - High 140 mg/dL * Correction Factor: 15 mg/dL/unit * Nutritional / Prandial insulin per carb ratio of 1 unit per 5 grams CHO consumed
[2021-10-16] MEDS: SODIUM CHLORIDE 0.9% 1000ML 1,000 ML IV SCH (15:23)
--- NOTE | 2021-10-16 19:14 | Hospitalist Progress Note ---
Date of Service October 16, 2021 Assessment & Plan (1) Severe sepsis: (2) Cellulitis of leg: (3) Bacteremia: Plan: 56-year-old lady with PMH of chronic diastolic heart failure [EF 60 to 64%, TTE 2019], bicuspid aortic stenosis status post surgery, a flutter status post cardioversion, hypertension, hyperlipidemia, DM two insulin requiring, chronic LE wounds/swelling secondary to cutaneous vasculitis/pyoderma gangrenosum and psoriatic arthritis on methotrexate presented 10/14 to our ED with complaint of worsening left lower leg swelling and left ankle hurting when walking. She is being managed for the following: #. Sepsis #. LLE cellulitis #. Bacteremia Patient has a prolonged history of chronic LE swelling/wounds/recurrent infections secondary to vasculitis/pyoderma gangrenosum on monthly IVIG outpatient Outpatient biopsy done by dermatology showed pyoderma gangrenosum in 2016. Leg wounds healed slowly over time. Currently on monthly IVIG. 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 Scant drainage from chronic LE wound. Fever & chills at home. At presentation patient met SIRS criteria. Admitting lower extremity CT: Compatible with cellulitis without evidence of underlying abscess or osteomyelitis Admitting LLE Doppler: Negative for DVT. 10/16 MRI lower leg: Extensive cellulitis. Intramuscular abscess along the peroneus tendon. No evidence of osteomyelitis. Patient started on cefepime 10/15 and vancomycin 10/14, will continue with that. 10/14 blood culture positive for gram-positive cocci, await culture and sens itivity, Echo, cardiology consult. Given recurrent nature of her cellulitis complicated by her immunocompromised state, will consult infectious disease Await ID recommendation, continue to monitor. Will consult ortho. #. Likely UTI Admitting UA suggestive of UTI, culture pending, patient on antibiotic for LLE cellulitis. #. TERESA over CKD Last confinement April 2017 for ARF. September 2021 outpatient lab: Creatinine 1.04 Hold home diuretic, SENAIT inhibitor until creatinine back to baseline Renal ultrasound negative for acute changes, creatinine trending down. Nephrology on board: Stop further IV fluids. Daily BMP and creatinine kinase. #. Rhabdomyolysis Secondary to illness Continue to monitor daily CK. Creatinine kinase trending down, monitor daily. #. Chronic diastolic heart failure #. Other cardiac history: Bicuspid ASD status post surgery, a flutter status post cardioversion 2019 TTE: Ejection fraction 60 to 64% Admitting CXR: Cardiomegaly with pulmonary vascular congestion. Patient NSR, continue home meds as appropriate, we will continue to monitor. #. DM type II insulin requiring A1c September 2020 on outpatient lab: A1c 8.0% Poorly controlled diabetes, diabetic control is important for wound healing We will consult glycemic pharmacy for inpatient management and discharge recommendation DVT prophylaxis. Heparin subcu Full code Admission and Anticipated Discharge Date Admission Date: October 14, 2021 Subjective Patient was lying in bed , on room air, looking better than yesterday, NAD. No acute events overnight. Patient eating and moving bowels okay. She reports pain in her left lower extremity when trying to walk slightly better than yesterday. She denies headache/chest pain/palpitation/other review of symptoms. Physical Exam Physical Exam: GENERAL: Alert and oriented x3. NAD, on RA.. MOrbidly obese. HEENT: No pallor, no icterus. Pupils equal, round and reactive to light. Oral mucosa moist. NECK: No JVD, no neck masses. HEART: S1 and S2 heard. Regular rate and rhythm. No murmur, no gallop. RESPIRATORY SYSTEM: Normal AP diameter. No accessory muscle use. No wheezing, no crackles. ABDOMEN: Soft, bowel sounds present, nontender, no distention. CENTRAL NERVOUS SYSTEM: Alert and oriented x3. No facial droop. Speech is clear. Obeys simple commands. Moves extremities. EXTREMITIES: RLE had scar tissue from prior wound and chronic skin changes. LLE1+ pedal edema, wrapping around her cellulitis in place, erythema noted, minimal tenderness on palpation. Wound image reviewed. (1) Cellulitis of leg Laterality: left Qualified Code(s): L03.116 - Cellulitis of left lower limb
[2021-10-16] MEDS ORDERED: VANCOMYCIN TROUGH ONE (20:30)
[2021-10-16] MEDS: NAFCILLIN SODIUM 2,000 MG in DEXTROSE 5% 100 ML IV SCH (20:58)
[2021-10-16] MEDS ORDERED: INSULIN GLARGINE SOLOSTAR 100 UNITS/ML 3 ML PEN SC ONE (21:00)
[2021-10-16] MEDS ORDERED: INSULIN GLARGINE 100 UNIT/ML VIAL SC ONE (21:45)
[2021-10-17] MEDS: NAFCILLIN SODIUM 2,000 MG in DEXTROSE 5% 100 ML IV SCH ×5 (00:11→16:33)
[2021-10-17] MEDS: HYDROmorphone INJ 0.5 MG/0.5 ML SYR IV PRN ×3 (05:36→21:57)
[2021-10-17] MEDS: HEPARIN SOD 5,000 UNIT/0.5 ML VIAL SQ SCH ×2 (05:48→14:09)
[2021-10-17 07:00] LABS: Hematocrit (blood only) 40.2 % (37-47); Hemoglobin 13.4 g/dL (12.0-16.0); Mean Corpuscular Hemoglobin 31.2 pg (25-34); Mean Corpuscular Hgb Conc 33.3 g/dL (32-36); Mean Corpuscular Volume 93.5 fL (80-100); Platelet Count 245 K/uL (130-400); RDW Coefficient of Variation 17.4 % (11.5-14.5); RDW Standard Deviation 58.7 fL (36.4-46.3); White Blood Count 11.92 K/uL (4.8-10.8)
[2021-10-17 07:36] LABS: BUN Creatinine Ratio 25.6 (10-20); Calcium 9.2 mg/dl (8.5-10.1); Est GFR (African American) 64.7 ml/min; Est GFR (Non-African American) 55.9 ml/min; Potassium 4.4 mmol/L (3.5-5.1)
[2021-10-17] MEDS: INSULIN ASPART 100 UNITS/ML 3 ML PEN SC SCH ×4 (09:36→21:27)
[2021-10-17] MEDS: INSULIN GLARGINE 100 UNIT/ML VIAL SC SCH ×2 (09:40→21:27)
[2021-10-17] MEDS: FOLIC ACID 1 MG TAB PO SCH (09:40)
[2021-10-17] MEDS: METOPROLOL TARTRATE 25 MG TAB PO SCH ×2 (09:41→20:07)
[2021-10-17] MEDS: ASPIRIN 81 MG ECTAB PO SCH (09:41)
[2021-10-17] MEDS: GABAPENTIN 800 MG TAB PO SCH ×2 (09:41→20:05)
--- NOTE | 2021-10-17 11:14 | Cardiology Consultation ---
Date of Consultation October 17, 2021 Assessment & Plan (1) Bacteremia: (2) Severe sepsis: (3) Open wound of lower extremity: (4) Pyoderma gangrenosa: (5) CAD (coronary artery disease): (6) Atrial flutter: (7) Aortic stenosis: (8) Diabetes mellitus type 2 in obese: (9) HTN (hypertension): Medically complex 56-year-old woman presented with severe sepsis with UTI and lower extremity cellulitis. Thus far, blood cultures positive for Staphylococcus species. 2D echocardiogram was technically difficult/limited due to patient's body habitus ID consulted. Patient does carry history of bioprosthetic aortic valve replacement Cardiology has been asked to evaluate for KIT I believe this is appropriate and will likely perform during hospital stay. Otherwise,Lisinopril, spironolactone, HCTZ and atorvastatin were held upon admission. Recommend restarting atorvastatin now and others when acceptable from our nephrology colleagues perspective. History of Present Illness Reason for Consultation: Sepsis with blood cultures positive for Staph Requesting Physician: Ghassan Attending Physician: Mia Ferrell MD History of Present Illness PMHX as per most recent cardiology visit: 1.Longstanding hypertension. 2.Calcific aortic valve disease with aortic stenosis, probable bicuspid. 3.Morbid obesitywith large panniculus 4.Type 2 diabetes mellitus. 5.Hyperlipidemia. 6.History of cutaneous vasculitis/pyoderma gangrenosa 7.History of acute renal failure, May of 2017, ATN secondary multiple factorial causewith return to normal renal function 8. Aortic valve replacement with [place] 23 mm Epic and single-vessel coronary bypass grafting saphenous vein graft left anterior descending March 08, 2019 9. Atrial flutter, postoperatively 10. Pyodemum gangrenosum Allergies Allergy/AdvReac Type Severity Reaction Status Date / Time No Known Allergies Allergy Verified 10/14/21 17:31 Home Medications Medication Instructions Recorded Confirmed Type furosemide 80 mg tablet 80 mg PO DAILY #0 tab 06/22/17 10/14/21 History gabapentin 800 mg tablet 800 mg PO BID #0 tab 06/22/17 10/14/21 History hydroxyzine HCl 25 mg tablet 50 mg PO HS 30 Days #120 cap 09/15/17 10/14/21 History clobetasol 0.05 % topical cream 1 applic TOPICAL DAILY PRN 7 Days 12/09/17 10/14/21 History #15 g adalimumab 40 mg/0.8 mL 40 mg SUBCUT WK 05/03/19 10/14/21 History subcutaneous pen kit (Humira Pen) atorvastatin 20 mg tablet 20 mg PO DAILY 05/03/19 10/14/21 History empagliflozin 25 mg tablet 25 mg PO DAILY 05/03/19 10/14/21 History (Jardiance) folic acid 1 mg tablet 1 mg PO DAILY 05/03/19 10/14/21 History insulin degludec 200 unit/mL (3 80 unit SUBCUT BID 05/03/19 10/14/21 History mL) subcutaneous pen (Tresiba FlexTouch U-200 insulin) metoprolol tartrate 25 mg tablet 25 mg PO BID 05/03/19 10/14/21 History spironolactone 25 mg tablet 12.5 mg PO DAILY 05/03/19 10/14/21 History amoxicillin 500 mg capsule 2,000 mg PO DIRECTED PRN 10/14/21 10/14/21 History aspirin 81 mg chewable tablet 81 mg PO DAILY 10/14/21 10/14/21 History betamethasone dipropionate 0.05 % 1 applic TOPICAL DAILY PRN 10/14/21 10/14/21 History lotion betamethasone dipropionate 0.05 % 1 applic TOPICAL BID PRN 10/14/21 10/14/21 History topical cream dulaglutide 3 mg/0.5 mL 3 mg SUBCUT WK 10/14/21 10/14/21 History subcutaneous pen injector (Trulicity) fluocinolone 0.01 % topical body 1 applic TOPICAL DIRECTED PRN 10/14/21 10/14/21 History oil hydrochlorothiazide 25 mg tablet 25 mg PO DAILY 10/14/21 10/14/21 History insulin regular hum U-500 conc 0 unit SUBCUT TIDM 10/14/21 10/14/21 History (Humulin R U-500 (Conc) Insulin Kwikpen) lisinopril 20 mg tablet 20 mg PO DAILY 10/14/21 10/14/21 History methotrexate sodium 25 mg/mL 25 mg SUBCUT WK 10/14/21 10/14/21 History injection solution Patient History Medical History (Updated 10/17/21 @ 11:08 by Narinder Lugo DO) Aortic stenosis "Probably bicuspid" per cardio 7/2. S/P AVR with 23mm [place] Epic valve 03/08/19. ARF (acute renal failure) ~2 YEARS AGO. [facility]. Atrial flutter ASYMPTOMATIC. Discovered at cardiac rehab 04/13. CAD (coronary artery disease) s/p CABG x1 (SVG to LAD) 03/08/19 (with porcine AVR) Cellulitis and abscess of leg ~2 YEARS AGO. CURRENTLY HAS A SMALL OPEN AREA ON LEFT CALF, KEEPS COVERED. Depression Diabetes mellitus IDDM. A1C 7.7% 06/15/19 HTN (hypertension) Hyperlipidemia Morbid obesity Pleural effusion post-op complication from CABG/AVR. Thoracentesis 03/12. Small effusion persisted, was scheduled for second thoracentesis but cx. Per 05/03/19 chest ultrasound, small L pleural effusion with intervening lung tissue. This has decreased in volume by approximately 50% as compared to 04/20/2019. There is no safe window for thoracentesis and the procedure was deferred. Ultimately resolved with diuretic therapy. Psoriasis Pyoderma gangrenosa Surgical History History of cardiac cath 3.2018 [facility] History of thoracentesis RIGHT LUNG. 03/12. Hx of eye surgery LEFT S/P AVR (aortic valve replacement) 4.10.16 @ [facility] S/P CABG x 1 SVG-LAD 03/08/19 @ [facility]. Post op pAFib, discharged in [facility] on PO amiodarone and BB. 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 Feels Safe at Home: No Is there a partner from a previous relationship who is making you feel unsafe now?: No Safety Concerns: Feels Safe At This Time Assistive Devices: None Review of Systems Review of Systems: All systems reviewed & are unremarkable except as noted in HPI & below Results & Data ([facility]) Vital Signs (Past 12 Hours) Vital Signs Temp Pulse Pulse Resp BP BP Pulse Ox 11/20/21 03:37 36.9 C 91 H 18 139/80 94 10/17/21 00:00 37.4 C 99 H 20 107/64 93 10/16/21 23:57 90 (1) Open wound of lower extremity Encounter type: initial encounter Laterality: left Qualified Code(s): S81.802A - Unspecified open wound, left lower leg, initial encounter
[2021-10-17] MEDS: oxyCODONE HCL IR 5 MG TAB (IMMEDIATE RELEASE) PO PRN (11:27)
--- NOTE | 2021-10-17 12:01 | Consultation Report ---
DATE OF CONSULTATION: 10/17/2021. HISTORY OF PRESENT ILLNESS: This is a 56-year-old female seen at request of Dr. Mia zamora rding abscess, left lateral lower leg. The patient presented to the hospital for multiple medical co mplaints including ankle pain. She was found to have severe sepsis, SIRS plus ARF. She has a chroni c history of pyoderma gangrenosum and she was on monthly IVIG treatment outpatient and was making goo d progress; however, then began having left ankle pain after she was doing some yard work. She prese nted to the hospitalist service after workup and treatment. The patient had an MRI, which noted absc ess in the left lateral lower leg with extension into the peroneal musculature extending distally. T he patient also has a draining area on the lateral lower aspect of her left leg. She had no known tr auma to the area. PAST MEDICAL HISTORY: Chronic diastolic heart failure, ejection fraction of 60% to 64%; bicuspid aor tic stenosis, status post surgery; atrial flutter, status post cardioversion; hypertension; hyperlipi demia; diabetes type 2, insulin requiring; chronic lower extremity wounds and swelling secondary to c utaneous vasculitis and pyoderma gangrenosum; psoriatic arthritis, on methotrexate; morbid obesity; a cute renal failure. PAST SURGICAL HISTORY: Bioprosthetic AVR, CABG, laser trabeculoplasty, vein harvesting. ALLERGIES: No known drug allergies. MEDICATIONS: Please note the extensive list in the medical record. SOCIAL HISTORY: Denies tobacco use, alcohol or drug use. She is single. 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 She was in [place]. PHYSICAL EXAMINATION: This is a 56-year-old female lying supine in the hospital room bed. She is al ert and oriented x3. Speech clear and fluent. Affect is appropriate. She is pleasant and conversan t. Focused exam of the lower extremities demonstrates multiple scars in the bilateral lower extremit ies with chronic lower extremity edema, pyoderma gangrenosum, and psoriatic plaques noted. Draining abscess lesion, left lateral lower leg, proximal to the ankle crease laterally. A 3/4 edema of left lower extremity, 2/4 edema of right lower extremity. Induration of left lower leg, tenderness over t he lateral compartment. Compartments are soft. Dorsalis pedis and posterior pulses are palpable; ho wever, difficult to palpate due to the chronic edema and obesity. Feet are warm and gross motor func tion is intact in bilateral lower extremities. IMAGING AND LABORATORY DATA: Reviewed. Abscess in the muscle bellies of the peroneals, lateral left lower leg with features of myonecrosis, abscess collection extensive. Increased fluid surrounding t he peroneal tendons at the level of the ankle and slightly distally consistent with tenosynovitis. IMPRESSION: 1. Left lateral lower leg abscess. 2. Myonecrosis, peroneals. 3. Septic tenosynovitis of the peroneus longus and peroneus brevis tendons. 4. Chronic pyoderma gangrenosum and active cellulitis, left lower extremity greater than right lower extremity. RECOMMENDATION: For incision and drainage of abscess, left lower leg. Debridement, myonecrosis of th e peroneus longus and peroneus brevis muscles, tenosynovectomy of the septic peroneus longus and brev is tendons, and debridement of ulceration and sinus tract, left lateral lower leg. The patient shoul d remain n.p.o. I did speak with Dr. Ferrell regarding decision for surgery and preparation for surger y. The patient has been booked in the OR and she will progress to the consenting process as necessar y. Continue IV antibiotics as per medical service. Maintain limited weightbearing. Local wound car e. Thank you for the opportunity to consult in the care of this patient. Job ID: [id number]
--- NOTE | 2021-10-17 14:32 | Pharmacy Report ---
Pharmacy Glycemic Short Note 2 - Date of Service October 17, 2021 - Glycemic Short BSG Results (Last 24 hours): 10/16/21 10/16/21 10/16/21 16:09 20:53 23:36 Glucose POC Glucose 135 H 116 H 110 H 10/17/21 10/17/21 10/17/21 06:35 07:35 11:33 Glucose 82 POC Glucose 90 109 H OUTPATIENT ANTIDIABETIC REGIMEN: * A1C- 8.4% (10/15/21) * Tresiba 80units SQ BID * Trulicity 3mg SQ weekly * empagliflozin 25mg PO daily * Humulin U-500: 80units (breakfast/lunch), 86 units (dinner)- high carb meal. 50 units low carb meal. 20 units w/ snacks. ASSESSMENT: 10/17/21 * Blood sugars at goal or under goal * Fasting 82mg/dl - decrease Lantus and loosen CR to prevent hypoglycemia 10/16/21 * Initiate basal/bolus SQ insulin regimen * Will resume basal regimen with Lantus 80 units BID (similar to degludec outpt regimen) to start * Novolog ACHS scale started yesterday with correction of 25mg/dl/unit and CHO of 15, however BSGs increased throughout the day. Correction & carb ratios tightened. * BSGs today within goal range. AM fasting BSG slightly below goal however. Plan to dose Lantus tonight per scale. * Requiring significantly less insulin coverage than outpatient regimen currently. Will monitor for increasing needs. PLAN FOR INPATIENT GLYCEMIC CONTROL: * Hold outpatient diabetes medications * Basal insulin * Lantus 60 units SQ BID * Bolus insulin * NovoLog per scale ACHS or Q6hrs while NPO * Goal Range: Low 110mg/dL - High 140 mg/dL * Correction Factor: 20 mg/dL/unit * Nutritional / Prandial insulin per carb ratio of 1 unit per 7 grams CHO co nsumed
--- NOTE | 2021-10-17 17:41 | Hospitalist Progress Note ---
Date of Service October 17, 2021 Assessment & Plan (1) Severe sepsis: (2) Cellulitis of leg: (3) Bacteremia: Plan: 56-year-old lady with PMH of chronic diastolic heart failure [EF 60 to 64%, TTE 2019], bicuspid aortic stenosis status post surgery, a flutter status post cardioversion, hypertension, hyperlipidemia, DM two insulin requiring, chronic LE wounds/swelling secondary to cutaneous vasculitis/pyoderma gangrenosum and psoriatic arthritis on methotrexate presented 10/14 to our ED with complaint of worsening left lower leg swelling and left ankle hurting when walking. She is being managed for the following: #. Sepsis #. LLE cellulitis/Myonecorsi, peroneals/Septic tenosynovitis of the peroneus longus and peroneus brevis tendons no acute #. Bacteremia - Patient has bioprosthetic valve replaced. Patient has a prolonged history of chronic LE swelling/wounds/recurrent infections secondary to vasculitis/pyoderma gangrenosum on monthly IVIG outpatient Outpatient biopsy done by dermatology showed pyoderma gangrenosum in 2016. Leg wounds healed slowly over time. Currently on monthly IVIG. Last week [employer]TER, patient noted increased swelling on left ankle later on involving left leg. Scant drainage from chronic LE wound. Fever & chills at home. At presentation patient met SIRS criteria. Admitting lower extremity CT: Compatible with cellulitis without evidence of underlying abscess or osteomyelitis Admitting LLE Doppler: Negative for DVT. 10/16 MRI lower leg: Extensive cellulitis. Intramuscular abscess along the peroneus tendon. No evidence of osteomyelitis. Patient started on cefepime 10/15 and vancomycin 10/14---> 10/14 blood culture positive for gram-positive cocci -->10/14 nafcillin ---> WBC went up though minimally from prior day; and final C/S out hence 10/15 Ancef. 10/14 wound culture positive for staph aureus and group B beta strep. 10/14 blood culture: Positive for staph species, follow-up final results. Repeat 10/16 blood culture: No growth after 24 hours, follow final results. 10/17 echo: Normal LV systolic function with EF of 65 to 70%, grade 1 diastolic dysfunction, poor visualization of bioprosthetic valve and other valvular structure. Cardiology consult: KIT Tuesday, NPO trinh mid night as well. Discussed with cardiology and orthopedics. Patient to undergo I&D and further surgery on left lower extremity tomorrow. N.p.o. midnight. Given recurrent nature of her cellulitis complicated by her immunocompromised state and bacteremia, infectious disease consultedawaiting recommendation Continue with Ancef. #. TERESA over CKD Last confinement April 2017 for ARF. September 2021 outpatient lab: Creatinine 1.04 Since creatinine back to baseline, will resume home diuretic, SENAIT inhibitor af ter her blood pressure stays stable from left lower extremity. Renal ultrasound negative for acute changes, creatinine trending down. Daily BMP, resume home meds after surgery when blood pressure remains stable. #. Likely UTI Patient reports not having any pain or burning while passing urine prior and after arrival to the hospital. Admitting UA suggestive of UTI, culture positive for Trudy glabrata complex, will not treated. Continue to monitor. #. Rhabdomyolysis Secondary to illness Continue to monitor daily CK. Creatinine kinase trending down We will not need further monitoring. #. Chronic diastolic heart failure #. Other cardiac history: Bicuspid ASD status post surgery, a flutter status post cardioversion 2019 TTE: Ejection fraction 60 to 64% Admitting CXR: Cardiomegaly with pulmonary vascular congestion. Patient NSR, continue home meds as appropriate, we will continue to monitor. #. DM type II insulin requiring A1c September 2020 on outpatient lab: A1c 8.0% Poorly controlled diabetes, diabetic control is important for wound healing We will consult glycemic pharmacy for inpatient management and discharge recommendation DVT prophylaxis. Heparin subcu held, to resume after surgery with orthopedic recommendation. Might need to hold tomorrow as well for she is going KIT on Tuesday. Full code Revised cardiac risk index: Elevate recs per surgery: 0 History of ischemic heart disease: 1 History of congestive heart failure: 1 History of cerebrovascular disease: 0 Preoperative treatment with insulin: 1 Preoperative creatinine greater than 2 mg/dL: 0 3 points: 15% 30-day risks of , [place] or cardiac arrest. Class III risk. Patient is moderate to high risks of cardiac pulmonary complications perioperatively, no known medical contraindication to proceed with planned surgery. Admission and Anticipated Discharge Date Admission Date: October 14, 2021 Subjective Patient was lying in bed , on room air, looking better , NAD. No acute events overnight. Patient eating and moving bowels okay. She reports ongoing pain in her left lower extremity when trying to walk. She denies headache/chest pain/palpitation/other review of symptoms. Physical Exam Physical Exam: GENERAL: Alert and oriented x3. NAD, on RA.. MOrbidly obese. HEENT: No pallor, no icterus. Pupils equal, round and reactive to light. Oral mucosa moist. NECK: No JVD, no neck masses. HEART: S1 and S2 heard. Regular rate and rhythm. No murmur, no gallop. RESPIRATORY SYSTEM: Normal AP diameter. No accessory muscle use. No wheezing, no crackles. ABDOMEN: Soft, bowel sounds present, nontender, no distention. CENTRAL NERVOUS SYSTEM: No facial droop. Speech is clear. Obeys simple commands. Moves extremities. EXTREMITIES: RLE had scar tissue from prior wound and chronic skin changes. LLE1+ pedal edema, wrapping around her cellulitis in place, erythema noted, tenderness on palpation. Wound image reviewed. Results & Data Results & Data ([facility]) Vital Signs (Past 12 Hours) Vital Signs Temp Pulse Resp BP Pulse Ox 10/17/21 15:05 37.1 C 91 H 20 135/78 95 (1) Cellulitis of leg Laterality: left Qualified Code(s): L03.116 - Cellulitis of left lower limb
--- NOTE | 2021-10-17 17:51 | Anesthesiology Consultation ---
Date of Service October 17, 2021 Assessment & Plan Chart Review Chart Review: Acceptable Risk for Surgery and Patient NOT seen in Pre Admission Testing Consults Requested none History Surgery Operation Date: 10/18/21 09:00 Proposed Procedures p Incision and Drainage Left Leg Abscess, Debridement Necrotic Heels, Peroneus Longus Brevis; Tenosynovectomy - Noah Sue DO Height/Weight Height: 5 ft 4 in Weight: 131 kg Allergies Allergy/AdvReac Type Severity Reaction Status Date / Time No Known Allergies Allergy Verified 10/14/21 17:31 Medications Home Medications Medication Instructions Recorded Confirmed Last Taken furosemide 80 mg tablet 80 mg PO DAILY #0 tab 06/22/17 10/14/21 10/14/21 gabapentin 800 mg tablet 800 mg PO BID #0 tab 06/22/17 10/14/21 10/14/21 08:00 hydroxyzine HCl 25 mg tablet 50 mg PO HS 30 Days #120 cap 09/15/17 10/14/21 10/13/21 clobetasol 0.05 % topical cream 1 applic TOPICAL DAILY PRN 7 Days 12/09/17 10/14/21 Unknown #15 g adalimumab 40 mg/0.8 mL 40 mg SUBCUT WK 05/03/19 10/14/21 10/06/21 subcutaneous pen kit (Humira Pen) atorvastatin 20 mg tablet 20 mg PO DAILY 05/03/19 10/14/21 10/14/21 empagliflozin 25 mg tablet 25 mg PO DAILY 05/03/19 10/14/21 10/14/21 (Jardiance) folic acid 1 mg tablet 1 mg PO DAILY 05/03/19 10/14/21 10/14/21 insulin degludec 200 unit/mL (3 80 unit SUBCUT BID 05/03/19 10/14/21 10/14/21 08:00 mL) subcutaneous pen (Tresiba FlexTouch U-200 insulin) metoprolol tartrate 25 mg tablet 25 mg PO BID 05/03/19 10/14/21 10/14/21 08:00 spironolactone 25 mg tablet 12.5 mg PO DAILY 05/03/19 10/14/21 10/14/21 amoxicillin 500 mg capsule 2,000 mg PO DIRECTED PRN 10/14/21 10/14/21 Unknown aspirin 81 mg chewable tablet 81 mg PO DAILY 10/14/21 10/14/21 10/14/21 betamethasone dipropionate 0.05 % 1 applic TOPICAL DAILY PRN 10/14/21 10/14/21 Unknown lotion betamethasone dipropionate 0.05 % 1 applic TOPICAL BID PRN 10/14/21 10/14/21 Unknown topical cream dulaglutide 3 mg/0.5 mL 3 mg SUBCUT WK 10/14/21 10/14/21 10/08/21 subcutaneous pen injector ([facility]) fluocinolone 0.01 % topical body 1 applic TOPICAL DIRECTED PRN 10/14/21 10/14/21 Unknown oil hydrochlorothiazide 25 mg tablet 25 mg PO DAILY 10/14/21 10/14/21 10/14/21 insulin regular hum U-500 conc 0 unit SUBCUT TIDM 10/14/21 10/14/21 10/14/21 (Humulin R U-500 (Conc) Insulin Kwikpen) lisinopril 20 mg tablet 20 mg PO DAILY 10/14/21 10/14/21 10/14/21 methotrexate sodium 25 mg/mL 25 mg SUBCUT WK 10/14/21 10/14/21 10/09/21 injection solution Active Medications Generic Name Dose Route Start Last Admin Trade Name Freq PRN Reason Stop Dose Admin Acetaminophen 650 mg 10/15/21 00:14 10/16/21 02:50 Acetaminophen 325 Mg Tab PO 11/14/21 00:13 650 mg Q4H PRN Administration Pain or Fever Aspirin 81 mg 10/15/21 09:00 10/17/21 09:41 Aspirin 81 Mg Ectab PO 11/14/21 08:59 81 mg DAILY KVNG Administration Folic Acid 1 mg 10/15/21 09:00 10/17/21 09:40 Folic Acid 1 Mg Tab PO 11/14/21 08:59 1 mg DAILY KVNG Administration Gabapentin 800 mg 10/15/21 00:14 10/17/21 09:41 Gabapentin 800 Mg Tab PO 11/14/21 00:13 800 mg BID KVNG Administration Heparin Sodium (Porcine) 5,000 units 10/15/21 06:00 10/17/21 14:09 Heparin Sod 5,000 Unit/0.5 Ml Vial SQ 11/14/21 05:59 5,000 units Q8 KVNG Administration Hydromorphone HCl 0.5 mg 10/15/21 00:14 10/17/21 05:36 Hydromorphone Inj 0.5 Mg/0.5 Ml Syr IV 10/29/21 00:13 0.5 mg Q3H PRN Administration Pain Insulin Aspart 0 units 10/15/21 00:30 10/17/21 14:08 Insulin Aspart 100 Units/Ml 3 Ml Pen SC 11/14/21 00:29 9 units ACHS KVNG Administration Insulin Glargine 0 units 10/17/21 09:00 10/17/21 09:40 Insulin Glargine 100 Unit/Ml Vial SC 11/16/21 08:59 60 units BID KVNG Administration Protocol Metoprolol Tartrate 25 mg 10/15/21 00:45 10/17/21 09:41 Metoprolol Tartrate 25 Mg Tab PO 11/14/21 00:44 25 mg BID KVNG Administration Oxycodone HCl 5 - 10 mg 10/15/21 00:14 10/17/21 11:27 Oxycodone Hcl Ir 5 Mg Tab (Immediate Release) PO 10/29/21 00:13 10 mg QID PRN Administration Pain Past Medical History Medical History Aortic stenosis "Probably bicuspid" per cardio 05/29. S/P AVR with 23mm [facility] Epic valve 03/08/19. ARF (acute renal failure) ~2 YEARS AGO. [facility]. Atrial flutter ASYMPTOMATIC. Discovered at cardiac rehab 04/13. CAD (coronary artery disease) s/p CABG x1 (SVG to LAD) 03/08/19 (with porcine AVR) Cellulitis and abscess of leg ~2 YEARS AGO. CURRENTLY HAS A SMALL OPEN AREA ON LEFT CALF, KEEPS COVERED. Depression Diabetes mellitus IDDM. A1C 7.7% 06/15/19 HTN (hypertension) Hyperlipidemia Morbid obesity Pleural effusion post-op complication from CABG/AVR. Thoracentesis 03/12. Small effusion persisted, was scheduled for second thoracentesis but cx. Per 05/03/19 chest ultrasound, small L pleural effusion with intervening lung tissue. This has decreased in volume by approximately 50% as compared to 04/20/2019. There is no safe window for thoracentesis and the procedure was deferred. Ultimately resolved with diuretic therapy. Psoriasis Pyoderma gangrenosa Past Surgical History Surgical History History of cardiac cath 3.2018 [facility] History of thoracentesis RIGHT LUNG. 03/12. Hx of eye surgery LEFT S/P AVR (aortic valve replacement) 4.10.16 @ [facility] S/P CABG x 1 SVG-LAD 03/08/19 @ [facility]. Post op pAFib, discharged in SR on PO amiodarone and BB. Social History Smoking Status: Never smoker Hx Alcohol Use: No Hx Substance Use: No Physical Exam Vital Signs Last Vital Signs Temp 98.8 F 10/17/21 15:05 Pulse 91 H 10/17/21 15:05 Resp 20 10/17/21 15:05 BP 135/78 10/17/21 15:05 Pulse Ox 95 10/17/21 15:05 Testing Laboratory Results 10/17/21 06:35 10/17/21 06:35 Hemoglobin A1c 8.4 % (4.5-5.6) H 10/15/21 00:10 Urine Color Yellow 10/15/21 11:37 Urine Appearance Cloudy (Clear) A 10/15/21 11:37 Urine pH 5.5 (4.5-7.5) 10/15/21 11:37 Ur Specific [place] 1.023 (1.000-1.030) 10/15/21 11:37 Urine Protein Trace (Negative) H 10/15/21 11:37 Urine Glucose (UA) 3+ (Negative) H 10/15/21 11:37 Urine Ketones Negative (Negative) 10/15/21 11:37 Urine Nitrite Negative (Negative) 10/15/21 11:37 Ur Leukocyte Esterase Negative (Negative) 10/15/21 11:37 Urine WBC (Auto) 5-10 /hpf (0-5) H 10/15/21 11:37 Urine RBC (Auto) 0-4 /hpf (0-4) 10/15/21 11:37 U Hyaline Cast (Auto) 1-5 /lpf (0-5) 10/15/21 11:37 U Epithel Cells (Auto) 20-30 /lpf (0-5) H 10/15/21 11:37 Urine Bacteria (Auto) Negative (Negative) 10/15/21 11:37 10/16/21 05:51 Aerobic Blood Culture - Preliminary Blood No growth in Aerobic bottle after 24 hours. Anaerobic Blood Culture - Final 10/15/21 11:37 Urine Culture - Final Urine,Clean Catch Trudy glabrata complex 10/14/21 17:55 Gram Stain - Final Leg,Left Deep Wound Culture - Final Staphylococcus aureus Group B Beta Strep 10/14/21 18:24 Aerobic Blood Culture - Preliminary Blood No growth in Aerobic bottle after 48 hours. Anaerobic Blood Culture - Preliminary Staphylococcus species 10/16/21 05:46 Aerobic Blood Culture - Preliminary Blood No growth in Aerobic bottle after 24 hours. Anaerobic Blood Culture - Preliminary No growth in Anaerobic bottle after 24 hours. 10/14/21 18:31 Aerobic Blood Culture - Preliminary Blood No growth in Aerobic bottle after 48 hours. Anaerobic Blood Culture - Preliminary No growth in Anaerobic bottle after 48 hours. 10/17/21 10/17/21 10/17/21 16:36 11:33 07:35 POC Glucose 116 H 109 H 90 Electrocardiogram Date: 06/26/19 Findings: + NSR @ (with PVCs) Chest X-Ray Date: 10/14/21 Findings: + cardiomegaly Echocardiogram Date: 10/17/21 EF: 65-70 LV Function: normal Other Findings: + diastolic dysfunction Valvular Disease: + pertinent finding (s/p AV replacement)
[2021-10-17] MEDS: ceFAZolin 2000MG 2,000 MG/15 ML SYR IV SCH ×2 (17:53→21:30)
[2021-10-17] MEDS: hydrOXYzine HCl 25 MG TAB PO SCH (20:07)
[2021-10-18] MEDS: HYDROmorphone INJ 0.5 MG/0.5 ML SYR IV PRN ×4 (05:23→21:50)
[2021-10-18] MEDS: ceFAZolin 2000MG 2,000 MG/15 ML SYR IV SCH ×3 (05:31→21:51)
[2021-10-18 06:05] LABS: Hematocrit (blood only) 39.9 % (37-47); Mean Corpuscular Hemoglobin 31.2 pg (25-34); Mean Corpuscular Hgb Conc 32.6 g/dL (32-36); Mean Corpuscular Volume 95.7 fL (80-100); Platelet Count 247 K/uL (130-400); RDW Coefficient of Variation 17.5 % (11.5-14.5); RDW Standard Deviation 59.9 fL (36.4-46.3); Red Blood Count 4.17 M/uL (4.2-5.4); White Blood Count 10.44 K/uL (4.8-10.8)
[2021-10-18 06:35] LABS: BUN Creatinine Ratio 25.4 (10-20); Calcium 9.2 mg/dl (8.5-10.1); Creatinine Clr Calc Pharmacy 84.1 ml/min; Est GFR (Non-African American) 60.4 ml/min; Magnesium 2.7 mg/dl (1.8-2.4); Potassium 4.3 mmol/L (3.5-5.1)
[2021-10-18] MEDS: METOPROLOL TARTRATE 25 MG TAB PO SCH ×2 (07:50→20:13)
[2021-10-18] MEDS: INSULIN ASPART 100 UNITS/ML 3 ML PEN SC SCH ×4 (07:51→20:18)
[2021-10-18] MEDS: ATORVASTATIN 20 MG TAB PO SCH (07:52)
[2021-10-18] MEDS: ASPIRIN 81 MG ECTAB PO SCH (07:52)
[2021-10-18] MEDS: FOLIC ACID 1 MG TAB PO SCH (07:52)
[2021-10-18] MEDS: GABAPENTIN 800 MG TAB PO SCH ×2 (07:52→20:12)
[2021-10-18] MEDS: INSULIN GLARGINE 100 UNIT/ML VIAL SC SCH ×2 (07:52→20:20)
[2021-10-18] MEDS ORDERED: BUPIVACAINE 0.5 % 5 MG/1 ML MPF 30ML VIAL ONE (08:03)
[2021-10-18] MEDS ORDERED: PROMETHAZINE HCL 12.5 MG in SODIUM CHLORIDE 0.9% 50 ML IV PRN (08:47)
[2021-10-18] MEDS ORDERED: ATROPINE SULFATE 0.1 MG/ML 10ML SYR IV PRN (08:47)
[2021-10-18] MEDS ORDERED: HYDROmorphone INJ 2 MG/ML SYR/VIAL IV PRN (08:47)
[2021-10-18] MEDS ORDERED: ONDANSETRON INJ 2 MG/ML 2 ML VIAL IV PRN (08:47)
[2021-10-18] MEDS ORDERED: ePHEDrine sulfate 50 MG/ML AMP IV PRN (08:47)
[2021-10-18] MEDS ORDERED: MIDAZOLAM HCL 1 MG/ML 2ML VIAL ONE (09:01)
[2021-10-18] MEDS ORDERED: KETAMINE 50 MG/5 ML SYRINGE ONE (09:01)
[2021-10-18] MEDS ORDERED: fentaNYL citrate 100 MCG/2 ML VIAL ONE (09:01)
[2021-10-18] MEDS ORDERED: oxyCODONE HCL IR 5 MG TAB (IMMEDIATE RELEASE) PO STA (09:04)
--- NOTE | 2021-10-18 09:41 | History & Physical Bridge Note ---
Date of Service October 18, 2021 History & Physical Bridge Note I have examined the patient, reviewed the History & Physical and in the interval since the performance of the History & Physical I have noted the following changes of clinical significance: no changes noted
[2021-10-18] MEDS ORDERED: SUCCINYLCHOLINE CHLORIDE 20 MG/ML 10 ML VIAL IV ONE (10:20)
[2021-10-18] MEDS ORDERED: PROPOFOL IV EMULSION 10 MG/ML 20 ML VIAL IV ONE (10:20)
[2021-10-18] MEDS ORDERED: ONDANSETRON INJ 2 MG/ML 2 ML VIAL ONE (10:20)
[2021-10-18] MEDS ORDERED: LIDOCAINE 2% 2 ML VIAL/AMP(20MG/ML) INFIL ONE (10:20)
[2021-10-18] MEDS ORDERED: HYDROmorphone INJ 2 MG/ML SYR/VIAL ONE (10:27)
[2021-10-18] MEDS ORDERED: ceFAZolin 1000MG 1,000 MG/7.5 ML SYR IV ONE (10:45)
--- NOTE | 2021-10-18 11:34 | Post Operative Brief Note ---
Immediate Post Op Note v1 Date of Surgery October 18, 2021 Pre & Post Diagnosis Operation Date: 10/18/21 09:00 Pre-Op Diagnosis: 1. Left lateral lower leg abscess. 2. Myonecrosis, peroneal muscles. 3. Septic tenosynovitis of the peroneus longus and peroneus brevis tendons. 4. Open ulceration with exposed peroneus longus tendon 5. Chronic pyoderma gangrenosum and active cellulitis, left lower extremity greater than right lower extremity. 6. Morbid obesity Post-Op Diagnosis: 1. Left lateral lower leg abscess. 2. Myonecrosis, peroneal muscles. 3. Septic tenosynovitis of the peroneus longus and peroneus brevis tendons. 4. Open 1 cm x 1 cm x 0.5 cm ulceration with exposed peroneus longus tendon 5. Chronic pyoderma gangrenosum and active cellulitis, left lower extremity greater than right lower extremity. 6. Morbid obesity I identified the patient and participated in the time-out.: Yes Procedure Operation Date: 10/18/21 09:00 Actual Procedures p Incision and Drainage Left Lower Leg Abscess, excisional debridement Peroneus Longus and peroneus brevis tendons Tenosynovectomy peroneus longus and peroneus brevis tendons, partial myomectomy necrotic peroneus longus and peroneus brevis muscles, debridement lateral leg ulceration with sinus tract 1 cm x 1 cm x 0.5 cm, Noah Sue DO Surgeon Noah Sue DO Power Checker Sachin Brewer PA-C Estimated Blood Loss 10 Findings Consistent with Post-Op Diagnosis Specimens Aerobic, anaerobic, Gram stain abscess/peroneal tendon sheath L lower leg Drains Hemovac Drain (X2) and Other (1 inch iodoform gauze packing x4) Complications none Disposition Accompanied Patient To Recovery: Yes
[2021-10-18] MEDS: fentaNYL citrate 100 MCG/2 ML VIAL IV PRN ×2 (12:05→12:10)
--- NOTE | 2021-10-18 12:18 | Anesthesiology Progress Note ---
Date of Service October 18, 2021 Anesthesia Post Procedure Vital Signs Vital Signs: Temp Pulse Pulse Pulse Resp BP Pulse Ox 10/18/21 12:05 77 11 L 157/88 H 95 10/18/21 11:55 98.1 F 76 14 179/94 H 97 10/18/21 11:45 76 13 165/81 H 100 10/18/21 11:35 75 14 179/94 H 98 10/18/21 11:26 98.6 F 74 15 154/71 H 98 10/18/21 07:12 98.6 F 98 H 20 160/73 H 96 10/18/21 02:40 98.6 F 86 18 157/86 H 95 10/17/21 22:50 99.3 F 89 16 147/78 H 95 10/17/21 22:19 90 10/17/21 19:56 98.6 F 74 18 167/67 H 93 10/17/21 15:05 98.8 F 91 H 20 135/78 95 Pain Intensity Left Lower Leg: Pain Intensity: 3 Bilateral Lower Back: Pain Intensity: 4 Transfer of Care Handoff Completed per policy Notes Mental Status: alert / awake / arousable and participated in evaluation Patient Amnestic to Procedure: Yes Nausea / Vomiting: adequately controlled Pain: adequately controlled and improving with treatment Airway Patency, RR, SpO2: stable & adequate BP & HR: stable & adequate Hydration State: stable & adequate Anesthetic Complications: no major complications apparent and Pt Satisfied with anesthetic care
--- NOTE | 2021-10-18 12:59 | Operative Report (OR) ---
DATE OF PROCEDURE: 10/18/2021. PREOPERATIVE DIAGNOSES: 1. Left lateral lower leg abscess. 2. 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 3. Septic tenosynovitis of the peroneus longus and peroneus brevis tendons. 4. Open 1 x 1 x 0.4 cm ulceration with sinus tract and exposed tendons. 5. Chronic pyoderma gangrenosum with active cellulitis, left lower extremity. 6. Morbid obesity. POSTOPERATIVE DIAGNOSES: 1. Left lateral lower leg abscess. 2. 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 3. Septic tenosynovitis of the peroneus longus and peroneus brevis tendons. 4. Open 1 x 1 x 0.4 cm ulceration with sinus tract and exposed tendons. 5. Chronic pyoderma gangrenosum with active cellulitis, left lower extremity. 6. Morbid obesity. PROCEDURES: 1. Left lateral lower leg incision and drainage of abscess. 2. Excisional debridement of peroneus longus and peroneus brevis tendons. 3. Tenosynovectomy of the peroneus longus and peroneus brevis tendons. 4. Debridement left lateral leg ulceration with sinus tract, 1 x 1 x 0.5 cm including skin, subcutan eous fat and fascia. 5. Partial myomectomy, necrotic peroneus longus and peroneus brevis muscles. SURGEON: Noah Sue DO. INTERNAL AUDIT MANAGER: Sachin Brewer PA-C who was present for patient positioning, sterile prep and drape, mariajose gement of retractors and instruments. He was present through the critical portions of the case includ ing wound closure, application of sterile dressing and transport of the patient to recovery. ANESTHESIA: General with local. SPECIMENS: Aerobic, anaerobic, Gram stain left lateral lower leg abscess and peroneal tendon sheath. DRAINS: Hemovac x2 and 1-inch iodoform gauze drains x4. COMPLICATIONS: None. BLOOD LOSS: 10 mL. PERTINENT HISTORY: This is a 56-year-old female with chronic pyoderma gangrenosum bilateral lower le gs. She had lesions on the left lower leg, which had progressed over the last several weeks. She wa s on Humira for treatment of her pyoderma gangrenosum, was making good progress; however, then she no ticed increased redness, swelling asymmetrically the left lower leg. She then presented to the Emerg ency Department. She was noted to be septic. She was placed on IV antibiotics to treat her other [facility] medical issues and orthopedics was consulted after MRI noted an abscess in the left lateral low er leg. After consultation with the patient in review of the films and laboratories, the patient was then scheduled for surgery as indicated. All potential risks, benefits, complications, alternatives, rehab potential for incomplete relief sym ptoms, need for further surgery, DVT, PE, , persistent pain, swelling, scarring, weakness, neuro vascular injury, wound complications, possible need for further debridement and/or amputation was dis cussed with the patient. The patient decided to proceed with the procedure as indicated. DESCRIPTION OF PROCEDURE: The patient was taken to the operative suite and placed supine on the oper ating room table. After review of the consent and identification of proper site, the patient was ane sthetized, LMA was placed. Tourniquet was placed high on the left thigh over cast padding. Left low er extremity was then sterilely prepped and draped in the usual fashion, elevated, and tourniquet inf lated to 350 mmHg. There was no exsanguination performed due to the extensive nature of the infectio n. Next, through the ulceration site, culture was obtained of gross pus that was present with exposed te ndon. This was measured to be 1 x 1 x 0.5 cm deep. After aerobic, anaerobic, Gram stain specimen wa s obtained from the ulceration site and deepened through the peroneal tendon sheath approximately to the level of the abscess, the specimen was then passed off. Next, a #15 blade scalpel was then used to sharply debride the ulceration site including skin, subcut aneous tissue and fascia. Incision was made and then proximal and distal to the ulceration site expa nded. Gross purulence was noted. Peroneal tendons were noted to be necrotic. Sharp debridement of th e peroneus longus and peroneus brevis tendons was performed resecting grossly necrotic tissue. Next as the incision was then expanded proximally and distally through the area of chronic pyoderma g angrenosum with chronically deformed tissue, peroneal tendon sheath was noted to be violated by the p revious infection. The remainder of the sheath was then opened, exposing the tendon. There was note d to be marked tenosynovitis of both the peroneus longus and peroneus brevis. Tenosynovectomy was th en performed with tenotomy scissors and rongeur, both the peroneus longus and peroneus brevis extensi vely. Next, a second incision was made more proximally to allow for bridge of tissue centered primarily ove r the site of abscess that was noted on the MRI. This incision was then carefully deepened through s kin and subcutaneous tissue. Meticulous hemostasis was achieved with judicious use of electrocautery . Miranda rakes were applied and then through careful scissor dissection, the abscess pocket was entere d at the level of the musculature of the peroneus longus and peroneus brevis. The abscess was then e vacuated with suction and features of myonecrosis was noted with dusky tissue that did not respond wi th electrocautery. Partial myomectomy was then performed of the peroneus longus and peroneus brevis musculature with approximately 15-20% loss of the muscle belly. Next, after sharp debridement and myomectomy was then completed, attention was then directed distally over the subfibular region extending distally over the foot at the level of the extensor digitorum b skye. The incision was then deepened to the skin and subcutaneous tissue. Peroneal tendon sheath wa s then accessed. Miranda rakes were applied. Tenosynovectomy was then performed of the peroneus longus and peroneus brevis tendons. After sharp debridement had been performed of all areas of tissue necr osis and tenosynovitis as well as the myomectomy as mentioned previously, pulsatile lavage with 6 lit ers of fluid and Ancef additive was then used to cleanse all incisions and all the tissue surface was exposed using gentle retraction with Miranda rakes. After this was completed, top gloves and top sheet were changed, and a 10-Italian double lumen Hemovac drain was then placed one proximal and one distal extending through the areas of abscess and myonecrosis and then a secondary suction placed distally, extending proximally through the peroneal tendon sheath to the level of the subfibular region. Next, a separate 1-inch iodoform gauze packing drains were then placed throughout the incision sites to encourage passive drainage and discharge. All incisions were then loosely closed over the drains as mentioned with interrupted 3-0 nylon and 2-0 nylon sutures using combination of broad-based vertic al and horizontal mattress sutures. Finally, 0.5% Marcaine plain was then injected in the romy-incis ional regions to reduce the postoperative pain and then a sterile compressive dressing was applied co nsisting of Adaptic, sterile 4 x 4s, ABD pads x2. Sterile cast padding and sterile Vu wraps. The t ourniquet was released. The patient was awakened and taken to recovery in stable condition. Job ID: [id number]
[2021-10-18] MEDS: oxyCODONE HCL IR 5 MG TAB (IMMEDIATE RELEASE) PO PRN ×2 (15:02→20:07)
[2021-10-18] MEDS: lisinopril 20 MG TAB PO SCH (16:15)
--- NOTE | 2021-10-18 18:01 | Hospitalist Progress Note ---
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 She is being managed for the following: #. Sepsis #. LLE cellulitis/Myonecorsi, peroneals/Septic tenosynovitis of the peroneus longus and peroneus brevis tendons no acute #. Bacteremia - Patient has bioprosthetic valve replaced. Patient has a prolonged history of chronic LE swelling/wounds/recurrent infections secondary to vasculitis/pyoderma gangrenosum on monthly IVIG outpatient Outpatient biopsy done by dermatology showed pyoderma gangrenosum in 2016. Leg wounds healed slowly over time. Currently on monthly IVIG. 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 Scant drainage from chronic LE wound. Fever & chills at home. At presentation patient met SIRS criteria. Admitting lower extremity CT: Compatible with cellulitis without evidence of underlying abscess or osteomyelitis Admitting LLE Doppler: Negative for DVT. 10/16 MRI lower leg: Extensive cellulitis. Intramuscular abscess along the peroneus tendon. No evidence of osteomyelitis. Patient started on cefepime 10/15 and vancomycin 10/14---> 10/14 blood culture positive for gram-positive cocci -->10/14 nafcillin ---> WBC went up though minimally from prior day; and final C/S out hence 10/15 Ancef. 10/14 wound culture positive for staph aureus and group B beta strep. 10/14 blood culture: Positive for staph species, follow-up final results. Repeat 10/16 blood culture: No growth after 24 hours, follow final results. 10/17 echo: Normal LV systolic function with EF of 65 to 70%, grade 1 diastolic dysfunction, poor visualization of bioprosthetic valve and other valvular structure. Cardiology consult: KIT Tuesday, NPO mid night. Discussed with cardiology. For LLE abscess and myonecrosis, orthopedic consulted, 10/18 status post left lateral lower leg incision and drainage of abscess and debridement of myonecrosis with tenosynovectomy, debridement of left lateral leg ulceration with sinus tract. Given recurrent nature of her cellulitis complicated by her immunocompromised state and bacteremia, infectious disease consultedawaiting recommendation Continue with Ancef. #. TERESA over CKD Last confinement April 2017 for ARF. September 2021 outpatient lab: Creatinine 1.04 Creatinine back to baseline, Lasix and lisinopril resumed; will reassess tomorrow to resume her home dose spironolactone and HCTZ. Renal ultrasound negative for acute changes, creatinine trending down. Continue to monitor prn #. Likely UTI Patient reports not having any pain or burning while passing urine prior and after arrival to the hospital. Admitting UA suggestive of UTI, culture positive for Trudy glabrata complex, will not treated. Continue to monitor. #. Rhabdomyolysis Secondary to illness Continue to monitor daily CK. Creatinine kinase trending down We will not need further monitoring. #. Chronic diastolic heart failure #. Other cardiac history: Bicuspid ASD status post surgery, a flutter status post cardioversion 2019 TTE: Ejection fraction 60 to 64% Admitting CXR: Cardiomegaly with pulmonary vascular congestion. Patient NSR, continue home meds as appropriate, we will continue to monitor. #. DM type II insulin requiring A1c September 2020 on outpatient lab: A1c 8.0% Poorly controlled diabetes, diabetic control is important for wound healing We will consult glycemic pharmacy for inpatient management and discharge recommendation DVT prophylaxis. Heparin subcu held, for KIT on trinh. Resume Heparin tomorrow. Full code Admission and Anticipated Discharge Date Admission Date: October 14, 2021 Subjective Patient was lying in bed , on room air, anxious that her dinner has not arrived, No acute events overnight per patient. Patient eating and moving bowels okay. Patient came from left lower extremity I&D and debridement of myonecrosis. Patient reporting left lower extremity pain, just received a dose of pain medication. Denies headache/chest pain/palpitation/other review of symptoms. Physical Exam Physical Exam: GENERAL: Alert and oriented x3. anxious, on RA.. Morbidly obese. HEENT: No pallor, no icterus. Pupils equal, round and reactive to light. Oral mucosa moist. NECK: No JVD, no neck masses. HEART: S1 and S2 heard. Regular rate and rhythm. No murmur, no gallop. RESPIRATORY SYSTEM: Normal AP diameter. No accessory muscle use. No wheezing, no crackles. ABDOMEN: Soft, bowel sounds present, nontender, no distention. CENTRAL NERVOUS SYSTEM: No facial droop. Speech is clear. Obeys simple commands. Moves extremities. EXTREMITIES: RLE had scar tissue from prior wound and chronic skin changes. LLE1+ pedal edema, wrapping around her cellulitis in place without soakage. Results & Data Results & Data ([facility]) Vital Signs (Past 12 Hours) Vital Signs Temp Pulse Pulse Resp BP Pulse Ox 10/18/21 15:50 36.9 C 88 18 164/63 H 97 10/18/21 13:05 36.7 C 82 16 173/85 H 96 10/18/21 12:15 75 14 159/85 H 94 10/18/21 12:05 77 11 L 157/88 H 95 10/18/21 11:55 36.7 C 76 14 179/94 H 97 10/18/21 11:45 76 13 165/81 H 100 10/18/21 11:35 75 14 179/94 H 98 10/18/21 11:26 37.0 C 74 15 154/71 H 98 10/18/21 07:12 37.0 C 98 H 20 160/73 H 96 (1) Cellulitis of leg Laterality: left Qualified Code(s): L03.116 - Cellulitis of left lower limb
[2021-10-18] MEDS: ACETAMINOPHEN 325 MG TAB PO PRN (19:11)
[2021-10-18] MEDS: hydrOXYzine HCl 25 MG TAB PO SCH (20:12)
[2021-10-19] MEDS: HYDROmorphone INJ 0.5 MG/0.5 ML SYR IV PRN ×2 (04:21→21:32)
[2021-10-19] MEDS ORDERED: DEXTROSE 5% 1,000 ML IV SCH (05:30)
[2021-10-19] MEDS: ceFAZolin 2000MG 2,000 MG/15 ML SYR IV SCH ×3 (05:35→21:32)
[2021-10-19] MEDS: ASPIRIN 81 MG ECTAB PO SCH (07:56)
[2021-10-19] MEDS: ATORVASTATIN 20 MG TAB PO SCH (07:56)
[2021-10-19] MEDS: FOLIC ACID 1 MG TAB PO SCH (07:57)
[2021-10-19] MEDS: METOPROLOL TARTRATE 25 MG TAB PO SCH ×2 (07:58→21:29)
[2021-10-19] MEDS: GABAPENTIN 800 MG TAB PO SCH ×2 (07:58→21:29)
[2021-10-19] MEDS: lisinopril 20 MG TAB PO SCH (07:58)
[2021-10-19] MEDS: oxyCODONE HCL IR 5 MG TAB (IMMEDIATE RELEASE) PO PRN ×2 (08:01→17:30)
[2021-10-19 08:29] LABS: Hematocrit (blood only) 39.3 % (37-47); Hemoglobin 12.8 g/dL (12.0-16.0); Mean Corpuscular Hemoglobin 31.4 pg (25-34); Mean Corpuscular Hgb Conc 32.6 g/dL (32-36); Mean Corpuscular Volume 96.6 fL (80-100); Mean Platelet Volume 9.2 fL (7.4-10.4); Platelet Count 314 K/uL (130-400); RDW Coefficient of Variation 17.9 % (11.5-14.5); RDW Standard Deviation 62.7 fL (36.4-46.3); Red Blood Count 4.07 M/uL (4.2-5.4); White Blood Count 15.78 K/uL (4.8-10.8)
[2021-10-19 08:51] LABS: BUN Creatinine Ratio 20.5 (10-20); Calcium 8.8 mg/dl (8.5-10.1); Creatinine Clr Calc Pharmacy 55.3 ml/min; Est GFR (African American) 42.2 ml/min; Est GFR (Non-African American) 36.5 ml/min; Potassium 4.6 mmol/L (3.5-5.1)
[2021-10-19] MEDS ORDERED: FUROSEMIDE 80 MG TAB PO SCH (09:00)
[2021-10-19] MEDS ORDERED: lisinopril 20 MG TAB PO SCH (09:00)
[2021-10-19] MEDS: INSULIN ASPART 100 UNITS/ML 3 ML PEN SC SCH ×4 (09:25→21:29)
--- NOTE | 2021-10-19 09:46 | Cardiology Progress Note ---
Date of Service October 19, 2021 Assessment & Plan (1) Bacteremia: (2) Severe sepsis: (3) Open wound of lower extremity: (4) Pyoderma gangrenosa: (5) CAD (coronary artery disease): (6) Atrial flutter: (7) Aortic stenosis: (8) Diabetes mellitus type 2 in obese: (9) HTN (hypertension): Plan: Medically complex 56-year-old woman presented with severe sepsis with UTI and lower extremity cellulitis. Thus far, blood cultures positive for Staphylococcus species. 2D echocardiogram was technically difficult/limited due to patient's body habitus ID consulted. Patient does carry history of bioprosthetic aortic valve replacement Cardiology has been asked to evaluate for KIT I believe this is appropriate and will likely perform during hospital stay. Otherwise,Lisinopril, spironolactone, HCTZ and atorvastatin were held upon admission. Recommend restarting atorvastatin now and others when acceptable from our nephrology colleagues perspective. Admission and Anticipated Discharge Date Admission Date: October 14, 2021 Results & Data ([facility]) Vital Signs (Past 12 Hours) Vital Signs Temp Pulse Pulse Resp BP Pulse Ox 10/19/21 04:38 36.8 C 84 18 129/64 95 10/18/21 22:36 37 C 98 H 18 112/71 93 10/18/21 22:19 99 H (1) Open wound of lower extremity Encounter type: initial encounter Laterality: left Qualified Code(s): S81.802A - Unspecified open wound, left lower leg, initial encounter
[2021-10-19] MEDS ORDERED: MIDAZOLAM HCL 1 MG/ML 2ML VIAL ONE (09:57)
[2021-10-19] MEDS ORDERED: fentaNYL citrate 100 MCG/2 ML VIAL ONE (09:57)
[2021-10-19] MEDS ORDERED: BENZOCAINE/TETRACAIN/BUTAM 50 APPLN/5 GM CAN EXT ONE (09:57)
--- NOTE | 2021-10-19 10:13 | Pre Anesthesia Assessment ---
Date of Service October 19, 2021 Pre Sedation Assessment Vital Signs Temp Pulse Pulse Pulse Resp BP BP 10/19/21 10:05 71 17 177/77 H 10/19/21 04:38 36.8 C 84 18 129/64 10/18/21 22:36 37 C 98 H 18 112/71 10/18/21 22:19 99 H 10/18/21 19:11 39.3 C H 10/18/21 19:00 38.3 C H 109 H 18 131/72 10/18/21 15:50 36.9 C 88 18 164/63 H 10/18/21 13:05 36.7 C 82 16 173/85 H 10/18/21 12:15 75 14 159/85 H 10/18/21 12:05 77 11 L 157/88 H 10/18/21 11:55 36.7 C 76 14 179/94 H 10/18/21 11:45 76 13 165/81 H 10/18/21 11:35 75 14 179/94 H 10/18/21 11:26 37.0 C 74 15 154/71 H Pulse Ox 10/19/21 10:05 95 10/19/21 04:38 95 10/18/21 22:36 93 10/18/21 22:19 10/18/21 19:11 10/18/21 19:00 94 10/18/21 15:50 97 10/18/21 13:05 96 10/18/21 12:15 94 10/18/21 12:05 95 10/18/21 11:55 97 10/18/21 11:45 100 10/18/21 11:35 98 10/18/21 11:26 98 Pre-Sedation Airway Assessment Smoking Status: Never smoker Short, Thick Neck: Yes Thyromental Distance: > or= 3.5 Finger Breadths Oral Cavity: + WNL Mallampati Class: III ASA: ASA3 NPO Status Date of Last Intake of Fluids: 10/19/21 Time of Last Intake of Fluids: 07:30 Date of Last Intake of Solid Food: 10/18/21 Notes The planned sedation has been discussed with the patient. Informed Consent was obtained. I have identified the patient, determined the appropriateness of sedation and have assessed the patient immediately prior to the procedure. All medicine(s) and interventions are by my order.
--- NOTE | 2021-10-19 10:40 | Post Anesthesia Assessment ---
Date of Service October 19, 2021 Post Sedation Assessment Vital Signs Temp Pulse Pulse Pulse Resp BP BP 10/19/21 10:36 81 16 106/58 L 10/19/21 10:27 82 16 122/84 10/19/21 10:22 84 16 141/110 H 10/19/21 10:05 71 17 177/77 H 10/19/21 04:38 36.8 C 84 18 129/64 10/18/21 22:36 37 C 98 H 18 112/71 10/18/21 22:19 99 H 10/18/21 19:11 39.3 C H 10/18/21 19:00 38.3 C H 109 H 18 131/72 10/18/21 15:50 36.9 C 88 18 164/63 H 10/18/21 13:05 36.7 C 82 16 173/85 H 10/18/21 12:15 75 14 159/85 H 10/18/21 12:05 77 11 L 157/88 H 10/18/21 11:55 36.7 C 76 14 179/94 H 10/18/21 11:45 76 13 165/81 H 10/18/21 11:35 75 14 179/94 H 10/18/21 11:26 37.0 C 74 15 154/71 H Pulse Ox 10/19/21 10:36 97 10/19/21 10:27 97 10/19/21 10:22 98 10/19/21 10:05 95 10/19/21 04:38 95 10/18/21 22:36 93 10/18/21 22:19 10/18/21 19:11 10/18/21 19:00 94 10/18/21 15:50 97 10/18/21 13:05 96 10/18/21 12:15 94 10/18/21 12:05 95 10/18/21 11:55 97 10/18/21 11:45 100 10/18/21 11:35 98 10/18/21 11:26 98 Recovery Score Activity: Moves 4 extremities Respiration: Deep Breath/Cough Circulation: +/-20% PreAnes Value Consciousness: Arouseable (by name) Oxygen Saturation: O2 needed for >90% Post Anesthesia Score: 8 Discharge Sedation Level of Care: Fast Track Phase II Post Sedation Plan On clinical assessment, the patient appears to have tolerated the sedation without complications. Patient is recovering as anticipated. Patient will continue to be monitored by nursing and may be discharged when sedation discharge criteria are met per below protocol. Upon Completions of procedure up to 15 minutes continue every 5 minute vital signs and the P.A.R. score; then discharge to a Phase I or Fast Track to Phase II per the following guidelines: * Discharge Patient to appropriate Phase II area if PAR is 8 or greater or return to pre- procedure baseline. The post - procedure orders will be as directed. * If PAR score is less than 8 or not return to pre-procedure baseline then patient will follow Phase I monitoring till PAR is reached for Phase II. The Phase I may be done in procedure room or may call to secure a Phase I area. * If naloxone or flumazenil are used for reversal, hold in Phase I for continued monitoring from when last reversal dose was given for a minimum of 60 minutes or longer pending the nurse and/or physician discretion of patient condition before discharge to Phase II. Please call the Sedation Physician to re-evaluate and complete post-note for discharge to Phase II area. Do NOT discharge from procedure sedation or Phase 1 until post- sedation babita luation note is complete by procedure /sedation MD Sedation Discharge Instructions to be given to the patient at discharge to home.
--- NOTE | 2021-10-19 11:14 | Nephrology Progress Note ---
Date of Service October 19, 2021 Assessment & Plan (1) Acute on chronic renal failure: Plan: recurrent Stage 1 TERESA on CKD; data lacking to eval oliguria status; baseline creatinine 1.1; had TERESA on presentation with renal recovery after conservative measures. Then October 19, creatinine to 1.6 from 1.0-day prior in the wake of extensive debridement with myomectomy and tenosynovectomy and with resumption of SENAIT inhibitor, of which she has had 2 doses along with Lasix -ACEI held now (did have dose this am and yesterday) -held lasix 80 mg po daily > can give prn sob and give IV -did order repeat urine studies -ok to continue D5W at 40 ml hourly for now -needs strict I/O (2) Bacteremia: Plan: 10/14 cxs blood and wound + for S aureus >> on cefazolin q8h Admission and Anticipated Discharge Date Admission Date: October 14, 2021 Subjective On October 18 underwent I&D of left lateral lower leg abscess in the OR with tenosynovectomy and partial myomectomy; this a.m., creatinine went from 1.0- >1.6. s/p KIT today. pt c/o fatigue and mild dyspnea, ++thirst (NPO when I saw her). c/o LLE pain. notes minimal uop and constipation Review of Systems Review of Systems: All systems reviewed & are unremarkable except as noted in Subjective Physical Exam Constitutional: well developed, well nourished, + obese and cooperative Eyes: EOM intact bilaterally ENMT: Ears: no external ear abnormality Nose: no external nose abnormality Mouth: + dry oral mucous membranes Neck: no nuchal rigidity Respiratory: normal respiratory effort Auscultation: + diminished lung sounds and + crackles Gastrointestinal (Abdomen): Inspection/Auscultation: normal bowel sounds Percussion/Palpation: abdomen soft; abdomen nontender Musculoskeletal: Extremities: strength 5/5 throughout Skin: no rashes, warm and dry Neurologic: messer, fluent speech, no tremor Results & Data ([facility]) Vital Signs (Past 12 Hours) Vital Signs Temp Pulse Pulse Resp BP Pulse Ox 10/19/21 10:55 71 16 147/73 H 92 10/19/21 10:48 83 16 126/78 92 10/19/21 10:41 98 H 10/19/21 10:40 82 16 111/65 96 10/19/21 10:36 81 16 106/58 L 97 10/19/21 10:27 82 16 122/84 97 10/19/21 10:22 84 16 141/110 H 98 10/19/21 10:05 71 17 177/77 H 95 10/19/21 04:38 36.8 C 84 18 129/64 95 Laboratory Results 10/19/21 07:27 10/19/21 07:27 Diagnostic Findings last UA at admission
--- NOTE | 2021-10-19 13:25 | Orthopedic Progress Note ---
Date of Service October 19, 2021 Assessment & Plan (1) Open wound of lower extremity: Plan: Postop day 1 status post I&D of left lower extremity wounds. Continue current antibiotics. Culture showing staph species. Plan for drain removal by tomorrow with advancementof iodoform packing as well. Admission and Anticipated Discharge Date Admission Date: October 14, 2021 Subjective Postop day 1 Patient sitting up in bed awake and alert. Patient underwent KIT today per cardiology. Patient states that she is feeling okay but is waiting for a lunch tray. Pain is controlled to the left lower extremity. Physical Exam Physical Exam: Dressings in the left lower extremity are clean, dry, and intact. She has 2 drains 1 with a Hemovac reservoir and the other with a grenade reservoir. Both have some mild drainage collection noted. Toes are p ink and warm. Toes are mobile. Results & Data ([facility]) Vital Signs (Past 12 Hours) Vital Signs Temp Pulse Pulse Resp BP Pulse Ox 10/19/21 11:37 37.0 C 72 20 131/70 99 10/19/21 11:05 80 16 112/72 94 10/19/21 10:55 71 16 147/73 H 92 10/19/21 10:48 83 16 126/78 92 10/19/21 10:41 98 H 10/19/21 10:40 82 16 111/65 96 10/19/21 10:36 81 16 106/58 L 97 10/19/21 10:27 82 16 122/84 97 10/19/21 10:22 84 16 141/110 H 98 10/19/21 10:05 71 17 177/77 H 95 10/19/21 04:38 36.8 C 84 18 129/64 95 (1) Open wound of lower extremity Encounter type: initial encounter Laterality: left Qualified Code(s): S81.802A - Unspecified open wound, left lower leg, initial encounter
--- NOTE | 2021-10-19 14:43 | Hospitalist Progress Note ---
Date of Service October 19, 2021 Assessment & Plan (1) Severe sepsis: (2) Cellulitis of leg: (3) Bacteremia: Plan: 56-year-old lady with PMH of chronic diastolic heart failure [EF 60 to 64%, TTE 2019], bicuspid aortic stenosis status post surgery, a flutter status post cardioversion, hypertension, hyperlipidemia, DM two insulin requiring, chronic LE wounds/swelling secondary to cutaneous vasculitis/pyoderma gangrenosum and psoriatic arthritis on methotrexate presented 10/14 to our ED with complaint of worsening left lower leg swelling and left ankle hurting when walking. She is being managed for the following: #. Sepsis #. LLE cellulitis/Myonecorsi, peroneals/Septic tenosynovitis of the peroneus longus and peroneus brevis tendons no acute #. Bacteremia - Patient has bioprosthetic valve replaced. Patient has a prolonged history of chronic LE swelling/wounds/recurrent infections secondary to vasculitis/pyoderma gangrenosum on monthly IVIG outpatient Outpatient biopsy done by dermatology showed pyoderma gangrenosum in 2016. Leg wounds healed slowly over time. Currently on monthly IVIG. Last week [employer], patient noted increased swelling on left ankle later on involving left leg. Scant drainage from chronic LE wound. Fever & chills at home. At presentation patient met SIRS criteria. Admitting lower extremity CT: Compatible with cellulitis without evidence of underlying abscess or osteomyelitis Admitting LLE Doppler: Negative for DVT. 10/16 MRI lower leg: Extensive cellulitis. Intramuscular abscess along the peroneus tendon. No evidence of osteomyelitis. Patient started on cefepime 10/15 and vancomycin 10/14---> 10/14 blood culture positive for gram-positive cocci -->10/14 nafcillin ---> WBC went up though minimally from prior day; and final C/S out hence 10/15 Ancef. 10/14 wound culture positive for staph aureus and group B beta strep. 10/14 blood culture: Positive for staph species, follow-up final results. Repeat 10/16 blood culture: No growth after 48 hours, follow final results. 10/17 echo: Normal LV systolic function with EF of 65 to 70%, grade 1 diastolic dysfunction, poor visualization of bioprosthetic valve and other valvular structure. 10/18 KIT: IE of prosthetic valve of Aorta per cardiology. Cardiology on board. Discussed with cardiology. For LLE abscess and myonecrosis, orthopedic consulted, 10/18 status post left lateral lower leg incision and drainage of abscess and debridement of myonecrosis with tenosynovectomy, debridement of left lateral leg ulceration with sinus tract. Given recurrent nature of her cellulitis complicated by her immunocompromised state and bacteremia, infectious disease consultedawaiting recommendation. Nursing working supervisor made aware Continue with Ancef. #. TERESA over CKD Last confinement April 2017 for ARF. September 2021 outpatient lab: Creatinine 1.04 Creatinine again up trending Nephro onboard: lasix prn; hold lisinopril; Hold home dose spironolactone and HCTZ. Renal ultrasound negative for acute changes Continue to monitor BMP daily, c/w IVF per nephro #. Likely UTI Patient reports not having any pain or burning while passing urine prior and after arrival to the hospital. Admitting UA suggestive of UTI, culture positive for Trudy glabrata complex, will not treated. Continue to monitor. #. Rhabdomyolysis Secondary to illness Continue to monitor daily CK. Creatinine kinase trending down We will not need further monitoring. #. Chronic diastolic heart failure #. Other cardiac history: Bicuspid ASD status post surgery, a flutter status post cardioversion 2019 TTE: Ejection fraction 60 to 64% Admitting CXR: Cardiomegaly with pulmonary vascular congestion. Patient NSR, continue home meds as appropriate, we will continue to monitor. #. DM type II insulin requiring A1c September 2020 on outpatient lab: A1c 8.0% Poorly controlled diabetes, diabetic control is important for wound healing We will consult glycemic pharmacy for inpatient management and discharge recommendation DVT prophylaxis. Resume Heparin SQ. Full code Disposition: For PICC line --> consent obtained & order placed, discharge with recommendation from ID to home. We will get clearance from nephrology, cardiology, orthopedics. Expect discharge in 1 to 2 days to home if ID makes recommendations, her kidney function normalizes, and orthopedic is okay. Admission and Anticipated Discharge Date Admission Date: October 14, 2021 Subjective Patient was sitting up in bed, on room air, looks anxious and in mild distress, complaining that she is not getting food to eat and she has not gotten the bed with handle so that she can adjust her position. Patient denies any acute events overnight. Patient just came from KIT, will resume her diet after bedside swallow screen 2 to 3 hours post KIT. Patient denies headache/dizziness/chest pain/palpitation/other review of symptoms. Physical Exam Physical Exam: GENERAL: Alert and oriented x3. anxious, on RA.. Morbidly obese. HEENT: No pallor, no icterus. Pupils equal, round and reactive to light. Oral mucosa moist. NECK: No JVD, no neck masses. HEART: S1 and S2 heard. Regular rate and rhythm. No murmur, no gallop. RESPIRATORY SYSTEM: Normal AP diameter. No accessory muscle use. No wheezing, no crackles. ABDOMEN: Soft, bowel sounds present, nontender, no distention. CENTRAL NERVOUS SYSTEM: No facial droop. Speech is clear. Obeys simple commands. Moves extremities. EXTREMITIES: RLE had scar tissue from prior wound and chronic skin changes. LLE1+ pedal edema, wrapping around her cellulitis in place without soakage. Results & Data Results & Data ([facility]) Vital Signs (Past 12 Hours) Vital Signs Temp Pulse Pulse Resp BP Pulse Ox 10/19/21 11:37 37.0 C 72 20 131/70 99 10/19/21 11:05 80 16 112/72 94 10/19/21 10:55 71 16 147/73 H 92 10/19/21 10:48 83 16 126/78 92 10/19/21 10:41 98 H 10/19/21 10:40 82 16 111/65 96 10/19/21 10:36 81 16 106/58 L 97 10/19/21 10:27 82 16 122/84 97 10/19/21 10:22 84 16 141/110 H 98 10/19/21 10:05 71 17 177/77 H 95 10/19/21 04:38 36.8 C 84 18 129/64 95 (1) Cellulitis of leg Laterality: left Qualified Code(s): L03.116 - Cellulitis of left lower limb
[2021-10-19] MEDS: hydrOXYzine HCl 25 MG TAB PO SCH (21:28)
[2021-10-19] MEDS: INSULIN GLARGINE 100 UNIT/ML VIAL SC SCH (21:29)
[2021-10-19] MEDS: HEPARIN SOD 5,000 UNIT/0.5 ML VIAL SQ SCH (22:34)
[2021-10-19 23:49] LABS: Appearance Urine Clear (Clear); Bacteria Urine Automated Negative (Negative); Bilirubin Urine Negative (Negative); Blood Urine 3+ (Negative); Color Urine Yellow; Epithelial Cell Urine Auto >30 /lpf (0-5); Glucose Urine UA 3+ (Negative); Ketones Urine Trace (Negative); Leukocyte Esterase Urine Negative (Negative); Nitrite Urine Negative (Negative); Protein Urine 1+ (Negative); Specific Gravity Urine 1.019 (1.000-1.030); Urobilinogen Urine Negative (Negative)
[2021-10-20] MEDS: oxyCODONE HCL IR 5 MG TAB (IMMEDIATE RELEASE) PO PRN ×4 (02:42→21:01)
[2021-10-20] MEDS: HEPARIN SOD 5,000 UNIT/0.5 ML VIAL SQ SCH ×3 (06:50→21:02)
[2021-10-20] MEDS: ceFAZolin 2000MG 2,000 MG/15 ML SYR IV SCH ×3 (06:50→21:01)
[2021-10-20 08:30] LABS: Hematocrit (blood only) 36.5 % (37-47); Hemoglobin 11.8 g/dL (12.0-16.0); Mean Corpuscular Hemoglobin 30.8 pg (25-34); Mean Corpuscular Hgb Conc 32.3 g/dL (32-36); Mean Corpuscular Volume 95.3 fL (80-100); Mean Platelet Volume 8.8 fL (7.4-10.4); Platelet Count 298 K/uL (130-400); RDW Coefficient of Variation 17.9 % (11.5-14.5); RDW Standard Deviation 61.9 fL (36.4-46.3); Red Blood Count 3.83 M/uL (4.2-5.4); White Blood Count 13.73 K/uL (4.8-10.8)
[2021-10-20] MEDS: INSULIN ASPART 100 UNITS/ML 3 ML PEN SC SCH ×4 (08:41→21:05)
[2021-10-20] MEDS: ASPIRIN 81 MG ECTAB PO SCH (08:43)
[2021-10-20] MEDS: ATORVASTATIN 20 MG TAB PO SCH (08:44)
[2021-10-20] MEDS: GABAPENTIN 800 MG TAB PO SCH ×2 (08:44→21:03)
[2021-10-20] MEDS: FOLIC ACID 1 MG TAB PO SCH (08:44)
[2021-10-20] MEDS: INSULIN GLARGINE 100 UNIT/ML VIAL SC SCH ×2 (08:46→21:05)
[2021-10-20] MEDS: METOPROLOL TARTRATE 25 MG TAB PO SCH ×2 (08:47→21:03)
[2021-10-20 09:23] LABS: BUN Creatinine Ratio 26.4 (10-20); Calcium 8.8 mg/dl (8.5-10.1); Creatinine Clr Calc Pharmacy 62.4 ml/min; Est GFR (African American) 48.9 ml/min; Est GFR (Non-African American) 42.2 ml/min; Potassium 5.2 mmol/L (3.5-5.1)
[2021-10-20] MEDS ORDERED: FUROSEMIDE INJ 20 MG/2 ML VIAL IV ONE (10:19)
--- NOTE | 2021-10-20 10:20 | Nephrology Progress Note ---
Date of Service October 20, 2021 Assessment & Plan (1) Acute on chronic renal failure: Plan: Improving and recurrent nonoliguric stage 1 TERESA on CKD; baseline creatinine 1.1; had TERESA on presentation with renal recovery after conservative measures. Then October 19, creatinine to 1.6 from 1.0-day prior in the wake of extensive debridement with myomectomy and tenosynovectomy and with resumption of SENAIT inhibitor, of which she has had 2 doses along with Lasix 1 dose. Some improvement today but mild hyperkalemia. Repeat urine studies essentially unchanged from admission and notable for glucosuria proteinuria microhematuria. -ACEI held now (did receive doses October 18 and ) -held lasix 80 mg po daily (her outpatient medication)> can give prn sob and would give 40-60 mg IV -Ordered low potassium diet -will give lasix IV 10 mg x 1 for K -needs strict I/O to continue pls (2) Bacteremia: Plan: 10/14 cxs blood and wound + for S aureus >> on cefazolin q8h; inf dzs following Admission and Anticipated Discharge Date Admission Date: October 14, 2021 Subjective sitting up in chair, just had pain med recently and dressings just changed/some foot pain; no sob, no n/v; no new/worrisome voiding sx; tolerating minimal rowena seen on rounds at about 11AM Review of Systems Review of Systems: All systems reviewed & are unremarkable except as noted in Subjective Physical Exam Constitutional: well developed, well nourished, + obese, cooperative and + lethargic Eyes: EOM intact bilaterally ENMT: Ears: no external ear abnormality Nose: no external nose abnormality Mouth: + dry oral mucous membranes Neck: no nuchal rigidity Respiratory: normal respiratory effort Auscultation: + diminished lung sounds and + crackles Cardiovascular: Rate/Rhythm: regular rate and regular rhythm Extremities: no edema Gastrointestinal (Abdomen): Inspection/Auscultation: normal bowel sounds Percussion/Palpation: abdomen soft; abdomen nontender Musculoskeletal: Extremities: strength 5/5 throughout Skin: no rashes, warm and dry LLE wound dressed Neurologic: Motor/Sensory: no tremor messer, mildly sedated but answers appropriately Results & Data ([facility]) Vital Signs (Past 12 Hours) Vital Signs Temp Pulse Pulse Resp BP Pulse Ox 10/20/21 09:23 92 H 10/20/21 07:00 37.2 C 87 20 133/67 94 10/20/21 04:02 37.0 C 96 H 18 147/74 H 93 10/20/21 00:00 108 H 10/19/21 23:00 37.7 C H 56 L 18 124/56 L 93 Laboratory Results 10/20/21 08:15 10/20/21 08:15 UA w/ protein, blood, ketones, glucose
--- NOTE | 2021-10-20 10:26 | Orthopedic Progress Note ---
Date of Service October 20, 2021 Assessment & Plan (1) Open wound of lower extremity: Plan: Postop day 2 status post I&D of left lower extremity wounds. Continue current antibiotics. Culture showing MSSA. Continue daily dressing changes. Plan for all packing removal tomorrow. Continue elevation when at rest. Admission and Anticipated Discharge Date Admission Date: October 14, 2021 Subjective POD 2 s/p I&D of LLE Pt sitting in chair at bedside. No complaints at this time. Pain controlled fairly well. Pt with neuropathy on part of the LE. Physical Exam Physical Exam: Dressings with minimal drainage noted on the posterior portion of her Vu wrap. Dressing taken down. Hemovac drain removed. Minimal drainage noted at drain sites. Multiple sites with iodiform packing. All pkg removed except for one proximal piece due to length. Wound site with some pink base and some mild slough noted. Sutures intact. Redressed with Adaptic, 4x4's, ABD's, and kerlix. Results & Data ([facility]) Vital Signs (Past 12 Hours) Vital Signs Temp Pulse Pulse Resp BP Pulse Ox 10/20/21 09:23 92 H 10/20/21 07:00 37.2 C 87 20 133/67 94 10/20/21 04:02 37.0 C 96 H 18 147/74 H 93 10/20/21 00:00 108 H 10/19/21 23:00 37.7 C H 56 L 18 124/56 L 93 (1) Open wound of lower extremity Encounter type: initial encounter Laterality: left Qualified Code(s): S81.802A - Unspecified open wound, left lower leg, initial encounter
[2021-10-20] MEDS: HYDROmorphone INJ 0.5 MG/0.5 ML SYR IV PRN ×2 (10:38→22:29)
--- NOTE | 2021-10-20 10:58 | Cardiology Progress Note ---
Date of Service October 20, 2021 Assessment & Plan (1) Bacteremia: (2) Severe sepsis: (3) Open wound of lower extremity: (4) Pyoderma gangrenosa: (5) CAD (coronary artery disease): (6) Atrial flutter: (7) Aortic stenosis: (8) Diabetes mellitus type 2 in obese: (9) HTN (hypertension): Plan: Medically complex 56-year-old woman presented with severe sepsis with UTI and lower extremity cellulitis. Thus far, blood cultures positive for Staphylococcus species. 2D echocardiogram was technically difficult/limited due to patient's body habitus Bioprosthetic aortic valve endocarditis. Will require prolonged antibiotic therapy. Has been restarted on outpatient cardiac medication regimen and should be continued. Okay to DC telemetry or to home from a cardiac standpoint. Admission and Anticipated Discharge Date Admission Date: October 14, 2021 Subjective Patient seen and examined, chart reviewed. Currently out of bed seated upright in a chair stating that she feels relatively well today. Leg still little sore but otherwise well. Denies chest pain, shortness of breath, palpitations or lightheadedness. Telemetry reviewed: Normal sinus rhythm without arrhythmia. Review of Systems Review of Systems: All systems reviewed & are unremarkable except as noted in HPI & below Physical Exam Physical Exam: General: Awake, alert and oriented x 3. No acute distress. HEENT: Normocephalic, atraumatic. Pupils equal, round and reactive to light and accommodation. Extraocular muscles are intact. Anicteric sclera. Moist mucous membranes. Neck: No JVD. No bruit. Cardiovascular: Regular. Positive S-4. Normal S-1 and S-2. No S-3. 3/6 mid to late systolic ejection murmur, greatest at the right sternal border, second intercostal space with radiation to the bilateral carotids. No rubs. Pulmonary: Clear to auscultation bilaterally. No rales, rhonchi, or wheezing. Abdomen: Bowel sounds x 4, soft. No rebound, guarding or tenderness. No organomegaly. Extremities: No clubbing, cyanosis or edema. +2 pedal pulses bilaterally. Skin: Warm and dry. Results & Data ([facility]) Vital Signs (Past 12 Hours) Vital Signs Temp Pulse Pulse Resp BP Pulse Ox 10/20/21 09:23 92 H 10/20/21 07:00 37.2 C 87 20 133/67 94 10/20/21 04:02 37.0 C 96 H 18 147/74 H 93 10/20/21 00:00 108 H 10/19/21 23:00 37.7 C H 56 L 18 124/56 L 93 (1) Open wound of lower extremity Encounter type: initial encounter Laterality: left Qualified Code(s): S81.802A - Unspecified open wound, left lower leg, initial encounter
--- NOTE | 2021-10-20 15:29 | Pharmacy Report ---
Pharmacy Glycemic Short Note 2 - Date of Service October 20, 2021 - Glycemic Short BSG Results (Last 24 hours): 10/19/21 10/19/21 10/20/21 16:35 21:15 07:43 Glucose POC Glucose 122 H 150 H 174 H 10/20/21 10/20/21 08:15 11:35 Glucose 177 H POC Glucose 173 H OUTPATIENT ANTIDIABETIC REGIMEN: * A1C- 8.4% (10/15/21) * Tresiba 80units SQ BID * Trulicity 3mg SQ weekly * empagliflozin 25mg PO daily * Humulin U-500: 80units (breakfast/lunch), 86 units (dinner)- high carb meal. 50 units low carb meal. 20 units w/ snacks. ASSESSMENT: 10/20/21 * Patient received total of 34 units of insulin yesterday, of which 30 units were basal - reduced dosing due to NPO status * Fasting BSG 174 mg/dL - when patient was eating 120 units of basal too much, plan to trial 70-90 units of basal * Continue same CF/CR 10/17/21 * Blood sugars at goal or under goal * Fasting 82mg/dl - decrease Lantus and loosen CR to prevent hypoglycemia 10/16/21 * Initiate basal/bolus SQ insulin regimen * Will resume basal regimen with Lantus 80 units BID (similar to degludec outpt regimen) to start * Novolog ACHS scale started yesterday with correction of 25mg/dl/unit and CHO of 15, however BSGs increased throughout the day. Correction & carb ratios tightened. * BSGs today within goal range. AM fasting BSG slightly below goal however. Plan to dose Lantus tonight per scale. * Requiring significantly less insulin coverage than outpatient regimen currently. Will monitor for increasing needs. PLAN FOR INPATIENT GLYCEMIC CONTROL: * Hold outpatient diabetes medications * Basal insulin * Lantus 50 units this AM - then 20-40 units HS per scale * Bolus insulin * NovoLog per scale ACHS or Q6hrs while NPO * Goal Range: Low 110mg/dL - High 140 mg/dL * Correction Factor: 20 mg/dL/unit * Nutritional / Prandial insulin per carb ratio of 1 unit per 7 grams CHO consumed
--- NOTE | 2021-10-20 18:40 | Hospitalist Progress Note ---
Date of Service October 20, 2021 Assessment & Plan (1) Severe sepsis: (2) Cellulitis of leg: (3) Bacteremia: Plan: 56-year-old lady with PMH of chronic diastolic heart failure [EF 60 to 64%, TTE 2019], bicuspid aortic stenosis status post surgery, a flutter status post cardioversion, hypertension, hyperlipidemia, DM two insulin requiring, chronic LE wounds/swelling secondary to cutaneous vasculitis/pyoderma gangrenosum and psoriatic arthritis on methotrexate presented 10/14 to our ED with complaint of worsening left lower leg swelling and left ankle hurting when walking. She is being managed for the following: #. Sepsis #. LLE cellulitis/Myonecorsi, peroneals/Septic tenosynovitis of the peroneus longus and peroneus brevis tendons no acute #. Bacteremia - Patient has bioprosthetic valve replaced. Patient has a prolonged history of chronic LE swelling/wounds/recurrent infections secondary to vasculitis/pyoderma gangrenosum on monthly IVIG outpatient Outpatient biopsy done by dermatology showed pyoderma gangrenosum in 2016. Leg wounds healed slowly over time. Currently on monthly IVIG. Last week [employer], patient noted increased swelling on left ankle later on involving left leg. Scant drainage from chronic LE wound. Fever & chills at home. At presentation patient met SIRS criteria. Admitting lower extremity CT: Compatible with cellulitis without evidence of underlying abscess or osteomyelitis Admitting LLE Doppler: Negative for DVT. 10/16 MRI lower leg: Extensive cellulitis. Intramuscular abscess along the peroneus tendon. No evidence of osteomyelitis. Patient started on cefepime 10/15 and vancomycin 10/14---> 10/14 blood culture positive for gram-positive cocci -->10/14 nafcillin ---> WBC went up though minimally from prior day; and final C/S out hence 10/15 Ancef. 10/14 wound culture positive for staph aureus and group B beta strep. 10/14 blood culture: Positive for staph species, follow-up final results. Repeat 10/16 blood culture: No growth after 48 hours, follow final results. 10/17 echo: Normal LV systolic function with EF of 65 to 70%, grade 1 diastolic dysfunction, poor visualization of bioprosthetic valve and other valvular structure. 10/18 KIT: IE of prosthetic valve of Aorta --small Cardiology on board. Discussed with cardiology. Discussed with infectious disease. For LLE abscess and myonecrosis, orthopedic consulted, 10/18 status post left lateral lower leg incision and drainage of abscess and debridement of myonecrosis with tenosynovectomy, debridement of left lateral leg ulceration with sinus tract. Recommending daily dressing changes. Plan for all packing removal tomorrow. Recommend elevation when at rest. Infectious disease contacted me by Aiden guthrie during the day, recommending evaluation for bioprosthetic valve removal. Updated cardiology. Cardiology okay with discharging her on prolonged antibiotic therapy. Patient updated on discussions with both infectious disease and cardiology, patient denied the possibility of transfer to [facility] for evaluation for bioprosthetic valve removal. Patient agreed to follow-up with cardiology as an outpatient very closely for necessity of surgical evaluation of her bioprosthetic valve endocarditis. ID recommended adding rifampin to her Ancef. Continue with Ancef and rifampin. Per ID patient will need 6 weeks of therapy after removal of bioprosthetic valve. Patient will need to establish with infectious disease and cardiology as an outpatient for further management and plan since she declines transfer to [facility] at this moment. #. TERESA over CKD Last confinement April 2017 for ARF. September 2021 outpatient lab: Creatinine 1.04 Creatinine again up trending Nephro onboard: lasix prn; hold lisinopril; Hold home dose spironolactone and HCTZ. Renal ultrasound negative for acute changes Continue to monitor BMP daily, c/w IVF per nephro #. Likely UTI Patient reports not having any pain or burning while passing urine prior and after arrival to the hospital. Admitting UA suggestive of UTI, culture positive for Trudy glabrata complex, will not treated. Continue to monitor. #. Rhabdomyolysis Secondary to illness Continue to monitor daily CK. Creatinine kinase trending down We will not need further monitoring. #. Chronic diastolic heart failure #. Other cardiac history: Bicuspid ASD status post surgery, a flutter status post cardioversion 2019 TTE: Ejection fraction 60 to 64% Admitting CXR: Cardiomegaly with pulmonary vascular congestion. Patient NSR, continue home meds as appropriate, we will continue to monitor. #. DM type II insulin requiring A1c September 2020 on outpatient lab: A1c 8.0% Poorly controlled diabetes, diabetic control is important for wound healing We will consult glycemic pharmacy for inpatient management and discharge recommendation DVT prophylaxis. Resume Heparin SQ. Full code Disposition: Possible DC tomorrow after clearance from orthopedics and nephrology to home with home health. Cardiology is okay with discharge with prolonged antibiotic therapy. Admission and Anticipated Discharge Date Admission Date: October 14, 2021 Subjective Patient was seen and examined at bedside, patient was sitting up in chair, on room air, no new acute events overnight, denies fever/chills/headache/chest pain/palpitation/other review of symptoms. Per RN, patient had trouble/weakness while walking to the bathroom, hence consulted PT/OT for evaluation. Physical Exam Physical Exam: GENERAL: Alert and oriented x3. anxious, on RA. Morbidly obese. HEENT: No pallor, no icterus. Pupils equal, round and reactive to light. Oral mucosa moist. NECK: No JVD, no neck masses. HEART: S1 and S2 heard. Regular rate and rhythm. No murmur, no gallop. RESPIRATORY SYSTEM: Normal AP diameter. No accessory muscle use. No wheezing, no crackles. ABDOMEN: Soft, bowel sounds present, nontender, no distention. CENTRAL NERVOUS SYSTEM: No facial droop. Speech is clear. Obeys simple commands. Moves extremities. EXTREMITIES: RLE had scar tissue from prior wound and chronic skin changes. BLE1+ pedal edema, wrapping around her cellulitis in place without soakage. Results & Data Results & Data ([facility]) Vital Signs (Past 12 Hours) Vital Signs Temp Pulse Pulse Resp BP Pulse Ox 10/20/21 16:30 87 10/20/21 15:00 37.0 C 96 H 20 97/57 L 97 10/20/21 11:00 36.5 C 85 20 131/68 93 10/20/21 09:23 92 H 10/20/21 07:00 37.2 C 87 20 133/67 94 (1) Cellulitis of leg Laterality: left Qualified Code(s): L03.116 - Cellulitis of left lower limb
[2021-10-20 19:36] LABS: CK Total 2544 U/L (29-143); CK-MB 0 % (<5); CK-MM 100 % (95-100)
[2021-10-20] MEDS: rifAMPin 300 MG CAPSULE PO SCH (21:01)
[2021-10-20] MEDS: hydrOXYzine HCl 25 MG TAB PO SCH (21:03)
[2021-10-21] MEDS: rifAMPin 300 MG CAPSULE PO SCH ×3 (04:42→21:27)
[2021-10-21] MEDS: HEPARIN SOD 5,000 UNIT/0.5 ML VIAL SQ SCH ×3 (04:42→21:27)
[2021-10-21] MEDS: oxyCODONE HCL IR 5 MG TAB (IMMEDIATE RELEASE) PO PRN ×3 (04:46→21:29)
[2021-10-21] MEDS: ceFAZolin 2000MG 2,000 MG/15 ML SYR IV SCH ×3 (05:42→21:29)
[2021-10-21 07:09] LABS: Hematocrit (blood only) 36.4 % (37-47); Hemoglobin 11.8 g/dL (12.0-16.0); Mean Corpuscular Hemoglobin 30.8 pg (25-34); Mean Corpuscular Hgb Conc 32.4 g/dL (32-36); Platelet Count 342 K/uL (130-400); RDW Coefficient of Variation 17.7 % (11.5-14.5); RDW Standard Deviation 61.5 fL (36.4-46.3); Red Blood Count 3.83 M/uL (4.2-5.4); White Blood Count 10.75 K/uL (4.8-10.8)
[2021-10-21 07:42] LABS: BUN Creatinine Ratio 33.8 (10-20); Calcium 9.2 mg/dl (8.5-10.1); Creatinine Clr Calc Pharmacy 65.5 ml/min; Est GFR (African American) 50.6 ml/min; Est GFR (Non-African American) 43.7 ml/min; Magnesium 2.6 mg/dl (1.8-2.4); Potassium 4.8 mmol/L (3.5-5.1)
[2021-10-21] MEDS: ATORVASTATIN 20 MG TAB PO SCH (08:22)
[2021-10-21] MEDS: ASPIRIN 81 MG ECTAB PO SCH (08:22)
[2021-10-21] MEDS: METOPROLOL TARTRATE 25 MG TAB PO SCH ×2 (08:22→21:27)
[2021-10-21] MEDS: FOLIC ACID 1 MG TAB PO SCH (08:22)
[2021-10-21] MEDS: GABAPENTIN 800 MG TAB PO SCH ×2 (08:22→21:26)
[2021-10-21] MEDS: INSULIN ASPART 100 UNITS/ML 3 ML PEN SC SCH ×4 (08:23→21:28)
[2021-10-21] MEDS: INSULIN GLARGINE 100 UNIT/ML VIAL SC SCH ×2 (08:24→21:28)
--- NOTE | 2021-10-21 09:17 | Hospitalist Progress Note ---
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 She is being managed for the following: Sepsis LLE cellulitis/Myonecrosis, peroneals/Septic tenosynovitis of the peroneus longus and peroneus brevis tendons Bacteremia - Patient has aortic bioprosthetic valve Endocarditis Patient has a prolonged history of chronic LE swelling/wounds/recurrent infections secondary to vasculitis/pyoderma gangrenosum on monthly IVIG outpatient Outpatient biopsy done by dermatology showed pyoderma gangrenosum in 2017. Leg wounds healed slowly over time. Currently on monthly IVIG. Last week [facility], patient noted increased swelling on left ankle later on involving left leg. Scant drainage from chronic LE wound. Fever & chills at home. At presentation patient met SIRS criteria. Admitting lower extremity CT: Compatible with cellulitis without evidence of underlying abscess or osteomyelitis Admitting LLE Doppler: Negative for DVT. 10/16 MRI lower leg: Extensive cellulitis. Intramuscular abscess along the peroneus tendon. No evidence of osteomyelitis. Patient started on cefepime 10/15 and vancomycin 10/14---> 10/14 blood culture positive for gram-positive cocci -->10/14 nafcillin ---> WBC went up though minimally from prior day; and final C/S out hence 10/15 Ancef. 10/14 wound culture positive for staph aureus and group B beta strep. 10/14 blood culture: Positive for staph species, follow-up final results. Repeat 10/16 blood culture: No growth after 48 hours, follow final results. 10/17 echo: Normal LV systolic function with EF of 65 to 70%, grade 1 diastolic dysfunction, poor visualization of bioprosthetic valve and other valvular structure. 10/18 KIT: IE of aortic prosthetic valve Cardiology consulted Discussed with cardiology. Discussed with infectious disease. For LLE abscess and myonecrosis, orthopedic consulted, 10/18 s/p left lateral lower leg incision and drainage of abscess and debridement of myonecrosis with tenosynovectomy, debridement of left lateral leg ulceration with sinus tract. Recommending daily dressing changes. Recommend elevation when at rest. Infectious disease recommending evaluation for bioprosthetic valve removal. Updated cardiology. Cardiology okay with discharging her on prolonged antibiotic therapy. Patient updated on discussions with both infectious disease and cardiology, patient denied the possibility of transfer to [place] for evaluation for bioprosthetic valve removal. Patient agreed to follow-up with cardiology as an outpatient very closely for necessity of surgical evaluation of her bioprosthetic valve endocarditis. ID recommended adding rifampin to her Ancef. Continue with Ancef and rifampin. Per ID patient will need 6 weeks of therapy after removal of bioprosthetic valve. Patient will need to establish with infectious disease and cardiology as an outpatient for further management and plan since she declines transfer to [place] at this moment. TERESA over CKD Last confinement April 2017 for ARF. September 2021 outpatient lab: Creatinine 1.04 Creatinine again up trending Nephrology consulted: lasix prn; hold lisinopril; Hold home dose spironolactone and HCTZ. Renal ultrasound negative for acute changes Continue to monitor BMP daily, c/w IVF per nephro Likely UTI Patient reports not having any pain or burning while passing urine prior and after arrival to the hospital. Admitting UA suggestive of UTI, culture positive for Trudy glabrata complex, no treatment necessary Continue to monitor. Rhabdomyolysis Secondary to illness Continue to monitor daily CK. Creatinine kinase trending down We will not need further monitoring. Chronic diastolic heart failure Other cardiac history: Bicuspid ASD status post surgery, A flutter s/p cardioversion 2019 TTE: Ejection fraction 60 to 64% Admitting CXR: Cardiomegaly with pulmonary vascular congestion. Patient NSR, continue home meds as appropriate, we will continue to monitor. DM type II insulin requiring A1c September 2020 on outpatient lab: A1c 8.0% Poorly controlled diabetes, diabetic control is important for wound healing Glycemic pharmacy for inpatient management and discharge recommendation DVT prophylaxis. Resume Heparin SQ. Full code Disposition: Possible DC on Tuesday after clearance from orthopedics and nephrology to home with home health. Cardiology is okay with discharge with prolonged antibiotic therapy. Admission and Anticipated Discharge Date Admission Date: October 14, 2021 Subjective Pt seen in follow up of bacteremia, endocarditis, LLE cellulitis/ abscess Patient is currently sitting up in chair in [facility], inquiring about going home She is aware of ID recommendation for surgery and she has no interest in that at this time She denies any chest pain, shortness of breath, abd. pain, n/v, dizzniess or lightheadedness She has no complaints Review of Systems Review of Systems: All systems reviewed & are unremarkable except as noted in Subjective Physical Exam Physical Exam: GENERAL: Morbidly obese F in NAD. HEENT: NC/AT. EOMI, PERRL. NECK: No JVD, no neck masses. HEART: S1 and S2 heard. Regular rate and rhythm. No murmur, no gallop. RESPIRATORY: Normal AP diameter. No accessory muscle use. No wheezing, no crackles. ABDOMEN: Soft, bowel sounds present, nontender, no distention.+ obese NEURO: Alert and oriented and answering questions appropriately. No facial droop. Speech is clear. Moves extremities. EXTREMITIES: RLE had scar tissue from prior wound and chronic skin changes. BLE1+ pedal edema, wrapping around her cellulitis in place without soakage. Results & Data Results & Data ([facility]) Vital Signs (Past 12 Hours) Vital Signs Temp Pulse Pulse Resp BP Pulse Ox 10/21/21 07:56 37.0 C 92 H 18 109/65 94 10/21/21 07:32 92 H 10/21/21 04:06 37.2 C 90 18 115/68 97 10/21/21 00:00 101 H 10/20/21 23:07 37.0 C 92 H 18 142/81 H 94 Laboratory Results 10/21/21 10/21/21 10/21/21 Range/Units 07:19 06:46 06:46 WBC 10.75 (4.8-10.8) K/uL RBC 3.83 L (4.2-5.4) M/uL Hgb 11.8 L (12.0-16.0) g/dL Hct 36.4 L (37-47) % MCV 95.0 (80-100) fL MCH 30.8 (25-34) pg MCHC 32.4 (32-36) g/dL RDW Std Deviation 61.5 H (36.4-46.3) fL RDW Coeff of Cortez 17.7 H (11.5-14.5) % Plt Count 342 (130-400) K/uL MPV 9.0 (7.4-10.4) fL Sodium 132 L (136-145) mmol/L Potassium 4.8 (3.5-5.1) mmol/L Chloride 104 (98-107) mmol/L Carbon Dioxide 22 (21-32) mmol/L Anion Gap 6.0 (3-11) BUN 46 H (7-18) mg/dl Creatinine 1.36 H (0.6-1.2) mg/dl Est Cr Clr Drug Dosing 65.5 ml/min Est GFR ( Amer) 50.6 ml/min Est GFR (Non-Af Amer) 43.7 ml/min BUN/Creatinine Ratio 33.8 H (10-20) Glucose 151 H (70-99) mg/dl POC Glucose 138 H (70-99) mg/dl Calcium 9.2 (8.5-10.1) mg/dl Magnesium 2.6 H (1.8-2.4) mg/dl Creatine Kinase (29-143) U/L CK-MM (CK-3) (95-100) % CK-MB (CK-2) (<5) % CK-BB (CK-1) (None Detected) % Creatine Kinase Interp 10/20/21 10/20/21 10/20/21 Range/Units 20:14 16:47 11:35 WBC (4.8-10.8) K/uL RBC (4.2-5.4) M/uL Hgb (12.0-16.0) g/dL Hct (37-47) % MCV (80-100) fL MCH (25-34) pg MCHC (32-36) g/dL RDW Std Deviation (36.4-46.3) fL RDW Coeff of Cortez (11.5-14.5) % Plt Count (130-400) K/uL MPV (7.4-10.4) fL Sodium (136-145) mmol/L Potassium (3.5-5.1) mmol/L Chloride (98-107) mmol/L Carbon Dioxide (21-32) mmol/L Anion Gap (3-11) BUN (7-18) mg/dl Creatinine (0.6-1.2) mg/dl Est Cr Clr Drug Dosing ml/min Est GFR ( Amer) ml/min Est GFR (Non-Af Amer) ml/min BUN/Creatinine Ratio (10-20) Glucose (70-99) mg/dl POC Glucose 207 H 142 H 173 H (70-99) mg/dl Calcium (8.5-10.1) mg/dl Magnesium (1.8-2.4) mg/dl Creatine Kinase (29-143) U/L CK-MM (CK-3) (95-100) % CK-MB (CK-2) (<5) % CK-BB (CK-1) (None Detected) % Creatine Kinase Interp 10/20/21 10/16/21 Range/Units 08:15 05:51 WBC (4.8-10.8) K/uL RBC (4.2-5.4) M/uL Hgb (12.0-16.0) g/dL Hct (37-47) % MCV (80-100) fL MCH (25-34) pg MCHC (32-36) g/dL RDW Std Deviation (36.4-46.3) fL RDW Coeff of Cortez (11.5-14.5) % Plt Count (130-400) K/uL MPV (7.4-10.4) fL Sodium 135 L (136-145) mmol/L Potassium 5.2 H (3.5-5.1) mmol/L Chloride 105 (98-107) mmol/L Carbon Dioxide 21 (21-32) mmol/L Anion Gap 9.0 (3-11) BUN 37 H (7-18) mg/dl Creatinine 1.40 H (0.6-1.2) mg/dl Est Cr Clr Drug Dosing 62.4 ml/min Est GFR ( Amer) 48.9 ml/min Est GFR (Non-Af Amer) 42.2 ml/min BUN/Creatinine Ratio 26.4 H (10-20) Glucose 177 H (70-99) mg/dl POC Glucose (70-99) mg/dl Calcium 8.8 (8.5-10.1) mg/dl Magnesium (1.8-2.4) mg/dl Creatine Kinase 2544 H (29-143) U/L CK-MM (CK-3) 100 (95-100) % CK-MB (CK-2) 0 (<5) % CK-BB (CK-1) None Detected (None Detected) % Creatine Kinase Interp see note A Medications Administered Current Inpatient Medications Acetaminophen (Acetaminophen 325 Mg Tab) 650 mg PO Q4H PRN PRN Reason: Pain or Fever Stop: 11/14/21 00:13 Last Admin: 10/18/21 19:11 Dose: 650 mg Documented by: Aspirin (Aspirin 81 Mg Ectab) 81 mg PO DAILY KVNG Stop: 11/14/21 08:59 Last Admin: 10/21/21 08:22 Dose: 81 mg Documented by: Atorvastatin Calcium (Atorvastatin 20 Mg Tab) 20 mg PO DAILY KVNG Stop: 11/17/21 08:59 Last Admin: 10/21/21 08:22 Dose: 20 mg Documented by: Dextrose (Dextrose 50% 50 Ml Syringe) 25 - 50 ml IV UD PRN; Protocol PRN Reason: Hypoglycemia Protocol Stop: 11/14/21 00:13 Last Admin: 10/18/21 07:49 Dose: 25 ml Documented by: Folic Acid (Folic Acid 1 Mg Tab) 1 mg PO DAILY KVNG Stop: 11/14/21 08:59 Last Admin: 10/21/21 08:22 Dose: 1 mg Documented by: Furosemide (Furosemide 80 Mg Tab) 80 mg PO DAILY KVNG Stop: 11/18/21 08:59 Last Admin: 10/19/21 07:57 Dose: 80 mg Documented by: Gabapentin (Gabapentin 800 Mg Tab) 800 mg PO BID KVNG Stop: 11/14/21 00:13 Last Admin: 10/21/21 08:22 Dose: 800 mg Documented by: Glucagon (Glucagon For Inj 1 Mg Vial) 1 mg SQ UD PRN; Protocol PRN Reason: Hypoglycemia Protocol Stop: 11/14/21 00:13 Glucose (Glucose 10 Tabs/Tube) 4 - 8 tabs PO UD PRN; Protocol PRN Reason: Hypoglycemia Protocol Stop: 11/14/21 00:13 Glucose (Glucose 40% Gel 15 Gm Tube) 15 - 30 gm PO UD PRN; Protocol PRN Reason: Hypoglycemia Protocol Stop: 11/14/21 00:13 Heparin Sodium (Beef Lung) (Heparin 10 Unit/Ml 5 Ml Flush) 5 ml FLUSH PRN PRN PRN Reason: Flush Stop: 11/18/21 15:14 Last Admin: 10/21/21 05:42 Dose: 5 ml Documented by: Heparin Sodium (Beef Lung) (Heparin 10 Unit/Ml 5 Ml Flush) 5 ml FLUSH PRN PRN PRN Reason: Flush Stop: 11/18/21 15:15 Heparin Sodium (Porcine) (Heparin Sod 5,000 Unit/0.5 Ml Vial) 5,000 units SQ Q8 KVNG Stop: 11/14/21 05:59 Last Admin: 10/21/21 04:42 Dose: 5,000 units Documented by: Hydralazine HCl (Hydralazine Hcl 20 Mg/Ml Vial) 5 mg IV Q6H PRN PRN Reason: hypertension Stop: 11/14/21 18:44 Hydromorphone HCl (Hydromorphone Inj 0.5 Mg/0.5 Ml Syr) 0.5 mg IV Q3H PRN PRN Reason: Pain Stop: 10/29/21 00:13 Last Admin: 10/20/21 22:29 Dose: 0.5 mg Documented by: Hydroxyzine HCl (Hydroxyzine Hcl 25 Mg Tab) 50 mg PO HS KVNG Stop: 11/16/21 20:59 Last Admin: 10/20/21 21:03 Dose: 50 mg Documented by: Promethazine HCl 12.5 mg/ (Sodium Chloride) 50.5 mls @ 202 mls/hr IV Q6H PRN PRN Reason: Nausea And Vomiting Stop: 11/14/21 00:13 Cefazolin Sodium (Ancef 2000mg) 2,000 mg in 15 mls @ 3.75 mls/min IV Q8 KVNG Stop: 10/24/21 16:29 Last Admin: 10/21/21 05:42 Dose: 3.75 mls/min Documented by: Insulin Aspart (Insulin Aspart 100 Units/Ml 3 Ml Pen) 0 units SC ACHS [facility] Stop: 11/14/21 00:29 Last Admin: 10/21/21 08:23 Dose: 7 units Documented by: Insulin Glargine (Insulin Glargine 100 Unit/Ml Vial) 0 units SC BID [facility]; Protocol Stop: 11/16/21 08:59 Last Admin: 10/21/21 08:24 Dose: 40 units Documented by: Labetalol HCl (Labetalol Hcl Iv 5 Mg/Ml 20ml) 5 mg IV Q6H PRN PRN Reason: hypertension Stop: 11/14/21 18:30 Lisinopril (Lisinopril 20 Mg Tab) 20 mg PO DAILY KVNG Stop: 11/18/21 08:59 Last Admin: 10/19/21 07:57 Dose: Not Given Documented by: Metoprolol Tartrate (Metoprolol Tartrate 25 Mg Tab) 25 mg PO BID KVNG Stop: 11/14/21 00:44 Last Admin: 10/21/21 08:22 Dose: 25 mg Documented by: Miscellaneous (Carbohydrates For Hypoglycemia ) 15 - 30 gm PO UD PRN PRN Reason: Hypoglycemia Protocol Stop: 11/14/21 00:13 Miscellaneous (*Cream*Order Awaiting Action) 1 ea N/A QS [facility] Stop: 11/16/21 17:59 Last Admin: 10/21/21 07:35 Dose: Not Given Documented by: Miscellaneous (*Lotion*Order Awaiting Action) 1 ea N/A QS KVNG Stop: 11/16/21 17:59 Last Admin: 10/21/21 07:35 Dose: Not Given Documented by: Miscellaneous Information (Pharmacy Glycemic Mgmt Consult) 1 ea N/A UD PRN PRN Reason: Consult Stop: 11/14/21 17:40 Oxycodone HCl (Oxycodone Hcl Ir 5 Mg Tab (Immediate Release)) 5 - 10 mg PO QID PRN PRN Reason: Pain Stop: 10/29/21 00:13 Last Admin: 10/21/21 04:46 Dose: 10 mg Documented by: Rifampin (Rifampin 300 Mg Capsule) 300 mg PO Q8 [facility] Stop: 12/01/21 21:59 Last Admin: 10/21/21 04:42 Dose: 300 mg Documented by: (1) Cellulitis of leg Laterality: left Qualified Code(s): L03.116 - Cellulitis of left lower limb
[2021-10-21] MEDS: POLYETHYLENE (MIRALAX) 17 GM PACK PO PRN ×2 (14:17→21:32)
[2021-10-21] MEDS: ADVANCED PROBIOTIC 1250 MG CAPSULE PO SCH (14:17)
[2021-10-21] MEDS: DOCUSATE SODIUM 100 MG CAP PO SCH ×2 (14:17→21:27)
[2021-10-21] MEDS: HYDROmorphone INJ 0.5 MG/0.5 ML SYR IV PRN (14:30)
--- NOTE | 2021-10-21 15:57 | Orthopedic Progress Note ---
Date of Service October 21, 2021 Assessment & Plan (1) Open wound of lower extremity: Plan: Postop day 3 status post I&D of left lower extremity wounds. Continue current antibiotics. Culture showing MSSA. Continue daily dressing changes. Continue elevation when at rest. Admission and Anticipated Discharge Date Admission Date: October 14, 2021 Subjective POD 3 Pt sitting up in bed. Awake, alert. No complaints. Physical Exam Physical Exam: Dressings removed. Small amount of serous drainage on kerlix near the ankle. Remainder of packing pulled. LE continues to look cellulitic. Yellow slough noted around larger wound edges. Some pink base. Lower wound near ankle with maceration due to serous drainage. No purulence or odor. Wounds redressed. Results & Data ([facility]) Vital Signs (Past 12 Hours) Vital Signs Temp Pulse Pulse Resp BP Pulse Ox 10/21/21 15:11 37.1 C 86 18 117/61 93 10/21/21 14:57 88 10/21/21 11:44 37.1 C 86 20 120/69 91 10/21/21 07:56 37.0 C 92 H 18 109/65 94 10/21/21 07:32 92 H 10/21/21 04:06 37.2 C 90 18 115/68 97 (1) Open wound of lower extremity Encounter type: initial encounter Laterality: left Qualified Code(s): S81.802A - Unspecified open wound, left lower leg, initial encounter
[2021-10-21] MEDS: hydrOXYzine HCl 25 MG TAB PO SCH (21:27)
[2021-10-22] MEDS: HYDROmorphone INJ 0.5 MG/0.5 ML SYR IV PRN ×3 (01:00→22:25)
[2021-10-22] MEDS: oxyCODONE HCL IR 5 MG TAB (IMMEDIATE RELEASE) PO PRN ×2 (05:31→14:44)
[2021-10-22] MEDS: ceFAZolin 2000MG 2,000 MG/15 ML SYR IV SCH ×3 (05:31→21:16)
[2021-10-22] MEDS: rifAMPin 300 MG CAPSULE PO SCH ×3 (05:32→21:14)
[2021-10-22] MEDS: HEPARIN SOD 5,000 UNIT/0.5 ML VIAL SQ SCH ×2 (05:32→20:08)
[2021-10-22 06:28] LABS: Hematocrit (blood only) 35.5 % (37-47); Hemoglobin 11.4 g/dL (12.0-16.0); Mean Corpuscular Hemoglobin 30.6 pg (25-34); Mean Corpuscular Hgb Conc 32.1 g/dL (32-36); Mean Corpuscular Volume 95.2 fL (80-100); Mean Platelet Volume 9.1 fL (7.4-10.4); Platelet Count 370 K/uL (130-400); RDW Coefficient of Variation 17.6 % (11.5-14.5); RDW Standard Deviation 60.6 fL (36.4-46.3); Red Blood Count 3.73 M/uL (4.2-5.4); White Blood Count 8.77 K/uL (4.8-10.8)
[2021-10-22 06:50] LABS: Calcium 9.2 mg/dl (8.5-10.1); Creatinine Clr Calc Pharmacy 77.6 ml/min; Est GFR (African American) 70.9 ml/min; Est GFR (Non-African American) 61.1 ml/min; Magnesium 2.8 mg/dl (1.8-2.4); Phosphorus 3.9 mg/dl (2.5-4.9); Potassium 4.5 mmol/L (3.5-5.1)
--- NOTE | 2021-10-22 08:11 | Hospitalist Progress Note ---
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 She is being managed for the following: Sepsis LLE cellulitis/Myonecrosis, peroneals/Septic tenosynovitis of the peroneus longus and peroneus brevis tendons Bacteremia - Patient has aortic bioprosthetic valve Endocarditis Patient has a prolonged history of chronic LE swelling/wounds/recurrent infections secondary to vasculitis/pyoderma gangrenosum on monthly IVIG outpatient Outpatient biopsy done by dermatology showed pyoderma gangrenosum in 2017. Leg wounds healed slowly over time. Currently on monthly IVIG. Last week [employer], patient noted increased swelling on left ankle later on involving left leg. Scant drainage from chronic LE wound. Fever & chills at home. At presentation patient met SIRS criteria. Admitting lower extremity CT: Compatible with cellulitis without evidence of underlying abscess or osteomyelitis Admitting LLE Doppler: Negative for DVT. 10/16 MRI lower leg: Extensive cellulitis. Intramuscular abscess along the peroneus tendon. No evidence of osteomyelitis. Patient started on cefepime 10/15 and vancomycin 10/14---> 10/14 blood culture positive for gram-positive cocci -->10/14 nafcillin ---> WBC went up though minimally from prior day; and final C/S out hence 10/15 Ancef. 10/14 wound culture positive for staph aureus and group B beta strep. 10/14 blood culture: Positive for staph species, follow-up final results. Repeat 10/16 blood culture: No growth after 48 hours, follow final results. 10/17 echo: Normal LV systolic function with EF of 65 to 70%, grade 1 diastolic dysfunction, poor visualization of bioprosthetic valve and other valvular structure. 10/18 KIT: IE of aortic prosthetic valve Cardiology consulted Discussed with cardiology. Discussed with infectious disease. For LLE abscess and myonecrosis, orthopedic consulted, 10/18 s/p left lateral lower leg incision and drainage of abscess and debridement of myonecrosis with tenosynovectomy, debridement of left lateral leg ulceration with sinus tract. Recommending daily dressing changes. Recommend elevation when at rest. Infectious disease recommending evaluation for bioprosthetic valve removal. Updated cardiology. Cardiology okay with discharging her on prolonged antibiotic therapy. Patient updated on discussions with both infectious disease and cardiology, patient denied the possibility of transfer to [place] for evaluation for bioprosthetic valve removal. Patient agreed to follow-up with cardiology as an outpatient very closely for necessity of surgical evaluation of her bioprosthetic valve endocarditis. ID recommended adding rifampin to her Ancef. Continue with Ancef and rifampin. Per ID patient will need 6 weeks of therapy after removal of bioprosthetic valve. Patient will need to establish with infectious disease and cardiology as an outpatient for further management and plan since she declines transfer to [place] at this moment. TERESA over CKD Last confinement April 2017 for ARF. September 2021 outpatient lab: Creatinine 1.04 Creatinine again up trending Nephrology consulted: lasix prn; hold lisinopril; Hold home dose spironolactone and HCTZ. Renal ultrasound negative for acute changes Continue to monitor BMP daily, c/w IVF per nephro Cr 1 (10/22) resume lasix Likely UTI Patient reports not having any pain or burning while passing urine prior and after arrival to the hospital. Admitting UA suggestive of UTI, culture positive for Trudy glabrata complex, no treatment necessary Continue to monitor. Rhabdomyolysis Secondary to illness Continue to monitor daily CK. Creatinine kinase trending down We will not need further monitoring. Chronic diastolic heart failure Other cardiac history: Bicuspid ASD status post surgery, A flutter s/p cardioversion 2019 TTE: Ejection fraction 60 to 64% Admitting CXR: Cardiomegaly with pulmonary vascular congestion. Patient NSR, continue home meds as appropriate, we will continue to monitor. DM type II insulin requiring A1c September 2020 on outpatient lab: A1c 8.0% Poorly controlled diabetes, diabetic control is important for wound healing Glycemic pharmacy for inpatient management and discharge recommendation DVT prophylaxis. Resume Heparin SQ. Full code Disposition: Possible DC on Tuesday after clearance from orthopedics and nephrology to home with home health. Cardiology is okay with discharge with prolonged antibiotic therapy. Admission and Anticipated Discharge Date Admission Date: October 14, 2021 Subjective Pt seen in follow up of bacteremia, endocarditis, LLE cellulitis/ abscess Hematuria noted today - hold subq heprin this PM Patient is currently sitting up in bed in [facility] She is aware of ID recommendation for surgery and she has no interest in that at this time She denies any chest pain, shortness of breath, abd. pain, n/v, dizzniess or lightheadedness She has no complaints Cr 1 today Review of Systems Review of Systems: All systems reviewed & are unremarkable except as noted in Subjective Physical Exam Physical Exam: GENERAL: Morbidly obese F in NAD. HEENT: NC/AT. EOMI, PERRL. NECK: No JVD, no neck masses. HEART: S1 and S2 heard. Regular rate and rhythm. No murmur, no gallop. RESPIRATORY: Normal AP diameter. No accessory muscle use. No wheezing, no crackles. ABDOMEN: Soft, bowel sounds present, nontender, no distention.+ obese NEURO: Alert and oriented and answering questions appropriately. No facial droop. Speech is clear. Moves extremities. EXTREMITIES: RLE had scar tissue from prior wound and chronic skin changes. BLE1+ pedal edema, psy-surg.dressings applied Results & Data Results & Data ([facility]) Vital Signs (Past 12 Hours) Vital Signs Temp Pulse Pulse Resp BP Pulse Ox 10/22/21 04:42 77 18 121/68 96 10/22/21 00:00 77 10/21/21 23:32 36.9 C 83 20 132/70 97 10/21/21 20:45 37.4 C 96 H 18 158/83 H 95 Laboratory Results 10/22/21 10/22/21 10/22/21 Range/Units 07:38 05:22 05:22 WBC 8.77 (4.8-10.8) K/uL RBC 3.73 L (4.2-5.4) M/uL Hgb 11.4 L (12.0-16.0) g/dL Hct 35.5 L (37-47) % MCV 95.2 (80-100) fL MCH 30.6 (25-34) pg MCHC 32.1 (32-36) g/dL RDW Std Deviation 60.6 H (36.4-46.3) fL RDW Coeff of Cortez 17.6 H (11.5-14.5) % Plt Count 370 (130-400) K/uL MPV 9.1 (7.4-10.4) fL Sodium 135 L (136-145) mmol/L Potassium 4.5 (3.5-5.1) mmol/L Chloride 106 (98-107) mmol/L Carbon Dioxide 24 (21-32) mmol/L Anion Gap 5.0 (3-11) BUN 42 H (7-18) mg/dl Creatinine 1.03 (0.6-1.2) mg/dl Est Cr Clr Drug Dosing 77.6 ml/min Est GFR ( Amer) 70.9 ml/min Est GFR (Non-Af Amer) 61.1 ml/min BUN/Creatinine Ratio 41.0 H (10-20) Glucose 87 (70-99) mg/dl POC Glucose 98 (70-99) mg/dl Calcium 9.2 (8.5-10.1) mg/dl Phosphorus 3.9 (2.5-4.9) mg/dl Magnesium 2.8 H (1.8-2.4) mg/dl 10/21/21 10/21/21 10/21/21 Range/Units 20:22 16:27 11:35 WBC (4.8-10.8) K/uL RBC (4.2-5.4) M/uL Hgb (12.0-16.0) g/dL Hct (37-47) % MCV (80-100) fL MCH (25-34) pg MCHC (32-36) g/dL RDW Std Deviation (36.4-46.3) fL RDW Coeff of Cortez (11.5-14.5) % Plt Count (130-400) K/uL MPV (7.4-10.4) fL Sodium (136-145) mmol/L Potassium (3.5-5.1) mmol/L Chloride (98-107) mmol/L Carbon Dioxide (21-32) mmol/L Anion Gap (3-11) BUN (7-18) mg/dl Creatinine (0.6-1.2) mg/dl Est Cr Clr Drug Dosing ml/min Est GFR ( Amer) ml/min Est GFR (Non-Af Amer) ml/min BUN/Creatinine Ratio (10-20) Glucose (70-99) mg/dl POC Glucose 112 H 129 H 145 H (70-99) mg/dl Calcium (8.5-10.1) mg/dl Phosphorus (2.5-4.9) mg/dl Magnesium (1.8-2.4) mg/dl Medications Administered Current Inpatient Medications Acetaminophen (Acetaminophen 325 Mg Tab) 650 mg PO Q4H PRN PRN Reason: Pain or Fever Stop: 11/14/21 00:13 Last Admin: 10/18/21 19:11 Dose: 650 mg Documented by: Aspirin (Aspirin 81 Mg Ectab) 81 mg PO DAILY KVNG Stop: 11/14/21 08:59 Last Admin: 10/21/21 08:22 Dose: 81 mg Documented by: Atorvastatin Calcium (Atorvastatin 20 Mg Tab) 20 mg PO DAILY KVNG Stop: 11/17/21 08:59 Last Admin: 10/21/21 08:22 Dose: 20 mg Documented by: Dextrose (Dextrose 50% 50 Ml Syringe) 25 - 50 ml IV UD PRN; Protocol PRN Reason: Hypoglycemia Protocol Stop: 11/14/21 00:13 Last Admin: 10/18/21 07:49 Dose: 25 ml Documented by: Docusate Sodium (Docusate Sodium 100 Mg Cap) 100 mg PO BID KVNG Stop: 11/20/21 13:59 Last Admin: 10/21/21 21:27 Dose: 100 mg Documented by: Folic Acid (Folic Acid 1 Mg Tab) 1 mg PO DAILY KVNG Stop: 11/14/21 08:59 Last Admin: 10/21/21 08:22 Dose: 1 mg Documented by: Furosemide (Furosemide 80 Mg Tab) 80 mg PO DAILY KVNG Stop: 11/18/21 08:59 Last Admin: 10/19/21 07:57 Dose: 80 mg Documented by: Gabapentin (Gabapentin 800 Mg Tab) 800 mg PO BID KVNG Stop: 11/14/21 00:13 Last Admin: 10/21/21 21:26 Dose: 800 mg Documented by: Glucagon (Glucagon For Inj 1 Mg Vial) 1 mg SQ UD PRN; Protocol PRN Reason: Hypoglycemia Protocol Stop: 11/14/21 00:13 Glucose (Glucose 10 Tabs/Tube) 4 - 8 tabs PO UD PRN; Protocol PRN Reason: Hypoglycemia Protocol Stop: 11/14/21 00:13 Glucose (Glucose 40% Gel 15 Gm Tube) 15 - 30 gm PO UD PRN; Protocol PRN Reason: Hypoglycemia Protocol Stop: 11/14/21 00:13 Heparin Sodium (Beef Lung) (Heparin 10 Unit/Ml 5 Ml Flush) 5 ml FLUSH PRN PRN PRN Reason: Flush Stop: 11/18/21 15:14 Last Admin: 10/22/21 05:32 Dose: 5 ml Documented by: Heparin Sodium (Beef Lung) (Heparin 10 Unit/Ml 5 Ml Flush) 5 ml FLUSH PRN PRN PRN Reason: Flush Stop: 11/18/21 15:15 Heparin Sodium (Porcine) (Heparin Sod 5,000 Unit/0.5 Ml Vial) 5,000 units SQ Q8 KVNG Stop: 11/14/21 05:59 Last Admin: 10/22/21 05:32 Dose: 5,000 units Documented by: Hydralazine HCl (Hydralazine Hcl 20 Mg/Ml Vial) 5 mg IV Q6H PRN PRN Reason: hypertension Stop: 11/14/21 18:44 Hydromorphone HCl (Hydromorphone Inj 0.5 Mg/0.5 Ml Syr) 0.5 mg IV Q3H PRN PRN Reason: Pain Stop: 10/29/21 00:13 Last Admin: 10/22/21 01:00 Dose: 0.5 mg Documented by: Hydroxyzine HCl (Hydroxyzine Hcl 25 Mg Tab) 50 mg PO HS KVNG Stop: 11/16/21 20:59 Last Admin: 10/21/21 21:27 Dose: 50 mg Documented by: Promethazine HCl 12.5 mg/ (Sodium Chloride) 50.5 mls @ 202 mls/hr IV Q6H PRN PRN Reason: Nausea And Vomiting Stop: 11/14/21 00:13 Cefazolin Sodium (Ancef 2000mg) 2,000 mg in 15 mls @ 3.75 mls/min IV Q8 KVNG Stop: 10/24/21 16:29 Last Admin: 10/22/21 05:31 Dose: 3.75 mls/min Documented by: Insulin Aspart (Insulin Aspart 100 Units/Ml 3 Ml Pen) 0 units SC ACHS KVNG Stop: 11/14/21 00:29 Last Admin: 10/21/21 21:28 Dose: Not Given Documented by: Insulin Glargine (Insulin Glargine 100 Unit/Ml Vial) 0 units SC BID [facility]; Protocol Stop: 11/16/21 08:59 Last Admin: 10/21/21 21:28 Dose: 40 units Documented by: Labetalol HCl (Labetalol Hcl Iv 5 Mg/Ml 20ml) 5 mg IV Q6H PRN PRN Reason: hypertension Stop: 11/14/21 18:30 Lactobacillus Acidoph/Casei/Rhamnos (Advanced Probiotic 1250 Mg Capsule) 2 cap PO DAILY [facility] Stop: 11/20/21 13:59 Last Admin: 10/21/21 14:17 Dose: 2 cap Documented by: Lisinopril (Lisinopril 20 Mg Tab) 20 mg PO DAILY [facility] Stop: 11/18/21 08:59 Last Admin: 10/19/21 07:57 Dose: Not Given Documented by: Metoprolol Tartrate (Metoprolol Tartrate 25 Mg Tab) 25 mg PO BID [facility] Stop: 11/14/21 00:44 Last Admin: 10/21/21 21:27 Dose: 25 mg Documented by: Miscellaneous (Carbohydrates For Hypoglycemia ) 15 - 30 gm PO UD PRN PRN Reason: Hypoglycemia Protocol Stop: 11/14/21 00:13 Miscellaneous (*Cream*Order Awaiting Action) 1 ea N/A QS [facility] Stop: 11/16/21 17:59 Last Admin: 10/22/21 00:17 Dose: Not Given Documented by: Miscellaneous (*Lotion*Order Awaiting Action) 1 ea N/A QS [facility] Stop: 11/16/21 17:59 Last Admin: 10/22/21 00:17 Dose: Not Given Documented by: Miscellaneous Information (Pharmacy Glycemic Mgmt Consult) 1 ea N/A UD PRN PRN Reason: Consult Stop: 11/14/21 17:40 Oxycodone HCl (Oxycodone Hcl Ir 5 Mg Tab (Immediate Release)) 5 - 10 mg PO QID PRN PRN Reason: Pain Stop: 10/29/21 00:13 Last Admin: 10/22/21 05:31 Dose: 10 mg Documented by: Polyethylene Glycol (Polyethylene (Miralax) 17 Gm Pack) 17 gm PO DAILY PRN PRN Reason: Constipation Stop: 11/20/21 13:35 Last Admin: 10/21/21 21:32 Dose: 17 gm Documented by: Rifampin (Rifampin 300 Mg Capsule) 300 mg PO Q8 [facility] Stop: 12/01/21 21:59 Last Admin: 10/22/21 05:32 Dose: 300 mg Documented by: (1) Cellulitis of leg Laterality: left Qualified Code(s): L03.116 - Cellulitis of left lower limb
[2021-10-22] MEDS: INSULIN ASPART 100 UNITS/ML 3 ML PEN SC SCH ×4 (10:56→20:32)
[2021-10-22] MEDS: DOCUSATE SODIUM 100 MG CAP PO SCH ×2 (10:57→21:13)
[2021-10-22] MEDS: ATORVASTATIN 20 MG TAB PO SCH (10:57)
[2021-10-22] MEDS: ADVANCED PROBIOTIC 1250 MG CAPSULE PO SCH (10:57)
[2021-10-22] MEDS: GABAPENTIN 800 MG TAB PO SCH ×2 (10:57→21:14)
[2021-10-22] MEDS: METOPROLOL TARTRATE 25 MG TAB PO SCH ×2 (10:57→21:14)
[2021-10-22] MEDS: ASPIRIN 81 MG ECTAB PO SCH (10:58)
[2021-10-22] MEDS: FOLIC ACID 1 MG TAB PO SCH (10:58)
[2021-10-22] MEDS: INSULIN GLARGINE 100 UNIT/ML VIAL SC SCH ×2 (11:01→20:33)
--- NOTE | 2021-10-22 13:34 | Pharmacy Report ---
Pharmacy Glycemic Short Note 2 - Date of Service October 22, 2021 - Glycemic Short BSG Results (Last 24 hours): 10/21/21 10/21/21 10/22/21 16:27 20:22 05:22 Glucose 87 POC Glucose 129 H 112 H 10/22/21 10/22/21 07:38 11:40 Glucose POC Glucose 98 94 OUTPATIENT ANTIDIABETIC REGIMEN: * A1C- 8.4% (10/15/21) * Tresiba 80units SQ BID * Trulicity 3mg SQ weekly * empagliflozin 25mg PO daily * Humulin U-500: 80units (breakfast/lunch), 86 units (dinner)- high carb meal. 50 units low carb meal. 20 units w/ snacks. ASSESSMENT: 10/22/21 * BSGs have been trending downward over past 48 hours (98 and 94 mg/dL most recently) * Will plan to decrease basal insulin today and loosen Novolog parameters 10/20/21 * Patient received total of 34 units of insulin yesterday, of which 30 units were basal - reduced dosing due to NPO status * Fasting BSG 174 mg/dL - when patient was eating 120 units of basal too much, plan to trial 70-90 units of basal * Continue same CF/CR 10/17/21 * Blood sugars at goal or under goal * Fasting 82mg/dl - decrease Lantus and loosen CR to prevent hypoglycemia 10/16/21 * Initiate basal/bolus SQ insulin regimen * Will resume basal regimen with Lantus 80 units BID (similar to degludec outpt regimen) to start * Novolog ACHS scale started yesterday with correction of 25mg/dl/unit and CHO of 15, however BSGs increased throughout the day. Correction & carb ratios tightened. * BSGs today within goal range. AM fasting BSG slightly below goal however. Plan to dose Lantus tonight per scale. * Requiring significantly less insulin coverage than outpatient regimen currently. Will monitor for increasing needs. PLAN FOR INPATIENT GLYCEMIC CONTROL: * Hold outpatient diabetes medications * Basal insulin - decrease * Lantus 30 units SC this morning, 0-20 units SC HS (see EHR for details) * Bolus insulin - loosen * NovoLog per scale ACHS or Q6hrs while NPO * Goal Range: Low 110mg/dL - High 140 mg/dL * Correction Factor: 25 mg/dL/unit * Nutritional / Prandial insulin per carb ratio of 1 unit per 7 grams CHO consumed PLAN FOR DISCHARGE: * HbA1c of 8.4% is elevated, goal should be less than 7% * Inpatient insulin needs are far lower than outpatient ones, likely related to discrepancies in diet (inpatient vs. outpatient) * Patient follows with [facility] clinic * Ensure prompt follow-up upon discharge given importance of good glycemic control and impacts on wound healing
[2021-10-22] MEDS: hydrOXYzine HCl 25 MG TAB PO SCH (21:14)
[2021-10-23] MEDS: ACETAMINOPHEN 325 MG TAB PO PRN (03:51)
[2021-10-23] MEDS: rifAMPin 300 MG CAPSULE PO SCH (05:09)
[2021-10-23] MEDS: ceFAZolin 2000MG 2,000 MG/15 ML SYR IV SCH (05:09)
[2021-10-23] MEDS: oxyCODONE HCL IR 5 MG TAB (IMMEDIATE RELEASE) PO PRN (06:35)
[2021-10-23] MEDS: DOCUSATE SODIUM 100 MG CAP PO SCH (07:39)
[2021-10-23] MEDS: GABAPENTIN 800 MG TAB PO SCH (07:43)
[2021-10-23] MEDS: ATORVASTATIN 20 MG TAB PO SCH (07:44)
[2021-10-23] MEDS: ADVANCED PROBIOTIC 1250 MG CAPSULE PO SCH (07:44)
[2021-10-23] MEDS: ASPIRIN 81 MG ECTAB PO SCH (07:44)
[2021-10-23] MEDS: FOLIC ACID 1 MG TAB PO SCH (07:44)
[2021-10-23] MEDS: METOPROLOL TARTRATE 25 MG TAB PO SCH (07:44)
[2021-10-23] MEDS: HEPARIN SOD 5,000 UNIT/0.5 ML VIAL SQ SCH (07:45)
[2021-10-23 08:22] LABS: Hematocrit (blood only) 35.7 % (37-47); Hemoglobin 11.6 g/dL (12.0-16.0); Mean Corpuscular Hemoglobin 30.9 pg (25-34); Mean Corpuscular Hgb Conc 32.5 g/dL (32-36); Mean Corpuscular Volume 95.2 fL (80-100); Mean Platelet Volume 8.9 fL (7.4-10.4); Platelet Count 381 K/uL (130-400); RDW Coefficient of Variation 17.6 % (11.5-14.5); RDW Standard Deviation 61.2 fL (36.4-46.3); Red Blood Count 3.75 M/uL (4.2-5.4); White Blood Count 7.44 K/uL (4.8-10.8)
[2021-10-23] MEDS: INSULIN ASPART 100 UNITS/ML 3 ML PEN SC SCH ×2 (08:48→13:07)
[2021-10-23] MEDS ORDERED: FUROSEMIDE 80 MG TAB PO SCH ×2 (09:00→17:00)
[2021-10-23] MEDS ORDERED: INSULIN GLARGINE 100 UNIT/ML VIAL SC SCH ×2 (09:00→21:00)
[2021-10-23 09:03] LABS: BUN Creatinine Ratio 28.2 (10-20); Calcium 8.7 mg/dl (8.5-10.1); Creatinine Clr Calc Pharmacy 90.9 ml/min; Est GFR (African American) 84.6 ml/min; Magnesium 2.3 mg/dl (1.8-2.4); Phosphorus 3.4 mg/dl (2.5-4.9); Potassium 4.6 mmol/L (3.5-5.1)
--- NOTE | 2021-10-23 11:03 | Hospitalist Progress Note ---
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 She is being managed for the following: Sepsis LLE cellulitis/Myonecrosis, peroneals/Septic tenosynovitis of the peroneus longus and peroneus brevis tendons Bacteremia - Patient has aortic bioprosthetic valve Endocarditis Patient has a prolonged history of chronic LE swelling/wounds/recurrent infections secondary to vasculitis/pyoderma gangrenosum on monthly IVIG outpatient Outpatient biopsy done by dermatology showed pyoderma gangrenosum in 2017. Leg wounds healed slowly over time. Currently on monthly IVIG. Last week [employer], patient noted increased swelling on left ankle later on involving left leg. Scant drainage from chronic LE wound. Fever & chills at home. At presentation patient met SIRS criteria. Admitting lower extremity CT: Compatible with cellulitis without evidence of underlying abscess or osteomyelitis Admitting LLE Doppler: Negative for DVT. 10/16 MRI lower leg: Extensive cellulitis. Intramuscular abscess along the peroneus tendon. No evidence of osteomyelitis. Patient started on cefepime 10/15 and vancomycin 10/14---> 10/14 blood culture positive for gram-positive cocci -->10/14 nafcillin ---> WBC went up though minimally from prior day; and final C/S out hence 10/15 Ancef. 10/14 Wound culture positive for MSSA and group B beta strep. 10/14 Blood cultx positive for MSSA Repeat 10/16 Blood culture: Negative Repeat 10/16 Wound cultx:MSSA 10/17 echo: Normal LV systolic function with EF of 65 to 70%, grade 1 diastolic dysfunction, poor visualization of bioprosthetic valve and other valvular structure. 10/18 KIT: IE of aortic prosthetic valve Cardiology consulted Discussed with cardiology. Discussed with infectious disease. For LLE abscess and myonecrosis, orthopedic consulted, 10/18 s/p left lateral lower leg incision and drainage of abscess and debridement of myonecrosis with tenosynovectomy, debridement of left lateral leg ulceration with sinus tract. Recommending daily dressing changes. Recommend elevation when at rest. Infectious disease recommending evaluation for bioprosthetic valve removal. Updated cardiology. Cardiology okay with discharging her on prolonged antibiotic therapy. Patient updated on discussions with both infectious disease and cardiology, patient denied the possibility of transfer to [place] for evaluation for bioprosthetic valve removal. Patient agreed to follow-up with cardiology as an outpatient very closely for necessity of surgical evaluation of her bioprosthetic valve endocarditis. ID recommended adding rifampin to her Ancef. Continue with Ancef and rifampin. Per ID patient will need 6 weeks of therapy after removal of bioprosthetic valve. Patient will need to establish with infectious disease and cardiology as an outpatient for further management and plan since she declines transfer to [place] at this moment. TERESA over CKD Last confinement April 2017 for ARF. September 2021 outpatient lab: Creatinine 1.04 Creatinine again up trending Nephrology consulted: lasix prn; hold lisinopril; Hold home dose spironolactone and HCTZ. Renal ultrasound negative for acute changes Continue to monitor BMP daily, c/w IVF per nephro Cr 1 (10/22) - resume lasix 10/23 - discussed with nephrology, will discharge on Lasix 80 mg p.o. twice daily and home spironolactone. Stop HCTZ. Hold lisinopril for now. f/u in [place] any nephrology provider in 2-4 wks with bmp weekly until then to be ordered by that provider's nurse Likely UTI Patient reports not having any pain or burning while passing urine prior and after arrival to the hospital. Admitting UA suggestive of UTI, culture positive for Trudy glabrata complex, no treatment necessary Continue to monitor. Rhabdomyolysis Secondary to illness Continue to monitor daily CK. Creatinine kinase trending down We will not need further monitoring. Chronic diastolic heart failure Other cardiac history: Bicuspid ASD status post surgery, A flutter s/p cardioversion 2019 TTE: Ejection fraction 60 to 64% Admitting CXR: Cardiomegaly with pulmonary vascular congestion. Patient NSR, continue home meds as appropriate, we will continue to monitor. DM type II insulin requiring A1c September 2020 on outpatient lab: A1c 8.0% Poorly controlled diabetes, diabetic control is important for wound healing Glycemic pharmacy for inpatient management and discharge recommendation Patient needs close follow-up with MTM clinic after discharge DVT prophylaxis. Resume Heparin SQ. Full code Disposition: Possible DC home w/ HH today after clearance from orthopedics. Cardiology is okay with discharge with prolonged antibiotic therapy. Admission and Anticipated Discharge Date Admission Date: October 14, 2021 Subjective Pt seen in follow up of bacteremia, endocarditis, LLE cellulitis/ abscess Patient is currently sitting up in bed in [facility] She is aware of ID recommendation for surgery and she has no interest in that at this time She denies any chest pain, shortness of breath, abd. pain, n/v, dizzniess or lightheadedness She has no complaints Cr normal - discussed w/ nephrology - adjusted diuretics Pt is awaiting ortho eval. Review of Systems Review of Systems: All systems reviewed & are unremarkable except as noted in Subjective Physical Exam Physical Exam: GENERAL: Morbidly obese F in NAD. HEENT: NC/AT. EOMI, PERRL. NECK: No JVD, no neck masses. HEART: S1 and S2 heard. Regular rate and rhythm. No murmur, no gallop. RESPIRATORY: Normal AP diameter. No accessory muscle use. No wheezing, no crackles. ABDOMEN: Soft, bowel sounds present, nontender, no distention.+ obese NEURO: Alert and oriented and answering questions appropriately. No facial droop. Speech is clear. Moves extremities. EXTREMITIES: RLE had scar tissue from prior wound and chronic skin changes. BLE1+ pedal edema, post-surg.dressings applied Results & Data Results & Data ([facility]) Vital Signs (Past 12 Hours) Vital Signs Temp Pulse Resp BP BP Pulse Ox 10/23/21 06:52 36.4 C L 65 20 117/69 96 10/23/21 03:00 36.8 C 88 20 117/65 93 Laboratory Results 10/23/21 10/23/21 10/23/21 Range/Units 08:01 07:40 07:40 WBC 7.44 (4.8-10.8) K/uL RBC 3.75 L (4.2-5.4) M/uL Hgb 11.6 L (12.0-16.0) g/dL Hct 35.7 L (37-47) % MCV 95.2 (80-100) fL MCH 30.9 (25-34) pg MCHC 32.5 (32-36) g/dL RDW Std Deviation 61.2 H (36.4-46.3) fL RDW Coeff of Cortez 17.6 H (11.5-14.5) % Plt Count 381 (130-400) K/uL MPV 8.9 (7.4-10.4) fL Sodium 139 (136-145) mmol/L Potassium 4.6 (3.5-5.1) mmol/L Chloride 108 H (98-107) mmol/L Carbon Dioxide 23 (21-32) mmol/L Anion Gap 8.0 (3-11) BUN 25 H (7-18) mg/dl Creatinine 0.89 (0.6-1.2) mg/dl Est Cr Clr Drug Dosing 90.9 ml/min Est GFR ( Amer) 84.6 ml/min Est GFR (Non-Af Amer) 73.0 ml/min BUN/Creatinine Ratio 28.2 H (10-20) Glucose 89 (70-99) mg/dl POC Glucose 86 (70-99) mg/dl Calcium 8.7 (8.5-10.1) mg/dl Phosphorus 3.4 (2.5-4.9) mg/dl Magnesium 2.3 (1.8-2.4) mg/dl 10/22/21 10/22/21 10/22/21 Range/Units 22:24 20:24 17:03 WBC (4.8-10.8) K/uL RBC (4.2-5.4) M/uL Hgb (12.0-16.0) g/dL Hct (37-47) % MCV (80-100) fL MCH (25-34) pg MCHC (32-36) g/dL RDW Std Deviation (36.4-46.3) fL RDW Coeff of Cortez (11.5-14.5) % Plt Count (130-400) K/uL MPV (7.4-10.4) fL Sodium (136-145) mmol/L Potassium (3.5-5.1) mmol/L Chloride (98-107) mmol/L Carbon Dioxide (21-32) mmol/L Anion Gap (3-11) BUN (7-18) mg/dl Creatinine (0.6-1.2) mg/dl Est Cr Clr Drug Dosing ml/min Est GFR ( Amer) ml/min Est GFR (Non-Af Amer) ml/min BUN/Creatinine Ratio (10-20) Glucose (70-99) mg/dl POC Glucose 102 H 99 91 (70-99) mg/dl Calcium (8.5-10.1) mg/dl Phosphorus (2.5-4.9) mg/dl Magnesium (1.8-2.4) mg/dl 10/22/21 Range/Units 11:40 WBC (4.8-10.8) K/uL RBC (4.2-5.4) M/uL Hgb (12.0-16.0) g/dL Hct (37-47) % MCV (80-100) fL MCH (25-34) pg MCHC (32-36) g/dL RDW Std Deviation (36.4-46.3) fL RDW Coeff of Cortez (11.5-14.5) % Plt Count (130-400) K/uL MPV (7.4-10.4) fL Sodium (136-145) mmol/L Potassium (3.5-5.1) mmol/L Chloride (98-107) mmol/L Carbon Dioxide (21-32) mmol/L Anion Gap (3-11) BUN (7-18) mg/dl Creatinine (0.6-1.2) mg/dl Est Cr Clr Drug Dosing ml/min Est GFR ( Amer) ml/min Est GFR (Non-Af Amer) ml/min BUN/Creatinine Ratio (10-20) Glucose (70-99) mg/dl POC Glucose 94 (70-99) mg/dl Calcium (8.5-10.1) mg/dl Phosphorus (2.5-4.9) mg/dl Magnesium (1.8-2.4) mg/dl Medications Administered Current Inpatient Medications Acetaminophen (Acetaminophen 325 Mg Tab) 650 mg PO Q4H PRN PRN Reason: Pain or Fever Stop: 11/14/21 00:13 Last Admin: 10/23/21 03:51 Dose: 650 mg Documented by: Aspirin (Aspirin 81 Mg Ectab) 81 mg PO DAILY KVNG Stop: 11/14/21 08:59 Last Admin: 10/23/21 07:44 Dose: 81 mg Documented by: Atorvastatin Calcium (Atorvastatin 20 Mg Tab) 20 mg PO DAILY KVNG Stop: 11/17/21 08:59 Last Admin: 10/23/21 07:44 Dose: 20 mg Documented by: Dextrose (Dextrose 50% 50 Ml Syringe) 25 - 50 ml IV UD PRN; Protocol PRN Reason: Hypoglycemia Protocol Stop: 11/14/21 00:13 Last Admin: 10/18/21 07:49 Dose: 25 ml Documented by: Docusate Sodium (Docusate Sodium 100 Mg Cap) 100 mg PO BID KVNG Stop: 11/20/21 13:59 Last Admin: 10/23/21 07:39 Dose: Not Given Documented by: Folic Acid (Folic Acid 1 Mg Tab) 1 mg PO DAILY KVNG Stop: 11/14/21 08:59 Last Admin: 10/23/21 07:44 Dose: 1 mg Documented by: Furosemide (Furosemide 80 Mg Tab) 80 mg PO QAM KVNG Stop: 11/22/21 08:59 Last Admin: 10/23/21 08:46 Dose: 80 mg Documented by: Gabapentin (Gabapentin 800 Mg Tab) 800 mg PO BID KVNG Stop: 11/14/21 00:13 Last Admin: 10/23/21 07:43 Dose: 800 mg Documented by: Glucagon (Glucagon For Inj 1 Mg Vial) 1 mg SQ UD PRN; Protocol PRN Reason: Hypoglycemia Protocol Stop: 11/14/21 00:13 Glucose (Glucose 10 Tabs/Tube) 4 - 8 tabs PO UD PRN; Protocol PRN Reason: Hypoglycemia Protocol Stop: 11/14/21 00:13 Glucose (Glucose 40% Gel 15 Gm Tube) 15 - 30 gm PO UD PRN; Protocol PRN Reason: Hypoglycemia Protocol Stop: 11/14/21 00:13 Heparin Sodium (Beef Lung) (Heparin 10 Unit/Ml 5 Ml Flush) 5 ml FLUSH PRN PRN PRN Reason: Flush Stop: 11/18/21 15:14 Last Admin: 10/22/21 05:32 Dose: 5 ml Documented by: Heparin Sodium (Beef Lung) (Heparin 10 Unit/Ml 5 Ml Flush) 5 ml FLUSH PRN PRN PRN Reason: Flush Stop: 11/18/21 15:15 Heparin Sodium (Porcine) (Heparin Sod 5,000 Unit/0.5 Ml Vial) 5,000 units SQ Q12 KVNG Stop: 11/21/21 20:59 Last Admin: 10/23/21 07:45 Dose: Not Given Documented by: Hydralazine HCl (Hydralazine Hcl 20 Mg/Ml Vial) 5 mg IV Q6H PRN PRN Reason: hypertension Stop: 11/14/21 18:44 Hydromorphone HCl (Hydromorphone Inj 0.5 Mg/0.5 Ml Syr) 0.5 mg IV Q3H PRN PRN Reason: Pain Stop: 10/29/21 00:13 Last Admin: 10/22/21 22:25 Dose: 0.5 mg Documented by: Hydroxyzine HCl (Hydroxyzine Hcl 25 Mg Tab) 50 mg PO HS KVNG Stop: 11/16/21 20:59 Last Admin: 10/22/21 21:14 Dose: 50 mg Documented by: Promethazine HCl 12.5 mg/ (Sodium Chloride) 50.5 mls @ 202 mls/hr IV Q6H PRN PRN Reason: Nausea And Vomiting Stop: 11/14/21 00:13 Cefazolin Sodium (Ancef 2000mg) 2,000 mg in 15 mls @ 3.75 mls/min IV Q8 KVNG Stop: 10/24/21 16:29 Last Admin: 10/23/21 05:09 Dose: 3.75 mls/min Documented by: Insulin Aspart (Insulin Aspart 100 Units/Ml 3 Ml Pen) 0 units SC ACHS [facility] Stop: 11/14/21 00:29 Last Admin: 10/23/21 08:48 Dose: 6 units Documented by: Insulin Glargine (Insulin Glargine 100 Unit/Ml Vial) 20 units SC QA KVNG; P rotocol Stop: 11/16/21 08:59 Last Admin: 10/23/21 08:48 Dose: 20 units Documented by: Labetalol HCl (Labetalol Hcl Iv 5 Mg/Ml 20ml) 5 mg IV Q6H PRN PRN Reason: hypertension Stop: 11/14/21 18:30 Lactobacillus Acidoph/Casei/Rhamnos (Advanced Probiotic 1250 Mg Capsule) 2 cap PO DAILY KVNG Stop: 11/20/21 13:59 Last Admin: 10/23/21 07:44 Dose: 2 cap Documented by: Lisinopril (Lisinopril 20 Mg Tab) 20 mg PO DAILY KVNG Stop: 11/18/21 08:59 Last Admin: 10/19/21 07:57 Dose: Not Given Documented by: Metoprolol Tartrate (Metoprolol Tartrate 25 Mg Tab) 25 mg PO BID [facility] Stop: 11/14/21 00:44 Last Admin: 10/23/21 07:44 Dose: 25 mg Documented by: Miscellaneous (Carbohydrates For Hypoglycemia ) 15 - 30 gm PO UD PRN PRN Reason: Hypoglycemia Protocol Stop: 11/14/21 00:13 Miscellaneous (*Cream*Order Awaiting Action) 1 ea N/A QS [facility] Stop: 11/16/21 17:59 Last Admin: 10/23/21 09:09 Dose: Not Given Documented by: Miscellaneous (*Lotion*Order Awaiting Action) 1 ea N/A QS [facility] Stop: 11/16/21 17:59 Last Admin: 10/23/21 08:53 Dose: Not Given Documented by: Miscellaneous Information (Pharmacy Glycemic Mgmt Consult) 1 ea N/A UD PRN PRN Reason: Consult Stop: 11/14/21 17:40 Oxycodone HCl (Oxycodone Hcl Ir 5 Mg Tab (Immediate Release)) 5 - 10 mg PO QID PRN PRN Reason: Pain Stop: 10/29/21 00:13 Last Admin: 10/23/21 06:35 Dose: 10 mg Documented by: Polyethylene Glycol (Polyethylene (Miralax) 17 Gm Pack) 17 gm PO DAILY PRN PRN Reason: Constipation Stop: 11/20/21 13:35 Last Admin: 10/21/21 21:32 Dose: 17 gm Documented by: Rifampin (Rifampin 300 Mg Capsule) 300 mg PO Q8 [facility] Stop: 12/01/21 21:59 Last Admin: 10/23/21 05:09 Dose: 300 mg Documented by: (1) Cellulitis of leg Laterality: left Qualified Code(s): L03.116 - Cellulitis of left lower limb
--- NOTE | 2021-10-23 11:11 | Communication Note ---
Date of Service: October 23, 2021 Pt gearing up for d/c; I'm asked to review nephro d/c recs; labs, recent VS, OP meds [employer] reviewed. -lasix 80 mg bid17 -no hctz -resume regular OP spironolactone dose -hold lisinopril -f/u in [place] any nephro provider in 2-4 wks with bmp weekly until then to be ordered by that provider's nurse
[2021-10-23] MEDS ORDERED: hydroCHLOROthiazide 25 MG TAB PO SCH (11:15)
[2021-10-23 12:11] VITALS: PULSE 67; TEMP 97.9; O2SAT 97
[2021-10-23] MEDS ORDERED: SPIRONOLACTONE 12.5 MG TAB PO SCH (12:15)
--- NOTE | 2021-10-23 14:02 | Discharge Summary ---
Date of Service October 23, 2021 Admission HPI Per Admitting Provider History obtained from patient and records. 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 Last confinement April 2017 for ARF. Patient has a prolonged history of chronic LE swelling/wounds/recurrent infections. Outpatient biopsy done by dermatology showed pyoderma gangrenosum in 2017. Leg wounds healed slowly over time. Currently on monthly IVIG. Last week, patient noted increased swelling on left ankle later on involving left leg. Scant drainage from chronic LE wound. Fever chills at home. Patient denies chest pain, S OB. Denies unusual fluid retention. At the ER, patient given vancomycin and ceftriaxone for sepsis. Medical History as above Surgical History : Bioprosthetic AVR, CABG, laser trabeculoplasty, vein harvesting Family History : Alcoholism, DM, heart disease, stroke, Victoria's disease Personal/Social history : Non-smoker, no EtOH intake, [employer] employee Admission Exam Per Admitting Provider GENERAL: Slightly uncomfortable, morbidly obese, no respiratory distress SKIN: Normal color, warm HEENT: [place] palpebral conjunctivae, no ptosis, dry buccal mucosa NECK : Supple, short neck, no tenderness CHEST : CTA, no tenderness HEART : Tachycardic, no obvious murmurs ABDOMEN: Some distention, nontender EXTREMITIES : Dressing over LLE, minimal LE tenderness, no other conspicuous deformities noted NEUROLOGIC : Coherent, no facial asymmetry, no other gross focality Principal Diagnosis Sepsis Bacteremia Endocarditis Hx of bioprosthetic valve LLE cellulitis and abscess s/p I&D Discharge Exam GENERAL: Morbidly obese F in NAD. HEENT: NC/AT. EOMI, PERRL. NECK: No JVD, no neck masses. HEART: S1 and S2 heard. Regular rate and rhythm. No murmur, no gallop. RESPIRATORY: Normal AP diameter. No accessory muscle use. No wheezing, no crackles. ABDOMEN: Soft, bowel sounds present, nontender, no distention.+ obese NEURO: Alert and oriented and answering questions appropriately. No facial droop. Speech is clear. Moves extremities. EXTREMITIES: RLE had scar tissue from prior wound and chronic skin changes. BLE1+ pedal edema, post-surg.dressings applied Discharge Data Allergies Allergy/AdvReac Type Severity Reaction Status Date / Time No Known Allergies Allergy Verified 10/14/21 17:31 Consultations 10/14/21 22:05 ED Decision to Admit Stat 10/15/21 17:21 Consult Infectious Diseases Routine 10/15/21 17:30 Consult Nephrology Routine 10/16/21 19:04 Consult Orthopedic Surgery Routine 10/16/21 19:13 Consult Cardiology Routine Procedures Performed Operation Date: 10/18/21 09:00 Actual Procedures p Incision and Drainage Left Lower Leg Abscess, excisional debridement Peroneus Longus and peroneus brevis tendons Tenosynovectomy peroneus longus and peroneus brevis tendons, debridement lateral leg ulceration with sinus tract 1 cm x 1 cm x 0.5 cm(Left) - Noah Sue DO Operation Date: 10/19/21 10:00 Actual Procedures p Transesophageal Echo - Narinder Lugo DO s Echo Color Flow - Narinder Lugo DO Ordered Studies 10/14/21 17:02 CT leg [CT tib/fib LT w con] Stat IMPRESSION: Findings compatible with cellulitis without evidence of underlying abscess or osteomyelitis. 10/14/21 23:42 US venous doppler LE LT Urgent IMPRESSION: No DVT within the left lower extremity. 10/15/21 17:35 US renal/blad retro comp Routine IMPRESSION: 1. The kidneys demonstrate cortical atrophy and are without hydronephrosis. 2. The bladder was decompressed and not well evaluated. 3. Hepatic steatosis 10/16/21 05:59 MR lower leg LT wo/w con Routine IMPRESSION: Extensive cellulitis. Intramuscular abscess along the peroneus tendon. No evide nce of osteomyelitis. 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 She is being managed for the following: Sepsis LLE cellulitis/Myonecrosis, peroneals/Septic tenosynovitis of the peroneus longus and peroneus brevis tendons Bacteremia - Patient has aortic bioprosthetic valve Endocarditis Patient has a prolonged history of chronic LE swelling/wounds/recurrent infections secondary to vasculitis/pyoderma gangrenosum on monthly IVIG outpatient Outpatient biopsy done by dermatology showed pyoderma gangrenosum in 2017. Leg wounds healed slowly over time. Currently on monthly IVIG. 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 Scant drainage from chronic LE wound. Fever & chills at home. At presentation patient met SIRS criteria. Admitting lower extremity CT: Compatible with cellulitis without evidence of underlying abscess or osteomyelitis Admitting LLE Doppler: Negative for DVT. 10/16 MRI lower leg: Extensive cellulitis. Intramuscular abscess along the peroneus tendon. No evidence of osteomyelitis. Patient started on cefepime 10/15 and vancomycin 10/14---> 10/14 blood culture positive for gram-positive cocci -->10/14 nafcillin ---> WBC went up though minimally from prior day; and final C/S out hence 10/15 Ancef. 10/14 Wound culture positive for MSSA and group B beta strep. 10/14 Blood cultx positive for MSSA Repeat 10/16 Blood culture: Negative Repeat 10/16 Wound cultx:MSSA 10/17 echo: Normal LV systolic function with EF of 65 to 70%, grade 1 diastolic dysfunction, poor visualization of bioprosthetic valve and other valvular structure. 10/18 KIT: IE of aortic prosthetic valve Cardiology consulted Discussed with cardiology. Discussed with infectious disease. For LLE abscess and myonecrosis, orthopedic consulted, 10/18 s/p left lateral lower leg incision and drainage of abscess and debridement of myonecrosis with tenosynovectomy, debridement of left lateral leg ulceration with sinus tract. Recommending daily dressing changes. Recommend elevation when at rest. Infectious disease recommending evaluation for bioprosthetic valve removal. Updated cardiology. Cardiology okay with discharging her on prolonged antibiotic therapy. Patient updated on discussions with both infectious disease and cardiology, patient denied the possibility of transfer to [place] for evaluation for bioprosthetic valve removal. Patient agreed to follow-up with cardiology as an outpatient very closely for necessity of surgical evaluation of her bioprosthetic valve endocarditis. ID recommended adding rifampin to her Ancef. Continue with Ancef and rifampin. Per ID patient will need 6 weeks of therapy after removal of bioprosthetic valve. Patient will need to establish with infectious disease and cardiology as an outpatient for further management and plan since she declines transfer to [place] at this moment. TERESA over CKD Last confinement April 2017 for ARF. September 2021 outpatient lab: Creatinine 1.04 Creatinine again up trending Nephrology consulted: lasix prn; hold lisinopril; Hold home dose spironolactone and HCTZ. Renal ultrasound negative for acute changes Continue to monitor BMP daily, c/w IVF per nephro Cr 1 (10/22) - resume lasix 10/23 - discussed with nephrology, will discharge on Lasix 80 mg p.o. twice daily and home spironolactone. Stop HCTZ. Hold lisinopril for now. f/u in [place] any nephrology provider in 2-4 wks with bmp weekly until then to be ordered by that provider's nurse Likely UTI Patient reports not having any pain or burning while passing urine prior and after arrival to the hospital. Admitting UA suggestive of UTI, culture positive for Trudy glabrata complex, no treatment necessary Continue to monitor. Rhabdomyolysis Secondary to illness Continue to monitor daily CK. Creatinine kinase trending down We will not need further monitoring. Chronic diastolic heart failure Other cardiac history: Bicuspid ASD status post surgery, A flutter s/p cardioversion 2019 TTE: Ejection fraction 60 to 64% Admitting CXR: Cardiomegaly with pulmonary vascular congestion. Patient NSR, continue home meds as appropriate, we will continue to monitor. DM type II insulin requiring A1c September 2020 on outpatient lab: A1c 8.0% Poorly controlled diabetes, diabetic control is important for wound healing Glycemic pharmacy for inpatient management and discharge recommendation Patient needs close follow-up with [facility] clinic after discharge Disposition: MA home w/ HH today Home Health Attestation I certify that this patient is under my care and that I, or a physicians administrative services assistant working with me, had a face to-face encounter that meets the home health [id number] encounter requirements with this patient. The encounter with the patient was in whole, or in part, for the following medical condition, which is the primary reason for home health care (list medical condition): I certify that, based on my findings, the following services are medically necessary home health services: My clinical findings support the need for the above services because: OT Assess ADL Status and Restore Function w ADLs PT Eval for Safety, Gait Training, Assistive Devices Skilled Nsg Assessment Skilled Nsg Assessment Surgical Incision / Wound Further, I certify that my clinical findings support that this patient is homebound (i.e. absences from home require considerable and taxing effort and are for medical reasons or [facility] services or infrequently or of short duration when for other reasons) because: Supportive Aid - Walker Transportation Assistance/Unable to Leave Home Unassisted Certification for Home Health Services: Based on the above findings, I certify that this patient is confined to the home and needs intermittent long term care, physical therapy and/or speech therapy or continues to need occupational therapy. The patient is under my care, and I have initiated the establishment of the plan of care. This patient will be followed by a physician who will periodically review the plan of care. Total Time Total Time Spent Total Time Spent (In Minutes): 60 Discharge Plan Discharge Items Patient Disposition: Home - Home Health Services Reason For Visit: SEPSIS Discharge Diagnosis: Sepsis Bacteremia Endocarditis Hx of bioprosthetic valve LLE cellulitis and abscess s/p I&D Condition on Discharge: Fair Activity: Per Instructions section Weightbearing: Left non-weightbearing Non-emergency contact: Primary Care Provider, Surgeon, Specialist and Children'S Service Worker Call non-emergency contact if: you have any medication questions and your symptoms worsen Follow-up/Referrals: Noah Sue DO [Surgeon] - (Follow up next week with Dr. Sue. Please call for an appointment. [phone]) Malia Capps DO [Primary Care Provider] - (Date & Time 10/27/2021 11:00 AM Provider Malia Capps DO Department [facility] ) Diet: Carb Consistent or DM2, Heart Healthy and Low Potassium (2gm) Addtl Attending Provider Instructions: Follow up with your primary care doctor, the appointment was scheduled for you for October 27. You will also need to follow up with research affiliate and infectious disease doctor. You will need to be on an antibiotic (cefazolin and rifampin) for a prolonged time (at least 6 weeks). It is recommended by an infectious disease specialist that your bioprosthetic valve is to be removed. For your left lower extremity wound, you will need to follow-up with surgery and wound care. Recommend to take probiotics while you are on antibiotic, which can help to prevent any stomach upset. For your blood pressure, take Lasix/furosemide 80 mg p.o. twice daily. Continue taking spironolactone as before. Do not take HCTZ. For now, do not take lisinopril either. You will need blood work, BMP, weekly. You will also need to follow-up with nephrology/kidney doctor in 2 to 4 weeks. It is also important to follow-up closely with [facility] clinic, as your diabetes needs to be well controlled for your wounds to heal properly. Addtl Multimedia Services Coordinator Provider Instructions: Recommendations by orthopedic surgery : Daily dressing changes to the left leg. Call Dr. Sue's office if you have increased drainage that you haven't had before, increased temp 101.5 or greater, increased redness of the leg/wound, increased pain/swelling. [phone] Non weightbearing on the left foot for longer distances. To Bathroom etc, partial weight if needed. Call the office for an appointment to see Dr. Sue next week. [phone] Pending Studies at Discharge: No Stand-Alone Forms: My [facility] [employer], Smoking Cessation Medications and DC Order Prescriptions: New rifampin 300 mg Capsule 300 mg PO Q8 35 Days Qty: 105 RF: 0 spironolactone 25 mg Tablet 12.5 mg PO DAILY Qty: 30 RF: 0 oxycodone 5 mg Tablet 10 mg PO TID PRN (Reason: pain) Qty: 20 RF: 0 Advanced Probiotic 625 mg (10 billion cell) Capsule 2 cap PO DAILY Qty: 60 RF: 1 furosemide 80 mg Tablet 80 mg PO BID Qty: 60 RF: 0 Continued gabapentin 800 mg Tablet 800 mg PO BID Qty: 0 RF: 0 hydroxyzine HCl 25 mg Tablet 50 mg PO HS 30 Days Qty: 120 RF: 1 clobetasol 0.05 % Cream 1 applic TOPICAL DAILY PRN (Reason: PSORIASIS FLARE UPS) 7 Days Qty: 15 RF: 0 Tresiba FlexTouch U-200 200 unit/mL (3 mL) Insulin Pen 80 unit SUBCUT BID RF: 0 metoprolol tartrate 25 mg Tablet 25 mg PO BID RF: 0 spironolactone 25 mg Tablet 12.5 mg PO DAILY RF: 0 atorvastatin 20 mg Tablet 20 mg PO DAILY RF: 0 Jardiance 25 mg Tablet 25 mg PO DAILY RF: 0 folic acid 1 mg Tablet 1 mg PO DAILY RF: 0 Humira Pen 40 mg/0.8 mL Pen Injector Kit 40 mg SUBCUT WK RF: 0 amoxicillin 500 mg Capsule 2,000 mg PO DIRECTED PRN (Reason: 1 HR PRIOR TO DENTAL PROCEDURES) RF: 0 methotrexate sodium 25 mg/mL solution 25 mg subcut WK RF: 0 fluocinolone 0.01 % Oil 1 applic TOPICAL DIRECTED PRN (Reason: PSORIASIS FLARE UPS) RF: 0 betamethasone dipropionate [Diprosone] 0.05 % Cream 1 applic TOPICAL BID PRN (Reason: PSORIASIS FLARE UPS) RF: 0 aspirin 81 mg Tablet,Chewable 81 mg PO DAILY RF: 0 betamethasone dipropionate [Diprosone] 0.05 % Lotion 1 applic TOPICAL DAILY PRN (Reason: APPLY TO SCALP NEEDED) RF: 0 Humulin R U-500 (Conc) Kwikpen 500 unit/mL (3 mL) insulin pen 0 unit SUBCUT TIDM RF: 0 Trulicity 3 mg/0.5 mL pen injector 3 mg SUBCUT WK RF: 0 Changed furosemide 80 mg Tablet 80 mg PO BID Qty: 0 RF: 0 Discontinued lisinopril 20 mg tablet 20 mg PO DAILY RF: 0 hydrochlorothiazide 25 mg tablet 25 mg PO DAILY RF: 0 Discharge Orders: Discharge Order (Routine); Ordered 10/23/21 Ordered By: Roberto Zazueta/Other Patient Handouts: A1C, Managing Type 2 Diabetes Admission Data Admit Date/Time: 10/14/21 23:48 Attending Provider: Roberto Tran Admit Provider: Francis Calderon Primary Care Provider: Malia Capps Other Providers: Francis Calderon ; Deric Sears ; Blayne Sotelo ; Jesse Whitfield I. ; Jagdish Noel II ; Tracy Lozano ; Sachin Liu ; Elio Bueno ; Bhavin Justice ; Lalo Parra ; Noah Sue ; Wiliam Yusuf ; Cee Garcia ; Frankie Shipman ; Ita Eason ; Jaciel Ennis ; Dany Devine ; Sachin Brewer ; Rashid Metcalf. ; Dany Rosa ; [place] ; Kirill Snowden ; James Burdick ; Celestino Webber ; Ita Bates ; Raji Anglin ; Chidi Murrell ; Janine Tran ; Errol Kohler ; Neela Leigh ; Wei Daily ; Satya Costa ; [facility] ; Mia Ferrell
[2021-10-23 15:02] VITALS: BP 167/76
--- NOTE | 2021-10-23 15:18 | Orthopedic Progress Note ---
Date of Service October 23, 2021 Assessment & Plan (1) Open wound of lower extremity: Plan: Postop day 5 status post I&D of left lower extremity wounds. Antibiotics as per medicine service. Continue daily dressing changes. Continue elevation when at rest. Discussed with Dr. Sue. Okay for discharge to home today per orthopedics. Patient planning for discharge to home with IV antibiotics. Continue daily dressing changes at home. Watch for increased drainage or change in type of drainage. Follow-up with Dr. Sue next week. Patient understands that she will need to call the office on Tuesday secondary to office closures today, to get an appointment to see Dr. Sue next week. Admission and Anticipated Discharge Date Admission Date: October 14, 2021 Subjective Patient sitting up in bed awake and alert. Chart well IV services is present to start her antibiotics for home and she is planning on being discharged today. No complaints from the patient. Discussed discharge plans with daily dressing changes with follow-up with Dr. Sue next week. Physical Exam Physical Exam: Her wound appears to be a little bit better. Less drainage from the proximal portion of the incision but continues with some serous drainage down near the ankle. She does have some yellow slough along the edges of the anterior portion of the wound and slightly on the posterior portion of wound. Major portion of the wound bed does have some pink base to it with some of the yellow slough in the middle aspect of it. No overt purulence. No foul odor. Results & Data ([facility]) Vital Signs (Past 12 Hours) Vital Signs Temp Pulse Resp BP BP Pulse Ox 10/23/21 15:10 36.6 C 67 18 167/76 H 117/65 97 10/23/21 15:02 167/76 H 10/23/21 12:00 36.6 C 67 18 179/64 H 97 10/23/21 06:52 36.4 C L 65 20 117/69 96 (1) Open wound of lower extremity Encounter type: initial encounter Laterality: left Qualified Code(s): S81.802A - Unspecified open wound, left lower leg, initial encounter
== END 2021-10-23 16:07 | disposition home health service (06) | DRG 853 ==
LOC: ED 14:22 → SUATTDRO 23:48 → EDINP 23:48 → 2N 10-15 00:19
PROC: CLS.TEE (2021-10-19 10:00)
DX: I25.10 Atherosclerotic heart disease of native coronary artery without angina pectoris; B37.49 Other urogenital candidiasis; M62.82 Rhabdomyolysis; I33.0 Acute and subacute infective endocarditis; E78.5 Hyperlipidemia, unspecified; L97.328 Non-pressure chronic ulcer of left ankle with other specified severity; Z68.42 Body mass index [BMI] 45.0-49.9, adult; I48.92 Unspecified atrial flutter; Z83.3 Family history of diabetes mellitus; I13.0 Hypertensive heart and chronic kidney disease with heart failure and stage 1 through stage 4 chronic kidney disease, or unspecified chronic kidney disease; Q21.1 Atrial septal defect; I50.32 Chronic diastolic (congestive) heart failure; Z79.82 Long term (current) use of aspirin; E66.01 Morbid (severe) obesity due to excess calories; Z79.4 Long term (current) use of insulin; Z95.1 Presence of aortocoronary bypass graft; N18.9 Chronic kidney disease, unspecified; A41.9 Sepsis, unspecified organism; L88 Pyoderma gangrenosum; L03.116 Cellulitis of left lower limb; E11.22 Type 2 diabetes mellitus with diabetic chronic kidney disease; N17.9 Acute kidney failure, unspecified; M65.162 Other infective (teno)synovitis, left knee